=== PATIENT | male | born 1955 | race Caucasian/White ===

== ENCOUNTER 2021-09-01 11:39 | Emergency (ER) | payer OTHER, SELFPAY ==
--- NOTE | ~2021-09-01 | XR_ITS ---
XR shoulder RT min 2V DATE: 09/01/2021 12:17 INDICATION: Fall off of ladder. Limited range of motion of right shoulder TECHNIQUE: 4 views COMPARISON: None FINDINGS: Diffuse osteopenia. There is mild degenerative change at the right acromioclavicular joint. There is rotator cuff atrophy. There is mild osteoarthritis at the right glenohumeral joint. No fracture, dislocation, periosteal reaction or bone destruction. Old healed right ninth and 10th rib fractures. IMPRESSION: Degenerative change at right, clavicular joint Mild glenohumeral osteophytosis Right rotator cuff atrophy Osteopenia Old right rib fractures Reviewed, dictated and finalized at location B.
--- NOTE | 2021-09-01 11:41 | ED.UPPEXIN ---
HPI - Extremity Injury (Upper) General Chief Complaint: Extremity Injury, Upper Stated Complaint: Right shoulder pain Time Seen by Provider: 09/01/21 11:41 Source: patient and RN notes reviewed History of Present Illness HPI narrative: Patient is a 65-year-old male who presents the urgent care with complaints of right shoulder pain after falling off a ladder. Patient states that he was coming down off the ladder after cleaning his RV and was approximately 8 to 10 feet high in the air. Patient states he missed a rung and fell onto the gravel onto his right shoulder. Patient states the incident occurred on Wednesday. Denies of any confusion, nausea or vomiting since the incident. Patient states that he did not hit his head or lose consciousness. Patient has not been taking anything [id number] for his symptoms. No other complaints. No acute distress noted. Patient aware of the plan of care. Some parts of this dictation were generated by voice recognition software and may contain typographical and/or grammatical inaccuracies. Related Data Allergies Allergy/AdvReac Type Severity Reaction Status Date / Time No Known Allergies Allergy Unverified 12/24/14 14:28 Review of Systems Review of Systems: CONSTITUTIONAL: Denies fever, chills, or sweats. EYES: Denies visual changes, redness, or discharge. ENT: Denies rhinorrhea, congestion, sore throat, or otalgia. CARDIOVASCULAR: Denies chest pain, palpitations, or edema. RESPIRATORY: Denies cough or dyspnea. GASTROINTESTINAL: Denies abdominal pain, nausea, vomiting, or diarrhea. GENITOURINARY: Denies dysuria or hematuria. SKIN: Denies rash or itching. MUSCULOSKELETAL: Reports of right shoulder pain NEUROLOGIC: Denies headache, numbness, or weakness. All other systems reviewed are negative, except as documented in HPI. PMFSH Comments At the time of my signature, I reviewed and agree with the nursing past medical, surgical, social, and family history. There is no relevant family history pertinent to the patient complaint. Exam Narrative: GENERAL: This is a well-nourished, well-developed patient, in no apparent distress. HEAD: normocephalic, atraumatic. EYES: PERRL. Sclera clear/white. Vision is grossly intact. EARS: External ears normal NOSE: External nose normal with no obvious nasal discharge, nares without redness, no rhinorrhea. THROAT: Mucous membranes moist NECK: Neck supple SKIN: warm, intact with no suspicious lesions or rash, good texture and turgor. NEURO: awake, alert, and oriented to person, place and time. There were no obvious focal neurologic abnormalities. EXTREMITIES: Range of motion to right upper extremity limited due to pain. Unable to lift, without assistance, above 30 degrees. Exacerbated pain upon reach. No obvious dislocation to right upper extremity/shoulder. Positive strong right radial pulse with capillary refill less than 2 seconds. Course Course Level of Care: Express Care Visit Vital Signs Vital signs: Vital Signs Temperature 99.2 F 09/01/21 11:48 Pulse Rate 91 09/01/21 11:48 Respiratory Rate 16 09/01/21 11:48 Blood Pressure 177/105 H 09/01/21 11:48 Pulse Oximetry 99 09/01/21 11:48 Temperature 99.2 F 09/01/21 11:48 Pulse Rate 91 09/01/21 11:48 Respiratory Rate 16 09/01/21 11:48 Blood Pressure 177/105 H 09/01/21 11:48 Pulse Oximetry 99 09/01/21 11:48 Reviewed-patient is informed that they may have pre-hypertension or hypertension based on a blood pressure reading in the department. I recommend the patient call the primary care provider listed on their discharge instructions or a physician of their choice this week to arrange follow-up for further evaluation of possible pre-hypertension or hypertension. MDM - Extremity Injury (Upper) MDM Narrative Medical decision making narrative: Reviewed x-ray results with the patient. Extensively went over the impression of the x-ray. Patient is aware that the radiologist
[2021-09-01 11:48] VITALS: BP 177/105; PULSE 91; RESP 16; TEMP 37.3; O2SAT 99
== END 2021-09-01 12:49 | disposition home or self-care (01) ==
PROVIDERS: Emergency Provider Nurse Practitioner Family; PCP Family Medicine
DX: M25.511 Pain in right shoulder (principal); W11.XXXA Fall on and from ladder, initial encounter
CPT/HCPCS: 73030; 99203; G0463

== ENCOUNTER 2021-09-04 08:54 | Outpatient (CLI) | payer OTHER, SELFPAY ==
[2021-09-04 19:08] LABS: Hematocrit 48.5 % (42.0-52.0); Hemoglobin 15.5 g/dL (14.0-18.0); Mean Corpuscular Hemoglobin 30.9 pg (26-34); Mean Corpuscular Volume 96.6 fl (80-100); Mean Platelet Volume 9.6 fl (7.4-10.4); Platelet Count Result 257 k/mm3 (150-375); Red Blood Count 5.02 M/mm3 (4.6-6.20); Red Cell Distribution Width 13.2 % (11.5-14.5); White Blood Count 11.2 K/mm3 (4.5-10.0)
[2021-09-04 20:44] LABS: Alanine Aminotransferase 28 U/L (6-50); Albumin Level 5.3 g/dL (3.5-5.1); Alkaline Phosphatase 84 U/L (38-126); Anion Gap 11 mmol/L (8-16); Aspartate Amino Transferase 28 U/L (17-59); Bilirubin,Total 0.4 mg/dL (0.2-1.3); Blood Urea Nitrogen 18 mg/dL (9-20); Calcium 10.2 mg/dL (8.4-10.2); Carbon Dioxide 23 mmol/L (22-30); Chloride 104 mmol/L (98-107); Cholesterol 237 mg/dL (0-200); Estimated Glomerular Filt Rate > 60; Glucose 123 mg/dL (65-110); HDL Direct 96 mg/dL; Potassium 4.4 mmol/L (3.4-5.0); Sodium 138 mmol/L (137-145); Triglycerides 97 mg/dL (<150)
[2021-09-04 20:56] LABS: LDL Cholesterol Direct 108 mg/dL
[2021-09-04 21:17] LABS: Prostate Specific Antigen 0.9 ng/mL (< OR = 4.0)
== END 2021-09-04 08:55 | disposition home or self-care (01) ==
PROVIDERS: PCP Family Medicine; Visit Provider Family Medicine
DX: Z00.00 Encounter for general adult medical examination without abnormal findings (principal); I10 Essential (primary) hypertension; Z12.5 Encounter for screening for malignant neoplasm of prostate
CPT/HCPCS: 36415; 80053; 80061; 84153; 85027; G0103

== ENCOUNTER 2021-09-11 10:19 | Outpatient (CLI) | payer OTHER, SELFPAY ==
[2021-09-11 20:02] LABS: Hemoglobin A1C 5.1 % (<5.7)
== END 2021-09-11 10:20 | disposition home or self-care (01) ==
PROVIDERS: PCP Family Medicine; Visit Provider Family Medicine
DX: R73.09 Other abnormal glucose (principal)
CPT/HCPCS: 36415; 83036

== ENCOUNTER 2021-10-01 07:48 | Outpatient (CLI) | payer OTHER, SELFPAY ==
--- NOTE | ~2021-10-01 | US_ITS ---
EXAMINATION: US aorta DATE: 10/01/2021 11:07 CDT INDICATION: Nicotine dependence TECHNIQUE: Grayscale, color Doppler, and pulsed Doppler images of the aorta and common iliac arteries were obtained. COMPARISON: None. FINDINGS: The proximal aorta measures 2.9 cm greatest sagittal dimension. The mid aorta measures 1.7 cm greates t sagittal dimension. The distal aorta measures 3.1 cm greatest sagittal dimension. The right common internal iliac artery measures 9 mm. The left common iliac artery measures 11 mm. IMPRESSION: 1. Infrarenal abdominal aortic aneurysm measuring 3.1 cm. Reviewed, dictated and finalized at location B.
--- NOTE | ~2021-10-01 | CT_ITS ---
EXAMINATION: CT lung screening DATE: 10/01/2021 08:29 INDICATION: Currently smoking. One pack a day. Personal history of tobacco dependence. TECHNIQUE: Computed tomography (CT) of the chest was performed without intravenous contrast. The dose -length product was 95.27 mGy-cm. Automated exposure control and iterative reconstruction technique w ere employed. COMPARISON: No prior studies for comparison. FINDINGS: Heart size normal. Right paratracheal lymphadenopathy measuring 1 cm short axis. There are calcified mediastinal lymph nodes, consistent with chronic granulomatous disease. No significant pleu ral or pericardial effusion. There are cholecystectomy clips in the upper abdomen. There is atheroscl erosis of the aorta and coronary arteries. There is a subsolid groundglass nodule in the right upper lobe measuring 2.2 cm. No endobronchial lesions. There is right middle and upper lobe groundglass opa [place] with right middle lobe atelectasis/scarring. There are subtle groundglass opacities in the salazar gula as well. No pneumothorax. Mild emphysema. No acute osseous abnormality. There is a focal ostial lysis in the body of L1 posteriorly to the left which may represent regional osteopenia. No other foc al lytic lesions are seen. IMPRESSION: 1. . Lung-RADS category 2: Benign appearance or behavior. Continue annual screening with noncontrast low-dose chest CT in 12 months. Reviewed, dictated and finalized at location B. IMPRESSION: 1. . Lung-RADS category 2: Benign appearance or behavior. Continue annual scree [place] with noncontrast low-dose chest CT in 12 months.
== END 2021-10-01 07:49 | disposition home or self-care (01) ==
PROVIDERS: PCP Family Medicine; Visit Provider Family Medicine
DX: Z87.891 Personal history of nicotine dependence (principal); I71.4 Abdominal aortic aneurysm, without rupture
CPT/HCPCS: 71271; 76775

== ENCOUNTER 2022-10-30 07:08 | Outpatient (CLI) | payer OTHER, SELFPAY ==
--- NOTE | ~2022-10-30 | US_ITS ---
EXAMINATION: US aorta DATE: 10/30/2022 08:30 INDICATION: Abdominal aortic aneurysm screening with risk factors of hypertension and personal histor y of nicotine dependence TECHNIQUE: Grayscale, color Doppler, and pulsed Doppler images of the aorta and common iliac arteries were obtained. COMPARISON: 10/01/2021 FINDINGS: The proximal aorta is suboptimally visualized measuring approximately 2.4 cm. The mid aorta measures 2.1 cm. Fusiform aneurysm of the infrarenal aorta which measures up to 3.5 cm in maximal diameter. Re view of prior ultrasound images demonstrate identical corresponding measurement. The right common katelynn ac artery measures 1.4 cm. The left common iliac artery measures 1.7 cm. The visualized proximal infe rior vena cava is normal. IMPRESSION: 1. Unchanged 3.5 cm fusiform infrarenal abdominal aortic aneurysm. Reviewed, dictated and finalized at location B.
--- NOTE | ~2022-10-30 | CT_ITS ---
CT Scan of the Chest without Contrast: Clinical Indication: Lung cancer screening, personal history of nicotine dependence Technique: Contiguous sections were acquired throughout the chest without intravenous contrast. Dose reduction technique was used on this scan by utilizing automated exposure control and iterative recon struction technique. The dose-length product (DLP) was 102.42 mGy-cm. COMPARISON: 10/01/2021 Findings: There is no evidence of any significant mediastinal, hilar or axillary lymphadenopathy. Calcified sub carinal lymph node present. Atherosclerotic calcifications of the aorta and coronary arteries are pre sent. There is no evidence of pleural or pericardial effusion. Bubbly, semisolid lesion in the right upper lobe is again present, mildly increased in size, with mil d interval increase in the solid and groundglass components as compared to prior exam. Images through the upper abdomen reveal no abnormalities. Impression: Lung RADS 4A: Suspicious. Bubbly, semisolid lesion in the right upper lobe is mildly increased in siz e, mild interval increase in the solid/groundglass components. Bronchovascular cell carcinoma is a co nsideration. 3 month follow-up CT recommended. Tissue sampling should also be considered at this time given interval growth. Reviewed, dictated and finalized at location M. Impression: Lung RADS 4A: Suspicious. Bubbly, semisolid lesion in the right upper lobe is m ildly increased in size, mild interval increase in the solid/groundglass compon ents. Bronchovascular cell carcinoma is a consideration. 3 month follow-up CT r ecommended. Tissue sampling should also be considered at this time given interv al growth.
== END 2022-10-30 07:09 | disposition home or self-care (01) ==
PROVIDERS: PCP Family Medicine; Visit Provider Family Medicine
DX: Z12.2 Encounter for screening for malignant neoplasm of respiratory organs (principal); Z87.891 Personal history of nicotine dependence; I71.40 Abdominal aortic aneurysm, without rupture, unspecified
CPT/HCPCS: 71271; 76775

== ENCOUNTER 2022-12-21 08:50 | Outpatient (CLI) | payer OTHER, SELFPAY ==
--- NOTE | 2022-12-17 08:42 | PC.NURSE ---
Pre Radiology instructions Report to the outpatient shaggy marie on date __12/21/22___ at time ___0900____ for procedure Time: __1100__ YOU MAY BE MONITORED AT HOSPITAL FOR UP TO 4 HOURS AFTER YOUR PROCEDURE. A visitor will be allowed to accompany the patient into the hospital. You and your visitor will be asked to self-screen and do not enter if you have any COVID symptoms. A mask is OPTIONAL within the hospital. Patients are to have no food or drink 8 hours prior to procedure time (0300 AM) Driving will be restricted after the procedure, you must have a person to drive you home. Labs will be drawn in preop area and once reviewed, you will be taken to radiology area for procedure. When the procedure is completed, you will be taken to outpatient where you will be monitored for several hours. You may have one visitor in this area. Other than holding anti-coagulants, patient may take other medication(s) as scheduled. Prior to your appointment date patients are instructed to hold anti-coagulants after discussing with ordering provider to stop. If unable to discontinue anti-coagulants please notify radiologist. ? No aspirin or warfarin (Coumadin) for 7 days prior to the procedure. ? No clopidogrel (Plavix), ticagrelor (Brilinta), prasugrel (Effient) or dabigatran (Pradaxa) for 5 days prior to the procedure. ? No rivaroxaban (Xarelto), apixaban (Eliquis), dipyridamole (Aggrenox or Persantine) or cilostazol (Pletal) for 2 days prior to the procedure. Medications to discontinue per physician: __N/A Date to take last dose: Please leave all valuables, including medications, at home the day of procedure. The hospital will not accept responsibility for valuables. Wear comfortable, loose fitting clothing.? Follow any additional instructions given to you from ordering provider. Telephone instructions given to ____PT and asked if any additional questions and then verbalized understanding. Patient advised to call scheduling provider office or registration scheduling [phone] if any additional questions.
[2022-12-17 08:43] VITALS: BMI 23.8
[2022-12-21] VITALS (9 sets, daily range): BP systolic 102–133; BP diastolic 74–92; PULSE 60–88; RESP 18–20; TEMP 36.2; O2SAT 100
--- NOTE | ~2022-12-21 | CT_ITS ---
EXAMINATION: CT biopsy lung w/imaging DATE: 12/21/2022 11:46 INDICATION: Right upper lobe nodule TECHNIQUE: The procedure including the risks and benefits was discussed with the patient. Risks discu ssed included infection, approximately 1/20 risk of symptomatic hemorrhage beyond mild hemoptysis, ap proximately 1/3 risk of pneumothorax, and approximately 1/10 risk of pneumothorax severe enough to wa rrant chest tube placement. The patient understood the risks and agreed to proceed. The patient was p laced supine. The skin overlying the anterior mid right lung was prepped and draped in sterile fashi on. Anesthetic was administered with 1% lidocaine subcutaneously. A 19 gauge outer needle was advan claudia under CT guidance to the lesion of interest. A 20 gauge core biopsy needle was then used to obtai n 5 core biopsy specimens. The needle was removed and the entry site was cleaned and dressed. There were no immediate complications. The dose-length product was 113.40 mGy-cm. FINDINGS: CT images demonstrate the outer needle tip adjacent to a 2.7 cm subsolid right upper lobe n odule. IMPRESSION: 1. Successful CT-guided biopsy of a 2.7 cm solid right upper lobe nodule. Reviewed, dictated and finalized at location A.
--- NOTE | ~2022-12-21 | XR_ITS ---
EXAMINATION: XR chest 1V DATE: 12/21/2022 11:43 INDICATION: Status post left upper lobe percutaneous lung biopsy TECHNIQUE: frontal view of the chest was obtained. COMPARISON: Chest CT dated 10/30/2022 FINDINGS: 4 similar nodular opacity in the right midlung zone consistent with localized pulmonary hemorrhage at the site of the biopsied left upper lobe nodule. Mild linear discoid atelectasis/scarring at the rig ht lung base. No other airspace opacities, pulmonary edema, pleural effusion or pneumothorax. The car diomediastinal silhouette is normal. IMPRESSION: 1. Small region of pulmonary hemorrhage in the right midlung zone at the site of the previously biops ied right upper lobe nodule. No pneumothorax. Reviewed, dictated and finalized at location A. IMPRESSION: 1. Small region of pulmonary hemorrhage in the right midlung zone at the site o f the previously biopsied right upper lobe nodule. No pneumothorax.
--- NOTE | ~2022-12-21 | XR_ITS ---
EXAMINATION: XR chest 1V portable DATE: 12/21/2022 12:37 INDICATION: Status post percutaneous right lung biopsy TECHNIQUE: frontal view of the chest was obtained. COMPARISON: Chest radiograph dated 12/21/2022 FINDINGS: Unchanged nodular opacity in the right midlung zone corresponding to small amount of pulmonary hemorr meenakshi surrounding the biopsied right upper lobe nodule. No new airspace opacities, pulmonary edema, pl eural effusion or pneumothorax. The cardiomediastinal silhouette is normal. IMPRESSION: 1. Unchanged small region of pulmonary hemorrhage at the site of the biopsied right upper lobe nodule . No pneumothorax. Reviewed, dictated and finalized at location A. IMPRESSION: 1. Unchanged small region of pulmonary hemorrhage at the site of the biopsied r ight upper lobe nodule. No pneumothorax.
--- NOTE | ~2022-12-21 | XR_ITS ---
EXAMINATION: XR chest 1V portable DATE: 12/21/2022 14:28 INDICATION: Status post right lung biopsy TECHNIQUE: frontal view of the chest was obtained. COMPARISON: Chest radiograph dated 12/21/2022 at 12:36 PM and 11:40 AM FINDINGS: Decreasing density of the focal airspace opacity in the right midlung zone corresponding to likely de creasing post biopsy hemorrhage such with the biopsied right upper lobe nodule of concern. Mild linea r discoid atelectasis at the right lung base. No other airspace opacities, pulmonary edema, pleural e ffusion or pneumothorax. The cardiomediastinal silhouette is normal. IMPRESSION: 1. Decreasing pulmonary hemorrhage at the biopsied right upper lobe nodule which is concerning for pr imary bronchogenic carcinoma. No pneumothorax. Reviewed, dictated and finalized at location A. IMPRESSION: 1. Decreasing pulmonary hemorrhage at the biopsied right upper lobe nodule whic h is concerning for primary bronchogenic carcinoma. No pneumothorax.
[2022-12-21 09:39] LABS: Mean Platelet Volume 8.2 fl (7.4-10.4); Platelet Count Result 212 k/mm3 (150-375)
[2022-12-21 09:51] LABS: Prothrombin Time 13.9 Seconds (11.1-14.7)
== END 2022-12-21 15:23 | disposition home or self-care (01) ==
PROVIDERS: PCP Family Medicine; Visit Provider Radiology Diagnostic Radiology
PROC: BB24ZZZ Computerized Tomography (CT Scan) of Bilateral Lungs (ICD-10-PCS; CPT 32408; principal; 2022-12-21 11:00)
DX: Z01.818 Encounter for other preprocedural examination (principal)
CPT/HCPCS: 32408; 36415; 71045; 85049; 85610; 88305

== ENCOUNTER 2023-01-14 09:14 | Outpatient (CLI) | payer OTHER, SELFPAY ==
--- NOTE | ~2023-01-14 | PE_ITS ---
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 9.115 mCi of 18-fluorodeoxyglucose (18-FDG) was adminis tered i.v. Low dose computed tomography (CT) images were acquired from the base of the brain to the p roximal thighs for attenuation correction and anatomic localization. Positron emission tomography (PE T) images were acquired in the same distribution beginning 65 minutes after injection. The dose-lengt h product (DLP) was 607.51 mGy-cm. COMPARISON: 10/30/2022 FINDINGS: Head/neck: No abnormal FDG uptake is identified. FDG activity in the extraocular muscles and oral cav ity without suspicious CT correlate is likely physiologic. Chest: There is an approximately 3.3 x 2.7 cm part solid nodule of the right upper lobe which demonst rates low-level FDG uptake (SUV max 2.1), consistent with biopsy-proven adenocarcinoma in situ. No ad ditional abnormal FDG uptake is identified. There is a mildly enlarged right lower paratracheal lymph node without abnormal FDG uptake. Calcified subcarinal lymph nodes are consistent with old granuloma tous disease. There is calcified coronary artery atherosclerosis decreased FDG uptake in the interven tricular septum could reflect prior myocardial infarction. No pleural effusion or pneumothorax. There is minimal dependent atelectasis of the right lower lobe. Abdomen/pelvis/proximal thighs: Physiologic FDG activity is present in the bowel and urinary tract. N o abnormal FDG uptake is identified. Changes of cholecystectomy are noted. The liver, spleen, pancrea s, and adrenal glands are normal. There is a 1.5 cm cyst of the right kidney. The left kidney is unre markable. No pathologically enlarged abdominal or pelvic lymph nodes are identified. No free intraper itoneal gas or evidence of bowel obstruction. There is a 3.6 cm fusiform infrarenal abdominal aortic aneurysm. There is calcified atherosclerosis of the aorta and many of the other arteries. Musculoskeletal: No abnormal FDG uptake is identified. IMPRESSION: 1. 3.3 cm part solid nodule of the right upper lobe with low-level FDG uptake, consistent with biopsy -proven adenocarcinoma in situ. No evidence of metastatic disease. 2. 3.6 cm fusiform infrarenal abdominal aortic aneurysm. 3. Possible prior myocardial infarction involving the interventricular septum. Reviewed, dictated and finalized at location B. IMPRESSION: 1. 3.3 cm part solid nodule of the right upper lobe with low-level FDG uptake, consistent with biopsy-proven adenocarcinoma in situ. No evidence of metastatic disease. 2. 3.6 cm fusiform infrarenal abdominal aortic aneurysm. 3. Possible prior myocardial infarction involving the interventricular septum.
[2023-01-14 09:50] LABS: Glucose Point of Care 106 mg/dl (65-105)
== END 2023-01-14 09:15 | disposition home or self-care (01) ==
PROVIDERS: PCP Family Medicine; Visit Provider Family Medicine
DX: C34.11 Malignant neoplasm of upper lobe, right bronchus or lung (principal); R91.1 Solitary pulmonary nodule; I71.40 Abdominal aortic aneurysm, without rupture, unspecified
CPT/HCPCS: 78815; A9552

== ENCOUNTER 2023-01-20 08:36 | Outpatient (CLI) | payer OTHER, SELFPAY ==
--- NOTE | 2023-01-20 12:21 | WPDPFTINT ---
PFT Procedure Performed PFT Procedure Performed Plethysmography (Lung Vol) Diffusing Cap (DLCO) Flow Vol Loop Spirometry w/o Bronchodil PFT Interpretation This is a pulmonary function test with spirometry, plethysmography and diffusing capacity. The test was performed and results interpreted in accordance with the 2019 and 2005 ATS/ERS Task Force guidelines respectively using the Global Lung Function Initiative-2012 reference equations. Patient demonstrated good effort and cooperation. Reproducibility criteria were met. The quality of the spirometry maneuver was Grade A. Findings: Spirometry: The contour the inspiratory and expiratory flow tracing are normal. The FVC is 3.24 L, 70% predicted. The FEV1 is 2.00 L, 57% predicted. The FEV1: FVC ratio 62%. Plethysmography: The total lung capacity is 6.36 L, 86% predicted. The functional residual capacity is 3.74 L, 94% predicted. The residual volume is 3.12 L, 124% predicted. Diffusing capacity: The diffusing capacity unadjusted for hemoglobin and carboxyhemoglobin is 15.8, 58% predicted. The diffusing capacity adjusted for alveolar volume is 2.86, 74% predicted. Impression: There is a moderately severe obstructive abnormality. The lung volumes are normal. The diffusing capacity unadjusted for hemoglobin and carboxyhemoglobin is moderately decreased and normalizes when adjusted for alveolar volume. There are no prior studies for comparison
== END 2023-01-20 08:37 | disposition home or self-care (01) ==
LOC: ANHPFT 08:37
PROVIDERS: PCP Family Medicine; Visit Provider Internal Medicine Hematology & Oncology
DX: C34.91 Malignant neoplasm of unspecified part of right bronchus or lung (principal); R94.2 Abnormal results of pulmonary function studies
CPT/HCPCS: 94060; 94375; 94726; 94729

== ENCOUNTER 2023-03-08 15:39 | Outpatient (CLI) | payer OTHER, SELFPAY ==
--- NOTE | ~2023-03-08 | XR_ITS ---
EXAMINATION: XR chest 2V DATE: 03/08/2023 15:58 INDICATION: Right upper lobe mass TECHNIQUE: PA and lateral views of the chest were obtained. COMPARISON: Chest radiograph dated 12/21/2022 FINDINGS: Decrease in size of a previous a 4.8 cm, currently 2.2 cm nodular opacity at the lateral right midlun g zone corresponding to a biopsy-proven right upper lobe lung cancer. Dense opacity right lower lung zone consistent with an at least small right pleural effusion which also extends over the right apex. Streaky right basilar atelectasis. Left lung remains clear. No pulmonary edema, pneumothorax or left -sided pleural effusion. Heart size is normal. IMPRESSION: 1. Opacities in the right lower lung zone consistent with at least small right pleural effusion and a ssociated right basilar atelectasis although pneumonia not excludable. 2. Decrease in size of a nodular opacity right midlung zone corresponding to biopsy-proven right uppe r lobe lung cancer. Reviewed, dictated and finalized at location A. [employer] IMPRESSION: 1. Opacities in the right lower lung zone consistent with at least small right pleural effusion and associated right basilar atelectasis although pneumonia no t excludable. 2. Decrease in size of a nodular opacity right midlung zone corresponding to bi opsy-proven right upper lobe lung cancer.
== END 2023-03-08 15:40 | disposition home or self-care (01) ==
PROVIDERS: PCP Family Medicine
DX: R91.8 Other nonspecific abnormal finding of lung field (principal)
CPT/HCPCS: 71046

== ENCOUNTER 2024-01-19 09:30 | Outpatient (CLI) | payer OTHER, SELFPAY ==
--- NOTE | ~2024-01-19 | CT_ITS ---
Clinical Indication: Lung cancer CT Scan of the Chest with Contrast: Technique: Contiguous sections were acquired throughout the chest after intravenous administration of 75 cc of Omnipaque 350. Dose reduction technique was used on this scan by utilizing automated exposu re control and iterative reconstruction technique. The dose-length product (DLP) was 238.85 mGy-cm. COMPARISON: 10/30/2022 Findings: Mildly enlarged right paratracheal lymph nodes are present, probably mildly increased from prior exam . There is no filling defect in the pulmonary arterial tree to suggest pulmonary embolus. There is no evidence of aortic dissection or aneurysm. No pericardial effusion. Small right pleural effusion present, possibly partially loculated superiorly. No left pleural effusi on. Status post right upper lobectomy. There is associated postoperative distortion of the right lung. No suspicious pulmonary nodules are identified. Left lung clear. Images through the upper abdomen reveal no abnormalities. Impression: Status post right upper lobectomy. Small right pleural effusion, possibly partially loculated superiorly. Mildly enlarged right paratracheal lymph nodes, probably mildly increased from prior exam. There are nonspecific. Consider follow-up exam as indicated. Reviewed, dictated and finalized at [facility]. Impression: Status post right upper lobectomy. Small right pleural effusion, possibly partially loculated superiorly. Mildly enlarged right paratracheal lymph nodes, probably mildly increased from prior exam. There are nonspecific. Consider follow-up exam as indicated.
[2024-01-19 09:58] LABS: Estimated Glomerular Filt Rate > 60
== END 2024-01-19 09:31 | disposition home or self-care (01) ==
PROVIDERS: PCP Family Medicine; Visit Provider Family Medicine
DX: C34.11 Malignant neoplasm of upper lobe, right bronchus or lung (principal); Z98.890 Other specified postprocedural states; Z90.2 Acquired absence of lung [part of]; R59.0 Localized enlarged lymph nodes
CPT/HCPCS: 71260; Q9967

== ENCOUNTER 2024-02-17 10:17 | Outpatient (CLI) | payer OTHER, SELFPAY ==
[2024-02-17 18:48] LABS: Hematocrit 43.8 % (42.0-52.0); Hemoglobin 13.7 g/dL (14.0-18.0); Mean Corpuscular HGB Conc 31.3 g/dl (32-36); Mean Corpuscular Hemoglobin 29.5 pg (26-34); Mean Corpuscular Volume 94.2 fl (80-100); Mean Platelet Volume 8.6 fl (7.4-10.4); Platelet Count Result 244 k/mm3 (150-375); Red Blood Count 4.65 M/mm3 (4.6-6.20); Red Cell Distribution Width 13.9 % (11.5-14.5); White Blood Count 7.6 K/mm3 (4.5-10.0)
[2024-02-17 19:57] LABS: Alanine Aminotransferase 16 U/L (6-50); Albumin Level 4.5 g/dL (3.5-5.1); Alkaline Phosphatase 88 U/L (38-126); Anion Gap 9 mmol/L (4-12); Aspartate Amino Transferase 37 U/L (17-59); Bilirubin,Total 0.6 mg/dL (0.2-1.3); Blood Urea Nitrogen 11 mg/dL (9-20); Calcium 9.6 mg/dL (8.4-10.2); Carbon Dioxide 29 mmol/L (22-30); Chloride 103 mmol/L (98-107); Cholesterol 185 mg/dL (0-200); Estimated Glomerular Filt Rate > 60; Glucose 94 mg/dL (65-110); HDL Direct 57 mg/dL; Potassium 4.1 mmol/L (3.4-5.0); Sodium 141 mmol/L (137-145); Triglycerides 133 mg/dL (<150)
[2024-02-17 20:08] LABS: LDL Cholesterol Direct 81 mg/dL
[2024-02-17 20:27] LABS: Prostate Specific Antigen 1.8 ng/mL (< OR = 4.0)
== END 2024-02-17 10:18 | disposition home or self-care (01) ==
PROVIDERS: PCP Family Medicine; Visit Provider Family Medicine
DX: C34.91 Malignant neoplasm of unspecified part of right bronchus or lung (principal); D72.829 Elevated white blood cell count, unspecified; F17.200 Nicotine dependence, unspecified, uncomplicated; I10 Essential (primary) hypertension; R91.8 Other nonspecific abnormal finding of lung field; Z00.00 Encounter for general adult medical examination without abnormal findings; Z12.5 Encounter for screening for malignant neoplasm of prostate; E55.9 Vitamin D deficiency, unspecified
CPT/HCPCS: 36415; 80053; 80061; 82306; 84153; 85027; G0103

== ENCOUNTER 2024-07-13 13:00 | Inpatient (IN) | payer OTHER, SELFPAY ==
[2024-07-13] VITALS (31 sets, daily range): BP systolic 79–121; BP diastolic 61–96; PULSE 100–138; RESP 18–48; TEMP 36.4; O2SAT 78–100; BMI 19.8
--- NOTE | ~2024-07-13 | XR_ITS ---
EXAMINATION: XR chest 1V portable DATE: 07/17/2024 06:06 INDICATION: Pneumonia. Respiratory failure. TECHNIQUE: A single frontal view of the chest was obtained. COMPARISON: Chest single view 07/16/2024, chest CT 07/13/2024 FINDINGS: The patient is rotated to his right. There is volume loss of right hemithorax from right up per lobectomy. There are airspace opacities at right lung apex. There is a diffuse interstitial patte rn in the lungs. There are scattered small airspace opacities in the lungs. There are small pleural e ffusions, loculated on the right. No pneumothorax. The heart size is normal. The endotracheal tube ti p is 3.4 cm above the pauly. The nasogastric tube tip is in the stomach. A right internal jugular ce ntral venous catheter is seen with tip at the superior cavoatrial junction. IMPRESSION: 1. Stable diffuse lung disease, consistent with pulmonary edema versus pneumonia. 2. Stable small pleural effusions, loculated on the right. Reviewed, dictated and finalized at location A. IMPRESSION: 1. Stable diffuse lung disease, consistent with pulmonary edema versus pneumoni a. 2. Stable small pleural effusions, loculated on the right.
--- NOTE | ~2024-07-13 | XR_ITS ---
XR chest 2V Ordering provider: Hernan Campa MD History: 68 years Male with . sob . Comparison: March 08, 2023 FINDINGS: MEDIASTINUM: The cardiac silhouette is not enlarged. LUNGS: No pneumothorax. Bilateral opacifications seen in the mid and lower zone suggestive of pneumon ia. Bilateral pleural effusions also seen. Interstitial thickening is seen bilaterally. Opacification in the right apical area unchanged from previous examination most likely effusion. OTHER: No free air under the diaphragm. IMPRESSION: Bilateral pneumonia with pleural effusion. Superimposed pulmonary edema is not excluded. Reviewed, dictated and finalized at location A.
--- NOTE | ~2024-07-13 | XR_ITS ---
EXAMINATION: XR chest 1V portable DATE: 07/18/2024 05:56 INDICATION: Pneumonia. Respiratory failure. TECHNIQUE: A single frontal view of the chest was obtained. COMPARISON: Chest single view 07/17/2024 FINDINGS: There is volume loss of right hemithorax from right upper lobectomy. There are airspace and interstitial opacities throughout the lungs bilaterally with architectural distortion. There are sma ll pleural effusions, loculated on the right including an apical component. No pneumothorax. The hear t size is normal. The endotracheal tube tip is 2.2 cm above the pauly. The nasogastric tube tip is i n the stomach. A right internal jugular central venous catheter is seen with tip at the superior cavo atrial junction. IMPRESSION: 1. Stable diffuse lung disease, consistent with pulmonary edema versus pneumonia. 2. Possible small pleural effusions, loculated on the right. Reviewed, dictated and finalized at location A. IMPRESSION: 1. Stable diffuse lung disease, consistent with pulmonary edema versus pneumoni a. 2. Possible small pleural effusions, loculated on the right.
--- NOTE | ~2024-07-13 | XR_ITS ---
Portable chest x-ray Comparison: 07/13/2024 Clinical History: Shortness of breath Findings: Stable right apical consolidation which could reflect loculated effusion or other consolid ation. Small layering bilateral pleural effusions are present at the lung bases. Diffuse interstitial disease present. Cardiomediastinal silhouette is stable. Bones and soft tissues are unremarkable. Impression: No interval change. Stable diffuse interstitial disease with small layering bilateral pleural effusio ns. Additional stable loculated right apical effusion versus other stable right apical consolidation. Reviewed, dictated and finalized at location . Impression: No interval change. Stable diffuse interstitial disease with small layering virginie ateral pleural effusions. Additional stable loculated right apical effusion versus other stable right api viviane consolidation.
--- NOTE | ~2024-07-13 | CT_ITS ---
Non-contrast CT scan of the Abdomen and Pelvis Clinical indication: Weight loss Technique: 2.5 mm axial scans were obtained through the abdomen and pelvis without intravenous or or al contrast. Dose reduction technique was used on this scan by utilizing automated exposure control a nd iterative reconstruction technique. The dose-length product (DLP) was 597.57 mGy-cm. Findings: Images through the lung bases reveal moderate layering left pleural effusion. There is als o moderate right pleural effusion, likely loculated, with thickening of the pleural lining. There is extensive interstitial thickening throughout the visualized lung bases with areas of consolidation at the right middle lobe and lingula.. The liver, spleen, pancreas, kidneys, and adrenals appear normal. Cholecystectomy clips are present. There is atherosclerotic calcification of the aorta an iliac vessels, with 4.0 cm infrarenal abdomina l aortic aneurysm.. There is no evidence of bowel obstruction. Images through the pelvis were performed. There is no evidence of ascites or lymphadenopathy. No sign ificant abnormality of urinary bladder present, with Red catheter in place. No pelvic mass evident. No ascites. There is probable ill-defined ill-defined mixed lytic sclerotic lesion in the L3 vertebral body with Schmorl's node, less likely pathologic fracture. Additional sclerotic lesion present in the L4 verteb ral body with probable small lesions in the L5 vertebral body. Suspected subtle heterogeneous lesions present in the T10, T11 vertebral bodies, questionable additional smaller lesions. Sclerotic lesion present in the left sacrum (axial image 117). Impression: Moderate layering left pleural effusion. Moderate right pleural effusion with thickening of the pleur al lining and loculated appearance. Correlate for chronic effusion or empyema. Diffuse interstitial thickening at the lung bases. Findings represent diffuse interstitial edema vers us less likely possibility of lymphangitic metastasis given relatively smooth morphology. Irregular consolidation right middle lobe and lingula which could reflect atelectasis, more confluent edema, or pneumonia. Underlying neoplasm not completely excluded. Findings suspicious for metastatic bone disease, as detailed above. 4.0 cm infrarenal abdominal aortic aneurysm. Reviewed, dictated and finalized at location M. Impression: Moderate layering left pleural effusion. Moderate right pleural effusion with t hickening of the pleural lining and loculated appearance. Correlate for chronic effusion or empyema. Diffuse interstitial thickening at the lung bases. Findings represent diffuse i nterstitial edema versus less likely possibility of lymphangitic metastasis giv en relatively smooth morphology. Irregular consolidation right middle lobe and lingula which could reflect atele ctasis, more confluent edema, or pneumonia. Underlying neoplasm not completely excluded. Findings suspicious for metastatic bone disease, as detailed above. 4.0 cm infrarenal abdominal aortic aneurysm.
--- NOTE | ~2024-07-13 | XR_ITS ---
CHEST RADIOGRAPH CLINICAL HISTORY: INTUBATED, RESPIRATORY FAILURE, PNEUMONIA . . COMPARISON: 07/15/2024 TECHNIQUE: Single portable view of the chest. FINDINGS Right internal jugular central venous catheter tip projecting over the proximal right atrium Endotrac heal tube is identified with its tip projecting approximately 3 cm above the base of the pauly. Nasogastric tube identified with its tip extending below the left hemidiaphragm, presumably within th e stomach. The remainder of the cardiomediastinal silhouette is otherwise unremarkable. Blunting of the right costophrenic sulcus suggesting a small right-sided pleural effusion. Volume loss within the right hemithorax, unchanged from prior, consistent with patient's history. Redemonstration of coarse interstitial markings, consistent with patient's known interstitial lung di sease. The remainder of the lungs are clear. IMPRESSION: Small right-sided pleural effusion. Supportive lines and tubes in good radiographic position. Reviewed, dictated and finalized at location A.
--- NOTE | ~2024-07-13 | XR_ITS ---
XR chest 1V portable 07/15/2024 06:15 Indication: Pneumonia. Respiratory failure. Procedure: AP portable chest Comparison: 07/14/2024 Findings: Endotracheal tube tip 3.2 cm above the pauly. NG tube in the stomach. Right IJ central salazar e tip in the SVC. Diffuse bilateral interstitial infiltrates are compatible with edema. Small right p leural effusion. Right apical pleural capping unchanged. No pneumothorax. No acute osseous abnormalit y. Impression: 1: Stable interstitial edema with small right pleural effusion and a right apical pleural capping. Tu bes and lines not significantly changed. Reviewed, dictated and finalized at location B. Impression: 1: Stable interstitial edema with small right pleural effusion and a right apic al pleural capping. Tubes and lines not significantly changed.
--- NOTE | ~2024-07-13 | XR_ITS ---
Portable chest x-ray Comparison: 07/14/2024 at 7:22 AM Clinical History: Line placement Findings: Endotracheal tube, NG tube, and right IJ line are present, in satisfactory positions. No p neumothorax. There is more confluent focal haziness the left midlung, stable back or diffuse intersti tial disease. Stable consolidation right lung apex. Small pleural effusions. Cardiomediastinal silho uette is stable. Bones and soft tissues are unremarkable. Impression: Status post placement of support tubes, as above, in satisfactory position. No pneumothorax. Small pleural effusions and diffuse interstitial disease are unchanged. Stable consolidation right dawn ng apex, which could reflect loculated effusion. More confluent haziness left midlung, which could reflect focal pneumonia or worsening pulmonary lyric a. Reviewed, dictated and finalized at [facility]. Impression: Status post placement of support tubes, as above, in satisfactory position. No pneumothorax. Small pleural effusions and diffuse interstitial disease are unchanged. Stable consolidation right lung apex, which could reflect loculated effusion. More confluent haziness left midlung, which could reflect focal pneumonia or wo rsening pulmonary edema.
--- NOTE | ~2024-07-13 | XR_ITS ---
XR chest 1V portable Ordering provider: Jai Juan MD History: 68 years Male with . respiratory failure . Comparison: July 18, 2024 FINDINGS: MEDIASTINUM: The cardiac silhouette is not enlarged. Endotracheal tube is seen with the tip 3 cm abov e the pauly. Right central line with the tip overlying the superior vena cava. Nasogastric tube is s een extending to the fundus of the stomach. LUNGS: No pneumothorax. Opacification in both upper and lower lobes more on the right side with inter stitial thickening suggestive of pneumonia versus edema. Underlying fibrotic changes are noted. Right apical opacification is seen suggestive of pleural effusion. OTHER: No free air under the diaphragm. IMPRESSION: No significant change from previous examination. Reviewed, dictated and finalized at location A.
--- NOTE | ~2024-07-13 | XR_ITS ---
Upright portable view of the abdomen Clinical history: NG tube placement Findings: NG tube in satisfactory position. Bowel gas pattern is nonspecific. No evidence for obstruc tion or free air. No abnormal mass lesion or calcification is seen. Osseous structures are intact. Impression: NG tube in satisfactory position. Reviewed, dictated and finalized at location . Impression: NG tube in satisfactory position.
--- NOTE | ~2024-07-13 | CT_ITS ---
EXAMINATION: CTA chest PE protocol DATE: 07/13/2024 23:34 CDT INDICATION: Tachycardia and hypoxia TECHNIQUE: Computed tomographic angiography (CTA) of the chest was performed with 100 mL Omnipaque-35 0 intravenous contrast. The dose-length product was 294.89 mGy-cm. Maximum intensity projection 3D-re constructions of the aorta and other arteries were constructed by the technologist on a separate work station. COMPARISON: 01/19/2024 FINDINGS/OBSERVATIONS: PULMONARY ARTERIES: No filling defect is identified within the main or proximal pulmonary artery. The main pulmonary artery is not enlarged. THORACIC AORTA: No aneurysmal dilatation or dissection is present. The great vessels are intact LUNGS: Postoperative change within the right upper lobe and right hilum. Large bilateral pleural effusions (left greater than right) with adjacent compressive atelectasis. Th e pleural effusion within the right lung base demonstrates a thickened wall, for which an empyema is suspected. Interstitial thickening is detected bilaterally with patchy groundglass opacification, suggesting pul monary vascular congestion. MEDIASTINUM: No morphologically suspicious or pathologically enlarged lymph nodes are identified with in the mediastinum or bilateral axilla. Findings suggesting post radiation change is identified within the parenchyma adjacent to the mediast inum, increased from prior examination dated 01/19/2024.. BONES OF THE CHEST: No acute fracture. No significant degenerative disease. No lytic or blastic lesions. HEART: The heart is of normal size, without pericardial effusion. IMPRESSION: No pulmonary embolus. No thoracic aortic dissection. Postoperative change within the right upper lobe and right hilum. Large bilateral pleural effusions (left greater than right) with adjacent compressive atelectasis. Thickened wall surrounding the fluid within the right lung base suggests empyema. Additional findings suggesting pulmonary vascular congestion. Reviewed, dictated and finalized at location A. IMPRESSION: No pulmonary embolus. No thoracic aortic dissection. Postoperative change within the right upper lobe and right hilum. Large bilateral pleural effusions (left greater than right) with adjacent compr essive atelectasis. Thickened wall surrounding the fluid within the right lung base suggests empyem a. Additional findings suggesting pulmonary vascular congestion.
--- NOTE | ~2024-07-13 | XR_ITS ---
XR chest 1V portable 07/15/2024 10:38 Indication: Respiratory distress Procedure: AP view of the chest Comparison: 07/15 and 07/14/2024 Findings: Endotracheal tube tip 3.8 cm above the pauly. NG tube in the stomach. Right IJ central salazar e tip in the cavoatrial junction. Borderline heart size. Chronic right apical pleural thickening. Sma ll pleural effusions. NG tube in the stomach. Impression: 1: Stable pulmonary edema. Small pleural effusions. Reviewed, dictated and finalized at location B. Impression: 1: Stable pulmonary edema. Small pleural effusions.
--- NOTE | ~2024-07-13 | XR_ITS ---
CHEST RADIOGRAPH CLINICAL HISTORY: right pleural effusion s/p thoracentesis . COMPARISON: Previous examination performed on the same day, 8 hours earlier. TECHNIQUE: Single portable view of the chest. FINDINGS Right internal jugular central venous catheter tip projecting over the cavoatrial junction. Endotracheal tube is identified with its tip projecting approximately 2.1cm above the base of the car harjit. Nasogastric tube identified with its tip extending below the left hemidiaphragm, presumably within th e stomach. The remainder of the cardiomediastinal silhouette is otherwise unremarkable. Decreased left-sided pleural effusion when compared with previous examination. Blunting of the right costophrenic sulcus suggesting a small right-sided pleural effusion. The left hemithorax demonstrates increased interstitial markings, but is otherwise clear. IMPRESSION: No left-sided pneumothorax following left-sided thoracentesis, as detailed above. Supportive lines an d tubes in good position. Reviewed, dictated and finalized at location A. IMPRESSION: No left-sided pneumothorax following left-sided thoracentesis, as detailed abov e. Supportive lines and tubes in good position.
--- NOTE | ~2024-07-13 | XR_ITS ---
EXAMINATION: XR chest 1V portable DATE: 07/19/2024 05:46 INDICATION: Pneumonia. Respiratory failure. TECHNIQUE: A single frontal view of the chest was obtained. COMPARISON: Chest single view 07/18/2024 FINDINGS: There is volume loss of right hemithorax from right upper lobectomy. There are airspace and interstitial opacities throughout the lungs bilaterally with architectural distortion. There are sma ll pleural effusions, loculated on the right including an apical component. No pneumothorax. The hear t size is normal. The endotracheal tube tip is 2.3 cm above the pauly. The nasogastric tube tip is i n the stomach. A right internal jugular central venous catheter is seen with tip at the superior cavo atrial junction. IMPRESSION: 1. Stable diffuse lung disease, consistent with pulmonary edema versus pneumonia. 2. Stable small pleural effusions, loculated on the right. Reviewed, dictated and finalized at location A. IMPRESSION: 1. Stable diffuse lung disease, consistent with pulmonary edema versus pneumoni a. 2. Stable small pleural effusions, loculated on the right.
--- NOTE | ~2024-07-13 | US_ITS ---
EXAMINATION: US thoracentesis DATE: 07/14/2024 17:12 INDICATION: Large left pleural effusion TECHNIQUE: The procedure and its risks and benefits were discussed with the patient. Potential risks discussed included bleeding, infection, and pneumothorax. The patient understood the risks and agreed to proceed. The skin was prepped and draped in sterile fashion. 1% lidocaine was used for local anes thesia. Under ultrasound guidance, a 5 Fr catheter with trochar was advanced into the left pleural ef fusion. Fluid was aspirated. The catheter was removed, and a dressing was applied. There were no imme diate complications. FINDINGS: Ultrasound images demonstrate a small to moderate-sized left pleural effusion and the catheter within the fluid. IMPRESSION: 1. Successful ultrasound-guided thoracentesis yielding 1000 mL of vic-colored fluid. Reviewed, dictated and finalized at location A. IMPRESSION: 1. Successful ultrasound-guided thoracentesis yielding 1000 mL of vic-colore d fluid.
--- NOTE | 2024-07-13 13:12 | ECG_ITS ---
Test Date: 2024-07-13 13:17:09 Measurements Intervals [place] Rate: 118 P: 41 FL: 144 QRS: 16 QRSD: 88 T: 70 QT: 289 QTc: 405 Interpretive Statements SINUS TACHYCARDIA LEFT ATRIAL ENLARGEMENT [-0.15mV P WAVE IN V1/V2] NONSPECIFIC ST & T-WAVE ABNORMALITY No previous ECG available for comparison Electronically Signed On 07-13-2024 13:22:14 CDT by Robert Mathews M.D.
--- OUTSIDE RECORDS SUMMARY | 2024-07-13 13:25 | XMS_ITS | CCD ---
Author Name Interface, [email or web address] Address [employer] breakthroughs. [employer] victories. [address] Oncology Address [employer] [place] [address] Care Team Providers Care Direct Response Consultant Name Role Phone Hong Padilla Unavailable Unavailable Care Plan Reason for Visit Diagnostic Results Social History
--- OUTSIDE RECORDS SUMMARY | 2024-07-13 13:25 | XMS_ITS | CCD ---
Author Name Interface, [id number] Address More breakthroughs. More victories. [address] Oncology Address More breakthroughs[place] [address] Care Team Providers Care Resource Paraprofessional Name Role Phone Hong Padilla Unavailable Unavailable Care Plan Reason for Visit Diagnostic Results Social History
--- OUTSIDE RECORDS SUMMARY | 2024-07-13 13:25 | XMS_ITS | Clinical Summary ---
Author Organization [facility] Address [address] [place] [address] Phone Care Team Providers Care Range Mechanic Name Role Phone Darrell Villela MD Primary Care Provider [phone] Allergies No known active allergies Medications amLODIPine (NORVASC) 5 MG Tablet Take 5 mg by mouth daily. Active Active Problems No known active problems Family History Medical History Relation Name Comments Cancer Father lung Heart Disease Mother Relation Name Status Comments Father Mother Alive Social History Tobacco Use Types Packs/Day Years Used Date Smoking Tobacco: Every Day Cigarettes 1 40 Smokeless Tobacco: Never Alcohol Use Standard Drinks/Week Comments Yes 12 (1 standard drink = 0.6 oz pu re alcohol) Sexually Active Control Partners Comments Yes Female Sex and Gender Information Value Date Recorded Sex Assigned at Not on file Legal Sex Male 10:59 PM CDT Gender Identity Not on file Sexual Orientation Not on file Last Filed Vital Signs Vital Sign Reading Time Taken Comments Blood Pressure 139/80 11/16/2022 9:34 AM CDT Pulse 69 11/16/2022 9:34 AM CDT Temperature 35.6 C (96.1 F) 11/16/2022 9:34 AM CDT Respiratory Rate 16 11/16/2022 9:34 AM CDT Oxygen Saturation 97% 11/16/2022 9:34 AM CDT Inhaled Oxygen Concentration - - Weight 77.1 kg (170 lb) 11/11/2022 11:00 AM CDT Height 180.3 cm (5' 11 ) 11/11/2022 11:00 AM CDT Body Mass Index 23.71 11/11/2022 11:00 AM CDT Plan of Treatment Health Maintenance Due Date Last Done Comments Hepatitis C Virus (HCV) Screening 1955 TdaP Immunization 1954 Pneumococcal Immunization (5 0+ years) (1 of 2 - PCV) 1973 Colonoscopy 10/25/1999 Colorectal Cancer Screening 10/25/1999 Cologuard 2004 Immunochemical Fecal Occult Blood 2004 Lung Cancer Screening 2004 Zoster Immunization (1 of 2) 2004 PSA Discussion 2009 AAA Screening Ultrasound 10/25/2019 Influenza Immunization (#1) 2023 SARS-COV-2 Immunization ( season) 2023 11/04/2020, 10/04/2020 Respiratory Syncytial Virus (RSV) Immunization (Adult) (1 - 1-dose 75+ series) 2029 Hepatitis B Immunization Aged Out No longer eligible based on patient's age to complete this topic Meningococcal Immunization (ACWY) Aged Out No longer eligible b ased on patient's age to complete this topic Rotavirus Immunization Aged Out No lo nger eligible based on patient's age to complete this topic Medical Devices Implanted Type Area Timekeeper Supervisor Device Identifier Shelf Expiration Date Model / Serial / Lot Technis 1-Piece Iol With Simplicity Delivery System Implanted:Qty: 1 on 11/16/2022 by Fortino Mcfarlane MD at [facility] Right: Eye [employer] 06/16/2025 [id number] / [id number] / [id number] Insurance MEDICARE C ESSENCE Care Teams Range Mechanic Relationship Specialty Start Date End Date Darrell Villela MD [address] [place] [address] PCP - General Family Medicine 11/16/22
--- OUTSIDE RECORDS SUMMARY | 2024-07-13 13:25 | XMS_ITS | Clinical Summary ---
Author Organization [facility] man[facility] Menon Address [address] [place] [address] Care Team Providers Care Oncology Technician Name Role Phone Darrell Villela MD Primary Care Provider [phone] Allergies No known active allergies Medications amLODIPine (NORVASC) 5 mg tablet Take 5 mg by mouth daily. Active docusate sodium (COLACE) 100 mg capsule Take 1 Capsule (100 mg) by mouth 2 times daily. 02/14/2023 Active gabapentin (NEURONTIN) 100 mg capsule Take 1 Capsule (100 mg) by mouth 3 times daily. 90 Capsule 04/08/2023 Active Active Problems Problem Noted Date Diagnosed Date Mass of upper lobe of right lung 01/21/2023 Tobacco abuse 01/21/2023 Benign hypertension 01/21/2023 Encounters Date Type Department Care Team Description 07/05/2024 Telephone [facility] Cardiovas and Thor Surg at [facility] Heart [address] [address] Mick Esparza MD Information 07/05/2024 Telephone [facility] Oncology and Hematology - [address] [place] [address] Chun Jimenez MD Follow up Questions 05/24/2024 External Device Data STL ABSTRACTION Provider, Abstract from Last 3 Months Family History Medical History Relation Name Comments Lung Cancer Father Breast Cancer Mother Relation Name Status Comments Brother Alive Father Mother Alive Sister Alive Son Alive Social History Tobacco Use Types Packs/Day Years Used Date Smoking Tobacco: Former Cigarettes Q uit: 02/09/2023 Smokeless Tobacco: Never Tobacco Cessation:Counseling Given: Not Answered Alcohol Use Standard Drinks/Week Comments Yes 0 (1 standard drink = 0.6 oz pur e alcohol) Feeling Safe Answer Date Recorded Are you in a relationship wi th someone who hurts you emotionally and/or physically? Unable to obtain 02/11/2023 Food Insecurity Answer Date Recorded Social/Environmental Concerns No concerns Transportation Needs Answer Date Record ed Social/Environmental Concerns No concerns Housing Stability Answer Date Recorded Social/Environmental Concerns No concerns Utility Needs Answer Date Recorded Social/Environmental Concerns No concerns Sex and Gender Information Value Date Recorded Sex Assigned at Not on file Legal Sex Male 3:30 PM CDT Gender Identity Not on file Sexual Orientation Not on file Last Filed Vital Signs Vital Sign Reading Time Taken Comments Blood Pressure 137/79 03/10/2023 9:59 AM AUTOMATION TESTER Pulse 80 03/10/2023 9:59 AM AUTOMATION TESTER Temperature 36.7 C (98.1 F) 02/18/2023 3:50 PM CDT Respiratory Rate 10 02/18/2023 3:50 PM CDT Oxygen Saturation 98% 02/18/2023 3:50 PM CDT Inhaled Oxygen Concentration - - Weight 74.8 kg (165 lb) 03/10/2023 9:59 AM AUTOMATION TESTER Height 181.6 cm (5' 11.5 ) 03/10/2023 9:59 AM CS T Body Mass Index 22.69 03/10/2023 9:59 AM AUTOMATION TESTER Plan of Treatment Upcoming Encounters Date Type Department Care Team (Late st Contact Info) Description 09/06/2024 1:00 PM CDT Office Visit [facility] Oncology and Hematology - [address] [facility] [address] [place] [address] Chun Jimenez MD [address] [facility] [address] [place] [address] Health Maintenance Due Date Last Done Comments DTAP/TDAP/TD VACCINES (1 - Tdap) 1973 COLORECTAL SCREENING 10/25/1999 Colorectal Cancer Screening 10/25/1999 FIT-DNA Q 3 years 10/25/1999 FIT/FOBT Q 1 year 10/25/1999 Flex Sig/CT Colonography Q 5 years 10/25/1999 PNEUMOCOCCAL VACCINE 50+ YEARS (1 of 1 - PCV) 10/25/19 05 ZOSTER VACCINE (1 of 2) 2004 INFLUENZA VACCINE (#1) 2023 Medicare Advantage ([place]) Prev entative Visit/Annual Wellness Visit 04/26/2024 RSV VACCINE (60+ or ) (1 - 1-dose 75+ series) 2029 Medical Devices Implanted Type Area Subway Car Repairer Device Identifier Shelf Expiration Date Model / Serial / Lot Sealant Progel Pleural 4ml [id number] - [id number] Implanted:Qty: 1 on 02/11/2023 by Mick Esparza MD at [facility] Tissue Right: Lung BARD DAVOL [id number] 02/09/2024 [id number] / / [id number] Insurance Member Subscriber Plan / Payer (Ef fective 2022-Present) Name:Jacques Nieves Relation to Subscriber:Self Name:Jacques Nieves Payer ID:[id number] (NAIC) Type:HMO Address: [place] [id number] [employer] [facility] Member Subscriber Plan / Payer (Ef fective 2022-Present) Name:Jacques Nieves Relation to Subscriber:Self Name:Jacques Nieves Payer ID:[id number] (NAIC) Type:HMO Address: [place] [id number] RX MEDIMPACT Member Subscriber Plan / Payer (Ef fective for All Dates) Name:Jacques Nieves Relation to Subscriber:Self Name:Jacques Nieves Subscriber ID:Not on file Payer ID:Not on file Group ID:[id number] Type:RX Medicare Part D Address: [address] Advance Directives For more information, please contact: [phone] * Full Code (Latest Code Status on File) Date Activated Date Inactivated Comments 02/11/2023 6:23 PM 02/14/2023 2:06 PM * Full Code Date Activated Date Inactivated Comments 02/11/2023 5:49 AM 02/11/2023 6:23 PM Care Teams Oncology Technician Relationship Specialty Start Date End Date Darrell Villela MD [address] [place] [address] PCP - General Family Practice 01/13/23
[2024-07-13 13:30] LABS: Basophils Percent Auto 0.2 % (0.2-1.2); Eosinophils Absolute Auto 0.1 K/mm3 (0-0.3); Eosinophils Percent Auto 0.3 % (0-4.4); Hematocrit 38.5 % (42.0-52.0); Hemoglobin 11.7 g/dL (14.0-18.0); Immature Granulocyte Absolute 0.08 K/mm3 (0.00-0.031); Immature Granulocyte Percent A 0.4 % (0-0.5); Lymphocytes Absolute Auto 1.53 K/mm3 (0.9-3.2); Lymphocytes Percent Auto 8.6 % (18.3-44.2); Mean Corpuscular HGB Conc 30.4 g/dl (32-36); Mean Corpuscular Hemoglobin 26.8 pg (26-34); Mean Corpuscular Volume 88.1 fl (80-100); Mean Platelet Volume 7.8 fl (7.4-10.4); Monocytes Absolute Auto 1.3 K/mm3 (0.1-0.6); Monocytes Percent Auto 7.3 % (2.6-8.5); Neutrophils Absolute Auto 14.8 K/mm3 (1.3-6.7); Neutrophils Percent Auto 83.2 % (45.5-73.1); Platelet Count Result 356 k/mm3 (150-375); Red Blood Count 4.37 M/mm3 (4.6-6.20); Red Cell Distribution Width 15.7 % (11.5-14.5); White Blood Count 17.8 K/mm3 (4.5-10.0)
[2024-07-13 13:42] LABS: Alanine Aminotransferase 28 U/L (6-50); Albumin Level 3.9 g/dL (3.5-5.1); Alkaline Phosphatase 102 U/L (38-126); Anion Gap 7 mmol/L (4-12); Aspartate Amino Transferase 62 U/L (17-59); Bilirubin,Total 0.6 mg/dL (0.2-1.3); Blood Urea Nitrogen 23 mg/dL (9-20); Calcium 10.1 mg/dL (8.4-10.2); Carbon Dioxide 33 mmol/L (22-30); Chloride 98 mmol/L (98-107); Estimated CRCL calculation 66 ml/min; Estimated Glomerular Filt Rate > 60; Glucose 112 mg/dL (65-110); Potassium 4.6 mmol/L (3.4-5.0); Sodium 138 mmol/L (137-145)
[2024-07-13 13:48] LABS: Alveolar/Arterial O2 Gradient 118.4 mmHg; Base Excess ABG 1.5 mEq/l (+/-2.0); Carboxyhemoglobin 0.4 % THb (0-2.0); Device NASAL CANNULA; Fractional Inspired Oxygen 36 %; HCO3 ABG 27.1 mEq/l (22.0-26.0); Methemoglobin ABG 0.3 %THb (0-1.5); Oxyhemoglobin 95.4 % THb (90.0-100.0); PCO2 ABG 47.1 mmHg (35.0-45.0); PO2 ABG 83.6 mmHg (80.0-100.0); PO2 FiO2 Ratio Arterial Blood 2.32 %; Reduced Hemoglobin 3.9 %THb (0-5.0); Site Drawn RIGHT BRACHIAL; Total Hemoglobin 11.9 g/dL (12.0-18.0); pH ABG 7.378 (7.350-7.450)
--- NOTE | 2024-07-13 13:50 | ED_ITS ---
HPI - SOB/Dyspnea General Chief Complaint: Shortness of Breath/Dyspnea Stated Complaint: Difficulty breathing,CP Time Seen by Provider: 07/13/24 13:11 History of Present Illness HPI Narrative: Patient is a 68-year-old male who presents the ER with shortness of breath. Has history of lung cancer with a right upper lobe lobectomy several years ago. Did not require chemotherapy or radiation. Saw Dr. Jimenez with [facility]. Reports he had been doing well. In April of this year he began having increasing shortness of breath while he was in [place] where he spends the winter. He is diagnosed with allergies as well as a lung infection. He had 2 separate hospitalizations. During 1 of his hospitalizations he had 700 mL of fluid drawn off the right side of his chest. Reports that they sent the fluid to look for cancer cells and it was negative for cancer cells. He also reports he had a bronchoscopy that did not show any cancer. He does not have these records currently. He is shortness of breath has progressed to the point that he is now oxygen dependent as of month and half ago. Typically wears 2 L of O2 but has slowly had to increase his oxygen due to shortness of breath and is currently at 5 L over last couple days. Him and his significant other drove up from [place] over last 3 days so he could be back in his home area and they just arrived this afternoon and came immediately to the hospital. No acute change room attendant last couple of days. He does report 30 lb weight loss over last few months. Significant other reports that he was seen by pulmonology and that they told him that his COPD is worsening. Additionally patient reports he received a CT scan was chest at outside hospital and had no new tumors shown. Related Data Allergies Allergy/AdvReac Type Severity Reaction Status Date / Time No Known Allergies Allergy Verified 07/13/24 13:02 Review of Systems 2 Review of Systems: All systems reviewed & are unremarkable except as noted in HPI and below Constitutional: Constitutional: Reports no additional constitutional complaints Cardiovascular: Cardiovascular: Reports no additional cardiovascular complaints Respiratory: Respiratory: Denies chest congestion, Denies cough, Reports dyspnea and Denies wheezing Gastrointestinal: Gastrointestinal: Reports no additional gastrointestinal complaints Genitourinary: Genitourinary: Reports no additional male genitourinary complaints Integumentary/Breasts: Skin/Breast: Reports system reviewed and no additional complaints, except as docu PMFSH Past Medical History Medical History (Updated 07/13/24 @ 16:55 by Hernan Campa MD) Malignant neoplasm of upper lobe, right bronchus or lung AAA (abdominal aortic aneurysm) Hypertension Surgical History Surgical History (Updated 07/13/24 @ 13:53 by Hernan Campa MD) S/P partial lobectomy of lung Family History Family History Father Hypertension Cancer Heart disease Mother Hypertension Heart disease Cancer Sibling Hypertension Heart disease Social History Social History Smoking status: Current every day smoker Alcohol use details: 3 Beer Substance use: never Substance use type: does not use Lack of Transportation: No Lack of Food: Never True Current Housing: I Have Housing Concerned About Future Housing: No Difficulty Paying Gas/Electric Bills: No Difficulty Paying for Meds: No Currently Unemployed: No Education: Trade/Vocational Certificate Difficulty w/ Childcare or Family Care: No Living arrangements: with family Gender identity (if verbalized by the patient): Male Agree to blood products: Yes Exam 2 Narrative: GENERAL: Chronically ill-appearing, thin, and in no acute distress. HEAD: Normocephalic, atraumatic. ENT: Mucous membranes moist. NECK: Supple. CHEST: Diminished lung sounds bilaterally right greater than left. No respiratory distress. HEART: Tachycardic regular. Normal peripheral pulses. ABDOMEN: Soft, nontender, nondistended. EXTREMITIES: Normal range of motion. No edema. SKIN: Warm, dry, no rash. NEURO: Alert and oriented x3. PSYCH: Normal mood and affect. Course Course Emergency Course: Patient informed of lab and imaging results. Will continue to hydrate but pressure is likely the low to chronic debility/frailty. Lactic acid normal. White blood cell count elevated. Concern for pneumonia on imaging. Record request sent to outside hospitals. Will place a consultation for pulmonary given his advanced lung disease. Patient accepted by hospitalist service. Broad-spectrum antibiotics initiated. Vital Signs Vital signs: Vital Signs Temperature 97.5 F L 07/13/24 13:06 Pulse Rate 128 H 07/13/24 13:06 Respiratory Rate 22 H 07/13/24 13:06 Blood Pressure 121/96 H 07/13/24 13:06 Pulse Oximetry 93 07/13/24 13:06 Oxygen Delivery Nasal Cannula 07/13/24 13:06 Oxygen Flow Rate 5 07/13/24 13:06 Temperature 97.5 F L 07/13/24 13:06 Pulse Rate 105 H 07/13/24 16:30 Respiratory Rate 22 H 07/13/24 16:30 Blood Pressure 90/70 L 07/13/24 16:30 Pulse Oximetry 96 07/13/24 16:30 Oxygen Delivery Nasal Cannula 07/13/24 14:48 Oxygen Flow Rate 2 07/13/24 14:48 MDM - SOB/Dyspnea Lab Data 07/13/24 13:21 07/13/24 13:21 Labs: Lab Results 07/13/24 07/13/24 07/13/24 Range/Units 13:21 13:43 13:44 WBC 17.8 H (4.5-10.0) K/mm3 RBC 4.37 L (4.6-6.20) M/mm3 Hgb 11.7 L (14.0-18.0) g/dL Hct 38.5 L (42.0-52.0) % MCV 88.1 (80-100) fl MCH 26.8 (26-34) pg MCHC 30.4 L (32-36) g/dl RDW 15.7 H (11.5-14.5) % Plt Count 356 (150-375) k/mm3 MPV 7.8 (7.4-10.4) fl Immature Gran % (Auto) 0.4 (0-0.5) % Neut % (Auto) 83.2 H (45.5-73.1) % Lymph % (Auto) 8.6 L (18.3-44.2) % Kings % (Auto) 7.3 (2.6-8.5) % Eos % (Auto) 0.3 (0-4.4) % Baso % (Auto) 0.2 (0.2-1.2) % Lymph # (Auto) 1.53 (0.9-3.2) K/mm3 Kings # (Auto) 1.3 H (0.1-0.6) K/mm3 Eos # (Auto) 0.1 (0-0.3) K/mm3 Baso # (Auto) 0.0 (0.0-0.1) K/mm3 Abs Immat Gran (auto) 0.08 H (0.00-0.031) K/mm3 Absolute Neuts (auto) 14.8 H (1.3-6.7) K/mm3 Absolute Nucleated RBC 0.000 (0.0-0.012) K/mm3 Nucleated RBC % 0.0 (0.0-0.2) % PT 15.3 H (11.1-14.7) Seconds INR 1.2 APTT 29.5 (22.3-36.8) Seconds Methemoglobin 0.3 (0-1.5) %THb Sodium 138 (137-145) mmol/L Potassium 4.6 (3.4-5.0) mmol/L Chloride 98 (98-107) mmol/L Carbon Dioxide 33 H (22-30) mmol/L Anion Gap 7 (4-12) mmol/L BUN 23 H D (9-20) mg/dL Creatinine 0.85 (0.7-1.3) mg/dL Estim Creat Clear Calc 66 ml/min Estimated GFR > 60 (59 - ) Glucose 112 H (65-110) mg/dL Lactic Acid 1.2 (0.7-2.0) mmol/L Calcium 10.1 (8.4-10.2) mg/dL Total Bilirubin 0.6 (0.2-1.3) mg/dL AST 62 H (17-59) U/L ALT 28 (6-50) U/L Alkaline Phosphatase 102 (38-126) U/L NT-Pro-B Natriuret Pep 459 H (19.9-100) pg/mL Total Protein 8.0 (6.3-8.2) g/dL Albumin 3.9 (3.5-5.1) g/dL ABG Data ABG results: 07/13/24 13:43 Puncture Site Right brachial ABG pH 7.378 ABG pCO2 47.1 H ABG pO2 83.6 ABG PO2/FiO2 Ratio 2.32 ABG HCO3 27.1 H ABG O2 Saturation 96.0 ABG O2 Content 16.0 ABG Base Excess 1.5 A-a Gradient 118.4 Oxyhemoglobin 95.4 Carboxyhemoglobin 0.4 Reduced Hemoglobin 3.9 Total Hemoglobin 11.9 L O2 Delivery Device Nasal cannula O2 Liters/Min 4.0 FiO2 36 Imaging Data Radiologist's impression: ITS Impressions Chest X-Ray 07/13/24 14:10 IMPRESSION: Bilateral pneumonia with pleural effusion. Superimposed pulmonary edema is not excluded. ECG Data EKG #1: ECG completion date: 07/13/24 ECG completion time: 13:17 EKG Interpretation: tachycardia (118), sinus rhythm, non-specific ST changes, normal QRS, normal QT and other (wandering baseline) Discharge Plan Discharge Clinical Impression: Pneumonia, Pleural effusion Patient Disposition: Still a Patient Condition: Stable Patient Language: Latvian Prescriptions: No Action amlodipine 5 mg tablet 5 mg PO DAILY Qty: 90 1RF cholecalciferol (vitamin D3) 1,250 mcg (50,000 unit) tablet 1,250 mcg PO WEEKLY Qty: 14 1RF Follow-up/Referrals: Darrell Villela MD [Primary Care Provider] -
--- OUTSIDE RECORDS SUMMARY | 2024-07-13 14:02 | XMS_ITS | CCD ---
Author Name Interface, [id number] lity Address [place] breakthroughs[place] [address] [facility] Oncology Address More breakthroughs[place] [address] Care Team Providers Care Filtration Plant Operator Name Role Phone Hogn Padilla Unavailable Unavailable Care Plan Date Type Value 07/07/2024 APPOINTMENT INSTRUCTIONAL ASSISTANT LABS 07/07/2024 APPOINTMENT INSTRUCTIONAL ASSISTANT/ MALIGN NEOPL ASM OF LEFT BRONCHUS OR Reason for Visit INSTRUCTIONAL ASSISTANT/ MALIGN NEOPLASM OF LEFT BRONCHUS OR Diagnostic Results Date Type Test Units Lower Limit Upper Limit Result Flag Comments Status Ordered By Specimen Source Lab Address 06/03 CXR See attache lakhani 06/03 CT scan resul t See attache lakhani Social History Date Name Value Sex Male
--- OUTSIDE RECORDS SUMMARY | 2024-07-13 14:02 | XMS_ITS | Clinical Summary ---
Author Organization [facility] Address [address] [place] [address] Phone Care Team Providers Care Financial Services Education Consultant Name Role Phone Darrell Villela MD Primary Care Provider [phone] Allergies No known active allergies Medications amLODIPine [...] this topic Medical Devices Implanted Type Area Groundwater Monitoring Technician Device Identifier Shelf Expiration Date Model / Serial / Lot Technis 1-Piece Iol With Simplicity Delivery System Implanted:Qty: 1 on 11/16/2022 by Fortino Mcfarlane MD at [facility] Right: Eye [employer] 06/16/2025 [id number] / [id number] / [id number] Insurance MEDICARE C ESSENCE Care Teams Financial Services Education Consultant Relationship Specialty Start Date End Date Darrell Villela MD [address] [place] [address] PCP - General Family Medicine 11/16/22
--- OUTSIDE RECORDS SUMMARY | 2024-07-13 14:02 | XMS_ITS | CCD ---
Author Name Interface, [id number] Address More breakthroughs. More victories. [address] Oncology Address More breakthrough[place] [address] Care Team Providers Care Hoisting Laborer Name Role Phone Hong Padilla Unavailable Unavailable Care Plan Reason for Visit Diagnostic Results Social History
--- OUTSIDE RECORDS SUMMARY | 2024-07-13 14:02 | XMS_ITS | Clinical Summary ---
Author Organization [facility] manuel Menon Address [address] [place] [address] Care Team Providers Care Career Education Teacher Name Role Phone Darrell Villela MD Primary Care Provider [phone] Allergies No known active allergies Medications amLODIPine [...] Type Department Care Team Description 07/05/[address] [facility] Cardiovas and Thor Surg at [facility] Heart [address] [address] Mick Esparza MD Information 07/05/[address] [facility] Oncology and Hematology - [place] [address] [place] [address] Chun Jimenez MD Follow up [...] Comments Blood Pressure 137/79 03/10/2023 9:59 AM ACCOUNTING SUPPORT SPECIALIST Pulse 80 03/10/2023 9:59 AM ACCOUNTING SUPPORT SPECIALIST Temperature 36.7 C (98.1 F) 02/18/2023 3:50 PM CDT Respiratory Rate 10 02/18/2023 3:50 PM CDT Oxygen Saturation 98% 02/18/2023 3:50 PM CDT Inhaled Oxygen Concentration - - Weight 74.8 kg (165 lb) 03/10/2023 9:59 AM ACCOUNTING SUPPORT SPECIALIST Height 181.6 cm (5' 11.5 ) 03/10/2023 9:59 AM CS T Body Mass Index 22.69 03/10/2023 9:59 AM ACCOUNTING SUPPORT SPECIALIST Plan of Treatment Upcoming Encounters Date Type Department Care Team (Late st Contact Info) Description 09/06/2024 1:00 PM CDT Office Visit [facility] Oncology and Hematology - [place] [address] [facility] [address] [place] [address] Chun Jimenez MD [address] [facility] [address] [place] [address] Health Maintenance Due Date Last [...] series) 2029 Medical Devices Implanted Type Area Sports Book Board Attendant Device Identifier Shelf Expiration Date Model / Serial / Lot Sealant Progel Pleural 4ml [id number] - [id number] Implanted:Qty: 1 on 02/11/2023 by Mick Esparza MD at [facility] Tissue Right: Lung BARD DAVOL [id number] 02/09/2024 [id number] / / [id number] Insurance Member Subscriber Plan / Payer (Ef fective 2022-Present) Name:Jacques Nieves Relation to Subscriber:Self Name:Jacques Nieves Payer ID:[id number] (NAIC) Type:HMO Address: [place] [id number] [employer] [facility] Member Subscriber Plan / Payer (Ef fective 2022-Present) Name:Jacques Nieves Relation to Subscriber:Self Name:Jacques Nieves Payer ID:[id number] (NAIC) Type:HMO Address: [place] [id number] RX MED[employer] Member Subscriber Plan / Payer (Ef fective for All Dates) Name:Jacques Nieves Relation to Subscriber:Self Name:Jacques Nieves Subscriber ID:Not on file Payer ID:Not on file Group ID:[id number] Type:RX Medicare Part D Address: [place] [address] Advance Directives For more information, please contact: [phone] * Full Code (Latest Code Status on File) Date Activated Date Inactivated Comments 02/11/2023 6:23 PM 02/14/2023 2:06 PM * Full Code Date Activated Date Inactivated Comments 02/11/2023 5:49 AM 02/11/2023 6:23 PM Care Teams Career Education Teacher Relationship Specialty Start Date End Date Darrell Villela MD [address] [place] [address] PCP - General Family Practice 01/13/23
[2024-07-13 14:19] LABS: INR 1.2; Partial Thromboplastin Time 29.5 Seconds (22.3-36.8); Prothrombin Time 15.3 Seconds (11.1-14.7)
[2024-07-13 14:21] LABS: Lactic Acid Reflex 1.2 mmol/L (0.7-2.0)
[2024-07-13 14:31] LABS: NT Pro B Type Natriuretic Pept 459 pg/mL (19.9-100)
[2024-07-13] MEDS: SODIUM CHLORIDE 0.9% IV 1,000 ML 999 ML IV CONT (15:14)
[2024-07-13] MEDS: AZITHROMYCIN 500 MG/NS 250 ML 500 MG/250 ML BAG 250 MG IVPB (16:24)
[2024-07-13] MEDS: LACTATED RINGERS 1,000 ML 999 ML IV CONT (18:48)
[2024-07-13] MEDS: IPRATROPIUM 0.5 MG/ALBUTEROL SULFATE 2.5 MG AMPUL.NEB 3 ML INHALATION (19:40)
--- NOTE | 2024-07-13 19:53 | PC.NURSE ---
This patient, Jacques Nieves, was admitted to [facility] Surg Room 317-02. Patient/family oriented to hospital policies and general routines including ID bracelet, bed and alarms, visiting hours, pain management, procedures, bathroom and other care routines, personal items, smoking policy, room service/diet, and visiting hours. Information on how to activate the Rapid Response Team has been discussed. Patient/Family are encouraged to report perceived risks to care and to ask questions if they do not understand what they are told or what they should do.
--- NOTE | 2024-07-13 20:00 | PM.IMHP ---
H&P: HPI History of Present Illness Date/Time: 07/13/24 20:00 Chief Complaint: Shortness of Breath Narrative: 68 y/o M presents here with shortness of breath with PMH of lung cancer s/p lobectomy, abdominal aortic aneurysm, and hypertension. The patient presents here from his winter home for for further evaluation of shortness of breath. He reports the shortness of breath has been ongoing for some time. He initially started feeling more short of breath in April of 2024 while he was staying in [place] for the winter. While he was in [place], he had 2 separate hospitalizations for pneumonia (most recent one month ago) and he was prescribed supplemental oxygen @2L approximately a month and half ago. During 1 of these hospitalizations he had a thoracentesis on the right side. They were able to pull 700 mL off and testing was negative for cancer cells. The patient does have a history of lung cancer s/p right upper lob[facility] (no chemo or radiation[facility]. Currently the patient's shortness of breath is accompanied by intermittent fever, lower extremity swelling, weight loss (30 lbs in 3 months). He denies chest pain. The patient tried to treat his symptoms by increasing his oxygen to 5L over the last few days, baseline at 1-4 dependent on patient's symptoms and activity level. Initial VS at presentation: 97.5? F, HR 128, R 22, 121/96, and 93% on 5L. ED workup showed: WBC 17.8, hemoglobin 11.7, INR 1.2, ABG showed a CO2 of 47.1 and HC03 of 27.1, creatinine 0.85 and GFR >60, BNP 459 (normal for age). CXR showed bilateral pneumonia with pleural effusion, superimposed pulmonary edema is not excluded. EKG showed sinus tachycardia, left atrial enlargement, nonspecific ST and T-wave abnormality. Review of Systems Review of Systems: All systems reviewed & are unremarkable except as noted in HPI and below [facility] Past Medical History Medical History (Updated 07/13/24 @ 17:53 by Shelbie Best APRN) Malignant neoplasm of upper lobe, right bronchus or lung AAA (abdominal aortic aneurysm) Hypertension Surgical History Surgical History (Updated 07/13/24 @ 21:13 by Shelbie Best APRN) History of tonsillectomy and adenoidectomy History of cholecystectomy S/P partial lobectomy of lung Family History Family History Father Hypertension Cancer Heart disease Mother Hypertension Heart disease Cancer Sibling Hypertension Heart disease Social History Social History Smoking status: Current every day smoker Alcohol use details: 3 Beer Substance use: never Substance use type: does not use Do You Feel Safe in your Home?: Yes Lack of Transportation: No Lack of Food: Never True Current Housing: I Have Housing Concerned About Future Housing: No Difficulty Paying Gas/Electric Bills: No Difficulty Paying for Meds: No Currently Unemployed: No Education: Trade/Vocational Certificate Difficulty w/ Childcare or Family Care: No Living arrangements: with family Gender identity (if verbalized by the patient): Male Spiritual care concerns: No Agree to blood products: Yes Meds Home Medications and Allergies Home Medications ?Medication ?Instructions ?Recorded ?Confirmed ?Type amlodipine 5 mg tablet 5 mg PO DAILY #90 tabs 01/26/24 07/13/24 Rx cholecalciferol (vitamin D3) 1,250 1,250 mcg PO WEEKLY #14 tabs 02/20/24 07/13/24 Rx mcg (50,000 unit) tablet albuterol sulfate 90 mcg/actuation 2 inh inhalation Q4H PRN shortness 07/13/24 07/13/24 History aerosol inhaler of breath or wheezing azithromycin 250 mg tablet 250 mg PO .COMPLEX 07/13/24 07/13/24 History fluticasone 250 mcg-salmeterol 50 1 inh inhalation Q12H 07/13/24 07/13/24 History mcg/dose blistr powdr for inhalation (Wixela Inhub) prednisone 10 mg tablet 10 mg PO Q12H 07/13/24 07/13/24 History theophylline 200 mg 200 mg PO Q24H 07/13/24 07/13/24 History tablet,extended release,12 hr Allergies Allergy/AdvReac Type Severity Reaction Status Date / Time No Known Allergies Allergy Verified 07/13/24 13:02 Vital Signs Vital Signs - 24 hr 07/13/24 13:06 07/13/24 13:29 07/13/24 13:30 Temperature 97.5 F L Pulse Rate 128 H 113 H 108 H Respiratory Rate 22 H 31 H 24 H Blood Pressure 121/96 H Pulse Oximetry 93 98 98 Oxygen Delivery Nasal Cannula Oxygen Flow Rate 5 07/13/24 13:31 07/13/24 13:33 07/13/24 13:45 Temperature Pulse Rate 106 H 108 H 110 H Respiratory Rate 23 H 30 H 30 H Blood Pressure 90/64 L Pulse Oximetry 99 98 98 Oxygen Delivery Oxygen Flow Rate 07/13/24 13:46 07/13/24 14:09 07/13/24 14:10 Temperature Pulse Rate 109 H 107 H Respiratory Rate 30 H 27 H 28 H Blood Pressure 94/72 L 86/67 L Pulse Oximetry 97 93 94 Oxygen Delivery Oxygen Flow Rate 07/13/24 14:15 07/13/24 14:16 07/13/24 14:31 Temperature Pulse Rate 111 H 107 H 100 Respiratory Rate 20 23 H 19 Blood Pressure 79/61 L 88/68 L Pulse Oximetry 97 Oxygen Delivery Oxygen Flow Rate 07/13/24 14:48 07/13/24 15:15 07/13/24 16:00 Temperature Pulse Rate 107 H 107 H Respiratory Rate 24 H 31 H Blood Pressure 100/73 100/73 Pulse Oximetry 95 95 97 Oxygen Delivery Nasal Cannula Oxygen Flow Rate 2 07/13/24 16:15 07/13/24 16:30 Temperature Pulse Rate 112 H 105 H Respiratory Rate 28 H 22 H Blood Pressure 112/74 90/70 L Pulse Oximetry 92 96 Oxygen Delivery Oxygen Flow Rate Exam Narrative: exam at 20:10 Const: Other: , male, ill appearing HENMT: Face/Nose/Sinus: Normal nares present Mouth: Yes dry mucous membranes Other: BiPAP in place. tolerating poorly. Eyes: General: appearance normal, both eyes and all related structures Sclera: sclerae normal Pupils: Equal, round and reactive pupils present EOM: EOMs intact bilaterally Resp: Other: significant respiratory distress w/retractions and accessory muscle use. Poor air movement. crackles in mid and lower lung zones bilaterally. Cardio: Rate: tachycardic Rhythm: regular rhythm Other: no murmur or rub. GI: Other: Abdomen soft, nondistended, nontender. Normoactive bowel sounds in all quadrants. Skin: General skin exam: normal color and no rashes or lesions noted Wounds: no wounds Neuro: Speech: normal speech Motor exam (neuro): 5 motor strength present throughout Sensory Exam: normal sensation Other: fatigued. A/Ox4. Extrem: General: normal to inspection Psych: Mental Status: mental status grossly normal Affect: Anxious affect present Other: Good insight and judgment. H&P: Results Labs Labs: Short CBC 07/13/24 Range/Units 13:21 WBC 17.8 H (4.5-10.0) K/mm3 Hgb 11.7 L (14.0-18.0) g/dL Hct 38.5 L (42.0-52.0) % Plt Count 356 (150-375) k/mm3 BMP 07/13/24 13:21 Sodium 138 Potassium 4.6 Chloride 98 Carbon Dioxide 33 H BUN 23 H D Creatinine 0.85 Glucose 112 H Calcium 10.1 Liver Function 07/13/24 Range/Units 13:21 Total Bilirubin 0.6 (0.2-1.3) mg/dL AST 62 H (17-59) U/L ALT 28 (6-50) U/L Alkaline Phosphatase 102 (38-126) U/L Albumin 3.9 (3.5-5.1) g/dL Assessment and Plan Assessment and plan (1) Sepsis: Qualifiers: Acute respiratory failure type: with hypoxia Sepsis acute organ dysfunction status: with acute organ dysfunction Sepsis type: sepsis due to unspecified organism Severe sepsis acute organ dysfunction type: acute respiratory failure Severe sepsis shock status: without septic shock Qualified Code(s): A41.9 - Sepsis, unspecified organism; R65.20 - Severe sepsis without septic shock; J96.01 - Acute respiratory failure with hypoxia Code(s): A41.9 - Sepsis, unspecified organism Status: Acute Assessment and Plan: - meets SIRS criteria: HR 128, RR 22, WBC 17.8. BP intermittently soft. - lactic acid: 1.2 - 30 mL/kg = 1.9L, given 1L bolus. second ordered. -> 75 mL/hr x1. - suspected source: Pneumonia - started on ceftriaxone and azithromycin on 07/13. Transition to cefepime, azithromycin, and vancomycin due to clinical severity and recent ABX use in the last . - blood cultures drawn on 07/13, follow - CXR: Bilateral pneumonia with pleural effusion. Superimposed pulmonary edema is not excluded. - monitor for hemodynamic stability, telemetry monitoring (2) Pneumonia: Qualifiers: Laterality: bilateral Lung location: unspecified part of lung Pneumonia type: due to unspecified organism Qualified Code(s): J18.9 - Pneumonia, unspecified organism Code(s): J18.9 - Pneumonia, unspecified organism Status: Acute Assessment and Plan: - risk factors and complicating factors: lung cancer, partial lobectomy - started on HAP tx: Ceftriaxone and azithromycin on 07/13. transition to cefepime, azithromycin, and vancomycin given the patient was treated for pneumonia within the last 90 days and severity - check MRSA PCR, viral PCR, and sputum culture - supportive care - continue supplemental O2 to maintain O2 sat greater than 92%, wean to baseline (2L) as tolerated. (3) Hypertension: Qualifiers: Hypertension type: primary hypertension Qualified Code(s): I10 - Essential (primary) hypertension Code(s): I10 - Essential (primary) hypertension Status: Chronic Assessment and Plan: - chronic, but intermittently soft since arrival, currently 90/70 - hold home medications - monitor Plan Rapid response called at 1937 lower respiratory distress and hypoxia, the patient was 82% on 8L HFNC. Upon my arrival, the patient had been placed on a non-rebreather and a DuoNeb treatment had been initiated. The patient had supraclavicular retractions, significant tachypnea, ill-appearing, minimal air movement in all lung zhang, and significantly tachycardic in the 130s. Patient was placed on BiPAP and initially tolerated poorly. Mask was readjusted, hour long levalbuterol treatment initiated, lasix 20 mg IV given, and 2G of Mag ordered. EKG pending. Patient began to improve with BiPAP with the hour long albuterol in line. The patient was transferred to IMU. Given recent long travel from [place] via car, will add CT PE. Plan for reassessment this evening. CXR also showed initial concern for possible pulmonary edema, however BNP normal for age. Trial of Lasix 20 mg given due to the patient's earlier distress. Will review CT once completed, if pulmonary edema again redemonstrated will order echo. Monitor I&Os. Patient also retaining urine, estimated above 400. Will place Red and start Flomax. Critical Care Time: I personally spent 45 minutes of direct patient care including (but not limited to) the physical examination, decision-making, bedside evaluation, review of medical records, review of labs and imaging, discussion with nursing staff and other providers for collaborative, critical care management of this patient. Diet: Heart healthy GI Prophylaxis: Not currently indicated DVT Prophylaxis: Lovenox SQ Lines: Peripheral Code Status: Full code Quality VTE Prophylaxis VTE prophylaxis: pharmacologic ordered Hospitalist MIPS Advance Care Plan I have confirmed that the patient's Advanced Care Plan is present, code status is documented, or surrogate decision maker is listed in patient medical record.: Yes Medication Reconciliation I have utilized all available resources to obtain, update and review the patients current medications (includes all prescriptions, OTC, herbals, cannabis, and nutritional supplements).: Yes
[2024-07-13] MEDS: MAGNESIUM SULF 2 GM/WATER 50ML 2 GM/50 ML BAG IVPB (20:14)
[2024-07-13] MEDS: LEVALBUTEROL NEB 1.25 MG/3 ML INHALATION (20:20)
--- NOTE | 2024-07-13 21:04 | PC.NURSE ---
This patient, Jacques Nieves, was received from [facility] on 07/13/24 at 2042. Patient/family oriented to unit policies and routines
[2024-07-13] MEDS: FUROSEMIDE INJ 40 MG/4 ML VIAL 20 MG IV PUSH (21:08)
[2024-07-13 21:33] LABS: Glucose Point of Care 175 mg/dl (65-105)
[2024-07-13 22:18] LABS: Influenza A QL RT-PCR Negative (Negative); Influenza B QL RT-PCR Negative (Negative); SARS-CoV-2 RNA PCR Negative (Negative)
[2024-07-13] MEDS: CEFEPIME 2 GM/NS 50 ML 2 GM/50 ML BAG IVPB (22:36)
[2024-07-13] MEDS: guaiFENesin 12 HR 600 MG TABCR PO (22:39)
[2024-07-13] MEDS: predniSONE 10 MG TABLET PO (22:39)
[2024-07-13 22:53] LABS: MRSA (PCR) NOT DETECTED (NOT DETECTE)
[2024-07-13] MEDS: VANCOMYCIN 1,500 MG/NS 500 ML 1,500 MG/500 ML BAG 250 MG IVPB (23:38)
[2024-07-14] VITALS (41 sets, daily range): BP systolic 71–115; BP diastolic 59–74; PULSE 70–122; RESP 19–32; TEMP 36.9–37.1; O2SAT 96–100; BMI 19.8
[2024-07-14 00:07] LABS: Alveolar/Arterial O2 Gradient 150.3 mmHg; Base Excess ABG 5.3 mEq/l (+/-2.0); Fractional Inspired Oxygen 44 %; HCO3 ABG 33.4 mEq/l (22.0-26.0); Oxygen Content ABG 15.1 %vol (16.0-22.0); Oxygen Saturation ABG 95.1 % (95.0-100.0); Oxyhemoglobin 95.4 % THb (90.0-100.0); PO2 ABG 84.9 mmHg (80.0-100.0); PO2 FiO2 Ratio Arterial Blood 1.93 %; Total Hemoglobin 11.2 g/dL (12.0-18.0); pH ABG 7.303 (7.350-7.450)
[2024-07-14 00:09] LABS: Device HIGH FLOW NASAL CANN; Modified Allen's Test Pass; PCO2 ABG 68.9 mmHg (35.0-45.0); Site Drawn LEFT RADIAL
--- NOTE | 2024-07-14 00:14 | ECG_ITS ---
Test Date: 2024-07-14 00:14:07 Measurements Intervals [place] Rate: 113 P: 45 [place]: 155 QRS: 18 QRSD: 94 T: 68 QT: 330 QTc: 454 Interpretive Statements SINUS TACHYCARDIA WITH OCCASIONAL VENTRICULAR PREMATURE COMPLEXES Compared to ECG 07/13/2024 13:17:09 Ventricular premature complex(es) now present Electronically Signed On 07-14-2024 18:30:00 CDT by Wallace Greenwood M.D.
[2024-07-14] MEDS: LEVALBUTEROL NEB 1.25 MG/3 ML 5 MG (00:56)
[2024-07-14] MEDS: IPRATROPIUM 0.5 MG/ALBUTEROL SULFATE 2.5 MG AMPUL.NEB 3 ML INHALATION ×4 (02:40→20:31)
[2024-07-14 03:41] LABS: Alveolar/Arterial O2 Gradient 73.5 mmHg; Base Excess ABG 4.3 mEq/l (+/-2.0); Fractional Inspired Oxygen 30 %; HCO3 ABG 31.1 mEq/l (22.0-26.0); Oxygen Content ABG 14.4 %vol (16.0-22.0); Oxygen Saturation ABG 93.4 % (95.0-100.0); Oxyhemoglobin 93.8 % THb (90.0-100.0); PCO2 ABG 58.1 mmHg (35.0-45.0); PO2 ABG 72.1 mmHg (80.0-100.0); Total Hemoglobin 10.9 g/dL (12.0-18.0); pH ABG 7.347 (7.350-7.450)
[2024-07-14 03:43] LABS: Device NON-INVASIVE VENT; Modified Allen's Test Pass; Site Drawn LEFT RADIAL
[2024-07-14 03:44] LABS: Non-Invasive Expiratory Pressure 8 CMH2O; Non-Invasive Inspiratory Pressure 22 CMH2O; Non-Invasive Vent Rate 24 /MIN
[2024-07-14 04:22] LABS: pH ABG 7.299 (7.350-7.450)
[2024-07-14 04:23] LABS: HCO3 ABG 33.9 mEq/l (22.0-26.0); PCO2 ABG 70.7 mmHg (35.0-45.0); PO2 ABG 112.6 mmHg (80.0-100.0)
[2024-07-14 04:24] LABS: Alveolar/Arterial O2 Gradient 164.4 mmHg; Base Excess ABG 5.7 mEq/l (+/-2.0); Carboxyhemoglobin 0.3 % THb (0-2.0); Methemoglobin ABG 0.1 %THb (0-1.5); Oxygen Content ABG 15.5 %vol (16.0-22.0); Oxygen Saturation ABG 97.5 % (95.0-100.0); Oxyhemoglobin 97.9 % THb (90.0-100.0); Total Hemoglobin 11.1 g/dL (12.0-18.0)
[2024-07-14 04:25] LABS: Device NON-INVASIVE VENT; Fractional Inspired Oxygen 50 %; Modified Allen's Test Pass; PO2 FiO2 Ratio Arterial Blood 2.25 %; Reduced Hemoglobin 1.7 %THb (0-5.0); Site Drawn LEFT RADIAL
[2024-07-14 04:26] LABS: Non-Invasive Expiratory Pressure 8 CMH2O; Non-Invasive Inspiratory Pressure 18 CMH2O; Non-Invasive Vent Rate 8 /MIN
[2024-07-14 04:43] LABS: Basophils Percent Auto 0.1 % (0.2-1.2); Eosinophils Percent Auto 0.1 % (0-4.4); Hematocrit 33.4 % (42.0-52.0); Immature Granulocyte Absolute 0.09 K/mm3 (0.00-0.031); Immature Granulocyte Percent A 0.6 % (0-0.5); Lymphocytes Absolute Auto 0.63 K/mm3 (0.9-3.2); Lymphocytes Percent Auto 3.9 % (18.3-44.2); Mean Corpuscular HGB Conc 29.9 g/dl (32-36); Mean Corpuscular Hemoglobin 26.4 pg (26-34); Mean Corpuscular Volume 88.1 fl (80-100); Mean Platelet Volume 7.9 fl (7.4-10.4); Monocytes Absolute Auto 0.8 K/mm3 (0.1-0.6); Monocytes Percent Auto 4.8 % (2.6-8.5); Neutrophils Absolute Auto 14.6 K/mm3 (1.3-6.7); Neutrophils Percent Auto 90.5 % (45.5-73.1); Platelet Count Result 286 k/mm3 (150-375); Red Blood Count 3.79 M/mm3 (4.6-6.20); Red Cell Distribution Width 15.9 % (11.5-14.5); White Blood Count 16.1 K/mm3 (4.5-10.0)
[2024-07-14 05:02] LABS: Alanine Aminotransferase 24 U/L (6-50); Albumin Level 3.3 g/dL (3.5-5.1); Alkaline Phosphatase 93 U/L (38-126); Anion Gap 4 mmol/L (4-12); Aspartate Amino Transferase 51 U/L (17-59); Bilirubin,Total 0.4 mg/dL (0.2-1.3); Blood Urea Nitrogen 23 mg/dL (9-20); Calcium 9.1 mg/dL (8.4-10.2); Carbon Dioxide 35 mmol/L (22-30); Chloride 99 mmol/L (98-107); Estimated CRCL calculation 58 ml/min; Estimated Glomerular Filt Rate > 60; Glucose 115 mg/dL (65-110); Potassium 4.6 mmol/L (3.4-5.0); Sodium 138 mmol/L (137-145)
[2024-07-14 05:07] LABS: Anisocytosis 1+; Band Neutrophils Percent 0 % (0-6); Hypochromasia 1+; Ovalocytes 1+; Platelet Estimate Adequate (Adequate); Schistocytes None Seen
[2024-07-14] MEDS: CEFEPIME 2 GM/NS 50 ML 2 GM/50 ML BAG IVPB ×3 (05:34→20:59)
[2024-07-14] MEDS: ETOMIDATE 20 MG/10 ML AMPUL IV PUSH (07:44)
[2024-07-14] MEDS: ROCURONIUM BROMIDE 50 MG/5 ML VIAL IV PUSH (07:45)
[2024-07-14] MEDS: MIDAZOLAM HCL (*CRX) 2 MG/2 ML VIAL IV PUSH (08:06)
[2024-07-14] MEDS: FENTANYL 2,500MCG/NS250ML(*CRX 2,500 MCG/250 ML BAG IV CONT (08:11)
[2024-07-14] MEDS: MIDAZOLAM 100MG/NS 100ML(*CRX) 100 MG/100 ML BAG IV CONT (08:12)
[2024-07-14] MEDS: PROPOFOL IV EMULSION 200 MG/20 ML VIAL 20 MG IV PUSH (08:13)
[2024-07-14] MEDS: PROPOFOL IV EMULSION 200 MG/20 ML VIAL 15 MG IV PUSH (08:29)
--- NOTE | 2024-07-14 08:35 | WPDPROCEDUR ---
Procedures Intubation Intubation Date: 07/14/24 Intubation Time: 07:40 Consent: Discussed with patient regarding his respiratory status, tachypnea, impending respiratory failure. Patient consented to intubation and mechanical ventilation. A pre-procedural Time-Out was completed immediately before starting the procedure and confirmed: Patient Identification, Site, Procedure, Patient Position and the Availability of Requisite Equipment: Yes Sedative: etomidate Paralytic: rocuronium Laryngoscope: fiber optic video scope Assist device used: fiber optic device ET tube size: 8 Tube secured depth (cm): 23 Tube secured location: lips Tube placement confirmation: visualized tube passing through cords, equal breath sounds bilaterally, no breath sounds over epigastrium and confirmation by capnometry Patient tolerated procedure: well Intubation complications: none
--- NOTE | 2024-07-14 08:37 | WPDPROCEDUR ---
Procedures Central Line Placement Right IJ: Central Line Date: 07/14/24 Central Line Time: 08:14 Discussed w/ the patient/family/POA,the placement of a central venous catheter, including its clinical necessity/indication & associated potential risks, benifits and alternatives.: Yes The patient/family/POA understand(s) and acknowledge(s) the need to proceed with central venous catheter insertion as an important element of the patient's clinical management.: Yes Consent: I have discussed with the patient and/or surrogate, the non-emergent placement of a central venous catheter, including its clinical necessity/indication and associated potential risks and complications. The patient and/or surrogate understand(s) and acknowledge(s) the need to proceed with central venous catheter insertion as an important element of the patient's clinical management. Time Out Performed: Yes Patient Position: supine Patient placed on monitor/pulse ox: Yes Provider Prep: mask, sterile gown, sterile gloves, Max. sterile barrier precautions, cap and hand hygiene with conventional soap/water or alcohol based hand rub Central line prep: 2% Chlorhexidine scrub Local anesthesia used: lidocaine 1% Amount of anesthesia used (ml): 3 Sterile US Technique with sterile gel/sterile probe covers: Yes Central line lumen inserted: triple English: 7 Length (cm): 16 Depth of Insertion (cm): 16 Post Procedure: sutured in place, good blood return, all ports aspirated, flushed, capped, transparent dressing, hemostatic product, antimicrobial product, securement product and aseptic technique maintained throughout procedure Post procedure x-ray: tip of catheter in good position and no pneumothorax seen Patient tolerated procedure: well Complications: none
[2024-07-14 08:59] LABS: Alveolar/Arterial O2 Gradient 223.2 mmHg; Base Excess ABG 5.4 mEq/l (+/-2.0); Fractional Inspired Oxygen 100 %; HCO3 ABG 29.3 mEq/l (22.0-26.0); Oxygen Content ABG 17.5 %vol (16.0-22.0); Oxygen Saturation ABG 99.9 % (95.0-100.0); Oxyhemoglobin 99.5 % THb (90.0-100.0); PO2 ABG 449.8 mmHg (80.0-100.0); Total Hemoglobin 11.6 g/dL (12.0-18.0); pH ABG 7.482 (7.350-7.450)
[2024-07-14 09:00] LABS: Arterial Blood Gas PEEP 5 cmH2O; Arterial Blood Gas Vent Mode CMV; Arterial Blood Gas Ventilator rate 24 /MIN; Device VENTILATOR; Modified Allen's Test Pass; Site Drawn LEFT RADIAL
[2024-07-14 09:01] LABS: Arterial Blood Gas Tidal Volume 450 ml
[2024-07-14] MEDS: ENOXAPARIN 40 MG/0.4 ML SYRINGE SUB-Q (09:21)
[2024-07-14] MEDS: MINERAL OIL/WHITE PETROLATUM OINTMENT 1 APPLIC EACH EYE ×2 (09:22→20:57)
[2024-07-14] MEDS: LACTATED RINGERS 1,000 ML 999 ML IV CONT (09:22)
[2024-07-14] MEDS: HYDROCORTISONE SODIUM SUCCINATE 100 MG/2 ML VIAL 50 MG IV PUSH ×3 (09:22→20:57)
--- NOTE | 2024-07-14 09:44 | WPDCNINT ---
Assessment and Plan Assessment and plan (1) Acute respiratory failure: Code(s): J96.00 - Acute respiratory failure, unspecified whether with hypoxia or hypercapnia Status: Acute Assessment and Plan: 07/13: Patient admitted with worsening shortness of breath, travel from [place] on 07/13 in upon arrival to [place] which is is home came directly to the ER. Normally uses 2 L nasal cannula, it bumped up to 5 L nasal cannula. -likely etiology, large left pleural effusion, pneumonia -07/14: I was asked to see the patient in the intermediate Unit where he was tachypneic, requiring BiPAP, complained of difficulty breathing, respiratory rate was in the upper 30s and 40s. Patient was in impending respiratory failure, discussed with patient regarding intubation and mechanical ventilation to which he consented. -07/14: Intubated in the ICU along with right IJ central line placement -post intubation ABGs and chest x-ray reviewed, ventilator adjusted -currently on CMV mode of ventilation, peep of 5 and FiO2 has been dropped to 50% -continue bronchodilators, will add Pulmicort -bilateral diffuse infiltrates, patient may require a bronchoscopy. (Off note patient has been admitted to the hospital in [place] x2 for pneumonia and pleural effusion, pleural effusion was tapped on the 1st admission and they removed 700 mL of fluid which was negative for cancer cells). He also saw batchmaker who recommended the patient see a oncologist. -sedated with fentanyl and Versed infusion, maintain RASS of 0 to-2, daily SBT and SAT 07/13: Chest x-ray on admission showed: Bilateral pneumonia with pleural effusion. Superimposed pulmonary edema is not excluded. 07/13: CTA chest on admission: No PE, no thoracic aortic dissection, postoperative changes within the right upper lobe and right hilum. Large bilateral pleural effusions left greater than right with adjacent compressive atelectasis. Thickened wall surrounding the fluid within the right lung base suggest empyema. Additional finding suggesting pulmonary vascular congestion. (2) Pneumonia: Qualifiers: Laterality: bilateral Lung location: unspecified part of lung Pneumonia type: due to unspecified organism Qualified Code(s): J18.9 - Pneumonia, unspecified organism Code(s): J18.9 - Pneumonia, unspecified organism Status: Acute Assessment and Plan: Chest x-ray shows bilateral diffuse pneumonia -currently intubated on mechanical ventilator -continue azithromycin, cefepime and vancomycin, (07/13) -patient started on steroids (3) Sepsis: Qualifiers: Acute respiratory failure type: with hypoxia Sepsis acute organ dysfunction status: with acute organ dysfunction Sepsis type: sepsis due to unspecified organism Severe sepsis acute organ dysfunction type: acute respiratory failure Severe sepsis shock status: without septic shock Qualified Code(s): A41.9 - Sepsis, unspecified organism; R65.20 - Severe sepsis without septic shock; J96.01 - Acute respiratory failure with hypoxia Code(s): A41.9 - Sepsis, unspecified organism Status: Acute Assessment and Plan: Patient did fulfill criteria for sepsis -continue management as above -not requiring pressors at this time -patient does have a central line in the right IJ which was placed on 07/14 -lactic acid is within normal limits. Patient did receive IV fluid bolus in the ER -patient also received Lasix in the ER -repeat another IV fluid bolus in the ICU. (4) Malnourished: Qualifiers: Malnutrition type: protein-calorie malnutrition Protein-calorie malnutrition severity: moderate Qualified Code(s): E44.0 - Moderate protein-calorie malnutrition Code(s): E46 - Unspecified protein-calorie malnutrition Status: Acute Assessment and Plan: According the significant other patient has dropped 40-42 lb in the last 3-4 months, he has not been eating well -dietitian has been consulted -will start trickle tube feeds for now to prevent re-feeding syndrome Plan DVT prophylaxis: Enoxaparin Stress ulcer prophylaxis: Protonix Nutrition: Tube feeds Code Status: Full code Critical Care Time Spent: 79 minutes Discussed with patient's significant other and updated with patient's condition plan of care. She gave me most of the information that is in the H and P which was very helpful. She is aware that patient was having difficulty breathing and for that reason he was placed on mechanical ventilation. She is aware that we will get a policy the patient also CT scan of the abdomen and pelvis to rule out any metastatic disease since he is losing so much weight Due to a high probability of clinically significant, life threatening deterioration, the patient required my highest level of preparedness to intervene emergently and I personally spent this critical care time directly and personally managing the patient. This critical care time included obtaining a history; examining the patient; pulse oximetry; ordering and review of studies; arranging urgent treatment with development of a management plan; evaluation of patient's response to treatment; frequent reassessment; and discussions with other providers. It was exclusive of separately billable procedures and treating other patients and teaching time. Please see Assessment and Plan section and the rest of the note for further information on patient assessment and treatment This dictation may have been done utilizing a voice recognition system. Attempts have been made to correct errors. However, there may be uncorrected grammatical, spelling, and recognitions errors present. 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 Has seen Dr. Jimenez with [facility]. Presented the ED on 07/13/2024 with complains of shortness of breath which has been ongoing since April of this year. He has been in [place] where he spends his [place]. He was diagnosed with allergies as well as a lung infection at 2 separate hospitalizations in [place]. During 1 of his admissions he also had 700 mL of fluid removed from his the right side of his chest, and it was negative for cancer cells. He also had a bronchoscopy that did not show any cancer. He does not have the records currently. His shortness of breath has progressed to a point that he now is oxygen dependent since a month and half. Typically wears 2 L oxygen but has slowly increased his oxygen requirements due to shortness of breath and is currently on 5 L over the last few days prior to admission. He the patient and his significant other drove up from [place] over the last 3 days so he could be back in his home area and the just arrived on the day of admission and he was brought to the ED due to severe shortness breath. He also has had 42 lb weight loss in the last 3-4 months per significant other, he also has not be eating too well according to her. Chest x-ray on admission showed: Bilateral pneumonia with pleural effusion. Superimposed pulmonary edema is not excluded. CTA chest on admission: No PE, no thoracic aortic dissection, postoperative changes within the right upper lobe and right hilum. Large bilateral pleural effusions left greater than right with adjacent compressive atelectasis. Thickened wall surrounding the fluid within the right lung base suggest empyema. Additional finding suggesting pulmonary vascular congestion. On 07/14/2024 vegetable farmworker I was called to see the patient at the bedside as he was on BiPAP, tachypneic with respiratory rates in the 30s to 40s, difficulty breathing, shortness of breath, impending respiratory failure. Patient was brought to the ICU, after discussing with the patient, he consented to intubation and mechanical ventilation along with central line. Intubation was uneventful, placed on mechanical ventilation, right IJ central line was inserted without difficulty. Hemodynamically stable, urine output has been adequate, afebrile Review of Systems Review of Systems: ROS unobtainable: Yes unobtainable due to endotracheal tube and unobtainable due to medical condition PMFSH Past Medical History Medical History (Updated 07/14/24 @ 11:42 by Concha Bhat MD) Pneumonia due to adenovirus Malignant neoplasm of upper lobe, right bronchus or lung AAA (abdominal aortic aneurysm) Hypertension Surgical History Surgical History (Updated 07/13/24 @ 21:13 by Shelbie Best APRN) History of tonsillectomy and adenoidectomy History of cholecystectomy S/P partial lobectomy of lung Family History Family History Father Hypertension Cancer Heart disease Mother Hypertension Heart disease Cancer Sibling Hypertension Heart disease Social History Social History Smoking status: Current every day smoker Alcohol use details: 3 Beer Substance use: never Substance use type: does not use Do You Feel Safe in your Home?: Yes Lack of Transportation: No Lack of Food: Never True Current Housing: I Have Housing Concerned About Future Housing: No Difficulty Paying Gas/Electric Bills: No Difficulty Paying for Meds: No Currently Unemployed: No Education: Trade/Vocational Certificate Difficulty w/ Childcare or Family Care: No Living arrangements: with family Gender identity (if verbalized by the patient): Male Spiritual care concerns: No Agree to blood products: Yes Meds Home Medications and Allergies Home Medications ?Medication ?Instructions ?Recorded ?Confirmed ?Type amlodipine 5 mg tablet 5 mg PO DAILY #90 tabs 01/26/24 07/13/24 Rx cholecalciferol (vitamin D3) 1,250 1,250 mcg PO WEEKLY #14 tabs 02/20/24 07/13/24 Rx mcg (50,000 unit) tablet albuterol sulfate 90 mcg/actuation 2 inh inhalation Q4H PRN shortness 07/13/24 07/13/24 History aerosol inhaler of breath or wheezing azithromycin 250 mg tablet 250 mg PO .COMPLEX 07/13/24 07/13/24 History fluticasone 250 mcg-salmeterol 50 1 inh inhalation Q12H 07/13/24 07/13/24 History mcg/dose blistr powdr for inhalation (Mauro Inhub) prednisone 10 mg tablet 10 mg PO Q12H 07/13/24 07/13/24 History theophylline 200 mg 200 mg PO Q24H 07/13/24 07/13/24 History tablet,extended release,12 hr Allergies Allergy/AdvReac Type Severity Reaction Status Date / Time No Known Allergies Allergy Verified 07/13/24 13:02 Vital Signs Vital Signs - 24 hr 07/13/24 13:06 07/13/24 13:29 07/13/24 13:30 Temperature 97.5 F L Pulse Rate 128 H 113 H 108 H Respiratory Rate 22 H 31 H 24 H Blood Pressure 121/96 H Pulse Oximetry 93 98 98 Oxygen Delivery Nasal Cannula Oxygen Flow Rate 5 Fraction of Inspired Oxygen 07/13/24 13:31 07/13/24 13:33 07/13/24 13:45 Temperature Pulse Rate 106 H 108 H 110 H Respiratory Rate 23 H 30 H 30 H Blood Pressure 90/64 L Pulse Oximetry 99 98 98 Oxygen Delivery Oxygen Flow Rate Fraction of Inspired Oxygen 07/13/24 13:46 07/13/24 14:09 07/13/24 14:10 Temperature Pulse Rate 109 H 107 H Respiratory Rate 30 H 27 H 28 H Blood Pressure 94/72 L 86/67 L Pulse Oximetry 97 93 94 Oxygen Delivery Oxygen Flow Rate Fraction of Inspired Oxygen 07/13/24 14:15 07/13/24 14:16 07/13/24 14:31 Temperature Pulse Rate 111 H 107 H 100 Respiratory Rate 20 23 H 19 Blood Pressure 79/61 L 88/68 L Pulse Oximetry 97 Oxygen Delivery Oxygen Flow Rate Fraction of Inspired Oxygen 07/13/24 14:48 07/13/24 15:15 07/13/24 16:00 Temperature Pulse Rate 107 H 107 H Respiratory Rate 24 H 31 H Blood Pressure 100/73 100/73 Pulse Oximetry 95 95 97 Oxygen Delivery Nasal Cannula Oxygen Flow Rate 2 Fraction of Inspired Oxygen 07/13/24 16:15 07/13/24 16:30 07/13/24 17:08 Temperature Pulse Rate 112 H 105 H 111 H Respiratory Rate 28 H 22 H 22 H Blood Pressure 112/74 90/70 L Pulse Oximetry 92 96 96 Oxygen Delivery Oxygen Flow Rate Fraction of Inspired Oxygen 07/13/24 17:19 07/13/24 17:30 07/13/24 18:02 Temperature Pulse Rate 115 H 116 H 127 H Respiratory Rate 25 H 48 H 27 H Blood Pressure Pulse Oximetry 94 95 Oxygen Delivery Oxygen Flow Rate Fraction of Inspired Oxygen 07/13/24 18:48 07/13/24 19:37 07/13/24 19:40 Temperature Pulse Rate 125 H 133 H 130 H Respiratory Rate 22 H 20 Blood Pressure 105/78 120/81 Pulse Oximetry 95 82 L Oxygen Delivery High Flow Nasal Cannula Oxygen Flow Rate 8 Fraction of Inspired Oxygen 07/13/24 20:20 07/13/24 20:25 07/13/24 20:54 Temperature Pulse Rate 135 H 135 H 138 H Respiratory Rate 20 31 H 34 H Blood Pressure Pulse Oximetry 100 Oxygen Delivery BiPAP Oxygen Flow Rate Fraction of Inspired Oxygen 07/13/24 21:00 07/13/24 22:00 07/13/24 23:45 Temperature 97.6 F Pulse Rate 133 H 123 H 127 H Respiratory Rate 28 H 18 Blood Pressure 113/70 Pulse Oximetry 78 L 100 Oxygen Delivery BiPAP Oxygen Flow Rate Fraction of Inspired Oxygen 80 07/13/24 23:53 07/14/24 00:00 07/14/24 01:15 Temperature Pulse Rate 116 H 112 H 122 H Respiratory Rate 18 32 H Blood Pressure Pulse Oximetry 100 99 Oxygen Delivery High Flow Nasal Cannula BiPAP Oxygen Flow Rate 6 Fraction of Inspired Oxygen 07/14/24 02:00 07/14/24 02:10 07/14/24 02:40 Temperature Pulse Rate 106 H 99 112 H Respiratory Rate 25 H 25 H Blood Pressure Pulse Oximetry 98 97 Oxygen Delivery BiPAP Oxygen Flow Rate Fraction of Inspired Oxygen 07/14/24 02:40 07/14/24 03:30 07/14/24 03:50 Temperature Pulse Rate 112 H 103 H 100 Respiratory Rate 25 H 29 H 24 H Blood Pressure Pulse Oximetry 97 96 97 Oxygen Delivery BiPAP BiPAP Oxygen Flow Rate Fraction of Inspired Oxygen 30 30 07/14/24 04:00 07/14/24 04:00 07/14/24 06:00 Temperature 98.7 F Pulse Rate 104 H 86 97 Respiratory Rate 19 Blood Pressure 100/66 Pulse Oximetry 96 Oxygen Delivery Oxygen Flow Rate Fraction of Inspired Oxygen 07/14/24 07:50 07/14/24 07:55 07/14/24 08:00 Temperature 98.5 F Pulse Rate 98 114 H 98 Respiratory Rate 24 H 24 H Blood Pressure 101/74 Pulse Oximetry 100 100 Oxygen Delivery Mechanical Ventilation Oxygen Flow Rate Fraction of Inspired Oxygen 100 07/14/24 08:00 07/14/24 08:03 07/14/24 08:11 Temperature Pulse Rate 100 100 Respiratory Rate 24 H Blood Pressure Pulse Oximetry Oxygen Delivery Oxygen Flow Rate Fraction of Inspired Oxygen 100 07/14/24 08:12 07/14/24 09:00 07/14/24 09:00 Temperature Pulse Rate 100 82 82 Respiratory Rate 24 H 24 H 24 H Blood Pressure Pulse Oximetry Oxygen Delivery Oxygen Flow Rate Fraction of Inspired Oxygen 07/14/24 09:05 07/14/24 09:34 Temperature Pulse Rate 82 81 Respiratory Rate 24 H Blood Pressure Pulse Oximetry 100 100 Oxygen Delivery Mechanical Ventilation Mechanical Ventilation Oxygen Flow Rate Fraction of Inspired Oxygen 55 55 Exam Narrative: General: Sedated, intubated, in no acute distress HEENT:? Pupils equal and reactive, sclera is clear, ETT in place Neck:? Supple Respiratory:? Coarse breath sounds bilaterally, decreased at bases L > R, no wheezing, adequate air entry Cardiac:? S1-S2 normal, regular rate and rhythm Abdomen:? Soft, nontender, nondistended, normoactive bowel sounds Extremities:? Cachectic, palpable pedal pulses, no edema Neuro:? Patient is intubated and sedated, does not open his eyes or follow simple commands at this time. Prior to intubation patient was talking and answering questions and moving all extremities appropriately Skin:? No skin lesions no Psych:? Unable to assess at this time Results Labs 07/14/24 04:16 07/14/24 04:16 Labs: Short CBC 07/13/24 07/14/24 Range/Units 13:21 04:16 WBC 17.8 H 16.1 H (4.5-10.0) K/mm3 Hgb 11.7 L 10.0 L (14.0-18.0) g/dL Hct 38.5 L 33.4 L (42.0-52.0) % Plt Count 356 286 (150-375) k/mm3 BMP 07/13/24 07/14/24 13:21 04:16 Sodium 138 138 Potassium 4.6 4.6 Chloride 98 99 Carbon Dioxide 33 H 35 H BUN 23 H D 23 H Creatinine 0.85 0.97 Glucose 112 H 115 H Calcium 10.1 9.1 Liver Function 07/13/24 07/14/24 Range/Units 13:21 04:16 Total Bilirubin 0.6 0.4 (0.2-1.3) mg/dL AST 62 H 51 (17-59) U/L ALT 28 24 (6-50) U/L Alkaline Phosphatase 102 93 (38-126) U/L Albumin 3.9 3.3 L (3.5-5.1) g/dL Quality VTE Prophylaxis VTE prophylaxis: pharmacologic ordered Hospitalist MIPS Advance Care Plan I have confirmed that the patient's Advanced Care Plan is present, code status is documented, or surrogate decision maker is listed in patient medical record.: Yes Medication Reconciliation I have utilized all available resources to obtain, update and review the patients current medications (includes all prescriptions, OTC, herbals, cannabis, and nutritional supplements).: Yes
[2024-07-14] MEDS: BUDESONIDE RESPULE NEB 0.5 MG/2 ML AMP INHALATION ×2 (10:57→20:31)
--- NOTE | 2024-07-14 11:35 | PM.CNPUL ---
Assessment and Plan Assessment and plan (1) Lung cancer: Code(s): C34.90 - Malignant neoplasm of unspecified part of unspecified bronchus or lung Status: Acute (2) Adenocarcinoma of right lung: Code(s): C34.91 - Malignant neoplasm of unspecified part of right bronchus or lung Status: Acute (3) Acute respiratory failure: Code(s): J96.00 - Acute respiratory failure, unspecified whether with hypoxia or hypercapnia Status: Acute Assessment and Plan: This 68-year-old man, with a history of adenocarcinoma and status post right upper lobectomy with a chronic right pleural effusion following lung resection surgery, presented with a subacute onset of progressively worsening shortness of breath. He was found to have a new left pleural effusion, a likely increase in the size of the chronic right pleural effusion, and, most importantly, evidence of interlobular septal thickening, which could be attributed to either congestive heart failure or lymphangitic spread of his lung cancer. He is currently receiving three antibiotics for a possible lower respiratory tract infection and is also on IV steroids, presumably for sepsis. Plan: I agree with the current antibiotic regimen, as healthcare-associated pneumonia is a possibility given his recent hospitalization in [place]. If the patient's hemodynamic status permits, I would consider gentle diuresis to address potential chest congestion related to congestive heart failure. Following liberation from mechanical ventilation and extubation, a left thoracentesis will be necessary to exclude malignant pleural effusion. I will continue to follow the patient along with you. (4) Adenocarcinoma: Code(s): C80.1 - Malignant (primary) neoplasm, unspecified Status: Acute (5) Sepsis: Qualifiers: Sepsis type: sepsis due to unspecified organism Sepsis acute organ dysfunction status: with acute organ dysfunction Severe sepsis acute organ dysfunction type: acute respiratory failure Acute respiratory failure type: with hypoxia Severe sepsis shock status: without septic shock Qualified Code(s): A41.9 - Sepsis, unspecified organism; R65.20 - Severe sepsis without septic shock; J96.01 - Acute respiratory failure with hypoxia Code(s): A41.9 - Sepsis, unspecified organism Status: Acute History of Present Illness History of Present Illness Consult date: 07/14/24 Chief complaint: pneumonia Narrative: This 68-year-old man presented with progressively worsening shortness of breath. This report is compiled from the patient's chart, as he is currently in the intensive care unit, intubated, and on mechanical ventilation. The patient has a known history of lung cancer, diagnosed as T1c N0 M0, characterized by an approximately 3 cm nodule in the right upper lobe with a negative PET scan for metastatic disease in the fall of 2022. Subsequently, the patient underwent a right upper lobectomy with mediastinal lymph node dissection. Post-surgery, the margins were reportedly tumor-free, and the patient did not receive any chemotherapy or radiation. Postoperative chest imaging showed changes consistent with surgery and likely a loculated right pleural effusion. The patient spent the winter in [place], where he was reportedly hospitalized and treated on two separate occasions for pneumonia. He underwent a right thoracentesis, which was reported as non-malignant. Since his last hospitalization, he has been on supplemental oxygen at 2 liters per minute. Over the past few weeks, the patient has experienced increasing shortness of breath, lower extremity edema, and weight loss, without chest pain or hemoptysis. A CT pulmonary angiogram revealed bilateral pleural effusions with associated atelectasis and thickened interlobular septa, more pronounced in the left lung. The patient is currently receiving treatment with three antibiotics for a lower respiratory tract infection, as well as IV hydrocortisone and short-acting bronchodilators. His MRSA screening was negative, but he showed leukocytosis and elevated BNP levels. PCR screening for common viruses was negative. Initial blood gases indicated well-compensated mild hypercapnic respiratory acidosis, with a pCO2 of around 47 mmHg and normal pH. Initially, the patient was placed on BiPAP support, but due to worsening respiratory acidosis and increasing shortness of breath, he was transferred to the Intensive Care Unit, where he is currently intubated and mechanically ventilated. Review of Systems Review of Systems: ROS unobtainable: Yes unobtainable due to endotracheal tube PMFSH Past Medical History Medical History (Updated 07/14/24 @ 11:42 by Concha Bhat MD) Pneumonia due to adenovirus Malignant neoplasm of upper lobe, right bronchus or lung AAA (abdominal aortic aneurysm) Hypertension Surgical History Surgical History (Updated 07/13/24 @ 21:13 by Shelbie Best APRN) History of tonsillectomy and adenoidectomy History of cholecystectomy S/P partial lobectomy of lung Family History Family History Father Hypertension Cancer Heart disease Mother Hypertension Heart disease Cancer Sibling Hypertension Heart disease Social History Social History Smoking status: Current every day smoker Alcohol use details: 3 Beer Substance use: never Substance use type: does not use Do You Feel Safe in your Home?: Yes Lack of Transportation: No Lack of Food: Never True Current Housing: I Have Housing Concerned About Future Housing: No Difficulty Paying Gas/Electric Bills: No Difficulty Paying for Meds: No Currently Unemployed: No Education: Trade/Vocational Certificate Difficulty w/ Childcare or Family Care: No Living arrangements: with family Gender identity (if verbalized by the patient): Male Spiritual care concerns: No Agree to blood products: Yes Meds Home Medications and Allergies Home Medications ?Medication ?Instructions ?Recorded ?Confirmed ?Type amlodipine 5 mg tablet 5 mg PO DAILY #90 tabs 01/26/24 07/13/24 Rx cholecalciferol (vitamin D3) 1,250 1,250 mcg PO WEEKLY #14 tabs 02/20/24 07/13/24 Rx mcg (50,000 unit) tablet albuterol sulfate 90 mcg/actuation 2 inh inhalation Q4H PRN shortness 07/13/24 07/13/24 History aerosol inhaler of breath or wheezing azithromycin 250 mg tablet 250 mg PO .COMPLEX 07/13/24 07/13/24 History fluticasone 250 mcg-salmeterol 50 1 inh inhalation Q12H 07/13/24 07/13/24 History mcg/dose blistr powdr for inhalation (Wix[facility] Inhub) prednisone 10 mg tablet 10 mg PO Q12H 07/13/24 07/13/24 History theophylline 200 mg 200 mg PO Q24H 07/13/24 07/13/24 History tablet,extended release,12 hr Allergies Allergy/AdvReac Type Severity Reaction Status Date / Time No Known Allergies Allergy Verified 07/13/24 13:02 Vital Signs Vital Signs - 24 hr 07/13/24 13:06 07/13/24 13:29 07/13/24 13:30 Temperature 36.4 C L Pulse Rate 128 H 113 H 108 H Respiratory Rate 22 H 31 H 24 H Blood Pressure 121/96 H Pulse Oximetry 93 98 98 Oxygen Delivery Nasal Cannula Oxygen Flow Rate 5 Fraction of Inspired Oxygen 07/13/24 13:31 07/13/24 13:33 07/13/24 13:45 Temperature Pulse Rate 106 H 108 H 110 H Respiratory Rate 23 H 30 H 30 H Blood Pressure 90/64 L Pulse Oximetry 99 98 98 Oxygen Delivery Oxygen Flow Rate Fraction of Inspired Oxygen 07/13/24 13:46 07/13/24 14:09 07/13/24 14:10 Temperature Pulse Rate 109 H 107 H Respiratory Rate 30 H 27 H 28 H Blood Pressure 94/72 L 86/67 L Pulse Oximetry 97 93 94 Oxygen Delivery Oxygen Flow Rate Fraction of Inspired Oxygen 07/13/24 14:15 07/13/24 14:16 07/13/24 14:31 Temperature Pulse Rate 111 H 107 H 100 Respiratory Rate 20 23 H 19 Blood Pressure 79/61 L 88/68 L Pulse Oximetry 97 Oxygen Delivery Oxygen Flow Rate Fraction of Inspired Oxygen 07/13/24 14:48 07/13/24 15:15 07/13/24 16:00 Temperature Pulse Rate 107 H 107 H Respiratory Rate 24 H 31 H Blood Pressure 100/73 100/73 Pulse Oximetry 95 95 97 Oxygen Delivery Nasal Cannula Oxygen Flow Rate 2 Fraction of Inspired Oxygen 07/13/24 16:15 07/13/24 16:30 07/13/24 17:08 Temperature Pulse Rate 112 H 105 H 111 H Respiratory Rate 28 H 22 H 22 H Blood Pressure 112/74 90/70 L Pulse Oximetry 92 96 96 Oxygen Delivery Oxygen Flow Rate Fraction of Inspired Oxygen 07/13/24 17:19 07/13/24 17:30 07/13/24 18:02 Temperature Pulse Rate 115 H 116 H 127 H Respiratory Rate 25 H 48 H 27 H Blood Pressure Pulse Oximetry 94 95 Oxygen Delivery Oxygen Flow Rate Fraction of Inspired Oxygen 07/13/24 18:48 07/13/24 19:37 07/13/24 19:40 Temperature Pulse Rate 125 H 133 H 130 H Respiratory Rate 22 H 20 Blood Pressure 105/78 120/81 Pulse Oximetry 95 82 L Oxygen Delivery High Flow Nasal Cannula Oxygen Flow Rate 8 Fraction of Inspired Oxygen 07/13/24 20:20 07/13/24 20:25 07/13/24 20:54 Temperature Pulse Rate 135 H 135 H 138 H Respiratory Rate 20 31 H 34 H Blood Pressure Pulse Oximetry 100 Oxygen Delivery BiPAP Oxygen Flow Rate Fraction of Inspired Oxygen 07/13/24 21:00 07/13/24 22:00 07/13/24 23:45 Temperature 36.4 C Pulse Rate 133 H 123 H 127 H Respiratory Rate 28 H 18 Blood Pressure 113/70 Pulse Oximetry 78 L 100 Oxygen Delivery BiPAP Oxygen Flow Rate Fraction of Inspired Oxygen 80 07/13/24 23:53 07/14/24 00:00 07/14/24 01:15 Temperature Pulse Rate 116 H 112 H 122 H Respiratory Rate 18 32 H Blood Pressure Pulse Oximetry 100 99 Oxygen Delivery High Flow Nasal Cannula BiPAP Oxygen Flow Rate 6 Fraction of Inspired Oxygen 07/14/24 02:00 07/14/24 02:10 07/14/24 02:40 Temperature Pulse Rate 106 H 99 112 H Respiratory Rate 25 H 25 H Blood Pressure Pulse Oximetry 98 97 Oxygen Delivery BiPAP Oxygen Flow Rate Fraction of Inspired Oxygen 07/14/24 02:40 07/14/24 03:30 07/14/24 03:50 Temperature Pulse Rate 112 H 103 H 100 Respiratory Rate 25 H 29 H 24 H Blood Pressure Pulse Oximetry 97 96 97 Oxygen Delivery BiPAP BiPAP Oxygen Flow Rate Fraction of Inspired Oxygen 30 30 07/14/24 04:00 07/14/24 04:00 07/14/24 06:00 Temperature 37.1 C Pulse Rate 104 H 86 97 Respiratory Rate 19 Blood Pressure 100/66 Pulse Oximetry 96 Oxygen Delivery Oxygen Flow Rate Fraction of Inspired Oxygen 07/14/24 07:50 07/14/24 07:55 07/14/24 08:00 Temperature 36.9 C Pulse Rate 98 114 H 98 Respiratory Rate 24 H 24 H Blood Pressure 101/74 Pulse Oximetry 100 100 Oxygen Delivery Mechanical Ventilation Oxygen Flow Rate Fraction of Inspired Oxygen 100 07/14/24 08:00 07/14/24 08:03 07/14/24 08:11 Temperature Pulse Rate 100 100 Respiratory Rate 24 H Blood Pressure Pulse Oximetry Oxygen Delivery Oxygen Flow Rate Fraction of Inspired Oxygen 100 07/14/24 08:12 07/14/24 09:00 07/14/24 09:00 Temperature Pulse Rate 100 82 82 Respiratory Rate 24 H 24 H 24 H Blood Pressure Pulse Oximetry Oxygen Delivery Oxygen Flow Rate Fraction of Inspired Oxygen 07/14/24 09:05 07/14/24 09:34 07/14/24 10:00 Temperature Pulse Rate 82 81 80 Respiratory Rate 24 H 22 H Blood Pressure Pulse Oximetry 100 100 Oxygen Delivery Mechanical Ventilation Mechanical Ventilation Oxygen Flow Rate Fraction of Inspired Oxygen 55 55 07/14/24 10:00 07/14/24 10:00 07/14/24 10:00 Temperature 37.0 C Pulse Rate 74 78 78 Respiratory Rate 22 H 22 H Blood Pressure 89/64 L Pulse Oximetry 100 Oxygen Delivery Oxygen Flow Rate Fraction of Inspired Oxygen 07/14/24 10:58 Temperature Pulse Rate 77 Respiratory Rate 24 H Blood Pressure Pulse Oximetry Oxygen Delivery Oxygen Flow Rate Fraction of Inspired Oxygen Exam Narrative: GENERAL APPEARANCE: Well developed, well nourished, opening eyes to verbal commands while off intubated on mechanical ventilation SKIN: Inspection of the skin reveals no rashes, ulcerations or petechiae. HEENT: Sclerae anicteric and conjunctivae pink and moist. Extraocular movements were intact and pupils were equal, round NECK: Supple. There was no thyroid enlargement, and no tenderness, or masses were felt. LUNGS: Clear breath lungs anteriorly decrease breath sounds left lateral chest no wheezing CARDIAC: Tachycardia, regular rate and rhythm without any murmurs, gallops, rubs. ABDOMEN: Soft and nontender with normal bowel sounds. There was no organomegaly. LYMPH NODES: No lymphadenopathy was appreciated in the neck. EXTREMITIES: No cyanosis, clubbing or edema. NEUROLOGIC: Opening eyes, moving all extremities Results Laboratory Findings 07/14/24 04:16 07/14/24 04:16 ABG, PT/INR, D-dimer: ABG ABG pH 7.482 (7.350-7.450) H 07/14/24 08:54 ABG pCO2 40.0 mmHg (35.0-45.0) 07/14/24 08:54 ABG pO2 449.8 mmHg (80.0-100.0) H 07/14/24 08:54 ABG O2 Saturation 99.9 % (95.0-100.0) 07/14/24 08:54 PT/INR, D-dimer PT 15.3 Seconds (11.1-14.7) H 07/13/24 13:44 INR 1.2 07/13/24 13:44 Abnormal lab findings: Abnormal Labs 07/13/24 07/13/24 07/13/24 13:21 13:43 13:44 WBC 17.8 H RBC 4.37 L Hgb 11.7 L Hct 38.5 L MCHC 30.4 L RDW 15.7 H Immature Gran % (Auto) Neut % (Auto) 83.2 H Lymph % (Auto) 8.6 L Baso % (Auto) Lymph # (Auto) [place] # (Auto) 1.3 H Abs Immat Gran (auto) 0.08 H Absolute Neuts (auto) 14.8 H PT 15.3 H ABG pH ABG pCO2 47.1 H ABG pO2 ABG HCO3 27.1 H ABG O2 Saturation ABG O2 Content Total Hemoglobin 11.9 L Carbon Dioxide 33 H BUN 23 H D Glucose 112 H POC Capillary Glucose AST 62 H NT-Pro-B Natriuret Pep 459 H Total Protein Albumin 07/13/24 07/13/24 07/14/24 19:39 23:37 02:10 WBC RBC Hgb Hct MCHC RDW Immature Gran % (Auto) Neut % (Auto) Lymph % (Auto) Baso % (Auto) Lymph # (Auto) [place] # (Auto) Abs Immat Gran (auto) Absolute Neuts (auto) PT ABG pH 7.303 L 7.299 L ABG pCO2 68.9 H* 70.7 H* ABG pO2 112.6 H ABG HCO3 33.4 H 33.9 H ABG O2 Saturation ABG O2 Content 15.1 L 15.5 L Total Hemoglobin 11.2 L 11.1 L Carbon Dioxide BUN Glucose POC Capillary Glucose 175 H AST NT-Pro-B Natriuret Pep Total Protein Albumin 07/14/24 07/14/24 07/14/24 03:27 04:16 08:54 WBC 16.1 H RBC 3.79 L Hgb 10.0 L Hct 33.4 L MCHC 29.9 L RDW 15.9 H Immature Gran % (Auto) 0.6 H Neut % (Auto) 90.5 H Lymph % (Auto) 3.9 L Baso % (Auto) 0.1 L Lymph # (Auto) 0.63 L [place] # (Auto) 0.8 H Abs Immat Gran (auto) 0.09 H Absolute Neuts (auto) 14.6 H PT ABG pH 7.347 L 7.482 H ABG pCO2 58.1 H ABG pO2 72.1 L 449.8 H ABG HCO3 31.1 H 29.3 H ABG O2 Saturation 93.4 L ABG O2 Content 14.4 L Total Hemoglobin 10.9 L 11.6 L Carbon Dioxide 35 H BUN 23 H Glucose 115 H POC Capillary Glucose AST NT-Pro-B Natriuret Pep Total Protein 6.0 L Albumin 3.3 L
[2024-07-14] MEDS: NOREPINEPHRINE 8 MG/D5W 250 ML 8 MG/250 ML BAG 9.38 MG IV CONT (12:25)
[2024-07-14] MEDS: PANTOPRAZOLE SODIUM IV 40 MG VIAL IV PUSH (12:26)
[2024-07-14] MEDS: CENTRAL LINE FLUSH 10 ML IV PUSH ×2 (13:06→20:59)
--- NOTE | 2024-07-14 13:14 | PM.IMPN ---
Progress Note: A&P Assessment and Plan (1) Acute respiratory failure: Code(s): J96.00 - Acute respiratory failure, unspecified whether with hypoxia or hypercapnia Status: Acute Assessment and Plan: From Pulm edema and Pneumonia CTA chest showed bilateral pleural effusion with thickened wall surrounding the fluid within the right lung base suggest empyema Continue Cefepime, Azithromycin and Vanc Monitor cultures Continue sedation per youth agent Monitor in ICU (2) Pneumonia: Qualifiers: Laterality: bilateral Lung location: unspecified part of lung Pneumonia type: due to unspecified organism Qualified Code(s): J18.9 - Pneumonia, unspecified organism Code(s): J18.9 - Pneumonia, unspecified organism Status: Acute Assessment and Plan: Chest x-ray shows bilateral diffuse pneumonia -currently intubated on mechanical ventilator -continue azithromycin, cefepime and vancomycin, (07/13) continue above care (3) Sepsis: Qualifiers: Sepsis type: sepsis due to unspecified organism Sepsis acute organ dysfunction status: with acute organ dysfunction Severe sepsis acute organ dysfunction type: acute respiratory failure Acute respiratory failure type: with hypoxia Severe sepsis shock status: without septic shock Qualified Code(s): A41.9 - Sepsis, unspecified organism; R65.20 - Severe sepsis without septic shock; J96.01 - Acute respiratory failure with hypoxia Code(s): A41.9 - Sepsis, unspecified organism Status: Acute Assessment and Plan: From pneumonia -continue management as above -not requiring pressors at this time -patient does have a central line in the right IJ which was placed on 07/14 -lactic acid is within normal limits. Patient did receive IV fluid bolus in the ER -patient also received Lasix in the ER -repeat another IV fluid bolus in the ICU. (4) Malnourished: Qualifiers: Malnutrition type: protein-calorie malnutrition Protein-calorie malnutrition severity: moderate Qualified Code(s): E44.0 - Moderate protein-calorie malnutrition Code(s): E46 - Unspecified protein-calorie malnutrition Status: Acute Assessment and Plan: According the significant other patient has dropped 40-42 lb in the last 3-4 months, he has not been eating well -dietitian has been consulted -will start trickle tube feeds for now to prevent re-feeding syndrome Plan DVT prophylaxis: Enoxaparin Stress ulcer prophylaxis: Protonix Nutrition: Tube feeds Code Status: Full code Subjective Date/time seen: 07/14/24 13:14 Interval history: Now intubated and sedated Patient was transferred to ICU this morning Review of Systems Review of Systems: All systems reviewed & are unremarkable except as noted in HPI and below ROS unobtainable: Yes unobtainable due to endotracheal tube and unobtainable due to medical condition Exam Narrative: General: intubated and sedated HEENT:? Pupils equal and reactive, sclera is clear, ETT in place Neck:? Supple Respiratory:? Coarse breath sounds bilaterally, decreased at bases L > R, no wheezing, adequate air entry Cardiac:? S1-S2 normal, regular rate and rhythm Abdomen:? Soft, nontender, nondistended, normoactive bowel sounds Extremities:? Cachectic, palpable pedal pulses, no edema Neuro:? Patient is intubated and sedated, does not open his eyes or follow simple commands at this time. Prior to intubation patient was talking and answering questions and moving all extremities appropriately Skin:? No skin lesions no Const: Other: , male, ill appearing HENMT: Face/Nose/Sinus: Normal nares present Mouth: Yes dry mucous membranes Other: BiPAP in place. tolerating poorly. Eyes: General: appearance normal, both eyes and all related structures Sclera: sclerae normal Pupils: Equal, round and reactive pupils present EOM: EOMs intact bilaterally Resp: Other: significant respiratory distress w/retractions and accessory muscle use. Poor air movement. crackles in mid and lower lung zones bilaterally. Cardio: Rate: tachycardic Rhythm: regular rhythm Other: no murmur or rub. GI: Other: Abdomen soft, nondistended, nontender. Normoactive bowel sounds in all quadrants. Skin: General skin exam: normal color and no rashes or lesions noted Wounds: no wounds Neuro: Cranial nerves: Yes Equal, round and reactive pupils present Speech: normal speech Motor exam (neuro): 5/5 motor strength present throughout Sensory Exam: normal sensation Other: fatigued. A/Ox4. Extrem: General: normal to inspection Psych: Mental Status: mental status grossly normal Affect: Anxious affect present Other: Good insight and judgment. Objective Data Vital Signs Vital Signs: Vital Signs - 24 hr 07/13/24 13:29 07/13/24 13:30 07/13/24 13:31 Temperature Pulse Rate 113 H 108 H 106 H Respiratory Rate 31 H 24 H 23 H Blood Pressure Pulse Oximetry 98 98 99 Oxygen Delivery Oxygen Flow Rate Fraction of Inspired Oxygen 07/13/24 13:33 07/13/24 13:45 07/13/24 13:46 Temperature Pulse Rate 108 H 110 H 109 H Respiratory Rate 30 H 30 H 30 H Blood Pressure 90/64 L 94/72 L Pulse Oximetry 98 98 97 Oxygen Delivery Oxygen Flow Rate Fraction of Inspired Oxygen 07/13/24 14:09 07/13/24 14:10 07/13/24 14:15 Temperature Pulse Rate 107 H 111 H Respiratory Rate 27 H 28 H 20 Blood Pressure 86/67 L Pulse Oximetry 93 94 Oxygen Delivery Oxygen Flow Rate Fraction of Inspired Oxygen 07/13/24 14:16 07/13/24 14:31 07/13/24 14:48 Temperature Pulse Rate 107 H 100 Respiratory Rate 23 H 19 Blood Pressure 79/61 L 88/68 L Pulse Oximetry 97 95 Oxygen Delivery Nasal Cannula Oxygen Flow Rate 2 Fraction of Inspired Oxygen 07/13/24 15:15 07/13/24 16:00 07/13/24 16:15 Temperature Pulse Rate 107 H 107 H 112 H Respiratory Rate 24 H 31 H 28 H Blood Pressure 100/73 100/73 112/74 Pulse Oximetry 95 97 92 Oxygen Delivery Oxygen Flow Rate Fraction of Inspired Oxygen 07/13/24 16:30 07/13/24 17:08 07/13/24 17:19 Temperature Pulse Rate 105 H 111 H 115 H Respiratory Rate 22 H 22 H 25 H Blood Pressure 90/70 L Pulse Oximetry 96 96 94 Oxygen Delivery Oxygen Flow Rate Fraction of Inspired Oxygen 07/13/24 17:30 07/13/24 18:02 07/13/24 18:48 Temperature Pulse Rate 116 H 127 H 125 H Respiratory Rate 48 H 27 H 22 H Blood Pressure 105/78 Pulse Oximetry 95 95 Oxygen Delivery Oxygen Flow Rate Fraction of Inspired Oxygen 07/13/24 19:37 07/13/24 19:40 07/13/24 20:20 Temperature Pulse Rate 133 H 130 H 135 H Respiratory Rate 20 20 Blood Pressure 120/81 Pulse Oximetry 82 L Oxygen Delivery High Flow Nasal Cannula Oxygen Flow Rate 8 Fraction of Inspired Oxygen 07/13/24 20:25 07/13/24 20:54 07/13/24 21:00 Temperature Pulse Rate 135 H 138 H 133 H Respiratory Rate 31 H 34 H 28 H Blood Pressure Pulse Oximetry 100 78 L Oxygen Delivery BiPAP BiPAP Oxygen Flow Rate Fraction of Inspired Oxygen 80 07/13/24 22:00 07/13/24 23:45 07/13/24 23:53 Temperature 97.6 F Pulse Rate 123 H 127 H 116 H Respiratory Rate 18 18 Blood Pressure 113/70 Pulse Oximetry 100 100 Oxygen Delivery High Flow Nasal Cannula Oxygen Flow Rate 6 Fraction of Inspired Oxygen 07/14/24 00:00 07/14/24 01:15 07/14/24 02:00 Temperature Pulse Rate 112 H 122 H 106 H Respiratory Rate 32 H Blood Pressure Pulse Oximetry 99 Oxygen Delivery BiPAP Oxygen Flow Rate Fraction of Inspired Oxygen 07/14/24 02:10 07/14/24 02:40 07/14/24 02:40 Temperature Pulse Rate 99 112 H 112 H Respiratory Rate 25 H 25 H 25 H Blood Pressure Pulse Oximetry 98 97 97 Oxygen Delivery BiPAP BiPAP Oxygen Flow Rate Fraction of Inspired Oxygen 30 07/14/24 03:30 07/14/24 03:50 07/14/24 04:00 Temperature Pulse Rate 103 H 100 104 H Respiratory Rate 29 H 24 H Blood Pressure Pulse Oximetry 96 97 Oxygen Delivery BiPAP Oxygen Flow Rate Fraction of Inspired Oxygen 30 07/14/24 04:00 07/14/24 06:00 07/14/24 07:50 Temperature 98.7 F Pulse Rate 86 97 98 Respiratory Rate 19 Blood Pressure 100/66 Pulse Oximetry 96 100 Oxygen Delivery Mechanical Ventilation Oxygen Flow Rate Fraction of Inspired Oxygen 100 07/14/24 07:55 07/14/24 08:00 07/14/24 08:00 Temperature 98.5 F Pulse Rate 114 H 98 100 Respiratory Rate 24 H 24 H Blood Pressure 101/74 Pulse Oximetry 100 Oxygen Delivery Oxygen Flow Rate Fraction of Inspired Oxygen 07/14/24 08:03 07/14/24 08:11 07/14/24 08:12 Temperature Pulse Rate 100 100 Respiratory Rate 24 H 24 H Blood Pressure Pulse Oximetry Oxygen Delivery Oxygen Flow Rate Fraction of Inspired Oxygen 100 07/14/24 09:00 07/14/24 09:00 07/14/24 09:05 Temperature Pulse Rate 82 82 82 Respiratory Rate 24 H 24 H Blood Pressure Pulse Oximetry 100 Oxygen Delivery Mechanical Ventilation Oxygen Flow Rate Fraction of Inspired Oxygen 55 07/14/24 09:34 07/14/24 10:00 07/14/24 10:00 Temperature Pulse Rate 81 80 74 Respiratory Rate 24 H 22 H 22 H Blood Pressure Pulse Oximetry 100 Oxygen Delivery Mechanical Ventilation Oxygen Flow Rate Fraction of Inspired Oxygen 55 07/14/24 10:00 07/14/24 10:00 07/14/24 10:58 Temperature 98.6 F Pulse Rate 78 78 77 Respiratory Rate 22 H 24 H Blood Pressure 89/64 L Pulse Oximetry 100 Oxygen Delivery Oxygen Flow Rate Fraction of Inspired Oxygen 07/14/24 11:00 07/14/24 11:32 07/14/24 11:46 Temperature Pulse Rate 84 86 84 Respiratory Rate 22 H 22 H Blood Pressure Pulse Oximetry 100 100 Oxygen Delivery Mechanical Ventilation Mechanical Ventilation Oxygen Flow Rate Fraction of Inspired Oxygen 55 55 07/14/24 11:48 07/14/24 12:00 07/14/24 12:00 Temperature Pulse Rate 83 81 Respiratory Rate 22 H 22 H Blood Pressure Pulse Oximetry Oxygen Delivery Oxygen Flow Rate Fraction of Inspired Oxygen 55 07/14/24 12:00 07/14/24 12:05 07/14/24 12:25 Temperature 98.7 F Pulse Rate 82 82 82 Respiratory Rate 22 H Blood Pressure 76/59 L 71/60 L Pulse Oximetry 100 Oxygen Delivery Oxygen Flow Rate Fraction of Inspired Oxygen 07/14/24 12:45 07/14/24 13:00 Temperature Pulse Rate 75 79 Respiratory Rate Blood Pressure 115/72 99/70 L Pulse Oximetry Oxygen Delivery Oxygen Flow Rate Fraction of Inspired Oxygen Intake/Output Intake/Output: Intake & Output 07/11/24 07/12/24 07/13/24 07/14/24 23:59 23:59 23:59 23:59 Intake Total 1400 1098.2 Output Total 200 1300 Balance 1200 -201.8 Meds/Results Medications: Active Medications Generic Name Dose Route Start Last Admin Trade Name Freq PRN Reason Stop Dose Admin Acetaminophen 650 mg 07/13/24 15:40 Acetaminophen 325 Mg Tablet PO Q4H PRN Mild Pain (1-3) or Fever Albuterol/Ipratropium 3 ml 07/13/24 20:00 07/14/24 07:55 Ipratropium 0.5 Mg/Albuterol Sulfate 2.5 Mg Ampul.Neb 3 Ml INHALATION 3 ml Q6HRT ALCON Administration Benzonatate 100 mg 07/13/24 17:47 Benzonatate 100 Mg Capsule PO TID PRN Cough Budesonide 0.5 mg 07/14/24 08:45 07/14/24 10:57 Budesonide Respule Neb 0.5 Mg/2 Ml Amp INHALATION 0.5 mg Q12HRT ALCON Administration Enoxaparin Sodium 40 mg 07/14/24 09:00 07/14/24 09:21 Enoxaparin 40 Mg/0.4 Ml Syringe SUB-Q 40 mg DAILY ALCON Administration Hydrocortisone Sodium Succinate 50 mg 07/14/24 09:00 07/14/24 09:22 Hydrocortisone Sodium Succinate 100 Mg/2 Ml Vial IV PUSH 50 mg Q6H ALCON Administration Azithromycin 500 mg in 250 mls @ 250 mls/hr 07/14/24 15:00 Zithromax IVPB Q24H ALCON Cefepime HCl 2 gm in 50 mls @ 100 mls/hr 07/13/24 20:35 07/14/24 13:06 Maxipime 2 Gm/Ns 50 Ml IVPB 100 mls/hr Q8HR ALCON Administration Vancomycin HCl 1,250 mg in 250 mls @ 166.667 mls/hr 07/14/24 17:00 Vancomycin 1,250 Mg/Ns 250 Ml IVPB Q18H ALCON Fentanyl Citrate 2,500 mcg in 250 mls @ 7.5 mls/hr 07/14/24 07:50 07/14/24 12:00 Fentanyl 2,500 Mcg/Ns 250 Ml IV CONT 75 mcg/hr .[id number] ALCON 7.5 mls/hr Titration Protocol 75 MCG/HR Midazolam HCl 100 mg in 100 mls @ 3 mls/hr 07/14/24 07:50 07/14/24 12:00 Versed 100 Mg/Ns 100 Ml IV CONT 3 mg/hr .[id number] ALCON 3 mls/hr Titration Protocol 3 MG/HR Norepinephrine Bitartrate 8 mg in 250 mls @ 5.625 mls/hr 07/14/24 12:20 07/14/24 13:00 Levophed 8 Mg/D5w 250 Ml IV CONT 3 mcg/min .Q24H ALCON 5.63 mls/hr Titration Protocol 3 MCG/MIN Multi-Ingred Cream/Lotion/Oil/Oint 1 applic 07/14/24 09:00 07/14/24 09:22 Mineral Oil/White Petrolatum Ointment EACH EYE 1 applic Q12HR [facility] Administration Ondansetron HCl 4 mg 07/13/24 15:40 Ondansetron Inj 4 Mg/2 Ml Vial IV PUSH Q4H PRN Nausea Pantoprazole Sodium 40 mg 07/15/24 09:00 Pantoprazole Sodium Iv 40 Mg Vial IV PUSH QAM ALCON Sodium Chloride 10 ml 07/14/24 14:00 07/14/24 13:06 Central Line Flush IV PUSH 10 ml Q8HR ALCON Administration Sodium Chloride 20 ml 07/14/24 08:28 Central Line Flush IV PUSH PRN PRN after blood draws Sodium Chloride 6 ml 07/15/24 05:00 Sodium Chlor 3% 15 Ml Neb (Respiratory Therapy) INHALATION 07/17/24 05:01 DAILY@0500 [facility] Radiology Results: ITS Impressions Chest CTA 07/13/24 23:34 IMPRESSION: No pulmonary embolus. No thoracic aortic dissection. Postoperative change within the right upper lobe and right hilum. Large bilateral pleural effusions (left greater than right) with adjacent compressive atelectasis. Thickened wall surrounding the fluid within the right lung base suggests empyema. Additional findings suggesting pulmonary vascular congestion. Chest X-Ray 07/14/24 08:40 Impression: Status post placement of support tubes, as above, in satisfactory position. No pneumothorax. Small pleural effusions and diffuse interstitial disease are unchanged. Stable consolidation right lung apex, which could reflect loculated effusion. More confluent haziness left midlung, which could reflect focal pneumonia or worsening pulmonary edema. Abdomen X-Ray 07/14/24 08:42 Impression: NG tube in satisfactory position. Abdomen/Pelvis CT 07/14/24 11:31 Impression: Moderate layering left pleural effusion. Moderate right pleural effusion with thickening of the pleural lining and loculated appearance. Correlate for chronic effusion or empyema. Diffuse interstitial thickening at the lung bases. Findings represent diffuse interstitial edema versus less likely possibility of lymphangitic metastasis given relatively smooth morphology. Irregular consolidation right middle lobe and lingula which could reflect atelectasis, more confluent edema, or pneumonia. Underlying neoplasm not completely excluded. Findings suspicious for metastatic bone disease, as detailed above. 4.0 cm infrarenal abdominal aortic aneurysm. Labs Labs: Laboratory Results - last 24 hr 07/13/24 07/13/24 07/13/24 13:21 13:43 13:44 WBC 17.8 H RBC 4.37 L Hgb 11.7 L Hct 38.5 L MCV 88.1 MCH 26.8 MCHC 30.4 L RDW 15.7 H Plt Count 356 MPV 7.8 Immature Gran % (Auto) 0.4 Neut % (Auto) 83.2 H Lymph % (Auto) 8.6 L [place] % (Auto) 7.3 Eos % (Auto) 0.3 Baso % (Auto) 0.2 Lymph # (Auto) 1.53 [place] # (Auto) 1.3 H Eos # (Auto) 0.1 Baso # (Auto) 0.0 Abs Immat Gran (auto) 0.08 H Absolute Neuts (auto) 14.8 H Absolute Nucleated RBC 0.000 Band Neutrophils % Nucleated RBC % 0.0 Platelet Estimate Hypochromasia Anisocytosis Ovalocytes Schistocytes PT 15.3 H INR 1.2 APTT 29.5 Puncture Site Right brachial ABG pH 7.378 ABG pCO2 47.1 H ABG pO2 83.6 ABG PO2/FiO2 Ratio 2.32 ABG HCO3 27.1 H ABG O2 Saturation 96.0 ABG O2 Content 16.0 ABG Base Excess 1.5 A-a Gradient 118.4 Oxyhemoglobin 95.4 Carboxyhemoglobin 0.4 Methemoglobin 0.3 Reduced Hemoglobin 3.9 Total Hemoglobin 11.9 L O2 Delivery Device Nasal cannula O2 Liters/Min 4.0 Minute Volume Vent Rate Vent Mode FiO2 36 Expiratory Pressure Tidal Volume PEEP Inspiratory Pressure Peak Inspir Pressure Pressure Support Sodium 138 Potassium 4.6 Chloride 98 Carbon Dioxide 33 H Anion Gap 7 BUN 23 H D Creatinine 0.85 Estim Creat Clear Calc 66 Estimated GFR > 60 Glucose 112 H POC Capillary Glucose Lactic Acid 1.2 Calcium 10.1 Total Bilirubin 0.6 AST 62 H ALT 28 Alkaline Phosphatase 102 NT-Pro-B Natriuret Pep 459 H Total Protein 8.0 Albumin 3.9 Nasal MRSA (PCR) Influenza A (RT-PCR) Influenza B (RT-PCR) SARS-CoV-2 RNA (RT-PCR) 07/13/24 07/13/24 07/13/24 19:39 21:28 23:37 WBC RBC Hgb Hct MCV MCH MCHC RDW Plt Count MPV Immature Gran % (Auto) Neut % (Auto) Lymph % (Auto) [place] % (Auto) Eos % (Auto) Baso % (Auto) Lymph # (Auto) [place] # (Auto) Eos # (Auto) Baso # (Auto) Abs Immat Gran (auto) Absolute Neuts (auto) Absolute Nucleated RBC Band Neutrophils % Nucleated RBC % Platelet Estimate Hypochromasia Anisocytosis Ovalocytes Schistocytes PT INR APTT Puncture Site Left radial ABG pH 7.303 L ABG pCO2 68.9 H* ABG pO2 84.9 ABG PO2/FiO2 Ratio 1.93 ABG HCO3 33.4 H ABG O2 Saturation 95.1 ABG O2 Content 15.1 L ABG Base Excess 5.3 A-a Gradient 150.3 Oxyhemoglobin 95.4 Carboxyhemoglobin Methemoglobin Reduced Hemoglobin Total Hemoglobin 11.2 L O2 Delivery Device High flow nasal luis O2 Liters/Min 6.0 Minute Volume Vent Rate Vent Mode FiO2 44 Expiratory Pressure Tidal Volume PEEP Inspiratory Pressure Peak Inspir Pressure Pressure Support Sodium Potassium Chloride Carbon Dioxide Anion Gap BUN Creatinine Estim Creat Clear Calc Estimated GFR Glucose POC Capillary Glucose 175 H Lactic Acid Calcium Total Bilirubin AST ALT Alkaline Phosphatase NT-Pro-B Natriuret Pep Total Protein Albumin Nasal MRSA (PCR) Not detected Influenza A (RT-PCR) Negative Influenza B (RT-PCR) Negative SARS-CoV-2 RNA (RT-PCR) Negative 07/14/24 07/14/24 07/14/24 02:10 03:27 04:16 WBC 16.1 H RBC 3.79 L Hgb 10.0 L Hct 33.4 L MCV 88.1 MCH 26.4 MCHC 29.9 L RDW 15.9 H Plt Count 286 MPV 7.9 Immature Gran % (Auto) 0.6 H Neut % (Auto) 90.5 H Lymph % (Auto) 3.9 L [place] % (Auto) 4.8 Eos % (Auto) 0.1 Baso % (Auto) 0.1 L Lymph # (Auto) 0.63 L [place] # (Auto) 0.8 H Eos # (Auto) 0.0 Baso # (Auto) 0.0 Abs Immat Gran (auto) 0.09 H Absolute Neuts (auto) 14.6 H Absolute Nucleated RBC 0.000 Band Neutrophils % 0 Nucleated RBC % 0.0 Platelet Estimate Adequate Hypochromasia 1+ Anisocytosis 1+ Ovalocytes 1+ Schistocytes None seen PT INR APTT Puncture Site Left radial Left radial ABG pH 7.299 L 7.347 L ABG pCO2 70.7 H* 58.1 H ABG pO2 112.6 H 72.1 L ABG PO2/FiO2 Ratio 2.25 2.40 ABG HCO3 33.9 H 31.1 H ABG O2 Saturation 97.5 93.4 L ABG O2 Content 15.5 L 14.4 L ABG Base Excess 5.7 4.3 A-a Gradient 164.4 73.5 Oxyhemoglobin 97.9 93.8 Carboxyhemoglobin 0.3 Methemoglobin 0.1 Reduced Hemoglobin 1.7 Total Hemoglobin 11.1 L 10.9 L O2 Delivery Device Non-invasive vent Non-invasive vent O2 Liters/Min Not Reportable Not Reportable Minute Volume Vent Rate 8 24 Vent Mode FiO2 50 30 Expiratory Pressure 8 8 Tidal Volume PEEP Inspiratory Pressure 18 22 Peak Inspir Pressure Pressure Support Sodium 138 Potassium 4.6 Chloride 99 Carbon Dioxide 35 H Anion Gap 4 BUN 23 H Creatinine 0.97 Estim Creat Clear Calc 58 Estimated GFR > 60 Glucose 115 H POC Capillary Glucose Lactic Acid Calcium 9.1 Total Bilirubin 0.4 AST 51 ALT 24 Alkaline Phosphatase 93 NT-Pro-B Natriuret Pep Total Protein 6.0 L Albumin 3.3 L Nasal MRSA (PCR) Influenza A (RT-PCR) Influenza B (RT-PCR) SARS-CoV-2 RNA (RT-PCR) 07/14/24 08:54 WBC RBC Hgb Hct MCV MCH MCHC RDW Plt Count MPV Immature Gran % (Auto) Neut % (Auto) Lymph % (Auto) [place] % (Auto) Eos % (Auto) Baso % (Auto) Lymph # (Auto) [place] # (Auto) Eos # (Auto) Baso # (Auto) Abs Immat Gran (auto) Absolute Neuts (auto) Absolute Nucleated RBC Band Neutrophils % Nucleated RBC % Platelet Estimate Hypochromasia Anisocytosis Ovalocytes Schistocytes PT INR APTT Puncture Site Left radial ABG pH 7.482 H ABG pCO2 40.0 ABG pO2 449.8 H ABG PO2/FiO2 Ratio 4.50 ABG HCO3 29.3 H ABG O2 Saturation 99.9 ABG O2 Content 17.5 ABG Base Excess 5.4 A-a Gradient 223.2 Oxyhemoglobin 99.5 Carboxyhemoglobin Methemoglobin Reduced Hemoglobin Total Hemoglobin 11.6 L O2 Delivery Device Ventilator O2 Liters/Min Not Reportable Minute Volume Not Reportable Vent Rate 24 Vent Mode Cmv FiO2 100 Expiratory Pressure Tidal Volume 450 PEEP 5 Inspiratory Pressure Peak Inspir Pressure Not Reportable Pressure Support Not Reportable Sodium Potassium Chloride Carbon Dioxide Anion Gap BUN Creatinine Estim Creat Clear Calc Estimated GFR Glucose POC Capillary Glucose Lactic Acid Calcium Total Bilirubin AST ALT Alkaline Phosphatase NT-Pro-B Natriuret Pep Total Protein Albumin Nasal MRSA (PCR) Influenza A (RT-PCR) Influenza B (RT-PCR) SARS-CoV-2 RNA (RT-PCR) Quality VTE Prophylaxis VTE prophylaxis: pharmacologic ordered
[2024-07-14] MEDS: AZITHROMYCIN 500 MG/NS 250 ML 500 MG/250 ML BAG 250 MG IVPB (14:27)
[2024-07-14] MEDS: VANCOMYCIN 1,250 MG/NS 250 ML 1,250 MG/250 ML BAG 166.67 MG IVPB (16:21)
[2024-07-14 17:16] LABS: pH Pleural Fluid > 7.500 (7.210-7.500)
[2024-07-14 17:49] LABS: Pleural fluid source Pleural fluid
[2024-07-14 17:50] LABS: Appearance Pleural Fluid Hazy (Clear); Color Pleural Fluid Yellow (Colorless); Nucleated Cell Pleural Fluid 573 /uL (0-1000); RBC Pleural Fluid 5000 /uL (0-10000)
[2024-07-14 17:54] LABS: Lymphocytes Pleural Fluid 69 %; Macrophages Pleural Fluid 1 %; Monocytes Pleural Fluid 28 %; Neutrophils Pleural Fluid 2 % (0-25)
[2024-07-15] VITALS (49 sets, daily range): BP systolic 85–139; BP diastolic 61–82; PULSE 22–91; RESP 20–84; TEMP 36.6–36.9; O2SAT 65–99
[2024-07-15] MEDS: IPRATROPIUM 0.5 MG/ALBUTEROL SULFATE 2.5 MG AMPUL.NEB 3 ML INHALATION ×4 (02:28→20:26)
[2024-07-15 05:28] LABS: Alveolar/Arterial O2 Gradient 108.1 mmHg; Base Excess ABG 3.8 mEq/l (+/-2.0); Carboxyhemoglobin 0.6 % THb (0-2.0); Device VENTILATOR; Fractional Inspired Oxygen 30 %; HCO3 ABG 26.1 mEq/l (22.0-26.0); Modified Allen's Test Pass; Oxygen Saturation ABG 95.5 % (95.0-100.0); Oxyhemoglobin 94.2 % THb (90.0-100.0); PCO2 ABG 32.1 mmHg (35.0-45.0); PO2 ABG 68.1 mmHg (80.0-100.0); PO2 FiO2 Ratio Arterial Blood 2.27 %; Reduced Hemoglobin 5.2 %THb (0-5.0); Site Drawn RIGHT RADIAL; Total Hemoglobin 12.8 g/dL (12.0-18.0); pH ABG 7.528 (7.350-7.450)
[2024-07-15 05:29] LABS: Arterial Blood Gas PEEP 5 cmH2O; Arterial Blood Gas Tidal Volume 450 ml; Arterial Blood Gas Vent Mode CMV; Arterial Blood Gas Ventilator rate 22 /MIN
[2024-07-15] MEDS: CENTRAL LINE FLUSH 10 ML IV PUSH ×3 (05:59→21:08)
[2024-07-15] MEDS: HYDROCORTISONE SODIUM SUCCINATE 100 MG/2 ML VIAL 50 MG IV PUSH ×4 (05:59→23:05)
[2024-07-15] MEDS: CEFEPIME 2 GM/NS 50 ML 2 GM/50 ML BAG IVPB ×3 (06:00→21:05)
[2024-07-15 06:23] LABS: Basophils Percent Auto 0.1 % (0.2-1.2); Eosinophils Percent Auto 0.3 % (0-4.4); Hematocrit 29.5 % (42.0-52.0); Hemoglobin 9.3 g/dL (14.0-18.0); Immature Granulocyte Absolute 0.05 K/mm3 (0.00-0.031); Immature Granulocyte Percent A 0.4 % (0-0.5); Lymphocytes Absolute Auto 1.52 K/mm3 (0.9-3.2); Lymphocytes Percent Auto 12.8 % (18.3-44.2); Mean Corpuscular HGB Conc 31.5 g/dl (32-36); Mean Corpuscular Volume 85.8 fl (80-100); Mean Platelet Volume 7.9 fl (7.4-10.4); Monocytes Absolute Auto 0.8 K/mm3 (0.1-0.6); Monocytes Percent Auto 6.5 % (2.6-8.5); Neutrophils Absolute Auto 9.5 K/mm3 (1.3-6.7); Neutrophils Percent Auto 79.9 % (45.5-73.1); Platelet Count Result 256 k/mm3 (150-375); Red Blood Count 3.44 M/mm3 (4.6-6.20); Red Cell Distribution Width 16.5 % (11.5-14.5); White Blood Count 11.9 K/mm3 (4.5-10.0)
[2024-07-15 06:34] LABS: Alanine Aminotransferase 22 U/L (6-50); Albumin Level 2.9 g/dL (3.5-5.1); Alkaline Phosphatase 97 U/L (38-126); Anion Gap 6 mmol/L (4-12); Aspartate Amino Transferase 42 U/L (17-59); Bilirubin,Total 0.5 mg/dL (0.2-1.3); Blood Urea Nitrogen 30 mg/dL (9-20); Carbon Dioxide 28 mmol/L (22-30); Chloride 104 mmol/L (98-107); Estimated CRCL calculation 61 ml/min; Estimated Glomerular Filt Rate > 60; Glucose 114 mg/dL (65-110); Lactic Acid Reflex 0.8 mmol/L (0.7-2.0); Magnesium 2.3 mg/dL (1.6-2.3); Phosphorus 3.7 mg/dL (2.5-4.5); Potassium 3.5 mmol/L (3.4-5.0); Sodium 138 mmol/L (137-145)
[2024-07-15] MEDS: PANTOPRAZOLE SODIUM IV 40 MG VIAL IV PUSH (08:23)
[2024-07-15] MEDS: POTASSIUM CHLORIDE 20 MEQ PACKET (FOR LIQUID) 40 MEQ FEED TUBE (08:23)
[2024-07-15] MEDS: ENOXAPARIN 40 MG/0.4 ML SYRINGE SUB-Q (08:23)
[2024-07-15] MEDS: MINERAL OIL/WHITE PETROLATUM OINTMENT 1 APPLIC EACH EYE ×2 (08:23→20:42)
[2024-07-15] MEDS: BUDESONIDE RESPULE NEB 0.5 MG/2 ML AMP INHALATION ×2 (08:47→20:26)
[2024-07-15 10:25] LABS: Vancomycin Trough 12.5 ug/mL (10.0-20.0)
[2024-07-15] MEDS: VANCOMYCIN 1,250 MG/NS 250 ML 1,250 MG/250 ML BAG 166.67 MG IVPB (11:15)
--- NOTE | 2024-07-15 14:01 | WPDINTPN ---
Progress Note: A&P Assessment and Plan (1) Acute respiratory failure: Code(s): J96.00 - Acute respiratory failure, unspecified whether with hypoxia or hypercapnia Status: Acute Assessment and Plan: 07/13: Patient admitted with worsening shortness of breath, travel from [place] on 07/13 in upon arrival to [place] which is is home came directly to the ER. Normally uses 2 L nasal cannula, it bumped up to 5 L nasal cannula. -likely etiology, large left pleural effusion, pneumonia -07/14: I was asked to see the patient in the intermediate Unit where he was tachypneic, requiring BiPAP, complained of difficulty breathing, respiratory rate was in the upper 30s and 40s. Patient was in impending respiratory failure, discussed with patient regarding intubation and mechanical ventilation to which he consented. -07/14: Intubated in the ICU along with right IJ central line placement -post intubation ABGs and chest x-ray reviewed, ventilator adjusted -currently on CMV mode of ventilation, peep of 5 and FiO2 30% -continue bronchodilators, will add Pulmicort -bilateral diffuse infiltrates, patient may require a bronchoscopy. (Off note patient has been admitted to the hospital in [place] x2 for pneumonia and pleural effusion, pleural effusion was tapped on the 1st admission and they removed 700 mL of fluid which was negative for cancer cells). He also saw medical care administrator who recommended the patient see a oncologist. -sedated with fentanyl and Versed infusion, maintain RASS of 0 to-2, daily SBT and SAT 07/13: Chest x-ray on admission showed: Bilateral pneumonia with pleural effusion. Superimposed pulmonary edema is not excluded. 07/13: CTA chest on admission: No PE, no thoracic aortic dissection, postoperative changes within the right upper lobe and right hilum. Large bilateral pleural effusions left greater than right with adjacent compressive atelectasis. Thickened wall surrounding the fluid within the right lung base suggest empyema. Additional finding suggesting pulmonary vascular congestion. (2) Pneumonia: Qualifiers: Laterality: bilateral Lung location: unspecified part of lung Pneumonia type: due to unspecified organism Qualified Code(s): J18.9 - Pneumonia, unspecified organism Code(s): J18.9 - Pneumonia, unspecified organism Status: Acute Assessment and Plan: Chest x-ray shows bilateral diffuse pneumonia -currently intubated on mechanical ventilator -continue azithromycin, cefepime and vancomycin, (07/13) -patient started on steroids (3) Sepsis: Qualifiers: Acute respiratory failure type: with hypoxia Sepsis acute organ dysfunction status: with acute organ dysfunction Sepsis type: sepsis due to unspecified organism Severe sepsis acute organ dysfunction type: acute respiratory failure Severe sepsis shock status: without septic shock Qualified Code(s): A41.9 - Sepsis, unspecified organism; R65.20 - Severe sepsis without septic shock; J96.01 - Acute respiratory failure with hypoxia Code(s): A41.9 - Sepsis, unspecified organism Status: Acute Assessment and Plan: Patient did fulfill criteria for sepsis -continue management as above -not requiring pressors at this time -patient does have a central line in the right IJ which was placed on 07/14 -lactic acid is within normal limits. Patient did receive IV fluid bolus in the ER -patient also received Lasix in the ER -repeat another IV fluid bolus in the ICU. -patient was started on Levophed, will maintain MAP > 65 mmHg Or SBP> 100 mmHg. (4) Malnourished: Qualifiers: Malnutrition type: protein-calorie malnutrition Protein-calorie malnutrition severity: moderate Qualified Code(s): E44.0 - Moderate protein-calorie malnutrition Code(s): E46 - Unspecified protein-calorie malnutrition Status: Acute Assessment and Plan: According the significant other patient has dropped 40-42 lb in the last 3-4 months, he has not been eating well -dietitian has been consulted -will start trickle tube feeds for now to prevent re-feeding syndrome Plan DVT prophylaxis: Enoxaparin Stress ulcer prophylaxis: Protonix Nutrition: Tube feeds Code Status: Full code Critical Care Time Spent: 34 minutes Discussed with patient's significant other/spouse and updated with patient's condition and plan of care. I answered all the questions Due to a high probability of clinically significant, life threatening deterioration, the patient required my highest level of preparedness to intervene emergently and I personally spent this critical care time directly and personally managing the patient. This critical care time included obtaining a history; examining the patient; pulse oximetry; ordering and review of studies; arranging urgent treatment with development of a management plan; evaluation of patient's response to treatment; frequent reassessment; and discussions with other providers. It was exclusive of separately billable procedures and treating other patients and teaching time. Please see Assessment and Plan section and the rest of the note for further information on patient assessment and treatment This dictation may have been done utilizing a voice recognition system. Attempts have been made to correct errors. However, there may be uncorrected grammatical, spelling, and recognitions errors present. Subjective Date/time seen: 07/15/24 14:01 Interval history: Reason for consult: Acute respiratory failure, pneumonia 07/14: Thoracentesis: removal of 1000 mL vic colored fluid 07/15/2024: Patient seen and examined the ICU, remains intubated on CMV mode of ventilation, peep of 5, 30% FiO2. Patient is sedated with fentanyl and Versed infusion, does not open his eyes or follow simple commands. Urine output has been adequate, afebrile. Remains on Levophed at 5 mcg/min. Thoracentesis was done yesterday with removal of 1000 mL vic colored fluid Review of Systems Review of Systems: ROS unobtainable: Yes unobtainable due to endotracheal tube and unobtainable due to medical condition Exam Narrative: General: Sedated, intubated, in no acute distress HEENT:? Pupils equal and reactive, sclera is clear, ETT in place Neck:? Supple Respiratory:? Coarse breath sounds bilaterally, decreased at bases L > R, no wheezing, adequate air entry Cardiac:? S1-S2 normal, regular rate and rhythm Abdomen:? Soft, nontender, nondistended, normoactive bowel sounds Extremities:? Cachectic, palpable pedal pulses, no edema Neuro:? Patient is intubated and sedated, does not open his eyes or follow simple commands at this time. Prior to intubation patient was talking and answering questions and moving all extremities appropriately Skin:? No skin lesions no Psych:? Unable to assess at this time Objective Data Vital Signs Vital Signs: Vital Signs - 24 hr 07/14/24 14:30 07/14/24 14:30 07/14/24 14:45 Temperature Pulse Rate 87 88 89 Respiratory Rate 22 H 22 H Blood Pressure Pulse Oximetry 100 Oxygen Delivery Mechanical Ventilation Fraction of Inspired Oxygen 40 07/14/24 15:23 07/14/24 15:38 07/14/24 16:00 Temperature 98.6 F Pulse Rate 87 81 Respiratory Rate 22 H 22 H Blood Pressure 99/65 L Pulse Oximetry 100 100 Oxygen Delivery Mechanical Ventilation Fraction of Inspired Oxygen 55 55 07/14/24 16:00 07/14/24 16:00 07/14/24 16:00 Temperature Pulse Rate 82 86 84 Respiratory Rate 22 H 22 H Blood Pressure 99/65 L Pulse Oximetry Oxygen Delivery Fraction of Inspired Oxygen 07/14/24 16:00 07/14/24 17:04 07/14/24 18:00 Temperature Pulse Rate 84 81 81 Respiratory Rate Blood Pressure 97/70 L Pulse Oximetry 100 Oxygen Delivery Mechanical Ventilation Fraction of Inspired Oxygen 40 07/14/24 18:00 07/14/24 18:00 07/14/24 18:00 Temperature 98.6 F Pulse Rate 81 81 81 Respiratory Rate 22 H 22 H 22 H Blood Pressure 97/70 L Pulse Oximetry 100 Oxygen Delivery Fraction of Inspired Oxygen 07/14/24 18:00 07/14/24 20:00 07/14/24 20:00 Temperature 98.6 F Pulse Rate 81 79 78 Respiratory Rate 22 H Blood Pressure 101/68 101/68 Pulse Oximetry 100 Oxygen Delivery Fraction of Inspired Oxygen 07/14/24 20:00 07/14/24 20:00 07/14/24 20:00 Temperature Pulse Rate 78 78 Respiratory Rate 22 H 22 H Blood Pressure Pulse Oximetry Oxygen Delivery Fraction of Inspired Oxygen 40 07/14/24 20:00 07/14/24 20:00 07/14/24 20:32 Temperature Pulse Rate 79 78 Respiratory Rate 22 H Blood Pressure Pulse Oximetry Oxygen Delivery Mechanical Ventilation Fraction of Inspired Oxygen 55 07/14/24 20:33 07/14/24 20:41 07/14/24 22:00 Temperature Pulse Rate 84 84 79 Respiratory Rate 22 H 22 H Blood Pressure 101/68 Pulse Oximetry 100 100 Oxygen Delivery Mechanical Ventilation Fraction of Inspired Oxygen 40 07/14/24 22:00 07/14/24 22:00 07/14/24 22:00 Temperature Pulse Rate 70 79 79 Respiratory Rate 22 H Blood Pressure 109/67 Pulse Oximetry Oxygen Delivery Fraction of Inspired Oxygen 07/14/24 22:00 07/14/24 23:50 07/15/24 00:00 Temperature Pulse Rate 79 71 Respiratory Rate 22 H 22 H Blood Pressure Pulse Oximetry 98 Oxygen Delivery Mechanical Ventilation Fraction of Inspired Oxygen 40 40 07/15/24 00:00 07/15/24 00:00 07/15/24 00:00 Temperature 98.3 F Pulse Rate 75 68 73 Respiratory Rate 22 H Blood Pressure 115/75 115/75 Pulse Oximetry 97 Oxygen Delivery Fraction of Inspired Oxygen 07/15/24 00:00 07/15/24 00:00 07/15/24 00:15 Temperature Pulse Rate 78 72 72 Respiratory Rate 22 H 22 H 22 H Blood Pressure 107/77 Pulse Oximetry 97 Oxygen Delivery Fraction of Inspired Oxygen 07/15/24 02:00 07/15/24 02:00 07/15/24 02:00 Temperature Pulse Rate 78 78 22 L Respiratory Rate 78 H Blood Pressure 117/67 Pulse Oximetry Oxygen Delivery Fraction of Inspired Oxygen 07/15/24 02:00 07/15/24 02:00 07/15/24 02:15 Temperature Pulse Rate 78 69 79 Respiratory Rate 22 H 22 H 22 H Blood Pressure 117/67 114/73 Pulse Oximetry 98 97 Oxygen Delivery Fraction of Inspired Oxygen 07/15/24 02:29 07/15/24 02:29 07/15/24 02:36 Temperature Pulse Rate 80 85 85 Respiratory Rate 22 H 22 H Blood Pressure Pulse Oximetry 99 Oxygen Delivery Mechanical Ventilation Fraction of Inspired Oxygen 30 07/15/24 03:58 07/15/24 03:58 07/15/24 04:00 Temperature Pulse Rate 84 84 Respiratory Rate 22 H 22 H Blood Pressure Pulse Oximetry 98 Oxygen Delivery Mechanical Ventilation Fraction of Inspired Oxygen 30 30 07/15/24 04:00 07/15/24 04:00 07/15/24 04:00 Temperature 98 F Pulse Rate 22 L 81 83 Respiratory Rate 83 H 22 H Blood Pressure 90/66 L Pulse Oximetry 98 Oxygen Delivery Fraction of Inspired Oxygen 07/15/24 04:00 07/15/24 05:05 07/15/24 05:50 Temperature Pulse Rate 82 81 87 Respiratory Rate Blood Pressure 90/66 L 129/80 Pulse Oximetry 98 Oxygen Delivery Mechanical Ventilation Fraction of Inspired Oxygen 30 07/15/24 06:00 07/15/24 06:00 07/15/24 06:00 Temperature 98.1 F Pulse Rate 22 L 84 84 Respiratory Rate 84 H 22 H 22 H Blood Pressure 94/65 L Pulse Oximetry 98 Oxygen Delivery Fraction of Inspired Oxygen 07/15/24 06:00 07/15/24 08:00 07/15/24 08:00 Temperature Pulse Rate 84 77 77 Respiratory Rate 22 H Blood Pressure 121/65 Pulse Oximetry Oxygen Delivery Fraction of Inspired Oxygen 07/15/24 08:00 07/15/24 08:00 07/15/24 08:00 Temperature Pulse Rate 77 78 Respiratory Rate 22 H 22 H Blood Pressure Pulse Oximetry 99 Oxygen Delivery Mechanical Ventilation Fraction of Inspired Oxygen 30 30 07/15/24 08:00 07/15/24 08:00 07/15/24 08:47 Temperature 98.3 F Pulse Rate 75 77 80 Respiratory Rate 22 H Blood Pressure 121/65 Pulse Oximetry 99 98 Oxygen Delivery Mechanical Ventilation Fraction of Inspired Oxygen 30 07/15/24 08:47 07/15/24 09:02 07/15/24 09:54 Temperature Pulse Rate 80 88 89 Respiratory Rate 22 H 22 H Blood Pressure Pulse Oximetry Oxygen Delivery Fraction of Inspired Oxygen 07/15/24 10:00 07/15/24 10:00 07/15/24 10:00 Temperature Pulse Rate 86 86 86 Respiratory Rate 20 20 Blood Pressure 87/62 L Pulse Oximetry Oxygen Delivery Fraction of Inspired Oxygen 07/15/24 10:00 07/15/24 10:08 07/15/24 11:04 Temperature 98.5 F Pulse Rate 86 82 Respiratory Rate 20 Blood Pressure 87/62 L 88/67 L Pulse Oximetry 98 Oxygen Delivery Fraction of Inspired Oxygen 30 07/15/24 11:17 07/15/24 11:30 07/15/24 11:45 Temperature Pulse Rate 66 70 66 Respiratory Rate Blood Pressure 130/82 111/74 Pulse Oximetry 98 Oxygen Delivery Mechanical Ventilation Fraction of Inspired Oxygen 30 07/15/24 12:00 07/15/24 12:00 07/15/24 12:00 Temperature 98.3 F Pulse Rate 70 71 Respiratory Rate 20 20 Blood Pressure 113/74 Pulse Oximetry 98 98 Oxygen Delivery Mechanical Ventilation Fraction of Inspired Oxygen 30 30 07/15/24 12:00 07/15/24 12:00 07/15/24 12:00 Temperature Pulse Rate 70 68 67 Respiratory Rate 20 20 Blood Pressure 113/74 Pulse Oximetry Oxygen Delivery Fraction of Inspired Oxygen 07/15/24 12:00 07/15/24 12:39 07/15/24 13:00 Temperature Pulse Rate 69 76 72 Respiratory Rate Blood Pressure 97/63 L 102/68 Pulse Oximetry Oxygen Delivery Fraction of Inspired Oxygen Intake/Output Intake/Output: Intake & Output 07/12/24 07/13/24 07/14/24 07/15/24 23:59 23:59 23:59 23:59 Intake Total 1400 1604.0 473.8 Output Total 200 2700 275 Balance 1200 -1096.0 198.8 Meds/Results Medications: Active Medications Generic Name Dose Route Start Last Admin Trade Name Freq PRN Reason Stop Dose Admin Acetaminophen 650 mg 07/13/24 15:40 Acetaminophen 325 Mg Tablet PO Q4H PRN Mild Pain (1-3) or Fever Albuterol/Ipratropium 3 ml 07/13/24 20:00 07/15/24 08:47 Ipratropium 0.5 Mg/Albuterol Sulfate 2.5 Mg Ampul.Neb 3 Ml INHALATION 3 ml Q6HRT ALCON Administration Benzonatate 100 mg 07/13/24 17:47 Benzonatate 100 Mg Capsule PO TID PRN Cough Budesonide 0.5 mg 07/14/24 08:45 07/15/24 08:47 Budesonide Respule Neb 0.5 Mg/2 Ml Amp INHALATION 0.5 mg Q12HRT ALCON Administration Enoxaparin Sodium 40 mg 07/14/24 09:00 07/15/24 08:23 Enoxaparin 40 Mg/0.4 Ml Syringe SUB-Q 40 mg DAILY ALCON Administration Hydrocortisone Sodium Succinate 50 mg 07/15/24 06:00 07/15/24 12:22 Hydrocortisone Sodium Succinate 100 Mg/2 Ml Vial IV PUSH 50 mg Q6H ALCON Administration Azithromycin 500 mg in 250 mls @ 250 mls/hr 07/14/24 15:00 07/14/24 15:33 Zithromax IVPB Infused Q24H ALCON Infusion Cefepime HCl 2 gm in 50 mls @ 100 mls/hr 07/13/24 20:35 07/15/24 13:03 Maxipime 2 Gm/Ns 50 Ml IVPB 100 mls/hr Q8HR ALCON Administration Fentanyl Citrate 2,500 mcg in 250 mls @ 7.5 mls/hr 07/14/24 07:50 07/15/24 12:00 Fentanyl 2,500 Mcg/Ns 250 Ml IV CONT 75 mcg/hr .[id number] ALCON 7.5 mls/hr Titration Protocol 75 MCG/HR Midazolam HCl 100 mg in 100 mls @ 2 mls/hr 07/14/24 07:50 07/15/24 12:00 Versed 100 Mg/Ns 100 Ml IV CONT 2 mg/hr .Q50H ALCON 2 mls/hr Titration Protocol 2 MG/HR Norepinephrine Bitartrate 8 mg in 250 mls @ 5.625 mls/hr 07/14/24 12:20 07/15/24 13:00 Levophed 8 Mg/D5w 250 Ml IV CONT 3 mcg/min .Q24H ALCON 5.63 mls/hr Titration Protocol 3 MCG/MIN Vancomycin HCl 1,250 mg in 250 mls @ 166.667 mls/hr 07/15/24 11:00 07/15/24 12:45 Vancomycin 1,250 Mg/Ns 250 Ml IVPB Infused Q12H ALCON Infusion Multi-Ingred Cream/Lotion/Oil/Oint 1 applic 07/14/24 09:00 07/15/24 08:23 Mineral Oil/White Petrolatum Ointment EACH EYE 1 applic Q12HR ALCON Administration Ondansetron HCl 4 mg 07/13/24 15:40 Ondansetron Inj 4 Mg/2 Ml Vial IV PUSH Q4H PRN Nausea Pantoprazole Sodium 40 mg 07/15/24 09:00 07/15/24 08:23 Pantoprazole Sodium Iv 40 Mg Vial IV PUSH 40 mg QAM ALCON Administration Perflutren Lipid Microsphere 0 ml 07/15/24 08:18 Perflutren Lipid Microspheres 1.5 Ml Vial Diluted To 10 Ml Total Volume IV PUSH 07/18/24 08:18 ONCE PRN adequate visualization Protocol Sodium Chloride 10 ml 07/14/24 14:00 07/15/24 13:04 Central Line Flush IV PUSH 10 ml Q8HR ALCNO Administration Sodium Chloride 20 ml 07/14/24 08:28 Central Line Flush IV PUSH PRN PRN after blood draws Sodium Chloride 6 ml 07/15/24 05:00 Sodium Chlor 3% 15 Ml Neb (Respiratory Therapy) INHALATION 07/17/24 05:01 DAILY@0500 [facility] Radiology Results: ITS Impressions Chest CTA 07/13/24 23:34 IMPRESSION: No pulmonary embolus. No thoracic aortic dissection. Postoperative change within the right upper lobe and right hilum. Large bilateral pleural effusions (left greater than right) with adjacent compressive atelectasis. Thickened wall surrounding the fluid within the right lung base suggests empyema. Additional findings suggesting pulmonary vascular congestion. Abdomen X-Ray 07/14/24 08:42 Impression: NG tube in satisfactory position. Abdomen/Pelvis CT 07/14/24 11:31 Impression: Moderate layering left pleural effusion. Moderate right pleural effusion with thickening of the pleural lining and loculated appearance. Correlate for chronic effusion or empyema. Diffuse interstitial thickening at the lung bases. Findings represent diffuse interstitial edema versus less likely possibility of lymphangitic metastasis given relatively smooth morphology. Irregular consolidation right middle lobe and lingula which could reflect atelectasis, more confluent edema, or pneumonia. Underlying neoplasm not completely excluded. Findings suspicious for metastatic bone disease, as detailed above. 4.0 cm infrarenal abdominal aortic aneurysm. Thoracentesis Ultrasound 07/14/24 17:27 IMPRESSION: 1. Successful ultrasound-guided thoracentesis yielding 1000 mL of vic-colored fluid. Chest X-Ray 07/15/24 10:45 Impression: 1: Stable pulmonary edema. Small pleural effusions. Labs Labs: Laboratory Results - last 24 hr 07/14/24 07/15/24 07/15/24 16:57 05:08 06:09 WBC 11.9 H RBC 3.44 L Hgb 9.3 L Hct 29.5 L MCV 85.8 MCH 27.0 MCHC 31.5 L RDW 16.5 H Plt Count 256 MPV 7.9 Immature Gran % (Auto) 0.4 Neut % (Auto) 79.9 H Lymph % (Auto) 12.8 L [place] % (Auto) 6.5 Eos % (Auto) 0.3 Baso % (Auto) 0.1 L Lymph # (Auto) 1.52 [place] # (Auto) 0.8 H Eos # (Auto) 0.0 Baso # (Auto) 0.0 Abs Immat Gran (auto) 0.05 H Absolute Neuts (auto) 9.5 H Absolute Nucleated RBC 0.000 Nucleated RBC % 0.0 Puncture Site Right radial ABG pH 7.528 H* ABG pCO2 32.1 L ABG pO2 68.1 L ABG PO2/FiO2 Ratio 2.27 ABG HCO3 26.1 H ABG O2 Saturation 95.5 ABG O2 Content 17.0 ABG Base Excess 3.8 A-a Gradient 108.1 Oxyhemoglobin 94.2 Carboxyhemoglobin 0.6 Methemoglobin 0.0 Reduced Hemoglobin 5.2 H Total Hemoglobin 12.8 O2 Delivery Device Ventilator O2 Liters/Min Not Reportable Minute Volume Not Reportable Vent Rate 22 Vent Mode Cmv FiO2 30 Tidal Volume 450 PEEP 5 Peak Inspir Pressure Not Reportable Pressure Support Not Reportable Sodium 138 Potassium 3.5 Chloride 104 Carbon Dioxide 28 Anion Gap 6 BUN 30 H Creatinine 0.94 Estim Creat Clear Calc 61 Estimated GFR > 60 Glucose 114 H Lactic Acid 0.8 Calcium 9.0 Phosphorus 3.7 Magnesium 2.3 Total Bilirubin 0.5 AST 42 ALT 22 Alkaline Phosphatase 97 Total Protein 6.0 L Albumin 2.9 L Pleural Fluid Source Pleural fluid Pleural Color Yellow Pleural Appearance Hazy Pleural pH > 7.500 H Pleural RBC 5000 Pleural Nuc Cells 573 Pleural Neutrophils 2 Pleural Lymphocytes 69 Pleural Monocytes 28 Pleural Macrophages 1 Vancomycin Trough 07/15/24 09:41 WBC RBC Hgb Hct MCV MCH MCHC RDW Plt Count MPV Immature Gran % (Auto) Neut % (Auto) Lymph % (Auto) [place] % (Auto) Eos % (Auto) Baso % (Auto) Lymph # (Auto) [place] # (Auto) Eos # (Auto) Baso # (Auto) Abs Immat Gran (auto) Absolute Neuts (auto) Absolute Nucleated RBC Nucleated RBC % Puncture Site ABG pH ABG pCO2 ABG pO2 ABG PO2/FiO2 Ratio ABG HCO3 ABG O2 Saturation ABG O2 Content ABG Base Excess A-a Gradient Oxyhemoglobin Carboxyhemoglobin Methemoglobin Reduced Hemoglobin Total Hemoglobin O2 Delivery Device O2 Liters/Min Minute Volume Vent Rate Vent Mode FiO2 Tidal Volume PEEP Peak Inspir Pressure Pressure Support Sodium Potassium Chloride Carbon Dioxide Anion Gap BUN Creatinine Estim Creat Clear Calc Estimated GFR Glucose Lactic Acid Calcium Phosphorus Magnesium Total Bilirubin AST ALT Alkaline Phosphatase Total Protein Albumin Pleural Fluid Source Pleural Color Pleural Appearance Pleural pH Pleural RBC Pleural Nuc Cells Pleural Neutrophils Pleural Lymphocytes Pleural Monocytes Pleural Macrophages Vancomycin Trough 12.5 Quality VTE Prophylaxis VTE prophylaxis: pharmacologic ordered
[2024-07-15] MEDS: FENTANYL 2,500MCG/NS250ML(*CRX 2,500 MCG/250 ML BAG 7.5 MCG IV CONT (14:10)
[2024-07-15] MEDS: AZITHROMYCIN 500 MG/NS 250 ML 500 MG/250 ML BAG 250 MG IVPB (15:01)
[2024-07-15] MEDS: MIDAZOLAM 100MG/NS 100ML(*CRX) 100 MG/100 ML BAG IV CONT (21:06)
[2024-07-15] MEDS: VANCOMYCIN 1,250 MG/NS 250 ML 1,250 MG/250 ML BAG 167 MG IVPB (22:57)
[2024-07-16] VITALS (44 sets, daily range): BP systolic 80–135; BP diastolic 56–98; PULSE 57–114; RESP 16–24; TEMP 36.5–36.8; O2SAT 94–99
[2024-07-16] MEDS: IPRATROPIUM 0.5 MG/ALBUTEROL SULFATE 2.5 MG AMPUL.NEB 3 ML INHALATION ×4 (03:01→19:56)
[2024-07-16 04:53] LABS: Alveolar/Arterial O2 Gradient 101.1 mmHg; Base Excess ABG 2.9 mEq/l (+/-2.0); Fractional Inspired Oxygen 30 %; HCO3 ABG 24.8 mEq/l (22.0-26.0); Methemoglobin ABG 0.3 %THb (0-1.5); Oxygen Content ABG 13.8 %vol (16.0-22.0); Oxygen Saturation ABG 97.1 % (95.0-100.0); Oxyhemoglobin 95.9 % THb (90.0-100.0); PCO2 ABG 28.9 mmHg (35.0-45.0); PO2 ABG 78.8 mmHg (80.0-100.0); PO2 FiO2 Ratio Arterial Blood 2.63 %; Reduced Hemoglobin 3.8 %THb (0-5.0); Total Hemoglobin 10.2 g/dL (12.0-18.0)
[2024-07-16 04:57] LABS: Device VENTILATOR; Modified Allen's Test Pass; Site Drawn LEFT RADIAL; pH ABG 7.551 (7.350-7.450)
[2024-07-16 05:00] LABS: Arterial Blood Gas PEEP 5 cmH2O; Arterial Blood Gas Vent Mode CMV; Arterial Blood Gas Ventilator rate 20 /MIN
[2024-07-16 05:01] LABS: Arterial Blood Gas Tidal Volume 450 ml
[2024-07-16] MEDS: HYDROCORTISONE SODIUM SUCCINATE 100 MG/2 ML VIAL 50 MG IV PUSH ×4 (05:34→23:00)
[2024-07-16] MEDS: CEFEPIME 2 GM/NS 50 ML 2 GM/50 ML BAG IVPB ×3 (05:35→21:29)
[2024-07-16] MEDS: CENTRAL LINE FLUSH 10 ML IV PUSH ×3 (05:36→23:00)
[2024-07-16 06:22] LABS: Basophils Percent Auto 0.1 % (0.2-1.2); Eosinophils Percent Auto 0.1 % (0-4.4); Hematocrit 30.2 % (42.0-52.0); Hemoglobin 9.4 g/dL (14.0-18.0); Immature Granulocyte Absolute 0.11 K/mm3 (0.00-0.031); Immature Granulocyte Percent A 0.7 % (0-0.5); Lymphocytes Absolute Auto 1.09 K/mm3 (0.9-3.2); Lymphocytes Percent Auto 7.4 % (18.3-44.2); Mean Corpuscular HGB Conc 31.1 g/dl (32-36); Mean Corpuscular Hemoglobin 26.7 pg (26-34); Mean Corpuscular Volume 85.8 fl (80-100); Mean Platelet Volume 8.5 fl (7.4-10.4); Monocytes Absolute Auto 0.9 K/mm3 (0.1-0.6); Monocytes Percent Auto 6.3 % (2.6-8.5); Neutrophils Absolute Auto 12.5 K/mm3 (1.3-6.7); Neutrophils Percent Auto 85.4 % (45.5-73.1); Platelet Count Result 292 k/mm3 (150-375); Red Blood Count 3.52 M/mm3 (4.6-6.20); Red Cell Distribution Width 17.2 % (11.5-14.5); White Blood Count 14.7 K/mm3 (4.5-10.0)
[2024-07-16 06:32] LABS: Alanine Aminotransferase 21 U/L (6-50); Albumin Level 2.9 g/dL (3.5-5.1); Alkaline Phosphatase 108 U/L (38-126); Anion Gap 4 mmol/L (4-12); Aspartate Amino Transferase 31 U/L (17-59); Bilirubin,Total 0.3 mg/dL (0.2-1.3); Blood Urea Nitrogen 33 mg/dL (9-20); Calcium 9.1 mg/dL (8.4-10.2); Carbon Dioxide 28 mmol/L (22-30); Chloride 108 mmol/L (98-107); Estimated CRCL calculation 64 ml/min; Estimated Glomerular Filt Rate > 60; Glucose 152 mg/dL (65-110); Magnesium 2.4 mg/dL (1.6-2.3); Phosphorus 2.8 mg/dL (2.5-4.5); Potassium 4.3 mmol/L (3.4-5.0); Sodium 140 mmol/L (137-145)
[2024-07-16] MEDS: BUDESONIDE RESPULE NEB 0.5 MG/2 ML AMP INHALATION ×2 (08:46→19:56)
--- NOTE | 2024-07-16 08:51 | P.PNINT_ITS ---
Progress Note: A&P Assessment and Plan (1) Acute respiratory failure: Code(s): J96.00 - Acute respiratory failure, unspecified whether with hypoxia or hypercapnia Status: Acute Assessment and Plan: 07/13: Patient admitted with worsening shortness of breath, travel from [place] on 07/13 in upon arrival to [place] which is is home came directly to the ER. Normally uses 2 L nasal cannula, it bumped up to 5 L nasal cannula. -likely etiology, large left pleural effusion, pneumonia -07/14: I was asked to see the patient in the intermediate Unit where he was tachypneic, requiring BiPAP, complained of difficulty breathing, respiratory rate was in the upper 30s and 40s. Patient was in impending respiratory failure, discussed with patient regarding intubation and mechanical ventilation to which he consented. -07/14: Intubated in the ICU along with right IJ central line placement -post intubation ABGs and chest x-ray reviewed, ventilator adjusted -currently on CMV mode of ventilation, peep of 5 and FiO2 30% -continue bronchodilators, will add Pulmicort -bilateral diffuse infiltrates, patient may require a bronchoscopy. (Off note patient has been admitted to the hospital in [place] x2 for pneumonia and pleural effusion, pleural effusion was tapped on the 1st admission and they removed 700 mL of fluid which was negative for cancer cells). He also saw reference data expert who recommended the patient see a oncologist. -sedated with fentanyl and Versed infusion, maintain RASS of 0 to-2, daily SBT and SAT -chest x-ray and ABGs reviewed this morning, ventilator adjusted 07/13: Chest x-ray on admission showed: Bilateral pneumonia with pleural effusion. Superimposed pulmonary edema is not excluded. 07/13: CTA chest on admission: No PE, no thoracic aortic dissection, postopera tive changes within the right upper lobe and right hilum. Large bilateral pleural effusions left greater than right with adjacent compressive atelectasis. Thickened wall surrounding the fluid within the right lung base suggest empyema. Additional finding suggesting pulmonary vascular congestion. (2) Pneumonia: Qualifiers: Laterality: bilateral Lung location: unspecified part of lung Pneumonia type: due to unspecified organism Qualified Code(s): J18.9 - Pneumonia, unspecified organism Code(s): J18.9 - Pneumonia, unspecified organism Status: Acute Assessment and Plan: Chest x-ray shows bilateral diffuse pneumonia -currently intubated on mechanical ventilator -continue azithromycin, cefepime and vancomycin, (07/13) -patient started on steroids (3) Sepsis: Qualifiers: Sepsis type: sepsis due to unspecified organism Sepsis acute organ dysfunction status: with acute organ dysfunction Severe sepsis acute organ dysfunction type: acute respiratory failure Acute respiratory failure type: with hypoxia Severe sepsis shock status: without septic shock Qualified Code(s): A41.9 - Sepsis, unspecified organism; R65.20 - Severe sepsis without septic shock; J96.01 - Acute respiratory failure with hypoxia Code(s): A41.9 - Sepsis, unspecified organism Status: Acute Assessment and Plan: Patient did fulfill criteria for sepsis -continue management as above -not requiring pressors at this time -patient does have a central line in the right IJ which was placed on 07/14 -lactic acid is within normal limits. Patient did receive IV fluid bolus in the ER -patient also received Lasix in the ER -repeat another IV fluid bolus in the ICU. -patient was started on Levophed, will maintain MAP > 65 mmHg Or SBP> 100 mmHg. -07/13: blood cultures negative x2 -07/14: Pleural fluid cultures are negative so far (4) Malnourished: Qualifiers: Malnutrition type: protein-calorie malnutrition Protein-calorie malnutrition severity: moderate Qualified Code(s): E44.0 - Moderate protein- calorie malnutrition Code(s): E46 - Unspecified protein-calorie malnutrition Status: Acute Assessment and Plan: According the significant other patient has dropped 40-42 lb in the last 3-4 months, he has not been eating well -dietitian has been consulted -started on trickle feeds, will gradually advance to goal (5) Pleural effusion: Code(s): J90 - Pleural effusion, not elsewhere classified Status: Acute Assessment and Plan: Patient had a large left pleural effusion on admission -07/14: status post left thoracentesis with removal of 1000 mL of vic colored fluid -Gram stain and cultures are negative so far (6) Adenocarcinoma of right lung: Code(s): C34.91 - Malignant neoplasm of unspecified part of right bronchus or lung Status: Acute Assessment and Plan: Stage I adenocarcinoma status post right upper lobectomy and mediastinal lymph node dissection done in January 2023. -pathology showed non small cell lung cancer with and a carcinoma histology, moderate clean bleed differentiated, negative margins and or lymph node negative for malignancy -patient has seen Dr. Jimenez -oncologist in the past -CT scan of the abdomen and pelvis showed diffuse interstitial thickening at the lung bases 6 which could be interstitial edema versus less likely possibility of lymphangitic metastasis. There is ill-defined sclerotic lesions in L3 L4 L5. Subtle heterogeneous lesions present in T10, T11 vertebral bodies. Six sclerotic lesions present in the left sacrum these findings are suspicious for metastatic bone disease -oncologist has been consulted Plan DVT prophylaxis: Enoxaparin Stress ulcer prophylaxis: Protonix Nutrition: Tube feeds Code Status: Full code Critical Care Time Spent: 33 minutes Discussed with patient's significant other/spouse and updated with patient's condition and plan of care. I answered all the questions Due to a high probability of clinically significant, life threatening deterioration, the patient required my highest level of preparedness to intervene emergently and I personally spent this critical care time directly and personally managing the patient. This critical care time included obtaining a history; examining the patient; pulse oximetry; ordering and review of studies; arranging urgent treatment with development of a management plan; evaluation of patient's response to treatment; frequent reassessment; and discussions with other providers. It was exclusive of separately billable procedures and treating other patients and teaching time. Please see Assessment and Plan section and the rest of the note for further information on patient assessment and treatment This dictation may have been done utilizing a voice recognition system. Attempts have been made to correct errors. However, there may be uncorrected grammatical, spelling, and recognitions errors present. Subjective Date/time seen: 07/16/24 08:51 Interval history: Reason for consult: Acute respiratory failure, pneumonia 07/14: Thoracentesis: removal of 1000 mL vic colored fluid 07/16/2024: Patient seen and examined the ICU, remains intubated on CMV mode of ventilation, peep of 5, 30% FiO2. Patient is sedated with fentanyl and Versed infusion, does not open his eyes or follow simple commands. Urine output has been adequate, afebrile. Remains on Levophed at 3 mcg/min. Tolerating tube feeds Review of Systems Review of Systems: ROS unobtainable: Yes unobtainable due to endotracheal tube and unobtainable due to medical condition Exam Narrative: General: Sedated, intubated, in no acute distress HEENT:? Pupils equal and reactive, sclera is clear, ETT in place Neck:? Supple Respiratory:? Coarse breath sounds bilaterally, decreased at bases L > R, no wheezing, adequate air entry Cardiac:? S1-S2 normal, regular rate and rhythm Abdomen:? Soft, nontender, nondistended, normoactive bowel sounds Extremities:? Cachectic, palpable pedal pulses, no edema Neuro:? Patient is intubated and sedated, patient did open his eyes, does not follow simple commands. Prior to intubation patient was talking and answering questions and moving all extremities appropriately Skin:? No skin lesions no Psych:? Unable to assess at this time Objective Data Vital Signs Vital Signs: Vital Signs - 24 hr 07/15/24 09:02 07/15/24 09:54 07/15/24 10:00 Temperature Pulse Rate 88 89 86 Respiratory Rate 22 H 20 Blood Pressure Pulse Oximetry Oxygen Delivery Fraction of Inspired Oxygen 07/15/24 10:00 07/15/24 10:00 07/15/24 10:00 Temperature 98.5 F Pulse Rate 86 86 86 Respiratory Rate 20 20 Blood Pressure 87/62 L 87/62 L Pulse Oximetry 98 Oxygen Delivery Fraction of Inspired Oxygen 07/15/24 10:08 07/15/24 11:04 07/15/24 11:17 Temperature Pulse Rate 82 66 Respiratory Rate Blood Pressure 88/67 L 130/82 Pulse Oximetry Oxygen Delivery Fraction of Inspired Oxygen 30 07/15/24 11:30 07/15/24 11:45 07/15/24 12:00 Temperature Pulse Rate 70 66 70 Respiratory Rate 20 Blood Pressure 111/74 Pulse Oximetry 98 98 Oxygen Delivery Mechanical Ventilation Mechanical Ventilation Fraction of Inspired Oxygen 30 30 07/15/24 12:00 07/15/24 12:00 07/15/24 12:00 Temperature 98.3 F Pulse Rate 71 70 Respiratory Rate 20 Blood Pressure 113/74 113/74 Pulse Oximetry 98 Oxygen Delivery Fraction of Inspired Oxygen 30 07/15/24 12:00 07/15/24 12:00 07/15/24 12:00 Temperature Pulse Rate 68 67 69 Respiratory Rate 20 20 Blood Pressure Pulse Oximetry Oxygen Delivery Fraction of Inspired Oxygen 07/15/24 12:39 07/15/24 13:00 07/15/24 14:00 Temperature Pulse Rate 76 72 65 Respiratory Rate 20 Blood Pressure 97/63 L 102/68 Pulse Oximetry Oxygen Delivery Fraction of Inspired Oxygen 07/15/24 14:00 07/15/24 14:00 07/15/24 14:04 Temperature 98.2 F Pulse Rate 73 66 71 Respiratory Rate 20 Blood Pressure 89/66 L 89/66 L Pulse Oximetry 95 Oxygen Delivery Fraction of Inspired Oxygen 07/15/24 14:10 07/15/24 14:10 07/15/24 14:56 Temperature Pulse Rate 65 65 64 Respiratory Rate 20 20 Blood Pressure Pulse Oximetry 97 Oxygen Delivery Mechanical Ventilation Fraction of Inspired Oxygen 30 07/15/24 14:56 07/15/24 15:06 07/15/24 15:21 Temperature Pulse Rate 64 67 77 Respiratory Rate 20 20 Blood Pressure 111/79 Pulse Oximetry Oxygen Delivery Fraction of Inspired Oxygen 07/15/24 16:00 07/15/24 16:00 07/15/24 16:00 Temperature Pulse Rate 75 73 Respiratory Rate 20 20 Blood Pressure Pulse Oximetry 98 Oxygen Delivery Mechanical Ventilation Fraction of Inspired Oxygen 30 30 07/15/24 16:00 07/15/24 16:00 07/15/24 16:00 Temperature 98.2 F Pulse Rate 75 70 70 Respiratory Rate 20 20 Blood Pressure 103/66 130/66 Pulse Oximetry 98 Oxygen Delivery Fraction of Inspired Oxygen 07/15/24 16:00 07/15/24 16:05 07/15/24 16:41 Temperature Pulse Rate 76 77 72 Respiratory Rate Blood Pressure 125/69 Pulse Oximetry 98 Oxygen Delivery Mechanical Ventilation Fraction of Inspired Oxygen 30 07/15/24 18:00 07/15/24 18:00 07/15/24 18:00 Temperature Pulse Rate 65 63 65 Respiratory Rate 20 20 Blood Pressure 127/74 Pulse Oximetry Oxygen Delivery Fraction of Inspired Oxygen 07/15/24 18:00 07/15/24 18:00 07/15/24 19:00 Temperature 98.1 F Pulse Rate 63 63 68 Respiratory Rate 20 Blood Pressure 127/74 139/74 Pulse Oximetry 65 L Oxygen Delivery Fraction of Inspired Oxygen 07/15/24 20:00 07/15/24 20:00 07/15/24 20:00 Temperature 97.9 F Pulse Rate 61 61 Respiratory Rate 20 20 Blood Pressure 128/74 Pulse Oximetry 98 Oxygen Delivery Fraction of Inspired Oxygen 30 07/15/24 20:00 07/15/24 20:00 07/15/24 20:00 Temperature Pulse Rate 61 61 61 Respiratory Rate 20 20 Blood Pressure 128/74 Pulse Oximetry 98 Oxygen Delivery Mechanical Ventilation Fraction of Inspired Oxygen 30 07/15/24 20:00 07/15/24 20:15 07/15/24 20:27 Temperature Pulse Rate 61 62 61 Respiratory Rate 22 H Blood Pressure 128/74 Pulse Oximetry Oxygen Delivery Fraction of Inspired Oxygen 07/15/24 20:30 07/15/24 20:48 07/15/24 21:00 Temperature Pulse Rate 63 61 78 Respiratory Rate Blood Pressure 128/74 100/67 Pulse Oximetry 98 Oxygen Delivery Mechanical Ventilation Fraction of Inspired Oxygen 30 07/15/24 21:06 07/15/24 21:06 07/15/24 21:45 Temperature Pulse Rate 79 79 75 Respiratory Rate 20 20 Blood Pressure 85/61 L Pulse Oximetry Oxygen Delivery Fraction of Inspired Oxygen 07/15/24 22:00 07/15/24 22:00 07/15/24 22:00 Temperature 97.9 F Pulse Rate 59 L 89 59 L Respiratory Rate 20 Blood Pressure 129/78 129/78 Pulse Oximetry 99 Oxygen Delivery Fraction of Inspired Oxygen 07/15/24 22:00 07/15/24 22:00 07/15/24 22:15 Temperature Pulse Rate 59 L 59 L 70 Respiratory Rate 20 20 Blood Pressure 110/70 Pulse Oximetry Oxygen Delivery Fraction of Inspired Oxygen 07/15/24 22:30 07/15/24 22:45 07/15/24 23:00 Temperature Pulse Rate 64 65 66 Respiratory Rate Blood Pressure 109/72 103/67 118/75 Pulse Oximetry Oxygen Delivery Fraction of Inspired Oxygen 07/15/24 23:00 07/15/24 23:00 07/15/24 23:10 Temperature Pulse Rate 70 70 91 Respiratory Rate 20 20 Blood Pressure Pulse Oximetry 99 Oxygen Delivery Mechanical Ventilation Fraction of Inspired Oxygen 30 07/15/24 23:15 07/16/24 00:00 07/16/24 00:00 Temperature 97.9 F Pulse Rate 74 73 Respiratory Rate 20 Blood Pressure 117/74 100/65 Pulse Oximetry 96 Oxygen Delivery Fraction of Inspired Oxygen 30 07/16/24 00:00 07/16/24 00:00 07/16/24 00:00 Temperature Pulse Rate 73 73 Respiratory Rate Blood Pressure 100/65 Pulse Oximetry Oxygen Delivery Mechanical Ventilation Fraction of Inspired Oxygen 30 07/16/24 01:00 07/16/24 01:00 07/16/24 01:00 Temperature Pulse Rate 64 65 65 Respiratory Rate 20 20 Blood Pressure 119/72 Pulse Oximetry Oxygen Delivery Fraction of Inspired Oxygen 07/16/24 02:00 07/16/24 02:00 07/16/24 02:00 Temperature 98.0 F Pulse Rate 66 66 66 Respiratory Rate 20 Blood Pressure 119/74 119/74 Pulse Oximetry 97 Oxygen Delivery Fraction of Inspired Oxygen 07/16/24 02:30 07/16/24 03:00 07/16/24 03:00 Temperature Pulse Rate 74 75 75 Respiratory Rate 20 Blood Pressure 104/70 96/66 L Pulse Oximetry Oxygen Delivery Fraction of Inspired Oxygen 07/16/24 03:00 07/16/24 03:02 07/16/24 03:14 Temperature Pulse Rate 75 73 72 Respiratory Rate 20 18 Blood Pressure Pulse Oximetry 97 Oxygen Delivery Mechanical Ventilation Fraction of Inspired Oxygen 30 07/16/24 03:15 07/16/24 03:28 07/16/24 03:30 Temperature Pulse Rate 73 90 57 L Respiratory Rate 24 H Blood Pressure 89/60 L 117/74 Pulse Oximetry Oxygen Delivery Fraction of Inspired Oxygen 07/16/24 04:00 07/16/24 04:00 07/16/24 04:00 Temperature Pulse Rate 64 Respiratory Rate Blood Pressure 122/67 Pulse Oximetry Oxygen Delivery Mechanical Ventilation Fraction of Inspired Oxygen 30 30 07/16/24 04:00 07/16/24 04:00 07/16/24 04:15 Temperature 97.7 F Pulse Rate 64 63 59 L Respiratory Rate 20 Blood Pressure 122/67 119/68 Pulse Oximetry 98 Oxygen Delivery Fraction of Inspired Oxygen 07/16/24 04:30 07/16/24 05:00 07/16/24 05:00 Temperature Pulse Rate 59 L 60 60 Respiratory Rate 20 Blood Pressure 119/72 129/74 Pulse Oximetry Oxygen Delivery Fraction of Inspired Oxygen 07/16/24 05:00 07/16/24 05:02 07/16/24 06:00 Temperature Pulse Rate 60 92 74 Respiratory Rate 20 Blood Pressure 80/56 L Pulse Oximetry 97 Oxygen Delivery Mechanical Ventilation Fraction of Inspired Oxygen 30 07/16/24 06:00 07/16/24 06:00 07/16/24 06:00 Temperature 97.8 F Pulse Rate 74 74 74 Respiratory Rate 20 20 20 Blood Pressure 80/56 L Pulse Oximetry 96 Oxygen Delivery Fraction of Inspired Oxygen 07/16/24 06:00 07/16/24 06:30 07/16/24 06:35 Temperature Pulse Rate 74 64 64 Respiratory Rate Blood Pressure 121/68 119/69 Pulse Oximetry Oxygen Delivery Fraction of Inspired Oxygen Intake/Output Intake/Output: Intake & Output 07/13/24 07/14/24 07/15/24 07/16/24 23:59 23:59 23:59 23:59 Intake Total 1400 1604.0 1285.6 701.6 Output Total 200 2700 500 350 Balance 1200 -1096.0 785.6 351.6 Meds/Results Medications: Active Medications Generic Name Dose Route Start Last Admin Trade Name Freq PRN Reason Stop Dose Admin Acetaminophen 650 mg 07/13/24 15:40 Acetaminophen 325 Mg Tablet PO Q4H PRN Mild Pain (1-3) or Fever Albuterol/Ipratropium 3 ml 07/13/24 20:00 07/16/24 08:47 Ipratropium 0.5 Mg/Albuterol Sulfate 2.5 Mg Ampul.Neb 3 Ml INHALATION 3 ml Q6HRT ALCON Administration Benzonatate 100 mg 07/13/24 17:47 Benzonatate 100 Mg Capsule PO TID PRN Cough Budesonide 0.5 mg 07/14/24 08:45 07/16/24 08:46 Budesonide Respule Neb 0.5 Mg/2 Ml Amp INHALATION 0.5 mg Q12HRT ALCON Administration Enoxaparin Sodium 40 mg 07/14/24 09:00 07/15/24 08:23 Enoxaparin 40 Mg/0.4 Ml Syringe SUB-Q 40 mg DAILY ALCON Administration Hydrocortisone Sodium Succinate 50 mg 07/15/24 06:00 07/16/24 05:34 Hydrocortisone Sodium Succinate 100 Mg/2 Ml Vial IV PUSH 50 mg Q6H ALCON Administration Azithromycin 500 mg in 250 mls @ 250 mls/hr 07/14/24 15:00 07/15/24 16:08 Zithromax IVPB Infused Q24H ALCON Infusion Cefepime HCl 2 gm in 50 mls @ 100 mls/hr 07/13/24 20:35 07/16/24 06:06 Maxipime 2 Gm/Ns 50 Ml IVPB Infused Q8HR ALCON Infusion Fentanyl Citrate 2,500 mcg in 250 mls @ 7.5 mls/hr 07/14/24 07:50 07/16/24 06:00 Fentanyl 2,500 Mcg/Ns 250 Ml IV CONT 75 mcg/hr .[id number] ALCON 7.5 mls/hr Titration Protocol 75 MCG/HR Midazolam HCl 100 mg in 100 mls @ 2 mls/hr 07/14/24 07:50 07/16/24 06:00 Versed 100 Mg/Ns 100 Ml IV CONT 2 mg/hr .Q50H ALCON 2 mls/hr Titration Protocol 2 MG/HR Norepinephrine Bitartrate 8 mg in 250 mls @ 5.625 mls/hr 07/14/24 12:20 07/16/24 06:35 Levophed 8 Mg/D5w 250 Ml IV CONT 3 mcg/min .Q24H ALCON 5.63 mls/hr Titration Protocol 3 MCG/MIN Vancomycin HCl 1,250 mg in 250 mls @ 166.667 mls/hr 07/15/24 11:00 07/16/24 00:27 Vancomycin 1,250 Mg/Ns 250 Ml IVPB Infused Q12H ALCON Infusion Multi-Ingred Cream/Lotion/Oil/Oint 1 applic 07/14/24 09:00 07/15/24 20:42 Mineral Oil/White Petrolatum Ointment EACH EYE 1 applic Q12HR ALCON Administration Ondansetron HCl 4 mg 07/13/24 15:40 Ondansetron Inj 4 Mg/2 Ml Vial IV PUSH Q4H PRN Nausea Pantoprazole Sodium 40 mg 07/15/24 09:00 07/15/24 08:23 Pantoprazole Sodium Iv 40 Mg Vial IV PUSH 40 mg QAM ALCON Administration Perflutren Lipid Microsphere 0 ml 07/15/24 08:18 Perflutren Lipid Microspheres 1.5 Ml Vial Diluted To 10 Ml Total Volume IV PUSH 07/18/24 08:18 ONCE PRN adequate visualization Protocol Sodium Chloride 10 ml 07/14/24 14:00 07/16/24 05:36 Central Line Flush IV PUSH 10 ml Q8HR ALCON Administration Sodium Chloride 20 ml 07/14/24 08:28 Central Line Flush IV PUSH PRN PRN after blood draws Sodium Chloride 6 ml 07/15/24 05:00 07/15/24 19:00 Sodium Chlor 3% 15 Ml Neb (Respiratory Therapy) INHALATION 07/17/24 05:01 Not Given DAILY@0500 [facility] Radiology Results: ITS Impressions Chest CTA 07/13/24 23:34 IMPRESSION: No pulmonary embolus. No thoracic aortic dissection. Postoperative change within the right upper lobe and right hilum. Large bilateral pleural effusions (left greater than right) with adjacent compressive atelectasis. Thickened wall surrounding the fluid within the right lung base suggests empyema. Additional findings suggesting pulmonary vascular congestion. Abdomen X-Ray 07/14/24 08:42 Impression: NG tube in satisfactory position. Abdomen/Pelvis CT 07/14/24 11:31 Impression: Moderate layering left pleural effusion. Moderate right pleural effusion with thickening of the pleural lining and loculated appearance. Correlate for chronic effusion or empyema. Diffuse interstitial thickening at the lung bases. Findings represent diffuse interstitial edema versus less likely possibility of lymphangitic metastasis given relatively smooth morphology. Irregular consolidation right middle lobe and lingula which could reflect atelectasis, more confluent edema, or pneumonia. Underlying neoplasm not completely excluded. Findings suspicious for metastatic bone disease, as detailed above. 4.0 cm infrarenal abdominal aortic aneurysm. Thoracentesis Ultrasound 07/14/24 17:27 IMPRESSION: 1. Successful ultrasound-guided thoracentesis yielding 1000 mL of vic-colored fluid. Chest X-Ray 07/16/24 06:44 IMPRESSION: Small right-sided pleural effusion. Supportive lines and tubes in good radiographic position. Labs Labs: Laboratory Results - last 24 hr 07/15/24 07/16/24 07/16/24 09:41 04:35 05:41 WBC 14.7 H RBC 3.52 L Hgb 9.4 L Hct 30.2 L MCV 85.8 MCH 26.7 MCHC 31.1 L RDW 17.2 H Plt Count 292 MPV 8.5 Immature Gran % (Auto) 0.7 H Neut % (Auto) 85.4 H Lymph % (Auto) 7.4 L [place] % (Auto) 6.3 Eos % (Auto) 0.1 Baso % (Auto) 0.1 L Lymph # (Auto) 1.09 [place] # (Auto) 0.9 H Eos # (Auto) 0.0 Baso # (Auto) 0.0 Abs Immat Gran (auto) 0.11 H Absolute Neuts (auto) 12.5 H Absolute Nucleated RBC 0.000 Nucleated RBC % 0.0 Puncture Site Left radial ABG pH 7.551 H* ABG pCO2 28.9 L ABG pO2 78.8 L ABG PO2/FiO2 Ratio 2.63 ABG HCO3 24.8 ABG O2 Saturation 97.1 ABG O2 Content 13.8 L ABG Base Excess 2.9 A-a Gradient 101.1 Oxyhemoglobin 95.9 Carboxyhemoglobin 0.0 Methemoglobin 0.3 Reduced Hemoglobin 3.8 Total Hemoglobin 10.2 L O2 Delivery Device Ventilator O2 Liters/Min Not Reportable Minute Volume Not Reportable Vent Rate 20 Vent Mode Cmv FiO2 30 Tidal Volume 450 PEEP 5 Peak Inspir Pressure Not Reportable Pressure Support Not Reportable Sodium 140 Potassium 4.3 Chloride 108 H Carbon Dioxide 28 Anion Gap 4 BUN 33 H Creatinine 0.89 Estim Creat Clear Calc 64 Estimated GFR > 60 Glucose 152 H Calcium 9.1 Phosphorus 2.8 Magnesium 2.4 H Total Bilirubin 0.3 AST 31 ALT 21 Alkaline Phosphatase 108 Total Protein 6.0 L Albumin 2.9 L Vancomycin Trough 12.5 Quality VTE Prophylaxis VTE prophylaxis: pharmacologic ordered
[2024-07-16] MEDS: ENOXAPARIN 40 MG/0.4 ML SYRINGE SUB-Q (09:01)
[2024-07-16] MEDS: MINERAL OIL/WHITE PETROLATUM OINTMENT 1 APPLIC EACH EYE ×2 (09:01→20:13)
[2024-07-16] MEDS: PANTOPRAZOLE SODIUM IV 40 MG VIAL IV PUSH (09:01)
--- NOTE | 2024-07-16 09:42 | PM.IMPN ---
Progress Note: A&P Assessment and Plan (1) Acute respiratory failure: Code(s): J96.00 - Acute respiratory failure, unspecified whether with hypoxia or hypercapnia Status: Acute Assessment and Plan: 07/13: Patient admitted with worsening shortness of breath, travel from [place] on 07/13 in upon arrival to [place] which is is home came directly to the ER. Normally uses 2 L nasal cannula, it bumped up to 5 L nasal cannula. -likely etiology, large left pleural effusion, pneumonia -07/14: I was asked to see the patient in the intermediate Unit where he was tachypneic, requiring BiPAP, complained of difficulty breathing, respiratory rate was in the upper 30s and 40s. Patient was in impending respiratory failure, discussed with patient regarding intubation and mechanical ventilation to which he consented. -07/14: Intubated in the ICU along with right IJ central line placement -post intubation ABGs and chest x-ray reviewed, ventilator adjusted -currently on CMV mode of ventilation, peep of 5 and FiO2 30% -continue bronchodilators, will add Pulmicort -bilateral diffuse infiltrates, patient may require a bronchoscopy. (Off note patient has been admitted to the hospital in [place] x2 for pneumonia and pleural effusion, pleural effusion was tapped on the 1st admission and they removed 700 mL of fluid which was negative for cancer cells). 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 -sedated with fentanyl and Versed infusion, maintain RASS of 0 to-2, daily SBT and SAT -chest x-ray and ABGs reviewed this morning, ventilator adjusted 07/13: Chest x-ray on admission showed: Bilateral pneumonia with pleural effusion. Superimposed pulmonary edema is not excluded. 07/13: CTA chest on admission: No PE, no thoracic aortic dissection, postoperative changes within the right upper lobe and right hilum. Large bilateral pleural effusions left greater than right with adjacent compressive atelectasis. Thickened wall surrounding the fluid within the right lung base suggest empyema. Additional finding suggesting pulmonary vascular congestion. 07/16/2024 Will continue current treatment and wean off vents once stable (2) Pneumonia: Qualifiers: Laterality: bilateral Lung location: unspecified part of lung Pneumonia type: due to unspecified organism Qualified Code(s): J18.9 - Pneumonia, unspecified organism Code(s): J18.9 - Pneumonia, unspecified organism Status: Acute Assessment and Plan: Chest x-ray shows bilateral diffuse pneumonia -currently intubated on mechanical ventilator -continue azithromycin, cefepime and vancomycin, (07/13) -patient started on steroids (3) Sepsis: Qualifiers: Sepsis type: sepsis due to unspecified organism Sepsis acute organ dysfunction status: with acute organ dysfunction Severe sepsis acute organ dysfunction type: acute respiratory failure Acute respiratory failure type: with hypoxia Severe sepsis shock status: without septic shock Qualified Code(s): A41.9 - Sepsis, unspecified organism; R65.20 - Severe sepsis without septic shock; J96.01 - Acute respiratory failure with hypoxia Code(s): A41.9 - Sepsis, unspecified organism Status: Acute Assessment and Plan: Patient did fulfill criteria for sepsis -continue management as above -not requiring pressors at this time -patient does have a central line in the right IJ which was placed on 07/14 -lactic acid is within normal limits. Patient did receive IV fluid bolus in the ER -patient also received Lasix in the ER -repeat another IV fluid bolus in the ICU. -patient was started on Levophed, will maintain MAP > 65 mmHg Or SBP> 100 mmHg. -07/13: blood cultures negative x2 -07/14: Pleural fluid cultures are negative so far 07/16 getting better, will continue with antibiotics (4) Malnourished: Qualifiers: Malnutrition type: protein-calorie malnutrition Protein-calorie malnutrition severity: moderate Qualified Code(s): E44.0 - Moderate protein-calorie malnutrition Code(s): E46 - Unspecified protein-calorie malnutrition Status: Acute Assessment and Plan: According the significant other patient has dropped 40-42 lb in the last 3-4 months, he has not been eating well -dietitian has been consulted -started on trickle feeds, will gradually advance to goal (5) Pleural effusion: Code(s): J90 - Pleural effusion, not elsewhere classified Status: Acute Assessment and Plan: Patient had a large left pleural effusion on admission -07/16:Status post thoracentesis with removal of 1000 mL of vic colored fluid -Gram stain and cultures are negative so far (6) Adenocarcinoma of right lung: Code(s): C34.91 - Malignant neoplasm of unspecified part of right bronchus or lung Status: Acute Assessment and Plan: Stage I adenocarcinoma status post right upper lobectomy and mediastinal lymph node dissection done in January 2023. -pathology showed non small cell lung cancer with and a carcinoma histology, moderate clean bleed differentiated, negative margins and or lymph node negative for malignancy -patient has seen Dr. Jimenez -oncologist in the past -CT scan of the abdomen and pelvis showed diffuse interstitial thickening at the lung bases 6 which could be interstitial edema versus less likely possibility of lymphangitic metastasis. There is ill-defined sclerotic lesions in L3 L4 L5. Subtle heterogeneous lesions present in T10, T11 vertebral bodies. Six sclerotic lesions present in the left sacrum these findings are suspicious for metastatic bone disease -oncologist has been consulted Plan DVT prophylaxis: Enoxaparin Stress ulcer prophylaxis: Protonix Nutrition: Tube feeds Code Status: Full code Subjective Date/time seen: 07/16/24 09:42 Interval history: Patient was seen during the morning rounds today. Intubated and sedated. No new over night complaints. Review of Systems Review of Systems: All systems reviewed & are unremarkable except as noted in HPI and below ROS unobtainable: Yes unobtainable due to endotracheal tube and unobtainable due to medical condition Exam Narrative: General: Sedated, intubated, in no acute distress HEENT:? Pupils equal and reactive, sclera is clear, ETT in place Neck:? Supple Respiratory:? Coarse breath sounds bilaterally, decreased at bases L > R, no wheezing, adequate air entry Cardiac:? S1-S2 normal, regular rate and rhythm Abdomen:? Soft, nontender, nondistended, normoactive bowel sounds Extremities:? Cachectic, palpable pedal pulses, no edema Neuro:? Patient is intubated and sedated, patient did open his eyes, does not follow simple commands. Prior to intubation patient was talking and answering questions and moving all extremities appropriately Skin:? No skin lesions no Psych:? Unable to assess at this time Const: Other: , male, ill appearing HENMT: Face/Nose/Sinus: Normal nares present Mouth: Yes dry mucous membranes Other: BiPAP in place. tolerating poorly. Eyes: General: appearance normal, both eyes and all related structures Sclera: sclerae normal Pupils: Equal, round and reactive pupils present EOM: EOMs intact bilaterally Resp: Other: significant respiratory distress w/retractions and accessory muscle use. Poor air movement. crackles in mid and lower lung zones bilaterally. Cardio: Rate: tachycardic Rhythm: regular rhythm Other: no murmur or rub. GI: Other: Abdomen soft, nondistended, nontender. Normoactive bowel sounds in all quadrants. Skin: General skin exam: normal color and no rashes or lesions noted Wounds: no wounds Neuro: Cranial nerves: Yes Equal, round and reactive pupils present Speech: normal speech Motor exam (neuro): 5/5 motor strength present throughout Sensory Exam: normal sensation Other: fatigued. A/Ox4. Extrem: General: normal to inspection Psych: Mental Status: mental status grossly normal Affect: Anxious affect present Other: Good insight and judgment. Objective Data Vital Signs Vital Signs: Vital Signs - 24 hr 07/15/24 09:54 07/15/24 10:00 07/15/24 10:00 Temperature Pulse Rate 89 86 86 Respiratory Rate 20 20 Blood Pressure Pulse Oximetry Oxygen Delivery Fraction of Inspired Oxygen 07/15/24 10:00 07/15/24 10:00 07/15/24 10:08 Temperature 36.9 C Pulse Rate 86 86 Respiratory Rate 20 Blood Pressure 87/62 L 87/62 L Pulse Oximetry 98 Oxygen Delivery Fraction of Inspired Oxygen 30 07/15/24 11:04 07/15/24 11:17 07/15/24 11:30 Temperature Pulse Rate 82 66 70 Respiratory Rate Blood Pressure 88/67 L 130/82 111/74 Pulse Oximetry Oxygen Delivery Fraction of Inspired Oxygen 07/15/24 11:45 07/15/24 12:00 07/15/24 12:00 Temperature Pulse Rate 66 70 Respiratory Rate 20 Blood Pressure Pulse Oximetry 98 98 Oxygen Delivery Mechanical Ventilation Mechanical Ventilation Fraction of Inspired Oxygen 30 30 30 07/15/24 12:00 07/15/24 12:00 07/15/24 12:00 Temperature 36.8 C Pulse Rate 71 70 68 Respiratory Rate 20 20 Blood Pressure 113/74 113/74 Pulse Oximetry 98 Oxygen Delivery Fraction of Inspired Oxygen 07/15/24 12:00 07/15/24 12:00 07/15/24 12:39 Temperature Pulse Rate 67 69 76 Respiratory Rate 20 Blood Pressure 97/63 L Pulse Oximetry Oxygen Delivery Fraction of Inspired Oxygen 07/15/24 13:00 07/15/24 14:00 07/15/24 14:00 Temperature 36.8 C Pulse Rate 72 65 73 Respiratory Rate 20 20 Blood Pressure 102/68 89/66 L Pulse Oximetry 95 Oxygen Delivery Fraction of Inspired Oxygen 07/15/24 14:00 07/15/24 14:04 07/15/24 14:10 Temperature Pulse Rate 66 71 65 Respiratory Rate 20 Blood Pressure 89/66 L Pulse Oximetry Oxygen Delivery Fraction of Inspired Oxygen 07/15/24 14:10 07/15/24 14:56 07/15/24 14:56 Temperature Pulse Rate 65 64 64 Respiratory Rate 20 20 Blood Pressure Pulse Oximetry 97 Oxygen Delivery Mechanical Ventilation Fraction of Inspired Oxygen 30 07/15/24 15:06 07/15/24 15:21 07/15/24 16:00 Temperature Pulse Rate 67 77 75 Respiratory Rate 20 20 Blood Pressure 111/79 Pulse Oximetry 98 Oxygen Delivery Mechanical Ventilation Fraction of Inspired Oxygen 30 07/15/24 16:00 07/15/24 16:00 07/15/24 16:00 Temperature Pulse Rate 73 75 Respiratory Rate 20 Blood Pressure 103/66 Pulse Oximetry Oxygen Delivery Fraction of Inspired Oxygen 30 07/15/24 16:00 07/15/24 16:00 07/15/24 16:00 Temperature 36.8 C Pulse Rate 70 70 76 Respiratory Rate 20 20 Blood Pressure 130/66 Pulse Oximetry 98 Oxygen Delivery Fraction of Inspired Oxygen 07/15/24 16:05 07/15/24 16:41 07/15/24 18:00 Temperature Pulse Rate 77 72 65 Respiratory Rate Blood Pressure 125/69 127/74 Pulse Oximetry 98 Oxygen Delivery Mechanical Ventilation Fraction of Inspired Oxygen 30 07/15/24 18:00 07/15/24 18:00 07/15/24 18:00 Temperature Pulse Rate 63 65 63 Respiratory Rate 20 20 Blood Pressure Pulse Oximetry Oxygen Delivery Fraction of Inspired Oxygen 07/15/24 18:00 07/15/24 19:00 07/15/24 20:00 Temperature 36.7 C Pulse Rate 63 68 Respiratory Rate 20 Blood Pressure 127/74 139/74 Pulse Oximetry 65 L Oxygen Delivery Fraction of Inspired Oxygen 30 07/15/24 20:00 07/15/24 20:00 07/15/24 20:00 Temperature 36.6 C Pulse Rate 61 61 61 Respiratory Rate 20 20 Blood Pressure 128/74 128/74 Pulse Oximetry 98 Oxygen Delivery Fraction of Inspired Oxygen 07/15/24 20:00 07/15/24 20:00 07/15/24 20:00 Temperature Pulse Rate 61 61 61 Respiratory Rate 20 20 Blood Pressure Pulse Oximetry 98 Oxygen Delivery Mechanical Ventilation Fraction of Inspired Oxygen 30 07/15/24 20:15 07/15/24 20:27 07/15/24 20:30 Temperature Pulse Rate 62 61 63 Respiratory Rate 22 H Blood Pressure 128/74 128/74 Pulse Oximetry Oxygen Delivery Fraction of Inspired Oxygen 07/15/24 20:48 07/15/24 21:00 07/15/24 21:06 Temperature Pulse Rate 61 78 79 Respiratory Rate 20 Blood Pressure 100/67 Pulse Oximetry 98 Oxygen Delivery Mechanical Ventilation Fraction of Inspired Oxygen 30 07/15/24 21:06 07/15/24 21:45 07/15/24 22:00 Temperature Pulse Rate 79 75 59 L Respiratory Rate 20 Blood Pressure 85/61 L Pulse Oximetry Oxygen Delivery Fraction of Inspired Oxygen 07/15/24 22:00 07/15/24 22:00 07/15/24 22:00 Temperature 36.6 C Pulse Rate 89 59 L 59 L Respiratory Rate 20 20 Blood Pressure 129/78 129/78 Pulse Oximetry 99 Oxygen Delivery Fraction of Inspired Oxygen 07/15/24 22:00 07/15/24 22:15 07/15/24 22:30 Temperature Pulse Rate 59 L 70 64 Respiratory Rate 20 Blood Pressure 110/70 109/72 Pulse Oximetry Oxygen Delivery Fraction of Inspired Oxygen 07/15/24 22:45 07/15/24 23:00 07/15/24 23:00 Temperature Pulse Rate 65 66 70 Respiratory Rate 20 Blood Pressure 103/67 118/75 Pulse Oximetry Oxygen Delivery Fraction of Inspired Oxygen 07/15/24 23:00 07/15/24 23:10 07/15/24 23:15 Temperature Pulse Rate 70 91 74 Respiratory Rate 20 Blood Pressure 117/74 Pulse Oximetry 99 Oxygen Delivery Mechanical Ventilation Fraction of Inspired Oxygen 30 07/16/24 00:00 07/16/24 00:00 07/16/24 00:00 Temperature 36.6 C Pulse Rate 73 Respiratory Rate 20 Blood Pressure 100/65 Pulse Oximetry 96 Oxygen Delivery Mechanical Ventilation Fraction of Inspired Oxygen 30 30 07/16/24 00:00 07/16/24 00:00 07/16/24 01:00 Temperature Pulse Rate 73 73 64 Respiratory Rate Blood Pressure 100/65 119/72 Pulse Oximetry Oxygen Delivery Fraction of Inspired Oxygen 07/16/24 01:00 07/16/24 01:00 07/16/24 02:00 Temperature Pulse Rate 65 65 66 Respiratory Rate 20 20 Blood Pressure Pulse Oximetry Oxygen Delivery Fraction of Inspired Oxygen 07/16/24 02:00 07/16/24 02:00 07/16/24 02:30 Temperature 36.7 C Pulse Rate 66 66 74 Respiratory Rate 20 Blood Pressure 119/74 119/74 104/70 Pulse Oximetry 97 Oxygen Delivery Fraction of Inspired Oxygen 07/16/24 03:00 07/16/24 03:00 07/16/24 03:00 Temperature Pulse Rate 75 75 75 Respiratory Rate 20 20 Blood Pressure 96/66 L Pulse Oximetry Oxygen Delivery Fraction of Inspired Oxygen 07/16/24 03:02 07/16/24 03:14 07/16/24 03:15 Temperature Pulse Rate 73 72 73 Respiratory Rate 18 Blood Pressure 89/60 L Pulse Oximetry 97 Oxygen Delivery Mechanical Ventilation Fraction of Inspired Oxygen 30 07/16/24 03:28 07/16/24 03:30 07/16/24 04:00 Temperature Pulse Rate 90 57 L Respiratory Rate 24 H Blood Pressure 117/74 Pulse Oximetry Oxygen Delivery Mechanical Ventilation Fraction of Inspired Oxygen 30 07/16/24 04:00 07/16/24 04:00 07/16/24 04:00 Temperature 36.5 C Pulse Rate 64 64 Respiratory Rate 20 Blood Pressure 122/67 122/67 Pulse Oximetry 98 Oxygen Delivery Fraction of Inspired Oxygen 30 07/16/24 04:00 07/16/24 04:15 07/16/24 04:30 Temperature Pulse Rate 63 59 L 59 L Respiratory Rate Blood Pressure 119/68 119/72 Pulse Oximetry Oxygen Delivery Fraction of Inspired Oxygen 07/16/24 05:00 07/16/24 05:00 07/16/24 05:00 Temperature Pulse Rate 60 60 60 Respiratory Rate 20 20 Blood Pressure 129/74 Pulse Oximetry Oxygen Delivery Fraction of Inspired Oxygen 07/16/24 05:02 07/16/24 06:00 07/16/24 06:00 Temperature 36.6 C Pulse Rate 92 74 74 Respiratory Rate 20 Blood Pressure 80/56 L 80/56 L Pulse Oximetry 97 96 Oxygen Delivery Mechanical Ventilation Fraction of Inspired Oxygen 30 07/16/24 06:00 07/16/24 06:00 07/16/24 06:00 Temperature Pulse Rate 74 74 74 Respiratory Rate 20 20 Blood Pressure Pulse Oximetry Oxygen Delivery Fraction of Inspired Oxygen 07/16/24 06:30 07/16/24 06:35 07/16/24 08:00 Temperature Pulse Rate 64 64 60 Respiratory Rate Blood Pressure 121/68 119/69 135/98 H Pulse Oximetry Oxygen Delivery Fraction of Inspired Oxygen 07/16/24 08:00 07/16/24 08:00 07/16/24 08:30 Temperature Pulse Rate 60 60 74 Respiratory Rate 20 20 Blood Pressure 126/77 Pulse Oximetry Oxygen Delivery Fraction of Inspired Oxygen 07/16/24 08:47 07/16/24 08:47 07/16/24 09:15 Temperature Pulse Rate 69 69 82 Respiratory Rate 16 16 Blood Pressure Pulse Oximetry 97 Oxygen Delivery Mechanical Ventilation Fraction of Inspired Oxygen 30 Intake/Output Intake/Output: Intake & Output 07/13/24 07/14/24 07/15/24 07/16/24 23:59 23:59 23:59 23:59 Intake Total 1400 1604.0 1285.6 731.4 Output Total 200 2700 500 350 Balance 1200 -1096.0 785.6 381.4 Meds/Results Medications: Active Medications Generic Name Dose Route Start Last Admin Trade Name Freq PRN Reason Stop Dose Admin Acetaminophen 650 mg 07/13/24 15:40 Acetaminophen 325 Mg Tablet PO Q4H PRN Mild Pain (1-3) or Fever Albuterol/Ipratropium 3 ml 07/13/24 20:00 07/16/24 08:47 Ipratropium 0.5 Mg/Albuterol Sulfate 2.5 Mg Ampul.Neb 3 Ml INHALATION 3 ml Q6HRT ALCON Administration Benzonatate 100 mg 07/13/24 17:47 Benzonatate 100 Mg Capsule PO TID PRN Cough Budesonide 0.5 mg 07/14/24 08:45 07/16/24 08:46 Budesonide Respule Neb 0.5 Mg/2 Ml Amp INHALATION 0.5 mg Q12HRT ALCON Administration Enoxaparin Sodium 40 mg 07/14/24 09:00 07/16/24 09:01 Enoxaparin 40 Mg/0.4 Ml Syringe SUB-Q 40 mg DAILY ALCON Administration Hydrocortisone Sodium Succinate 50 mg 07/15/24 06:00 07/16/24 05:34 Hydrocortisone Sodium Succinate 100 Mg/2 Ml Vial IV PUSH 50 mg Q6H ALCON Administration Azithromycin 500 mg in 250 mls @ 250 mls/hr 07/14/24 15:00 07/15/24 16:08 Zithromax IVPB Infused Q24H ALCON Infusion Cefepime HCl 2 gm in 50 mls @ 100 mls/hr 07/13/24 20:35 07/16/24 06:06 Maxipime 2 Gm/Ns 50 Ml IVPB Infused Q8HR ALCON Infusion Fentanyl Citrate 2,500 mcg in 250 mls @ 7.5 mls/hr 07/14/24 07:50 07/16/24 08:00 Fentanyl 2,500 Mcg/Ns 250 Ml IV CONT 75 mcg/hr .[id number] ALCON 7.5 mls/hr Titration Protocol 75 MCG/HR Midazolam HCl 100 mg in 100 mls @ 2 mls/hr 07/14/24 07:50 07/16/24 08:00 Versed 100 Mg/Ns 100 Ml IV CONT 2 mg/hr .Q50H ALCON 2 mls/hr Titration Protocol 2 MG/HR Norepinephrine Bitartrate 8 mg in 250 mls @ 3.75 mls/hr 07/14/24 12:20 07/16/24 08:30 Levophed 8 Mg/D5w 250 Ml IV CONT 2 mcg/min .Q24H ALCON 3.75 mls/hr Titration Protocol 2 MCG/MIN Vancomycin HCl 1,250 mg in 250 mls @ 166.667 mls/hr 07/15/24 11:00 07/16/24 00:27 Vancomycin 1,250 Mg/Ns 250 Ml IVPB Infused Q12H ALCON Infusion Multi-Ingred Cream/Lotion/Oil/Oint 1 applic 07/14/24 09:00 07/16/24 09:01 Mineral Oil/White Petrolatum Ointment EACH EYE 1 applic Q12HR ALCON Administration Ondansetron HCl 4 mg 07/13/24 15:40 Ondansetron Inj 4 Mg/2 Ml Vial IV PUSH Q4H PRN Nausea Pantoprazole Sodium 40 mg 07/15/24 09:00 07/16/24 09:01 Pantoprazole Sodium Iv 40 Mg Vial IV PUSH 40 mg QAM ALCON Administration Perflutren Lipid Microsphere 0 ml 07/15/24 08:18 Perflutren Lipid Microspheres 1.5 Ml Vial Diluted To 10 Ml Total Volume IV PUSH 07/18/24 08:18 ONCE PRN adequate visualization Protocol Sodium Chloride 10 ml 07/14/24 14:00 07/16/24 05:36 Central Line Flush IV PUSH 10 ml Q8HR ALCON Administration Sodium Chloride 20 ml 07/14/24 08:28 Central Line Flush IV PUSH PRN PRN after blood draws Sodium Chloride 6 ml 07/15/24 05:00 07/15/24 19:00 Sodium Chlor 3% 15 Ml Neb (Respiratory Therapy) INHALATION 07/17/24 05:01 Not Given DAILY@0500 [facility] Radiology Results: ITS Impressions Chest CTA 07/13/24 23:34 IMPRESSION: No pulmonary embolus. No thoracic aortic dissection. Postoperative change within the right upper lobe and right hilum. Large bilateral pleural effusions (left greater than right) with adjacent compressive atelectasis. Thickened wall surrounding the fluid within the right lung base suggests empyema. Additional findings suggesting pulmonary vascular congestion. Abdomen X-Ray 07/14/24 08:42 Impression: NG tube in satisfactory position. Abdomen/Pelvis CT 07/14/24 11:31 Impression: Moderate layering left pleural effusion. Moderate right pleural effusion with thickening of the pleural lining and loculated appearance. Correlate for chronic effusion or empyema. Diffuse interstitial thickening at the lung bases. Findings represent diffuse interstitial edema versus less likely possibility of lymphangitic metastasis given relatively smooth morphology. Irregular consolidation right middle lobe and lingula which could reflect atelectasis, more confluent edema, or pneumonia. Underlying neoplasm not completely excluded. Findings suspicious for metastatic bone disease, as detailed above. 4.0 cm infrarenal abdominal aortic aneurysm. Thoracentesis Ultrasound 07/14/24 17:27 IMPRESSION: 1. Successful ultrasound-guided thoracentesis yielding 1000 mL of vic-colored fluid. Chest X-Ray 07/16/24 06:44 IMPRESSION: Small right-sided pleural effusion. Supportive lines and tubes in good radiographic position. Labs Labs: Laboratory Results - last 24 hr 07/15/24 07/16/24 07/16/24 09:41 04:35 05:41 WBC 14.7 H RBC 3.52 L Hgb 9.4 L Hct 30.2 L MCV 85.8 MCH 26.7 MCHC 31.1 L RDW 17.2 H Plt Count 292 MPV 8.5 Immature Gran % (Auto) 0.7 H Neut % (Auto) 85.4 H Lymph % (Auto) 7.4 L [place] % (Auto) 6.3 Eos % (Auto) 0.1 Baso % (Auto) 0.1 L Lymph # (Auto) 1.09 [place] # (Auto) 0.9 H Eos # (Auto) 0.0 Baso # (Auto) 0.0 Abs Immat Gran (auto) 0.11 H Absolute Neuts (auto) 12.5 H Absolute Nucleated RBC 0.000 Nucleated RBC % 0.0 Puncture Site Left radial ABG pH 7.551 H* ABG pCO2 28.9 L ABG pO2 78.8 L ABG PO2/FiO2 Ratio 2.63 ABG HCO3 24.8 ABG O2 Saturation 97.1 ABG O2 Content 13.8 L ABG Base Excess 2.9 A-a Gradient 101.1 Oxyhemoglobin 95.9 Carboxyhemoglobin 0.0 Methemoglobin 0.3 Reduced Hemoglobin 3.8 Total Hemoglobin 10.2 L O2 Delivery Device Ventilator O2 Liters/Min Not Reportable Minute Volume Not Reportable Vent Rate 20 Vent Mode Cmv FiO2 30 Tidal Volume 450 PEEP 5 Peak Inspir Pressure Not Reportable Pressure Support Not Reportable Sodium 140 Potassium 4.3 Chloride 108 H Carbon Dioxide 28 Anion Gap 4 BUN 33 H Creatinine 0.89 Estim Creat Clear Calc 64 Estimated GFR > 60 Glucose 152 H Calcium 9.1 Phosphorus 2.8 Magnesium 2.4 H Total Bilirubin 0.3 AST 31 ALT 21 Alkaline Phosphatase 108 Total Protein 6.0 L Albumin 2.9 L Vancomycin Trough 12.5 Quality VTE Prophylaxis VTE prophylaxis: pharmacologic ordered
[2024-07-16 10:14] LABS: Vancomycin Trough 21.1 ug/mL (10.0-20.0)
--- NOTE | 2024-07-16 13:48 | PC.NURSE ---
Wedding ring getting tight on finger. Trace amount of swelling to hands. Ring removed and Madeleine has ring.
[2024-07-16] MEDS: NOREPINEPHRINE 8 MG/D5W 250 ML 8 MG/250 ML BAG 7.5 MG IV CONT (14:06)
[2024-07-16] MEDS: AZITHROMYCIN 500 MG/NS 250 ML 500 MG/250 ML BAG 250 MG IVPB (14:07)
[2024-07-16] MEDS: VANCOMYCIN 1,500 MG/NS 500 ML 1,500 MG/500 ML BAG 250 MG IVPB (17:01)
[2024-07-16 23:08] LABS: Glucose Point of Care 143 mg/dl (65-105)
[2024-07-16] MEDS: FENTANYL 2,500MCG/NS250ML(*CRX 2,500 MCG/250 ML BAG 7.5 MCG IV CONT (23:13)
[2024-07-17] VITALS (38 sets, daily range): BP systolic 96–174; BP diastolic 64–104; PULSE 59–128; RESP 14–26; TEMP 36.6–37.1; O2SAT 93–100
--- NOTE | 2024-07-17 | ECHO_ITS ---
Patient Info Name: Jacques Nieves Age: 68 years : 1955 Gender: Male Ht: 71 in Wt: 145 lbs BSA: 1.81 m2 HR: 90 bpm BP: 109 / 74 mmHg Technical Quality: Fair Exam Date: 07/17/2024 9:58 AM Exam Location: Echo Lab Patient Status: Inpatient Admit Date: 07/14/2024 Staff Ordering Physician: Concha Bhat MD Pecan Grower: Valentine Abbott RDCS Attending Provider: Minor Patel MD Referring Physician: Home JUNIOR; Exam Type: CA echo dop color flow w con Study Info Indications - Septic shock Complete two-dimensional, color flow and Doppler transthoracic echocardiogram is performed with contrast to opacify the left ventricle and to improve the 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 Contrast/Agitated Saline Contrast/Ag. Saline: Definity Amount: 2.00 ml Existing IV Access: Yes IV Access Condition: patent with no signs of infiltration Summary 1. Definity contrast administered improved wall motion interpretation. 2. Left ventricular chamber dimension is normal. 3. Left ventricular systolic function is normal, estimated at 65-70%. 4. The left ventricular diastolic function is grade I diastolic dysfunction. 5. E/e' 8 is minimally elevated. 6. There is mild aortic valve sclerosis. 7. The mitral valve has mildly calcified annulus. 8. There is mild tricuspid valve regurgitation. 9. No pulmonary hypertension, estimated pulmonary arterial systolic pressure is 19 mmHg. Left Ventricle E/e' 8 is minimally elevated. Definity contrast administered improved wall motion interpretation. Left ventricular chamber dimension is normal. Left ventricular systolic function is normal, estimated at 65-70%. The left ventricular diastolic function is grade I diastolic dysfunction. Right Ventricle Right ventricular chamber dimension is normal. Right ventricular systolic function is normal. Left Atria Left atrial chamber dimension is normal. Right Atria Right atrial chamber dimension is normal. Aortic Valve The aortic valve is trileaflet. There is mild aortic valve sclerosis. There is no aortic valve stenosis. There is no aortic valve regurgitation. No aortic valve vegetation visualized. Pulmonic Valve The pulmonic valve is not well visualized. There is no pulmonic regurgitation. Cannot rule out pulmonic valve vegetation visualized. Mitral Valve The mitral valve has mildly calcified annulus. There is no mitral valve stenosis. There is no mitral valve regurgitation. No mitral valve vegetation visualized. Tricuspid Valve There is mild tricuspid valve regurgitation. No pulmonary hypertension, estimated pulmonary arterial systolic pressure is 19 mmHg. No tricuspid valve vegetation visualized. Pericardium/Pleural There is no pericardial effusion. Inferior Vena Cava Normal inferior vena cava with >50% collapse upon inspiration consistent with normal right atrial pressure, 5 mmHg. Aorta The aortic root size at the sinus of Valsalva is normal. Left Ventricular Outflow Tract Name Value Normal LVOT 2D LVOT Diameter 1.98 cm LVOT Doppler LVOT Peak Gradient 4 mmHg LVOT Mean Gradient 2 mmHg LVOT VTI 20.95 cm LVOT VTI/AV VTI Ratio 0.83 LVOT Stroke Volume 64.18 ml LVOT CO 11.83 l/min LVOT CI 6.55 L/min/m2 Pulmonic Valve Name Value Normal PV Doppler PV Peak Gradient 3 mmHg Mitral Valve Name Value Normal MV Doppler MV Decel [place] 463.42 cm/s2 MV PHT 0 s MV Area (PHT) 4.68 cm2 4.00-5.00 MV Diastolic Function MV E Peak Velocity 75.10 cm/s MV A Peak Velocity 90.73 cm/s MV E/A 0.83 MV Decel Time 0 s MV Annular TDI MV E/e' (Septal) 8.55 <=8.00 MV E/e' (Lateral) 7.62 <=8.00 MV E/e' (Average) 8.09 Tricuspid Valve Name Value Normal TV Regurgitation Doppler TR Peak Velocity 185.93 cm/s TR Peak Gradient 14 mmHg Estimated PAP/RSVP RA Pressure 5 mmHg <=5 PA Systolic Pressure 19 mmHg <36 RV Systolic Pressure 19 mmHg <36 Aorta Name Value Normal Ascending Aorta Ao Root Diameter (MM) 2.88 cm Ao Root Diam Index (MM) 1.59 cm/m2 Aortic Valve Name Value Normal AV Doppler AV Peak Velocity 134.36 cm/s AV Peak Gradient 7 mmHg AV Mean Gradient 4 mmHg AV VTI 25.39 cm AV Area (Cont Eq VTI) 2.53 cm2 >=3.00 AV Area (Cont Eq Sergey) 2.41 cm2 AV Regurgitation 2D LVOT Area 3.06 cm2 Ventricles Name Value Normal LV Dimensions 2D/MM IVS Diastolic Thickness (2D) 1.14 cm 0.60-1.00 LVID Diastole (2D) 4.20 cm 4.20-5.80 LVIW Diastolic Thickness (2D) 1.06 cm 0.60-1.00 LVID Systole (2D) 2.84 cm 2.50-4.00 LVOT Diameter 1.98 cm LV Mass (2D Cubed) 156.94 g 88.00-224.00 LV Mass Index (2D Cubed) 0.01 g/cm2 0.00-0.01 Relative Wall Thickness (2D) 0.50 LV Fractional Shortening/Ejection Fraction 2D/MM LV Fractional Shortening (2D) 32 % 25-43 LV EF (2D Teicholz) 61 % 52-72 LV Diastolic Volume (4C MOD) 59.12 ml LV EF (4C MOD) 67 % LV Diastolic Volume (2C MOD) 54.78 ml LV EF (2C MOD) 73 % LV Diastolic Volume (BP MOD) 57.13 ml 62.00-150.00 LV Diastolic Volume Index (BP MOD) 0.03 l/m2 0.03-0.07 LV Systolic Volume (BP MOD) 16.47 ml 21.00-61.00 LV Systolic Volume Index (BP MOD) 0.01 l/m2 0.01-0.03 LV EF (BP MOD) 71 % 52-72 LV Diastolic Length (4C) 6.63 cm LV Systolic Length (4C) 5.99 cm LV Stroke Volume (4C MOD) 39.51 ml Atria Name Value Normal LA Dimensions LA Dimension (MM) 3.00 cm 3.00-4.10 LA Volume (4C A-L) 19.35 ml LA Volume (BP A-L) 24.64 ml RA Dimensions RA Area (4C) 9.08 cm2 <=18.00 Report Signatures
[2024-07-17] MEDS: IPRATROPIUM 0.5 MG/ALBUTEROL SULFATE 2.5 MG AMPUL.NEB 3 ML INHALATION ×2 (02:04→08:13)
[2024-07-17 04:53] LABS: Basophils Percent Auto 0.1 % (0.2-1.2); Eosinophils Percent Auto 0.1 % (0-4.4); Hematocrit 28.5 % (42.0-52.0); Hemoglobin 8.7 g/dL (14.0-18.0); Immature Granulocyte Absolute 0.08 K/mm3 (0.00-0.031); Immature Granulocyte Percent A 0.6 % (0-0.5); Lymphocytes Absolute Auto 1.15 K/mm3 (0.9-3.2); Lymphocytes Percent Auto 8.6 % (18.3-44.2); Mean Corpuscular HGB Conc 30.5 g/dl (32-36); Mean Corpuscular Hemoglobin 26.8 pg (26-34); Mean Corpuscular Volume 87.7 fl (80-100); Mean Platelet Volume 8.3 fl (7.4-10.4); Monocytes Absolute Auto 0.9 K/mm3 (0.1-0.6); Monocytes Percent Auto 6.5 % (2.6-8.5); Neutrophils Absolute Auto 11.3 K/mm3 (1.3-6.7); Neutrophils Percent Auto 84.1 % (45.5-73.1); Platelet Count Result 260 k/mm3 (150-375); Red Blood Count 3.25 M/mm3 (4.6-6.20); Red Cell Distribution Width 17.6 % (11.5-14.5); White Blood Count 13.4 K/mm3 (4.5-10.0)
[2024-07-17 04:54] LABS: Alveolar/Arterial O2 Gradient 83.5 mmHg; Base Excess ABG -0.3 mEq/l (+/-2.0); Carboxyhemoglobin 0.2 % THb (0-2.0); Fractional Inspired Oxygen 30 %; Oxygen Content ABG 13.5 %vol (16.0-22.0); Oxygen Saturation ABG 97.5 % (95.0-100.0); Oxyhemoglobin 97.2 % THb (90.0-100.0); PCO2 ABG 32.6 mmHg (35.0-45.0); PO2 ABG 92.1 mmHg (80.0-100.0); PO2 FiO2 Ratio Arterial Blood 3.07 %; Reduced Hemoglobin 2.6 %THb (0-5.0); Total Hemoglobin 9.8 g/dL (12.0-18.0); pH ABG 7.467 (7.350-7.450)
[2024-07-17 04:55] LABS: Arterial Blood Gas PEEP 5 cmH2O; Arterial Blood Gas Tidal Volume 450 ml; Arterial Blood Gas Vent Mode CMV; Arterial Blood Gas Ventilator rate 16 /MIN; Device VENTILATOR; Modified Allen's Test Pass; Site Drawn RIGHT RADIAL
[2024-07-17] MEDS: HYDROCORTISONE SODIUM SUCCINATE 100 MG/2 ML VIAL 50 MG IV PUSH ×3 (05:14→18:35)
[2024-07-17] MEDS: CENTRAL LINE FLUSH 10 ML IV PUSH ×3 (05:14→22:00)
[2024-07-17] MEDS: CEFEPIME 2 GM/NS 50 ML 2 GM/50 ML BAG IVPB ×3 (05:14→22:00)
[2024-07-17 05:17] LABS: Alanine Aminotransferase 21 U/L (6-50); Albumin Level 2.8 g/dL (3.5-5.1); Alkaline Phosphatase 95 U/L (38-126); Anion Gap 6 mmol/L (4-12); Aspartate Amino Transferase 30 U/L (17-59); Bilirubin,Total 0.3 mg/dL (0.2-1.3); Blood Urea Nitrogen 30 mg/dL (9-20); Calcium 8.9 mg/dL (8.4-10.2); Carbon Dioxide 26 mmol/L (22-30); Chloride 110 mmol/L (98-107); Estimated CRCL calculation 73 ml/min; Estimated Glomerular Filt Rate > 60; Glucose 148 mg/dL (65-110); Magnesium 2.5 mg/dL (1.6-2.3); Phosphorus 3.9 mg/dL (2.5-4.5); Potassium 4.2 mmol/L (3.4-5.0); Sodium 142 mmol/L (137-145)
[2024-07-17] MEDS: ALBUMIN HUMAN 25% 25 GM/100 ML 100 ML IVPB (07:57)
[2024-07-17] MEDS: ENOXAPARIN 40 MG/0.4 ML SYRINGE SUB-Q (08:00)
[2024-07-17] MEDS: FUROSEMIDE INJ 40 MG/4 ML VIAL IV PUSH (08:00)
[2024-07-17] MEDS: MINERAL OIL/WHITE PETROLATUM OINTMENT 1 APPLIC EACH EYE ×2 (08:00→22:00)
[2024-07-17] MEDS: PANTOPRAZOLE SODIUM IV 40 MG VIAL IV PUSH (08:00)
[2024-07-17] MEDS: BUDESONIDE RESPULE NEB 0.5 MG/2 ML AMP INHALATION ×2 (08:13→20:21)
--- NOTE | 2024-07-17 08:50 | P.PNINT_ITS ---
Progress Note: A&P Assessment and Plan (1) Acute respiratory failure: Code(s): J96.00 - Acute respiratory failure, unspecified whether with hypoxia or hypercapnia Status: Acute Assessment and Plan: 07/13: Patient admitted with worsening shortness of breath, travel from [place] on 07/13 in upon arrival to [place] which is is home came directly to the ER. Normally uses 2 L nasal cannula, it bumped up to 5 L nasal cannula. -likely etiology, large left pleural effusion, pneumonia, recurrence of lung cancer with possible spread, rule out congestive heart failure -07/14: Patient was initially on BiPAP but failed. Intubated in the ICU along with right IJ central line placement -currently on CMV mode of ventilation, peep of 5 and FiO2 30% -bilateral diffuse infiltrates (Off note patient has been admitted to the hospital in [place] x2 for pneumonia and pleural effusion, pleural effusion was tapped on the 1st admission and they removed 700 mL of fluid which was negative for cancer cells). He also saw blood donor recruiter who recommended the patient see a oncologist. -echo pending -currently on broad-spectrum antibiotics to cover healthcare rest of pneumonia -status post thoracentesis on 07/14 with 1 L fluid removed -patient seen by Pulmonary and Oncology consult pending -will give Lasix IV -sedation holiday and evaluate for weaning trial -continue bronchodilators -chest x-ray and ABGs reviewed this morning, ventilator adjusted 07/13: Chest x-ray on admission showed: Bilateral pneumonia with pleural effusion. Superimposed pulmonary edema is not excluded. 07/13: CTA chest on admission: No PE, no thoracic aortic dissection, postoperative changes within the right upper lobe and right hilum. Large bilateral pleural effusions left greater than right with adjacent compressive atelectasis. Thickened wall surrounding the fluid within the right lung base suggest empyema. Additional finding suggesting pulmonary vascular congestion. (2) Pneumonia: Qualifiers: Laterality: bilateral Lung location: unspecified part of lung Pneumonia type: due to unspecified organism Qualified Code(s): J18.9 - Pneumonia, unspecified organism Code(s): J18.9 - Pneumonia, unspecified organism Status: Acute Assessment and Plan: Chest x-ray shows bilateral diffuse pneumonia -currently intubated on mechanical ventilator -continue azithromycin, cefepime and vancomycin, (07/13) -patient also on hydrocortisone (3) Sepsis: Qualifiers: Sepsis type: sepsis due to unspecified organism Sepsis acute organ dysfunction status: with acute organ dysfunction Severe sepsis acute organ dysfunction type: acute respiratory failure Acute respiratory failure type: with hypoxia Severe sepsis shock status: without septic shock Qualified Code(s): A41.9 - Sepsis, unspecified organism; R65.20 - Severe sepsis without septic shock; J96.01 - Acute respiratory failure with hypoxia Code(s): A41.9 - Sepsis, unspecified organism Status: Acute Assessment and Plan: Patient did fulfill criteria for sepsis -continue low-dose Levophed -patient does have a central line in the right IJ which was placed on 07/14 -Lasix for volume overload -patient was started on Levophed, will maintain MAP > 65 mmHg Or SBP> 100 mmHg. -07/13: blood cultures negative x2 -07/14: Pleural fluid cultures are negative so far (4) Malnourished: Qualifiers: Malnutrition type: protein-calorie malnutrition Protein-calorie malnutrition severity: moderate Qualified Code(s): E44.0 - Moderate protein- calorie malnutrition Code(s): E46 - Unspecified protein-calorie malnutrition Status: Acute Assessment and Plan: According the significant other patient has dropped 40-42 lb in the last 3-4 months, he has not been eating well -dietitian has been consulted -started on trickle feeds, will gradually advance to goal (5) Pleural effusion: Code(s): J90 - Pleural effusion, not elsewhere classified Status: Acute Assessment and Plan: Patient had a large left pleural effusion on admission -07/14: status post left thoracentesis with removal of 1000 mL of vic colored fluid -Gram stain and cultures are negative so far -pathology pending (6) Adenocarcinoma of right lung: Code(s): C34.91 - Malignant neoplasm of unspecified part of right bronchus or lung Status: Acute Assessment and Plan: Stage I adenocarcinoma status post right upper lobectomy and mediastinal lymph node dissection done in January 2023. -pathology showed non small cell lung cancer with and a carcinoma histology, moderate clean bleed differentiated, negative margins and or lymph node negative for malignancy -patient has seen Dr. Jimenez -oncologist in the past -CT scan of the abdomen and pelvis showed diffuse interstitial thickening at the lung bases 6 which could be interstitial edema versus less likely possibility of lymphangitic metastasis. There is ill-defined sclerotic lesions in L3 L4 L5. Subtle heterogeneous lesions present in T10, T11 vertebral bodies. Six sclerotic lesions present in the left sacrum these findings are suspicious for metastatic bone disease -oncologist has been consulted Plan DVT prophylaxis: Enoxaparin Stress ulcer prophylaxis: Protonix Nutrition: Tube feeds Code Status: Full code Critical Care Time Spent: 33 minutes Due to a high probability of clinically significant, life threatening deterioration, the patient required my highest level of preparedness to intervene emergently and I personally spent this critical care time directly and personally managing the patient. This critical care time included obtaining a history; examining the patient; pulse oximetry; ordering and review of studies; arranging urgent treatment with development of a management plan; evaluation of patient's response to treatment; frequent reassessment; and discussions with other providers. It was exclusive of separately billable procedures and treating other patients and teaching time. Please see Assessment and Plan section and the rest of the note for further information on patient assessment and treatment This dictation may have been done utilizing a voice recognition system. Attempts have been made to correct errors. However, there may be uncorrected grammatical, spelling, and recognitions errors present. Subjective Date/time seen: 07/17/24 Overnight events reviewed. Afebrile Continues to be on mechanical ventilation 30% FiO2 Continues to be on low-dose of Levophed Continues to be sedated with Versed and found Tolerating tube feeds. Other Vitals acceptable Interval history: Reason for consult: Acute respiratory failure, pneumonia 07/14: Thoracentesis: removal of 1000 mL vic colored fluid Review of Systems Review of Systems: ROS unobtainable: Yes unobtainable due to endotracheal tube and unobtainable due to medical condition Exam Narrative: General: Sedated, intubated, in no acute distress HEENT:? Pupils equal and reactive, sclera is clear, ETT in place Neck:? Supple Respiratory:? Coarse breath sounds bilaterally, decreased at bases L > R, no wheezing, adequate air entry Cardiac:? S1-S2 normal, regular rate and rhythm Abdomen:? Soft, nontender, nondistended, normoactive bowel sounds Extremities:? Cachectic, palpable pedal pulses, no edema Neuro:? Patient is intubated and sedated, patient did open his eyes, does not follow simple commands. Prior to intubation patient was talking and answering questions and moving all extremities appropriately Skin:? No skin lesions no Psych:? Unable to assess at this time Objective Data Vital Signs Vital Signs: Vital Signs - 24 hr 07/16/24 09:15 07/16/24 10:00 07/16/24 10:00 Temperature 36.7 C Pulse Rate 82 82 82 Respiratory Rate 16 16 Blood Pressure 94/62 L Pulse Oximetry 96 Oxygen Delivery Fraction of Inspired Oxygen 07/16/24 10:00 07/16/24 10:00 07/16/24 10:00 Temperature Pulse Rate 82 82 82 Respiratory Rate 16 16 Blood Pressure 94/62 L Pulse Oximetry Oxygen Delivery Fraction of Inspired Oxygen 07/16/24 10:28 07/16/24 12:00 07/16/24 12:00 Temperature Pulse Rate 88 105 H 105 H Respiratory Rate 16 Blood Pressure 80/62 L Pulse Oximetry 99 Oxygen Delivery Mechanical Ventilation Fraction of Inspired Oxygen 30 07/16/24 12:00 07/16/24 12:00 07/16/24 12:00 Temperature Pulse Rate 105 H Respiratory Rate 16 Blood Pressure Pulse Oximetry Oxygen Delivery Mechanical Ventilation Fraction of Inspired Oxygen 30 30 07/16/24 12:00 07/16/24 12:00 07/16/24 13:36 Temperature 36.6 C Pulse Rate 105 H 101 H 95 Respiratory Rate 16 Blood Pressure 80/62 L Pulse Oximetry 94 97 Oxygen Delivery Mechanical Ventilation Fraction of Inspired Oxygen 30 07/16/24 13:36 07/16/24 13:39 07/16/24 13:44 Temperature Pulse Rate 95 96 Respiratory Rate 16 16 Blood Pressure 98/64 L Pulse Oximetry Oxygen Delivery Fraction of Inspired Oxygen 07/16/24 14:00 07/16/24 14:00 07/16/24 14:00 Temperature 36.7 C Pulse Rate 90 90 90 Respiratory Rate 16 16 Blood Pressure 100/70 Pulse Oximetry 95 Oxygen Delivery Fraction of Inspired Oxygen 07/16/24 14:00 07/16/24 14:00 07/16/24 14:06 Temperature Pulse Rate 90 90 88 Respiratory Rate 16 Blood Pressure 100/70 100/70 Pulse Oximetry Oxygen Delivery Fraction of Inspired Oxygen 07/16/24 14:06 07/16/24 16:00 07/16/24 16:00 Temperature Pulse Rate 88 Respiratory Rate Blood Pressure 100/70 Pulse Oximetry Oxygen Delivery Mechanical Ventilation Fraction of Inspired Oxygen 30 30 07/16/24 16:00 07/16/24 16:00 07/16/24 16:00 Temperature 36.8 C Pulse Rate 76 78 78 Respiratory Rate 16 16 Blood Pressure 112/71 Pulse Oximetry 97 Oxygen Delivery Fraction of Inspired Oxygen 07/16/24 16:00 07/16/24 16:00 07/16/24 16:51 Temperature Pulse Rate 78 78 74 Respiratory Rate 16 Blood Pressure 112/71 Pulse Oximetry 97 Oxygen Delivery Mechanical Ventilation Fraction of Inspired Oxygen 30 07/16/24 17:01 07/16/24 18:00 07/16/24 18:00 Temperature Pulse Rate 75 78 78 Respiratory Rate 16 16 Blood Pressure 123/76 Pulse Oximetry Oxygen Delivery Fraction of Inspired Oxygen 07/16/24 18:00 07/16/24 18:00 07/16/24 18:00 Temperature 36.7 C Pulse Rate 78 78 78 Respiratory Rate 16 Blood Pressure 133/87 133/87 Pulse Oximetry 98 Oxygen Delivery Fraction of Inspired Oxygen 07/16/24 19:40 07/16/24 19:49 07/16/24 19:55 Temperature Pulse Rate 85 78 72 Respiratory Rate 18 16 Blood Pressure Pulse Oximetry 98 97 Oxygen Delivery Mechanical Ventilation Mechanical Ventilation Fraction of Inspired Oxygen 30 30 07/16/24 19:55 07/16/24 19:58 07/16/24 20:00 Temperature Pulse Rate 72 72 Respiratory Rate 16 16 Blood Pressure Pulse Oximetry Oxygen Delivery Fraction of Inspired Oxygen 30 07/16/24 20:00 07/16/24 20:00 07/16/24 20:00 Temperature Pulse Rate 72 73 73 Respiratory Rate 16 Blood Pressure 107/67 Pulse Oximetry Oxygen Delivery Fraction of Inspired Oxygen 07/16/24 20:00 07/16/24 20:05 07/16/24 21:00 Temperature 36.5 C Pulse Rate 73 72 69 Respiratory Rate 16 16 Blood Pressure 107/67 91/63 L Pulse Oximetry 98 Oxygen Delivery Fraction of Inspired Oxygen 07/16/24 22:00 07/16/24 22:00 07/16/24 22:00 Temperature Pulse Rate 70 70 70 Respiratory Rate 16 16 Blood Pressure 109/67 Pulse Oximetry Oxygen Delivery Fraction of Inspired Oxygen 07/16/24 22:00 07/16/24 22:00 07/16/24 23:00 Temperature 36.6 C Pulse Rate 70 70 71 Respiratory Rate 16 Blood Pressure 109/67 94/61 L Pulse Oximetry 96 Oxygen Delivery Fraction of Inspired Oxygen 07/16/24 23:13 07/16/24 23:13 07/16/24 23:21 Temperature Pulse Rate 76 76 114 H Respiratory Rate 16 16 Blood Pressure Pulse Oximetry 97 Oxygen Delivery Mechanical Ventilation Fraction of Inspired Oxygen 30 07/17/24 00:00 07/17/24 00:00 07/17/24 00:00 Temperature Pulse Rate 76 76 Respiratory Rate 16 Blood Pressure Pulse Oximetry 97 Oxygen Delivery Mechanical Ventilation Fraction of Inspired Oxygen 30 30 07/17/24 00:00 07/17/24 00:01 07/17/24 00:01 Temperature 36.7 C Pulse Rate 76 76 76 Respiratory Rate 17 16 Blood Pressure 110/73 110/73 Pulse Oximetry 97 Oxygen Delivery Fraction of Inspired Oxygen 07/17/24 00:01 07/17/24 02:00 07/17/24 02:00 Temperature Pulse Rate 76 70 70 Respiratory Rate 17 16 Blood Pressure 119/73 Pulse Oximetry Oxygen Delivery Fraction of Inspired Oxygen 07/17/24 02:00 07/17/24 02:00 07/17/24 02:00 Temperature 36.7 C Pulse Rate 70 68 70 Respiratory Rate 16 16 Blood Pressure 119/73 Pulse Oximetry 98 Oxygen Delivery Fraction of Inspired Oxygen 07/17/24 02:04 07/17/24 02:04 07/17/24 02:14 Temperature Pulse Rate 70 72 72 Respiratory Rate 16 16 Blood Pressure Pulse Oximetry 98 Oxygen Delivery Mechanical Ventilation Fraction of Inspired Oxygen 30 07/17/24 03:32 07/17/24 03:32 07/17/24 04:00 Temperature 36.9 C Pulse Rate 72 70 Respiratory Rate 16 17 Blood Pressure 98/64 L Pulse Oximetry 98 97 Oxygen Delivery Mechanical Ventilation Fraction of Inspired Oxygen 30 30 07/17/24 04:00 07/17/24 04:00 07/17/24 04:00 Temperature Pulse Rate 70 70 70 Respiratory Rate 17 16 Blood Pressure 98/64 L Pulse Oximetry Oxygen Delivery Fraction of Inspired Oxygen 07/17/24 04:00 07/17/24 04:16 07/17/24 04:50 Temperature Pulse Rate 68 71 72 Respiratory Rate Blood Pressure 111/70 Pulse Oximetry 98 Oxygen Delivery Mechanical Ventilation Fraction of Inspired Oxygen 30 07/17/24 06:00 07/17/24 06:00 07/17/24 06:00 Temperature 36.8 C Pulse Rate 71 70 70 Respiratory Rate 16 16 Blood Pressure 96/65 L Pulse Oximetry 97 Oxygen Delivery Fraction of Inspired Oxygen 07/17/24 06:00 07/17/24 06:00 07/17/24 06:15 Temperature Pulse Rate 73 73 67 Respiratory Rate 16 Blood Pressure 96/65 L 109/74 Pulse Oximetry Oxygen Delivery Fraction of Inspired Oxygen 07/17/24 08:00 07/17/24 08:00 07/17/24 08:00 Temperature 36.9 C Pulse Rate 82 82 80 Respiratory Rate 16 16 14 Blood Pressure 131/75 Pulse Oximetry 95 Oxygen Delivery Fraction of Inspired Oxygen 07/17/24 08:13 07/17/24 08:13 07/17/24 08:38 Temperature Pulse Rate 79 79 82 Respiratory Rate 16 16 Blood Pressure Pulse Oximetry 97 Oxygen Delivery Mechanical Ventilation Fraction of Inspired Oxygen 30 Intake/Output Intake/Output: Intake & Output 07/14/24 07/15/24 07/16/24 07/17/24 23:59 23:59 23:59 23:59 Intake Total 1604.0 1285.6 2257.1 600.8 Output Total 2700 500 625 350 Balance -1096.0 785.6 1632.1 250.8 Meds/Results Medications: Active Medications Generic Name Dose Route Start Last Admin Trade Name Freq PRN Reason Stop Dose Admin Acetaminophen 650 mg 07/13/24 15:40 Acetaminophen 325 Mg Tablet PO Q4H PRN Mild Pain (1-3) or Fever Albuterol/Ipratropium 3 ml 07/17/24 07:50 07/17/24 08:13 Ipratropium 0.5 Mg/Albuterol Sulfate 2.5 Mg Ampul.Neb 3 Ml INHALATION 3 ml Q6HRT PRN Administration Wheezing Benzonatate 100 mg 07/13/24 17:47 Benzonatate 100 Mg Capsule PO TID PRN Cough Budesonide 0.5 mg 07/14/24 08:45 07/17/24 08:13 Budesonide Respule Neb 0.5 Mg/2 Ml Amp INHALATION 0.5 mg Q12HRT ALCON Administration Enoxaparin Sodium 40 mg 07/14/24 09:00 07/17/24 08:00 Enoxaparin 40 Mg/0.4 Ml Syringe SUB-Q 40 mg DAILY ALCON Administration Hydrocortisone Sodium Succinate 50 mg 07/15/24 06:00 07/17/24 05:14 Hydrocortisone Sodium Succinate 100 Mg/2 Ml Vial IV PUSH 50 mg Q6H ALCON Administration Azithromycin 500 mg in 250 mls @ 250 mls/hr 07/14/24 15:00 07/16/24 16:22 Zithromax IVPB 07/19/24 14:59 Infused Q24H ALCON Infusion Cefepime HCl 2 gm in 50 mls @ 100 mls/hr 07/13/24 20:35 07/17/24 05:44 Maxipime 2 Gm/Ns 50 Ml IVPB Infused Q8HR ALCON Infusion Fentanyl Citrate 2,500 mcg in 250 mls @ 5 mls/hr 07/14/24 07:50 07/17/24 08:00 Fentanyl 2,500 Mcg/Ns 250 Ml IV CONT 50 mcg/hr .Q50H ALCON 5 mls/hr Titration Protocol 50 MCG/HR Midazolam HCl 100 mg in 100 mls @ 2 mls/hr 07/14/24 07:50 07/17/24 08:00 Versed 100 Mg/Ns 100 Ml IV CONT 2 mg/hr .Q50H ALCON 2 mls/hr Titration Protocol 2 MG/HR Norepinephrine Bitartrate 8 mg in 250 mls @ 3.75 mls/hr 07/14/24 12:20 07/17/24 06:00 Levophed 8 Mg/D5w 250 Ml IV CONT 2 mcg/min .Q24H ALCON 3.75 mls/hr Titration Protocol 2 MCG/MIN Vancomycin HCl 1,500 mg in 500 mls @ 250 mls/hr 07/16/24 18:00 07/16/24 19:01 Vancomycin 1,500 Mg/Ns 500 Ml IVPB Infused Q18H ALCON Infusion Albumin Human 100 mls @ 60 mls/hr 07/17/24 08:00 07/17/24 07:57 Albutein IVPB 07/17/24 09:39 60 mls/hr ONCE ONE Administration Multi-Ingred Cream/Lotion/Oil/Oint 1 applic 07/14/24 09:00 07/17/24 08:00 Mineral Oil/White Petrolatum Ointment EACH EYE 1 applic Q12HR ALCON Administration Ondansetron HCl 4 mg 07/13/24 15:40 Ondansetron Inj 4 Mg/2 Ml Vial IV PUSH Q4H PRN Nausea Pantoprazole Sodium 40 mg 07/15/24 09:00 07/17/24 08:00 Pantoprazole Sodium Iv 40 Mg Vial IV PUSH 40 mg QAM ALCON Administration Perflutren Lipid Microsphere 0 ml 07/15/24 08:18 Perflutren Lipid Microspheres 1.5 Ml Vial Diluted To 10 Ml Total Volume IV PUSH 07/18/24 08:18 ONCE PRN adequate visualization Protocol Sodium Chloride 10 ml 07/14/24 14:00 07/17/24 05:14 Central Line Flush IV PUSH 10 ml Q8HR ALCON Administration Sodium Chloride 20 ml 07/14/24 08:28 Central Line Flush IV PUSH PRN PRN after blood draws Radiology Results: ITS Impressions Chest CTA 07/13/24 23:34 IMPRESSION: No pulmonary embolus. No thoracic aortic dissection. Postoperative change within the right upper lobe and right hilum. Large bilateral pleural effusions (left greater than right) with adjacent compressive atelectasis. Thickened wall surrounding the fluid within the right lung base suggests empyema. Additional findings suggesting pulmonary vascular congestion. Abdomen X-Ray 07/14/24 08:42 Impression: NG tube in satisfactory position. Abdomen/Pelvis CT 07/14/24 11:31 Impression: Moderate layering left pleural effusion. Moderate right pleural effusion with thickening of the pleural lining and loculated appearance. Correlate for chronic effusion or empyema. Diffuse interstitial thickening at the lung bases. Findings represent diffuse interstitial edema versus less likely possibility of lymphangitic metastasis given relatively smooth morphology. Irregular consolidation right middle lobe and lingula which could reflect atelectasis, more confluent edema, or pneumonia. Underlying neoplasm not completely excluded. Findings suspicious for metastatic bone disease, as detailed above. 4.0 cm infrarenal abdominal aortic aneurysm. Thoracentesis Ultrasound 07/14/24 17:27 IMPRESSION: 1. Successful ultrasound-guided thoracentesis yielding 1000 mL of vic-colored fluid. Chest X-Ray 07/17/24 06:09 IMPRESSION: 1. Stable diffuse lung disease, consistent with pulmonary edema versus pneumonia. 2. Stable small pleural effusions, loculated on the right. Labs Labs: Laboratory Results - last 24 hr 07/16/24 07/16/24 07/17/24 09:51 23:05 04:30 WBC 13.4 H RBC 3.25 L Hgb 8.7 L Hct 28.5 L MCV 87.7 MCH 26.8 MCHC 30.5 L RDW 17.6 H Plt Count 260 MPV 8.3 Immature Gran % (Auto) 0.6 H Neut % (Auto) 84.1 H Lymph % (Auto) 8.6 L [place] % (Auto) 6.5 Eos % (Auto) 0.1 Baso % (Auto) 0.1 L Lymph # (Auto) 1.15 [place] # (Auto) 0.9 H Eos # (Auto) 0.0 Baso # (Auto) 0.0 Abs Immat Gran (auto) 0.08 H Absolute Neuts (auto) 11.3 H Absolute Nucleated RBC 0.000 Nucleated RBC % 0.0 Puncture Site ABG pH ABG pCO2 ABG pO2 ABG PO2/FiO2 Ratio ABG HCO3 ABG O2 Saturation ABG O2 Content ABG Base Excess A-a Gradient Oxyhemoglobin Carboxyhemoglobin Methemoglobin Reduced Hemoglobin Total Hemoglobin O2 Delivery Device O2 Liters/Min Minute Volume Vent Rate Vent Mode FiO2 Tidal Volume PEEP Peak Inspir Pressure Pressure Support Sodium 142 Potassium 4.2 Chloride 110 H Carbon Dioxide 26 Anion Gap 6 BUN 30 H Creatinine 0.77 Estim Creat Clear Calc 73 Estimated GFR > 60 Glucose 148 H POC Capillary Glucose 143 H Calcium 8.9 Phosphorus 3.9 Magnesium 2.5 H Total Bilirubin 0.3 AST 30 ALT 21 Alkaline Phosphatase 95 Total Protein 6.0 L Albumin 2.8 L Vancomycin Trough 21.1 H 07/17/24 04:42 WBC RBC Hgb Hct MCV MCH MCHC RDW Plt Count MPV Immature Gran % (Auto) Neut % (Auto) Lymph % (Auto) [place] % (Auto) Eos % (Auto) Baso % (Auto) Lymph # (Auto) [place] # (Auto) Eos # (Auto) Baso # (Auto) Abs Immat Gran (auto) Absolute Neuts (auto) Absolute Nucleated RBC Nucleated RBC % Puncture Site Right radial ABG pH 7.467 H ABG pCO2 32.6 L ABG pO2 92.1 ABG PO2/FiO2 Ratio 3.07 ABG HCO3 23.0 ABG O2 Saturation 97.5 ABG O2 Content 13.5 L ABG Base Excess -0.3 A-a Gradient 83.5 Oxyhemoglobin 97.2 Carboxyhemoglobin 0.2 Methemoglobin 0.0 Reduced Hemoglobin 2.6 Total Hemoglobin 9.8 L O2 Delivery Device Ventilator O2 Liters/Min Not Reportable Minute Volume Not Reportable Vent Rate 16 Vent Mode Cmv FiO2 30 Tidal Volume 450 PEEP 5 Peak Inspir Pressure Not Reportable Pressure Support Not Reportable Sodium Potassium Chloride Carbon Dioxide Anion Gap BUN Creatinine Estim Creat Clear Calc Estimated GFR Glucose POC Capillary Glucose Calcium Phosphorus Magnesium Total Bilirubin AST ALT Alkaline Phosphatase Total Protein Albumin Vancomycin Trough Quality VTE Prophylaxis VTE prophylaxis: pharmacologic ordered
[2024-07-17] MEDS: dexmedeTOMIDine 400 MCG/100 ML 400 MCG/100 ML BAG IV CONT (09:26)
--- NOTE | 2024-07-17 09:41 | PCRCNOTE ---
Patient tachycardic and tachypneic during SBT. Dr. Juan changed settings twice and wants to keep patient on 20/5 for an hour and then place patient back in full support on CMV.
--- NOTE | 2024-07-17 10:28 | PCFNICU ---
ICU Rounding Note: Pt current nutrition is Vital AF 1.2. Nutrition recommendation: Goal rate at 65 ml/hr. Last recorded weight is 65.9 kg, up from 64.7 kg on admit. Bowel Motility: +BM reported 07/09 Labs Reviewed: BUN 30, Alb 2.8, Hct 28.5, Hgb 8.7 Meds Noted: Precedex,Protonix, NovoLog Skin: WNL Additional Notes:Patient had thoracentesis 07/14, remains on mechanical vent. Breathing trial today-failed. Tube feedings restarting of Vital AF 1.2 at 30 ml/hr advancing to goal rate of 65 ml/hr. Flush 30 ml q 4 hours. Following daily in ICU rounds. Will monitor weight, labs, skin, diet orders, meds every Wednesday and Wednesday.
[2024-07-17] MEDS: PERFLUTREN LIPID MICROSPHERES 1.5 ML VIAL DILUTED TO 10 ML TOTAL VOLUME IV PUSH (10:30)
--- NOTE | 2024-07-17 11:15 | IVDEFINITY ---
Prior to administration of IV Definity the patient was educated on the risks and benefits of the imaging enhancing agent including potential adverse side effects. The patient verbalized understanding. Allergies were verified. No exclusion criteria were identified and at least one of the following inclusion criteria were met: 1) physician request, 2) patient technically difficult to image (per the [place] [employer] guidelines of two or more segments not discernable within the apical view), or 3) questionable left ventricular function. ?
[2024-07-17] MEDS: PROPOFOL IV EMULSION 100 ML 1.98 MG IV CONT (11:57)
[2024-07-17 12:48] LABS: Triglycerides 96 mg/dL (<150)
[2024-07-17] MEDS: AZITHROMYCIN 500 MG/NS 250 ML 500 MG/250 ML BAG 250 MG IVPB (14:08)
--- NOTE | 2024-07-17 17:15 | WPDONCCN ---
Assessment and Plan Assessment and plan (1) Adenocarcinoma of right lung: Code(s): C34.91 - Malignant neoplasm of unspecified part of right bronchus or lung Status: Acute Assessment and Plan: This is the 68-year-old male with diagnosis of T1 N0 M0 stage I A non-small cell lung cancer with adenocarcinoma histology status post right upper lobe lobectomy and mediastinal lymph node biopsy done on February 11, 2023. He was last seen in the office in January of 2023. Patient had couple of episodes of pneumonia while he was in [place] and now admitted to the hospital here with shortness of breath. CT scan showed no evidence of PE but there was bilateral pleural effusion. He had left-sided thoracentesis done and cytology is pending. CT abdomen and pelvis also showed suspicious finding for bone metastasis along with irregular consolidation of the right middle lobe and lingula could be pneumonia, edema or atelectasis versus neoplasm. These findings are worrisome for underlying malignancy as well. Cytology is pending from the pleural fluid. Once patient improved from the infection/pneumonia we will order PET scan as an outpatient and follow-up as an outpatient. His cytology comes back positive for malignancy then he will be candidate for palliative chemotherapy as an outpatient. HPI Data of Consult Date/Time: 07/17/24 17:15 Requesting Physician: Minor Patel MD Primary Care Provider: Darrell Villela MD Consult Narrative Narrative: Jacques Nieves is a 68 year old male with stage I A non-small cell lung cancer status post right upper lobe lobectomy and mediastinal lymph node dissection done on February 11, 2023 along with history of abdominal aortic aneurysm and hypertension got admitted to the hospital with shortness of breath. According to patient has been feeling short of breath since April of 2024 while he was in [place] for the winter. Patient had 2 episodes of pneumonia at that time. Chest CTA done on July 13 showed no evidence of PE there was large bilateral pleural effusion. Patient had thoracentesis done with removal of 1 L of fluid from the left pleural effusion. CT abdomen and pelvis was also done on July 17 that showed finding suspicious for metastatic bone disease along with irregular consolidation of the right middle lobe and lingula could be atelectasis, edema, pneumonia or underlying neoplasm. Patient is currently intubated and sedated. Review of Systems Review of Systems: Patient is currently intubated and sedated [facility] Past Medical History Medical History (Updated 07/14/24 @ 11:42 by Concha Bhat MD) Pneumonia due to adenovirus Malignant neoplasm of upper lobe, right bronchus or lung AAA (abdominal aortic aneurysm) Hypertension Surgical History Surgical History (Updated 07/13/24 @ 21:13 by Shelbie Best APRN) History of tonsillectomy and adenoidectomy History of cholecystectomy S/P partial lobectomy of lung Family History Family History Father Hypertension Cancer Heart disease Mother Hypertension Heart disease Cancer Sibling Hypertension Heart disease Social History Social History Smoking status: Current every day smoker Alcohol use details: 3 Beer Substance use: never Substance use type: does not use Do You Feel Safe in your Home?: Yes Lack of Transportation: No Lack of Food: Never True Current Housing: I Have Housing Concerned About Future Housing: No Difficulty Paying Gas/Electric Bills: No Difficulty Paying for Meds: No Currently Unemployed: No Education: Trade/Vocational Certificate Difficulty w/ Childcare or Family Care: No Living arrangements: with family Gender identity (if verbalized by the patient): Male Spiritual care concerns: No Agree to blood products: Yes Meds Home Medications and Allergies Home Medications ?Medication ?Instructions ?Recorded ?Confirmed ?Type amlodipine 5 mg tablet 5 mg PO DAILY #90 tabs 01/26/24 07/13/24 Rx cholecalciferol (vitamin D3) 1,250 1,250 mcg PO WEEKLY #14 tabs 02/20/24 07/13/24 Rx mcg (50,000 unit) tablet albuterol sulfate 90 mcg/actuation 2 inh inhalation Q4H PRN shortness 07/13/24 07/13/24 History aerosol inhaler of breath or wheezing azithromycin 250 mg tablet 250 mg PO .COMPLEX 07/13/24 07/13/24 History fluticasone 250 mcg-salmeterol 50 1 inh inhalation Q12H 07/13/24 07/13/24 History mcg/dose blistr powdr for inhalation (Wixela Inhub) prednisone 10 mg tablet 10 mg PO Q12H 07/13/24 07/13/24 History theophylline 200 mg 200 mg PO Q24H 07/13/24 07/13/24 History tablet,extended release,12 hr Allergies Allergy/AdvReac Type Severity Reaction Status Date / Time No Known Allergies Allergy Verified 07/13/24 13:02 Vital Signs Vital Signs - 24 hr 07/16/24 18:00 07/16/24 18:00 07/16/24 18:00 Temperature Pulse Rate 78 78 78 Respiratory Rate 16 16 Blood Pressure 133/87 Pulse Oximetry Oxygen Delivery Fraction of Inspired Oxygen 07/16/24 18:00 07/16/24 18:00 07/16/24 19:40 Temperature 36.7 C Pulse Rate 78 78 85 Respiratory Rate 16 18 Blood Pressure 133/87 Pulse Oximetry 98 Oxygen Delivery Fraction of Inspired Oxygen 07/16/24 19:49 07/16/24 19:55 07/16/24 19:55 Temperature Pulse Rate 78 72 72 Respiratory Rate 16 16 Blood Pressure Pulse Oximetry 98 97 Oxygen Delivery Mechanical Ventilation Mechanical Ventilation Fraction of Inspired Oxygen 30 30 07/16/24 19:58 07/16/24 20:00 07/16/24 20:00 Temperature Pulse Rate 72 72 Respiratory Rate 16 16 Blood Pressure Pulse Oximetry Oxygen Delivery Fraction of Inspired Oxygen 30 07/16/24 20:00 07/16/24 20:00 07/16/24 20:00 Temperature 36.5 C Pulse Rate 73 73 73 Respiratory Rate 16 Blood Pressure 107/67 107/67 Pulse Oximetry 98 Oxygen Delivery Fraction of Inspired Oxygen 07/16/24 20:05 07/16/24 21:00 07/16/24 22:00 Temperature Pulse Rate 72 69 70 Respiratory Rate 16 16 Blood Pressure 91/63 L Pulse Oximetry Oxygen Delivery Fraction of Inspired Oxygen 07/16/24 22:00 07/16/24 22:00 07/16/24 22:00 Temperature Pulse Rate 70 70 70 Respiratory Rate 16 Blood Pressure 109/67 Pulse Oximetry Oxygen Delivery Fraction of Inspired Oxygen 07/16/24 22:00 07/16/24 23:00 07/16/24 23:13 Temperature 36.6 C Pulse Rate 70 71 76 Respiratory Rate 16 16 Blood Pressure 109/67 94/61 L Pulse Oximetry 96 Oxygen Delivery Fraction of Inspired Oxygen 07/16/24 23:13 07/16/24 23:21 07/17/24 00:00 Temperature Pulse Rate 76 114 H Respiratory Rate 16 Blood Pressure Pulse Oximetry 97 Oxygen Delivery Mechanical Ventilation Fraction of Inspired Oxygen 30 30 07/17/24 00:00 07/17/24 00:00 07/17/24 00:00 Temperature 36.7 C Pulse Rate 76 76 76 Respiratory Rate 16 17 Blood Pressure 110/73 Pulse Oximetry 97 97 Oxygen Delivery Mechanical Ventilation Fraction of Inspired Oxygen 30 07/17/24 00:01 07/17/24 00:01 07/17/24 00:01 Temperature Pulse Rate 76 76 76 Respiratory Rate 16 17 Blood Pressure 110/73 Pulse Oximetry Oxygen Delivery Fraction of Inspired Oxygen 07/17/24 02:00 07/17/24 02:00 07/17/24 02:00 Temperature Pulse Rate 70 70 70 Respiratory Rate 16 16 Blood Pressure 119/73 Pulse Oximetry Oxygen Delivery Fraction of Inspired Oxygen 07/17/24 02:00 07/17/24 02:00 07/17/24 02:04 Temperature 36.7 C Pulse Rate 68 70 70 Respiratory Rate 16 Blood Pressure 119/73 Pulse Oximetry 98 98 Oxygen Delivery Mechanical Ventilation Fraction of Inspired Oxygen 30 07/17/24 02:04 07/17/24 02:14 07/17/24 03:32 Temperature Pulse Rate 72 72 Respiratory Rate 16 16 Blood Pressure Pulse Oximetry Oxygen Delivery Fraction of Inspired Oxygen 30 07/17/24 03:32 07/17/24 04:00 07/17/24 04:00 Temperature 36.9 C Pulse Rate 72 70 70 Respiratory Rate 16 17 17 Blood Pressure 98/64 L Pulse Oximetry 98 97 Oxygen Delivery Mechanical Ventilation Fraction of Inspired Oxygen 30 07/17/24 04:00 07/17/24 04:00 07/17/24 04:00 Temperature Pulse Rate 70 70 68 Respiratory Rate 16 Blood Pressure 98/64 L Pulse Oximetry Oxygen Delivery Fraction of Inspired Oxygen 07/17/24 04:16 07/17/24 04:50 07/17/24 06:00 Temperature Pulse Rate 71 72 71 Respiratory Rate Blood Pressure 111/70 Pulse Oximetry 98 Oxygen Delivery Mechanical Ventilation Fraction of Inspired Oxygen 30 07/17/24 06:00 07/17/24 06:00 07/17/24 06:00 Temperature 36.8 C Pulse Rate 70 70 73 Respiratory Rate 16 16 Blood Pressure 96/65 L 96/65 L Pulse Oximetry 97 Oxygen Delivery Fraction of Inspired Oxygen 07/17/24 06:00 07/17/24 06:15 07/17/24 08:00 Temperature Pulse Rate 73 67 82 Respiratory Rate 16 16 Blood Pressure 109/74 Pulse Oximetry Oxygen Delivery Fraction of Inspired Oxygen 07/17/24 08:00 07/17/24 08:00 07/17/24 08:00 Temperature 36.9 C Pulse Rate 82 80 81 Respiratory Rate 16 14 Blood Pressure 131/75 131/75 Pulse Oximetry 95 Oxygen Delivery Fraction of Inspired Oxygen 07/17/24 08:00 07/17/24 08:00 07/17/24 08:00 Temperature Pulse Rate 81 Respiratory Rate Blood Pressure Pulse Oximetry Oxygen Delivery Mechanical Ventilation Fraction of Inspired Oxygen 30 30 07/17/24 08:13 07/17/24 08:13 07/17/24 08:38 Temperature Pulse Rate 79 79 82 Respiratory Rate 16 16 Blood Pressure Pulse Oximetry 97 Oxygen Delivery Mechanical Ventilation Fraction of Inspired Oxygen 30 07/17/24 08:50 07/17/24 08:50 07/17/24 08:50 Temperature Pulse Rate 99 99 100 Respiratory Rate 16 16 Blood Pressure 134/79 Pulse Oximetry Oxygen Delivery Fraction of Inspired Oxygen 07/17/24 08:53 07/17/24 09:15 07/17/24 09:15 Temperature Pulse Rate 99 123 H 122 H Respiratory Rate Blood Pressure 164/99 H Pulse Oximetry 93 94 Oxygen Delivery Mechanical Ventilation Mechanical Ventilation Fraction of Inspired Oxygen 30 30 07/17/24 09:16 07/17/24 09:26 07/17/24 10:00 Temperature 36.7 C Pulse Rate 120 H 102 H 91 Respiratory Rate 19 23 H Blood Pressure 116/73 Pulse Oximetry 94 97 Oxygen Delivery Mechanical Ventilation Fraction of Inspired Oxygen 30 07/17/24 10:00 07/17/24 10:00 07/17/24 10:00 Temperature Pulse Rate 91 91 91 Respiratory Rate 23 H Blood Pressure 116/73 Pulse Oximetry Oxygen Delivery Fraction of Inspired Oxygen 07/17/24 10:30 07/17/24 10:55 07/17/24 11:15 Temperature Pulse Rate 109 H 107 H 121 H Respiratory Rate 25 H 26 H Blood Pressure Pulse Oximetry 94 Oxygen Delivery Mechanical Ventilation Fraction of Inspired Oxygen 30 07/17/24 11:45 07/17/24 11:57 07/17/24 12:00 Temperature Pulse Rate 128 H 109 H 90 Respiratory Rate 25 H 24 H Blood Pressure Pulse Oximetry Oxygen Delivery Fraction of Inspired Oxygen 07/17/24 12:00 07/17/24 12:00 07/17/24 12:00 Temperature 36.8 C Pulse Rate 109 H 109 H Respiratory Rate 26 H 24 H Blood Pressure 174/104 H Pulse Oximetry 97 Oxygen Delivery Fraction of Inspired Oxygen 35 07/17/24 12:00 07/17/24 14:00 07/17/24 14:00 Temperature 36.8 C Pulse Rate 92 75 77 Respiratory Rate 16 Blood Pressure 103/67 Pulse Oximetry 97 99 Oxygen Delivery Mechanical Ventilation Fraction of Inspired Oxygen 35 07/17/24 14:00 07/17/24 14:00 07/17/24 14:00 Temperature 36.9 C Pulse Rate 77 77 77 Respiratory Rate 17 17 17 Blood Pressure 126/72 Pulse Oximetry 98 Oxygen Delivery Fraction of Inspired Oxygen 07/17/24 14:45 07/17/24 15:19 07/17/24 16:00 Temperature 37.1 C Pulse Rate 85 98 74 Respiratory Rate 20 25 H 21 H Blood Pressure 115/67 Pulse Oximetry 99 Oxygen Delivery Fraction of Inspired Oxygen 07/17/24 16:00 07/17/24 16:00 07/17/24 16:00 Temperature Pulse Rate 73 77 Respiratory Rate 17 Blood Pressure Pulse Oximetry Oxygen Delivery Fraction of Inspired Oxygen 35 07/17/24 16:00 07/17/24 17:09 Temperature Pulse Rate 77 74 Respiratory Rate 17 Blood Pressure Pulse Oximetry 98 Oxygen Delivery Mechanical Ventilation Fraction of Inspired Oxygen 35 Exam Narrative: Lungs are clear to auscultation bilaterally Cardiovascular regular rate rhythm no murmurs Abdomen soft nontender nondistended Extremities no edema Results Labs 07/17/24 04:30 07/17/24 04:30 Labs: Short CBC 07/17/24 Range/Units 04:30 WBC 13.4 H (4.5-10.0) K/mm3 Hgb 8.7 L (14.0-18.0) g/dL Hct 28.5 L (42.0-52.0) % Plt Count 260 (150-375) k/mm3 BMP 07/17/24 04:30 Sodium 142 Potassium 4.2 Chloride 110 H Carbon Dioxide 26 BUN 30 H Creatinine 0.77 Glucose 148 H Calcium 8.9 Liver Function 07/17/24 Range/Units 04:30 Total Bilirubin 0.3 (0.2-1.3) mg/dL AST 30 (17-59) U/L ALT 21 (6-50) U/L Alkaline Phosphatase 95 (38-126) U/L Albumin 2.8 L (3.5-5.1) g/dL
--- NOTE | 2024-07-17 17:37 | PM.IMPN ---
Progress Note: A&P Assessment and Plan (1) Acute respiratory failure: Code(s): J96.00 - Acute respiratory failure, unspecified whether with hypoxia or hypercapnia Status: Acute Assessment and Plan: 07/13: Patient admitted with worsening shortness of breath, travel from [place] on 07/13 in upon arrival to [place] which is is home came directly to the ER. Normally uses 2 L nasal cannula, it bumped up to 5 L nasal cannula. -likely etiology, large left pleural effusion, pneumonia, recurrence of lung cancer with possible spread, rule out congestive heart failure -07/14: Patient was initially on BiPAP but failed. Intubated in the ICU along with right IJ central line placement -currently on CMV mode of ventilation, peep of 5 and FiO2 30% -bilateral diffuse infiltrates (Off note patient has been admitted to the hospital in [place] x2 for pneumonia and pleural effusion, pleural effusion was tapped on the 1st admission and they removed 700 mL of fluid which was negative for cancer cells). 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 -echo pending -currently on broad-spectrum antibiotics to cover healthcare rest of pneumonia -status post thoracentesis on 07/14 with 1 L fluid removed -patient seen by Pulmonary and Oncology consult pending -will give Lasix IV -sedation holiday and evaluate for weaning trial -continue bronchodilators -chest x-ray and ABGs reviewed this morning, ventilator adjusted 07/13: Chest x-ray on admission showed: Bilateral pneumonia with pleural effusion. Superimposed pulmonary edema is not excluded. 07/13: CTA chest on admission: No PE, no thoracic aortic dissection, postoperative changes within the right upper lobe and right hilum. Large bilateral pleural effusions left greater than right with adjacent compressive atelectasis. Thickened wall surrounding the fluid within the right lung base suggest empyema. Additional finding suggesting pulmonary vascular congestion. (2) Pneumonia: Qualifiers: Laterality: bilateral Lung location: unspecified part of lung Pneumonia type: due to unspecified organism Qualified Code(s): J18.9 - Pneumonia, unspecified organism Code(s): J18.9 - Pneumonia, unspecified organism Status: Acute Assessment and Plan: Chest x-ray shows bilateral diffuse pneumonia -currently intubated on mechanical ventilator -continue azithromycin, cefepime and vancomycin, (07/13) -patient also on hydrocortisone (3) Sepsis: Qualifiers: Sepsis type: sepsis due to unspecified organism Sepsis acute organ dysfunction status: with acute organ dysfunction Severe sepsis acute organ dysfunction type: acute respiratory failure Acute respiratory failure type: with hypoxia Severe sepsis shock status: without septic shock Qualified Code(s): A41.9 - Sepsis, unspecified organism; R65.20 - Severe sepsis without septic shock; J96.01 - Acute respiratory failure with hypoxia Code(s): A41.9 - Sepsis, unspecified organism Status: Acute Assessment and Plan: Patient did fulfill criteria for sepsis -continue low-dose Levophed -patient does have a central line in the right IJ which was placed on 07/14 -Lasix for volume overload -patient was started on Levophed, will maintain MAP > 65 mmHg Or SBP> 100 mmHg. -07/13: blood cultures negative x2 -07/14: Pleural fluid cultures are negative so far (4) Malnourished: Qualifiers: Malnutrition type: protein-calorie malnutrition Protein-calorie malnutrition severity: moderate Qualified Code(s): E44.0 - Moderate protein-calorie malnutrition Code(s): E46 - Unspecified protein-calorie malnutrition Status: Acute Assessment and Plan: According the significant other patient has dropped 40-42 lb in the last 3-4 months, he has not been eating well -dietitian has been consulted -started on trickle feeds, will gradually advance to goal (5) Pleural effusion: Code(s): J90 - Pleural effusion, not elsewhere classified Status: Acute Assessment and Plan: Patient had a large left pleural effusion on admission -07/14: status post left thoracentesis with removal of 1000 mL of vic colored fluid -Gram stain and cultures are negative so far -pathology pending (6) Adenocarcinoma of right lung: Code(s): C34.91 - Malignant neoplasm of unspecified part of right bronchus or lung Status: Acute Assessment and Plan: Stage I adenocarcinoma status post right upper lobectomy and mediastinal lymph node dissection done in January 2023. -pathology showed non small cell lung cancer with and a carcinoma histology, moderate clean bleed differentiated, negative margins and or lymph node negative for malignancy -patient has seen Dr. Jimenez -oncologist in the past -CT scan of the abdomen and pelvis showed diffuse interstitial thickening at the lung bases 6 which could be interstitial edema versus less likely possibility of lymphangitic metastasis. There is ill-defined sclerotic lesions in L3 L4 L5. Subtle heterogeneous lesions present in T10, T11 vertebral bodies. Six sclerotic lesions present in the left sacrum these findings are suspicious for metastatic bone disease -oncologist has been consulted Subjective Date/time seen: 07/17/24 17:37 Interval history: As per his Patient recently moved from [place]. Patient is a chronic smoker until March 2024. Lately patient had multiple hospitalization in the [place]. Patient is currently intubated and management as per ICU Review of Systems Review of Systems: All systems reviewed & are unremarkable except as noted in HPI and below ROS unobtainable: Yes unobtainable due to endotracheal tube and unobtainable due to medical condition Exam Narrative: General: Sedated, intubated, in no acute distress HEENT:? Pupils equal and reactive, sclera is clear, ETT in place Neck:? Supple Respiratory:? Coarse breath sounds bilaterally, decreased at bases L > R, no wheezing, adequate air entry Cardiac:? S1-S2 normal, regular rate and rhythm Abdomen:? Soft, nontender, nondistended, normoactive bowel sounds Extremities:? Cachectic, palpable pedal pulses, no edema Neuro:? Patient is intubated and sedated, patient did open his eyes, does not follow simple commands. Prior to intubation patient was talking and answering questions and moving all extremities appropriately Skin:? No skin lesions no Psych:? Unable to assess at this time Const: Other: , male, ill appearing HENMT: Face/Nose/Sinus: Normal nares present Mouth: Yes dry mucous membranes Other: BiPAP in place. tolerating poorly. Eyes: General: appearance normal, both eyes and all related structures Sclera: sclerae normal Pupils: Equal, round and reactive pupils present EOM: EOMs intact bilaterally Resp: Other: significant respiratory distress w/retractions and accessory muscle use. Poor air movement. crackles in mid and lower lung zones bilaterally. Cardio: Rate: tachycardic Rhythm: regular rhythm Other: no murmur or rub. GI: Other: Abdomen soft, nondistended, nontender. Normoactive bowel sounds in all quadrants. Skin: General skin exam: normal color and no rashes or lesions noted Wounds: no wounds Neuro: Cranial nerves: Yes Equal, round and reactive pupils present Speech: normal speech Motor exam (neuro): 5/5 motor strength present throughout Sensory Exam: normal sensation Other: fatigued. A/Ox4. Extrem: General: normal to inspection Psych: Mental Status: mental status grossly normal Affect: Anxious affect present Other: Good insight and judgment. Objective Data Vital Signs Vital Signs: Vital Signs - 24 hr 07/16/24 18:00 07/16/24 18:00 07/16/24 18:00 Temperature Pulse Rate 78 78 78 Respiratory Rate 16 16 Blood Pressure 133/87 Pulse Oximetry Oxygen Delivery Fraction of Inspired Oxygen 07/16/24 18:00 07/16/24 18:00 07/16/24 19:40 Temperature 98.1 F Pulse Rate 78 78 85 Respiratory Rate 16 18 Blood Pressure 133/87 Pulse Oximetry 98 Oxygen Delivery Fraction of Inspired Oxygen 07/16/24 19:49 07/16/24 19:55 07/16/24 19:55 Temperature Pulse Rate 78 72 72 Respiratory Rate 16 16 Blood Pressure Pulse Oximetry 98 97 Oxygen Delivery Mechanical Ventilation Mechanical Ventilation Fraction of Inspired Oxygen 30 30 07/16/24 19:58 07/16/24 20:00 07/16/24 20:00 Temperature Pulse Rate 72 72 Respiratory Rate 16 16 Blood Pressure Pulse Oximetry Oxygen Delivery Fraction of Inspired Oxygen 30 07/16/24 20:00 07/16/24 20:00 07/16/24 20:00 Temperature 97.7 F Pulse Rate 73 73 73 Respiratory Rate 16 Blood Pressure 107/67 107/67 Pulse Oximetry 98 Oxygen Delivery Fraction of Inspired Oxygen 07/16/24 20:05 07/16/24 21:00 07/16/24 22:00 Temperature Pulse Rate 72 69 70 Respiratory Rate 16 16 Blood Pressure 91/63 L Pulse Oximetry Oxygen Delivery Fraction of Inspired Oxygen 07/16/24 22:00 07/16/24 22:00 07/16/24 22:00 Temperature Pulse Rate 70 70 70 Respiratory Rate 16 Blood Pressure 109/67 Pulse Oximetry Oxygen Delivery Fraction of Inspired Oxygen 07/16/24 22:00 07/16/24 23:00 07/16/24 23:13 Temperature 97.9 F Pulse Rate 70 71 76 Respiratory Rate 16 16 Blood Pressure 109/67 94/61 L Pulse Oximetry 96 Oxygen Delivery Fraction of Inspired Oxygen 07/16/24 23:13 07/16/24 23:21 07/17/24 00:00 Temperature Pulse Rate 76 114 H Respiratory Rate 16 Blood Pressure Pulse Oximetry 97 Oxygen Delivery Mechanical Ventilation Fraction of Inspired Oxygen 30 30 07/17/24 00:00 07/17/24 00:00 07/17/24 00:00 Temperature 98.1 F Pulse Rate 76 76 76 Respiratory Rate 16 17 Blood Pressure 110/73 Pulse Oximetry 97 97 Oxygen Delivery Mechanical Ventilation Fraction of Inspired Oxygen 30 07/17/24 00:01 07/17/24 00:01 07/17/24 00:01 Temperature Pulse Rate 76 76 76 Respiratory Rate 16 17 Blood Pressure 110/73 Pulse Oximetry Oxygen Delivery Fraction of Inspired Oxygen 07/17/24 02:00 07/17/24 02:00 07/17/24 02:00 Temperature Pulse Rate 70 70 70 Respiratory Rate 16 16 Blood Pressure 119/73 Pulse Oximetry Oxygen Delivery Fraction of Inspired Oxygen 07/17/24 02:00 07/17/24 02:00 07/17/24 02:04 Temperature 98.1 F Pulse Rate 68 70 70 Respiratory Rate 16 Blood Pressure 119/73 Pulse Oximetry 98 98 Oxygen Delivery Mechanical Ventilation Fraction of Inspired Oxygen 30 07/17/24 02:04 07/17/24 02:14 07/17/24 03:32 Temperature Pulse Rate 72 72 Respiratory Rate 16 16 Blood Pressure Pulse Oximetry Oxygen Delivery Fraction of Inspired Oxygen 30 07/17/24 03:32 07/17/24 04:00 07/17/24 04:00 Temperature 98.4 F Pulse Rate 72 70 70 Respiratory Rate 16 17 17 Blood Pressure 98/64 L Pulse Oximetry 98 97 Oxygen Delivery Mechanical Ventilation Fraction of Inspired Oxygen 30 07/17/24 04:00 07/17/24 04:00 07/17/24 04:00 Temperature Pulse Rate 70 70 68 Respiratory Rate 16 Blood Pressure 98/64 L Pulse Oximetry Oxygen Delivery Fraction of Inspired Oxygen 07/17/24 04:16 07/17/24 04:50 07/17/24 06:00 Temperature Pulse Rate 71 72 71 Respiratory Rate Blood Pressure 111/70 Pulse Oximetry 98 Oxygen Delivery Mechanical Ventilation Fraction of Inspired Oxygen 30 07/17/24 06:00 07/17/24 06:00 07/17/24 06:00 Temperature 98.3 F Pulse Rate 70 70 73 Respiratory Rate 16 16 Blood Pressure 96/65 L 96/65 L Pulse Oximetry 97 Oxygen Delivery Fraction of Inspired Oxygen 07/17/24 06:00 07/17/24 06:15 07/17/24 08:00 Temperature Pulse Rate 73 67 82 Respiratory Rate 16 16 Blood Pressure 109/74 Pulse Oximetry Oxygen Delivery Fraction of Inspired Oxygen 07/17/24 08:00 07/17/24 08:00 07/17/24 08:00 Temperature 98.5 F Pulse Rate 82 80 81 Respiratory Rate 16 14 Blood Pressure 131/75 131/75 Pulse Oximetry 95 Oxygen Delivery Fraction of Inspired Oxygen 07/17/24 08:00 07/17/24 08:00 07/17/24 08:00 Temperature Pulse Rate 81 Respiratory Rate Blood Pressure Pulse Oximetry Oxygen Delivery Mechanical Ventilation Fraction of Inspired Oxygen 30 30 07/17/24 08:13 07/17/24 08:13 07/17/24 08:38 Temperature Pulse Rate 79 79 82 Respiratory Rate 16 16 Blood Pressure Pulse Oximetry 97 Oxygen Delivery Mechanical Ventilation Fraction of Inspired Oxygen 30 07/17/24 08:50 07/17/24 08:50 07/17/24 08:50 Temperature Pulse Rate 99 99 100 Respiratory Rate 16 16 Blood Pressure 134/79 Pulse Oximetry Oxygen Delivery Fraction of Inspired Oxygen 07/17/24 08:53 07/17/24 09:15 07/17/24 09:15 Temperature Pulse Rate 99 123 H 122 H Respiratory Rate Blood Pressure 164/99 H Pulse Oximetry 93 94 Oxygen Delivery Mechanical Ventilation Mechanical Ventilation Fraction of Inspired Oxygen 30 30 07/17/24 09:16 07/17/24 09:26 07/17/24 10:00 Temperature 98.1 F Pulse Rate 120 H 102 H 91 Respiratory Rate 19 23 H Blood Pressure 116/73 Pulse Oximetry 94 97 Oxygen Delivery Mechanical Ventilation Fraction of Inspired Oxygen 30 07/17/24 10:00 07/17/24 10:00 07/17/24 10:00 Temperature Pulse Rate 91 91 91 Respiratory Rate 23 H Blood Pressure 116/73 Pulse Oximetry Oxygen Delivery Fraction of Inspired Oxygen 07/17/24 10:30 07/17/24 10:55 07/17/24 11:15 Temperature Pulse Rate 109 H 107 H 121 H Respiratory Rate 25 H 26 H Blood Pressure Pulse Oximetry 94 Oxygen Delivery Mechanical Ventilation Fraction of Inspired Oxygen 30 07/17/24 11:45 07/17/24 11:57 07/17/24 12:00 Temperature Pulse Rate 128 H 109 H 90 Respiratory Rate 25 H 24 H Blood Pressure Pulse Oximetry Oxygen Delivery Fraction of Inspired Oxygen 07/17/24 12:00 07/17/24 12:00 07/17/24 12:00 Temperature 98.3 F Pulse Rate 109 H 109 H Respiratory Rate 26 H 24 H Blood Pressure 174/104 H Pulse Oximetry 97 Oxygen Delivery Fraction of Inspired Oxygen 35 07/17/24 12:00 07/17/24 14:00 07/17/24 14:00 Temperature 98.2 F Pulse Rate 92 75 77 Respiratory Rate 16 Blood Pressure 103/67 Pulse Oximetry 97 99 Oxygen Delivery Mechanical Ventilation Fraction of Inspired Oxygen 35 07/17/24 14:00 07/17/24 14:00 07/17/24 14:00 Temperature 98.4 F Pulse Rate 77 77 77 Respiratory Rate 17 17 17 Blood Pressure 126/72 Pulse Oximetry 98 Oxygen Delivery Fraction of Inspired Oxygen 07/17/24 14:45 07/17/24 15:19 07/17/24 16:00 Temperature 98.7 F Pulse Rate 85 98 74 Respiratory Rate 20 25 H 21 H Blood Pressure 115/67 Pulse Oximetry 99 Oxygen Delivery Fraction of Inspired Oxygen 07/17/24 16:00 07/17/24 16:00 07/17/24 16:00 Temperature Pulse Rate 73 77 Respiratory Rate 17 Blood Pressure Pulse Oximetry Oxygen Delivery Fraction of Inspired Oxygen 35 07/17/24 16:00 07/17/24 17:09 Temperature Pulse Rate 77 74 Respiratory Rate 17 Blood Pressure Pulse Oximetry 98 Oxygen Delivery Mechanical Ventilation Fraction of Inspired Oxygen 35 Intake/Output Intake/Output: Intake & Output 07/14/24 07/15/24 07/16/24 07/17/24 23:59 23:59 23:59 23:59 Intake Total 1604.0 1285.6 2257.1 1075.3 Output Total 2700 099 902 4450 Balance -1096.0 785.6 1632.1 -1124.7 Meds/Results Medications: Active Medications Generic Name Dose Route Start Last Admin Trade Name Freq PRN Reason Stop Dose Admin Acetaminophen 650 mg 07/13/24 15:40 Acetaminophen 325 Mg Tablet PO Q4H PRN Mild Pain (1-3) or Fever Albuterol/Ipratropium 3 ml 07/17/24 07:50 07/17/24 08:13 Ipratropium 0.5 Mg/Albuterol Sulfate 2.5 Mg Ampul.Neb 3 Ml INHALATION 3 ml Q6HRT PRN Administration Wheezing Benzonatate 100 mg 07/13/24 17:47 Benzonatate 100 Mg Capsule PO TID PRN Cough Budesonide 0.5 mg 07/14/24 08:45 07/17/24 08:13 Budesonide Respule Neb 0.5 Mg/2 Ml Amp INHALATION 0.5 mg Q12HRT ALCON Administration Enoxaparin Sodium 40 mg 07/14/24 09:00 07/17/24 08:00 Enoxaparin 40 Mg/0.4 Ml Syringe SUB-Q 40 mg DAILY ALCON Administration Hydrocortisone Sodium Succinate 50 mg 07/15/24 06:00 07/17/24 11:31 Hydrocortisone Sodium Succinate 100 Mg/2 Ml Vial IV PUSH 50 mg Q6H ALCON Administration Azithromycin 500 mg in 250 mls @ 250 mls/hr 07/14/24 15:00 07/17/24 15:19 Zithromax IVPB 07/19/24 14:59 Infused Q24H ALCON Infusion Cefepime HCl 2 gm in 50 mls @ 100 mls/hr 07/13/24 20:35 07/17/24 14:42 Maxipime 2 Gm/Ns 50 Ml IVPB Infused Q8HR ALCON Infusion Norepinephrine Bitartrate 8 mg in 250 mls @ 0 mls/hr 07/14/24 12:20 07/17/24 10:00 Levophed 8 Mg/D5w 250 Ml IV CONT 0 mcg/min .Q0M ALCON 0 mls/hr Titration Protocol Dexmedetomidine HCl 400 mcg in 100 mls @ 9.885 mls/hr 07/17/24 09:20 07/17/24 16:00 Precedex 400 Mcg/100 Ml IV CONT 0.6 mcg/kg/hr .Q10H7M ALCON 9.89 mls/hr Titration Protocol 0.6 MCG/KG/HR Propofol 100 mls @ 3.954 mls/hr 07/17/24 11:50 07/17/24 16:00 Diprivan IV CONT 10 mcg/kg/min .[id number] ALCON 3.95 mls/hr Titration Protocol 10 MCG/KG/MIN Multi-Ingred Cream/Lotion/Oil/Oint 1 applic 07/14/24 09:00 07/17/24 08:00 Mineral Oil/White Petrolatum Ointment EACH EYE 1 applic Q12HR ALCON Administration Ondansetron HCl 4 mg 07/13/24 15:40 Ondansetron Inj 4 Mg/2 Ml Vial IV PUSH Q4H PRN Nausea Pantoprazole Sodium 40 mg 07/15/24 09:00 07/17/24 08:00 Pantoprazole Sodium Iv 40 Mg Vial IV PUSH 40 mg QAM ALCON Administration Sodium Chloride 10 ml 07/14/24 14:00 07/17/24 14:07 Central Line Flush IV PUSH 10 ml Q8HR ALCON Administration Sodium Chloride 20 ml 07/14/24 08:28 Central Line Flush IV PUSH PRN PRN after blood draws Radiology Results: ITS Impressions Chest CTA 07/13/24 23:34 IMPRESSION: No pulmonary embolus. No thoracic aortic dissection. Postoperative change within the right upper lobe and right hilum. Large bilateral pleural effusions (left greater than right) with adjacent compressive atelectasis. Thickened wall surrounding the fluid within the right lung base suggests empyema. Additional findings suggesting pulmonary vascular congestion. Abdomen X-Ray 07/14/24 08:42 Impression: NG tube in satisfactory position. Abdomen/Pelvis CT 07/14/24 11:31 Impression: Moderate layering left pleural effusion. Moderate right pleural effusion with thickening of the pleural lining and loculated appearance. Correlate for chronic effusion or empyema. Diffuse interstitial thickening at the lung bases. Findings represent diffuse interstitial edema versus less likely possibility of lymphangitic metastasis given relatively smooth morphology. Irregular consolidation right middle lobe and lingula which could reflect atelectasis, more confluent edema, or pneumonia. Underlying neoplasm not completely excluded. Findings suspicious for metastatic bone disease, as detailed above. 4.0 cm infrarenal abdominal aortic aneurysm. Thoracentesis Ultrasound 07/14/24 17:27 IMPRESSION: 1. Successful ultrasound-guided thoracentesis yielding 1000 mL of vic-colored fluid. Chest X-Ray 07/17/24 06:09 IMPRESSION: 1. Stable diffuse lung disease, consistent with pulmonary edema versus pneumonia. 2. Stable small pleural effusions, loculated on the right. Labs Labs: Laboratory Results - last 24 hr 07/16/24 07/17/24 07/17/24 23:05 04:30 04:42 WBC 13.4 H RBC 3.25 L Hgb 8.7 L Hct 28.5 L MCV 87.7 MCH 26.8 MCHC 30.5 L RDW 17.6 H Plt Count 260 MPV 8.3 Immature Gran % (Auto) 0.6 H Neut % (Auto) 84.1 H Lymph % (Auto) 8.6 L [place] % (Auto) 6.5 Eos % (Auto) 0.1 Baso % (Auto) 0.1 L Lymph # (Auto) 1.15 [place] # (Auto) 0.9 H Eos # (Auto) 0.0 Baso # (Auto) 0.0 Abs Immat Gran (auto) 0.08 H Absolute Neuts (auto) 11.3 H Absolute Nucleated RBC 0.000 Nucleated RBC % 0.0 Puncture Site Right radial ABG pH 7.467 H ABG pCO2 32.6 L ABG pO2 92.1 ABG PO2/FiO2 Ratio 3.07 ABG HCO3 23.0 ABG O2 Saturation 97.5 ABG O2 Content 13.5 L ABG Base Excess -0.3 A-a Gradient 83.5 Oxyhemoglobin 97.2 Carboxyhemoglobin 0.2 Methemoglobin 0.0 Reduced Hemoglobin 2.6 Total Hemoglobin 9.8 L O2 Delivery Device Ventilator O2 Liters/Min Not Reportable Minute Volume Not Reportable Vent Rate 16 Vent Mode Cmv FiO2 30 Tidal Volume 450 PEEP 5 Peak Inspir Pressure Not Reportable Pressure Support Not Reportable Sodium 142 Potassium 4.2 Chloride 110 H Carbon Dioxide 26 Anion Gap 6 BUN 30 H Creatinine 0.77 Estim Creat Clear Calc 73 Estimated GFR > 60 Glucose 148 H POC Capillary Glucose 143 H Calcium 8.9 Phosphorus 3.9 Magnesium 2.5 H Total Bilirubin 0.3 AST 30 ALT 21 Alkaline Phosphatase 95 Total Protein 6.0 L Albumin 2.8 L Triglycerides 07/17/24 12:18 WBC RBC Hgb Hct MCV MCH MCHC RDW Plt Count MPV Immature Gran % (Auto) Neut % (Auto) Lymph % (Auto) [place] % (Auto) Eos % (Auto) Baso % (Auto) Lymph # (Auto) [place] # (Auto) Eos # (Auto) Baso # (Auto) Abs Immat Gran (auto) Absolute Neuts (auto) Absolute Nucleated RBC Nucleated RBC % Puncture Site ABG pH ABG pCO2 ABG pO2 ABG PO2/FiO2 Ratio ABG HCO3 ABG O2 Saturation ABG O2 Content ABG Base Excess A-a Gradient Oxyhemoglobin Carboxyhemoglobin Methemoglobin Reduced Hemoglobin Total Hemoglobin O2 Delivery Device O2 Liters/Min Minute Volume Vent Rate Vent Mode FiO2 Tidal Volume PEEP Peak Inspir Pressure Pressure Support Sodium Potassium Chloride Carbon Dioxide Anion Gap BUN Creatinine Estim Creat Clear Calc Estimated GFR Glucose POC Capillary Glucose Calcium Phosphorus Magnesium Total Bilirubin AST ALT Alkaline Phosphatase Total Protein Albumin Triglycerides 96 Quality VTE Prophylaxis VTE prophylaxis: pharmacologic ordered Hospitalist MIPS Advance Care Plan I have confirmed that the patient's Advanced Care Plan is present, code status is documented, or surrogate decision maker is listed in patient medical record.: Yes Medication Reconciliation I have utilized all available resources to obtain, update and review the patients current medications (includes all prescriptions, OTC, herbals, cannabis, and nutritional supplements).: Yes
[2024-07-17] MEDS: dexmedeTOMIDine 400 MCG/100 ML 400 MCG/100 ML BAG 9.89 MCG IV CONT (19:16)
[2024-07-17 20:11] LABS: Folic Acid 8.7 ng/mL (2.76->20)
[2024-07-17 20:51] LABS: Iron 37 ug/dL (49-181); Percent Iron Saturation 21 % (20-50)
[2024-07-18] VITALS (34 sets, daily range): BP systolic 92–157; BP diastolic 29–80; PULSE 58–108; RESP 16–36; TEMP 35.9–36.5; O2SAT 96–100
[2024-07-18] MEDS: HYDROCORTISONE SODIUM SUCCINATE 100 MG/2 ML VIAL 50 MG IV PUSH ×4 (00:27→17:24)
[2024-07-18 01:18] LABS: Glucose Point of Care 163 mg/dl (65-105)
[2024-07-18] MEDS: PROPOFOL IV EMULSION 100 ML 3.95 MG IV CONT (04:56)
[2024-07-18] MEDS: dexmedeTOMIDine 400 MCG/100 ML 400 MCG/100 ML BAG 9.89 MCG IV CONT (04:56)
[2024-07-18 05:36] LABS: Alveolar/Arterial O2 Gradient 118.1 mmHg; Base Excess ABG 2.4 mEq/l (+/-2.0); Carboxyhemoglobin 0.2 % THb (0-2.0); Fractional Inspired Oxygen 35 %; HCO3 ABG 26.5 mEq/l (22.0-26.0); Methemoglobin ABG 0.3 %THb (0-1.5); Oxygen Content ABG 15.5 %vol (16.0-22.0); Oxygen Saturation ABG 96.9 % (95.0-100.0); Oxyhemoglobin 96.1 % THb (90.0-100.0); PO2 ABG 86.1 mmHg (80.0-100.0); PO2 FiO2 Ratio Arterial Blood 2.46 %; Reduced Hemoglobin 3.4 %THb (0-5.0); Total Hemoglobin 11.4 g/dL (12.0-18.0)
[2024-07-18 05:58] LABS: Arterial Blood Gas Ventilator rate 16 /MIN; Device VENTILATOR; Modified Allen's Test Pass; Site Drawn RIGHT RADIAL
[2024-07-18 05:59] LABS: Arterial Blood Gas PEEP 5 cmH2O; Arterial Blood Gas Tidal Volume 400 ml; Arterial Blood Gas Vent Mode CMV
[2024-07-18] MEDS: CEFEPIME 2 GM/NS 50 ML 2 GM/50 ML BAG IVPB ×3 (06:49→22:03)
[2024-07-18] MEDS: CENTRAL LINE FLUSH 10 ML IV PUSH ×3 (06:50→22:04)
[2024-07-18 06:59] LABS: Basophils Percent Auto 0.1 % (0.2-1.2); Eosinophils Absolute Auto 0.1 K/mm3 (0-0.3); Eosinophils Percent Auto 0.4 % (0-4.4); Hematocrit 30.7 % (42.0-52.0); Hemoglobin 9.4 g/dL (14.0-18.0); Immature Granulocyte Absolute 0.09 K/mm3 (0.00-0.031); Immature Granulocyte Percent A 0.8 % (0-0.5); Lymphocytes Percent Auto 10.4 % (18.3-44.2); Mean Corpuscular HGB Conc 30.6 g/dl (32-36); Mean Corpuscular Hemoglobin 26.8 pg (26-34); Mean Corpuscular Volume 87.5 fl (80-100); Mean Platelet Volume 8.4 fl (7.4-10.4); Monocytes Absolute Auto 0.7 K/mm3 (0.1-0.6); Monocytes Percent Auto 5.6 % (2.6-8.5); Neutrophils Absolute Auto 9.5 K/mm3 (1.3-6.7); Neutrophils Percent Auto 82.7 % (45.5-73.1); Platelet Count Result 260 k/mm3 (150-375); Red Blood Count 3.51 M/mm3 (4.6-6.20); Red Cell Distribution Width 17.1 % (11.5-14.5); White Blood Count 11.5 K/mm3 (4.5-10.0)
[2024-07-18 07:09] LABS: Alanine Aminotransferase 39 U/L (6-50); Albumin Level 3.3 g/dL (3.5-5.1); Alkaline Phosphatase 95 U/L (38-126); Anion Gap 8 mmol/L (4-12); Aspartate Amino Transferase 49 U/L (17-59); Bilirubin,Total 0.4 mg/dL (0.2-1.3); Blood Urea Nitrogen 34 mg/dL (9-20); Calcium 9.1 mg/dL (8.4-10.2); Carbon Dioxide 27 mmol/L (22-30); Chloride 107 mmol/L (98-107); Estimated CRCL calculation 81 ml/min; Estimated Glomerular Filt Rate > 60; Glucose 166 mg/dL (65-110); Magnesium 2.4 mg/dL (1.6-2.3); Phosphorus 3.9 mg/dL (2.5-4.5); Potassium 3.5 mmol/L (3.4-5.0); Sodium 142 mmol/L (137-145)
[2024-07-18] MEDS: BUDESONIDE RESPULE NEB 0.5 MG/2 ML AMP INHALATION ×2 (08:11→20:20)
[2024-07-18] MEDS: ALBUMIN HUMAN 25% 25 GM/100 ML 100 ML IVPB (09:09)
[2024-07-18] MEDS: POTASSIUM CHLORIDE 20 MEQ PACKET (FOR LIQUID) 40 MEQ FEED TUBE (09:10)
[2024-07-18] MEDS: ENOXAPARIN 40 MG/0.4 ML SYRINGE SUB-Q (09:10)
[2024-07-18] MEDS: PANTOPRAZOLE SODIUM IV 40 MG VIAL IV PUSH (09:10)
[2024-07-18] MEDS: MINERAL OIL/WHITE PETROLATUM OINTMENT 1 APPLIC EACH EYE ×2 (09:10→22:03)
[2024-07-18] MEDS: FUROSEMIDE INJ 40 MG/4 ML VIAL IV PUSH (09:10)
--- NOTE | 2024-07-18 09:40 | WPDINTPN ---
Progress Note: A&P Assessment and Plan (1) Acute respiratory failure: Code(s): J96.00 - Acute respiratory failure, unspecified whether with hypoxia or hypercapnia Status: Acute Assessment and Plan: 07/13: Patient admitted with worsening shortness of breath, travel from [place] on 07/13 in upon arrival to [place] which is is home came directly to the ER. Normally uses 2 L nasal cannula, it bumped up to 5 L nasal cannula. -likely etiology, large left pleural effusion, pneumonia, recurrence of lung cancer with possible spread, rule out congestive heart failure -07/14: Patient was initially on BiPAP but failed. Intubated in the ICU along with right IJ central line placement -currently on CMV mode of ventilation, peep of 5 and FiO2 35 % -bilateral diffuse infiltrates (Off note patient has been admitted to the hospital in [place] x2 for pneumonia and pleural effusion, pleural effusion was tapped on the 1st admission and they removed 700 mL of fluid which was negative for cancer cells). He also saw motorcycle delivery driver who recommended the patient see a oncologist. -echo reviewed and shows EF of 65-70% but grade 1 diastolic dysfunction -currently on broad-spectrum antibiotics to cover healthcare rest of pneumonia. Continue cefepime and azithromycin. Vancomycin was discontinued as MRSA screen was negative and cultures remain negative -status post thoracentesis on 07/14 with 1 L fluid removed -patient seen by Pulmonary and farm service consultant 07/17 failed weaning trial due to high RSBI and respiratory distress 07/18 patient was again trialed this morning but immediately failed due to high respiratory rate and respiratory distress with increased work of breathing -daily sedation holiday and evaluate for weaning trial -continue bronchodilators -chest x-ray and ABGs reviewed this morning -will give additional dose of Lasix today 07/13: Chest x-ray on admission showed: Bilateral pneumonia with pleural effusion. Superimposed pulmonary edema is not excluded. 07/13: CTA chest on admission: No PE, no thoracic aortic dissection, postoperative changes within the right upper lobe and right hilum. Large bilateral pleural effusions left greater than right with adjacent compressive atelectasis. Thickened wall surrounding the fluid within the right lung base suggest empyema. Additional finding suggesting pulmonary vascular congestion. (2) Pneumonia: Qualifiers: Laterality: bilateral Lung location: unspecified part of lung Pneumonia type: due to unspecified organism Qualified Code(s): J18.9 - Pneumonia, unspecified organism Code(s): J18.9 - Pneumonia, unspecified organism Status: Acute Assessment and Plan: Chest x-ray shows bilateral diffuse pneumonia -currently intubated on mechanical ventilator -continue azithromycin, cefepime and vancomycin, (07/13) -patient also on hydrocortisone (3) Sepsis: Qualifiers: Sepsis type: sepsis due to unspecified organism Sepsis acute organ dysfunction status: with acute organ dysfunction Severe sepsis acute organ dysfunction type: acute respiratory failure Acute respiratory failure type: with hypoxia Severe sepsis shock status: without septic shock Qualified Code(s): A41.9 - Sepsis, unspecified organism; R65.20 - Severe sepsis without septic shock; J96.01 - Acute respiratory failure with hypoxia Code(s): A41.9 - Sepsis, unspecified organism Status: Acute Assessment and Plan: Patient did fulfill criteria for sepsis -continue low-dose Levophed -patient does have a central line in the right IJ which was placed on 07/14 -Lasix for volume overload -patient was started on Levophed, will maintain MAP > 65 mmHg Or SBP> 100 mmHg. -07/13: blood cultures negative x2 -07/14: Pleural fluid cultures are negative so far (4) Malnourished: Qualifiers: Malnutrition type: protein-calorie malnutrition Protein-calorie malnutrition severity: moderate Qualified Code(s): E44.0 - Moderate protein-calorie malnutrition Code(s): E46 - Unspecified protein-calorie malnutrition Status: Acute Assessment and Plan: According the significant other patient has dropped 40-42 lb in the last 3-4 months, he has not been eating well -dietitian has been consulted -patient was started with trickle feeds and now tube feeds are being advanced to go (5) Pleural effusion: Code(s): J90 - Pleural effusion, not elsewhere classified Status: Acute Assessment and Plan: Patient had a large left pleural effusion on admission -07/14: status post left thoracentesis with removal of 1000 mL of vic colored fluid -Gram stain and cultures are negative so far -pathology pending (6) Adenocarcinoma of right lung: Code(s): C34.91 - Malignant neoplasm of unspecified part of right bronchus or lung Status: Acute Assessment and Plan: Stage I adenocarcinoma status post right upper lobectomy and mediastinal lymph node dissection done in January 2023. -pathology showed non small cell lung cancer with and a carcinoma histology, moderate clean bleed differentiated, negative margins and or lymph node negative for malignancy -patient has seen Dr. Jimenez -oncologist in the past -CT scan of the abdomen and pelvis showed diffuse interstitial thickening at the lung bases 6 which could be interstitial edema versus less likely possibility of lymphangitic metastasis. There is ill-defined sclerotic lesions in L3 L4 L5. Subtle heterogeneous lesions present in T10, T11 vertebral bodies. Six sclerotic lesions present in the left sacrum these findings are suspicious for metastatic bone disease -oncology consulted Plan DVT prophylaxis: Enoxaparin Stress ulcer prophylaxis: Protonix Nutrition: Tube feeds Code Status: Full code Critical Care Time Spent: 32 minutes Due to a high probability of clinically significant, life threatening deterioration, the patient required my highest level of preparedness to intervene emergently and I personally spent this critical care time directly and personally managing the patient. This critical care time included obtaining a history; examining the patient; pulse oximetry; ordering and review of studies; arranging urgent treatment with development of a management plan; evaluation of patient's response to treatment; frequent reassessment; and discussions with other providers. It was exclusive of separately billable procedures and treating other patients and teaching time. Please see Assessment and Plan section and the rest of the note for further information on patient assessment and treatment This dictation may have been done utilizing a voice recognition system. Attempts have been made to correct errors. However, there may be uncorrected grammatical, spelling, and recognitions errors present. Subjective Date/time seen: 07/18/24 Overnight events reviewed. Afebrile Continues to be on mechanical ventilation 35% FiO2. He failed his weaning trial yesterday Tolerating tube feed Continues to be sedated with propofol on pressors Other Vitals acceptable Interval history: Reason for consult: Acute respiratory failure, pneumonia 07/14: Thoracentesis: removal of 1000 mL vic colored fluid Review of Systems Review of Systems: ROS unobtainable: Yes unobtainable due to endotracheal tube and unobtainable due to medical condition Exam Narrative: General: Sedated, intubated, in no acute distress HEENT:? Pupils equal and reactive, sclera is clear, ETT in place Neck:? Supple Respiratory:? Coarse breath sounds bilaterally, decreased at bases L > R, no wheezing, adequate air entry Cardiac:? S1-S2 normal, regular rate and rhythm Abdomen:? Soft, nontender, nondistended, normoactive bowel sounds Extremities:? Cachectic, palpable pedal pulses, no edema Neuro:? Patient is intubated and sedated, patient did open his eyes, he follows simple commands with all 4 extreme Skin:? No skin lesions no Psych:? Unable to assess at this time Objective Data Vital Signs Vital Signs: Vital Signs - 24 hr 07/17/24 10:00 07/17/24 10:00 07/17/24 10:00 Temperature 36.7 C Pulse Rate 91 91 91 Respiratory Rate 23 H 23 H Blood Pressure 116/73 Pulse Oximetry 97 Oxygen Delivery Fraction of Inspired Oxygen 07/17/24 10:00 07/17/24 10:30 07/17/24 10:55 Temperature Pulse Rate 91 109 H 107 H Respiratory Rate 25 H Blood Pressure 116/73 Pulse Oximetry 94 Oxygen Delivery Mechanical Ventilation Fraction of Inspired Oxygen 30 07/17/24 11:15 07/17/24 11:45 07/17/24 11:57 Temperature Pulse Rate 121 H 128 H 109 H Respiratory Rate 26 H 25 H 24 H Blood Pressure Pulse Oximetry Oxygen Delivery Fraction of Inspired Oxygen 07/17/24 12:00 07/17/24 12:00 07/17/24 12:00 Temperature 36.8 C Pulse Rate 90 109 H Respiratory Rate 26 H Blood Pressure 174/104 H Pulse Oximetry 97 Oxygen Delivery Fraction of Inspired Oxygen 35 07/17/24 12:00 07/17/24 12:00 07/17/24 14:00 Temperature 36.8 C Pulse Rate 109 H 92 75 Respiratory Rate 24 H 16 Blood Pressure 103/67 Pulse Oximetry 97 99 Oxygen Delivery Mechanical Ventilation Fraction of Inspired Oxygen 35 07/17/24 14:00 07/17/24 14:00 07/17/24 14:00 Temperature 36.9 C Pulse Rate 77 77 77 Respiratory Rate 17 17 Blood Pressure 126/72 Pulse Oximetry 98 Oxygen Delivery Fraction of Inspired Oxygen 07/17/24 14:00 07/17/24 14:45 07/17/24 15:19 Temperature Pulse Rate 77 85 98 Respiratory Rate 17 20 25 H Blood Pressure Pulse Oximetry Oxygen Delivery Fraction of Inspired Oxygen 07/17/24 16:00 07/17/24 16:00 07/17/24 16:00 Temperature 37.1 C Pulse Rate 74 73 Respiratory Rate 21 H Blood Pressure 115/67 Pulse Oximetry 99 Oxygen Delivery Fraction of Inspired Oxygen 35 07/17/24 16:00 07/17/24 16:00 07/17/24 17:09 Temperature Pulse Rate 77 77 74 Respiratory Rate 17 17 Blood Pressure Pulse Oximetry 98 Oxygen Delivery Mechanical Ventilation Fraction of Inspired Oxygen 35 07/17/24 18:00 07/17/24 18:00 07/17/24 18:00 Temperature Pulse Rate 71 71 71 Respiratory Rate 21 H 17 Blood Pressure Pulse Oximetry Oxygen Delivery Fraction of Inspired Oxygen 07/17/24 18:00 07/17/24 19:16 07/17/24 19:16 Temperature 37.1 C Pulse Rate 74 68 68 Respiratory Rate 16 18 18 Blood Pressure 141/78 H Pulse Oximetry 99 Oxygen Delivery Fraction of Inspired Oxygen 07/17/24 20:00 07/17/24 20:00 07/17/24 20:00 Temperature 36.9 C Pulse Rate 69 69 Respiratory Rate 16 19 Blood Pressure 137/84 Pulse Oximetry 100 100 Oxygen Delivery Mechanical Ventilation Fraction of Inspired Oxygen 35 35 07/17/24 20:00 07/17/24 20:00 07/17/24 20:00 Temperature Pulse Rate 69 64 69 Respiratory Rate 18 18 Blood Pressure Pulse Oximetry Oxygen Delivery Fraction of Inspired Oxygen 07/17/24 20:22 07/17/24 20:22 07/17/24 20:28 Temperature Pulse Rate 68 68 69 Respiratory Rate 16 16 Blood Pressure Pulse Oximetry 100 Oxygen Delivery Mechanical Ventilation Fraction of Inspired Oxygen 35 07/17/24 22:00 07/17/24 22:00 07/17/24 22:00 Temperature 36.6 C Pulse Rate 65 65 69 Respiratory Rate 16 18 18 Blood Pressure 145/74 H Pulse Oximetry 98 Oxygen Delivery Fraction of Inspired Oxygen 07/17/24 22:00 07/17/24 23:05 07/18/24 00:00 Temperature Pulse Rate 68 59 L Respiratory Rate Blood Pressure Pulse Oximetry 100 Oxygen Delivery Mechanical Ventilation Fraction of Inspired Oxygen 35 35 07/18/24 00:00 07/18/24 00:00 07/18/24 00:00 Temperature 36.3 C L Pulse Rate 69 62 62 Respiratory Rate 16 16 18 Blood Pressure 137/73 Pulse Oximetry 100 99 Oxygen Delivery Mechanical Ventilation Fraction of Inspired Oxygen 35 07/18/24 00:00 07/18/24 00:00 07/18/24 02:00 Temperature 36.0 C L Pulse Rate 62 59 L 62 Respiratory Rate 16 16 Blood Pressure 157/80 H Pulse Oximetry 99 Oxygen Delivery Fraction of Inspired Oxygen 07/18/24 02:00 07/18/24 02:00 07/18/24 02:00 Temperature Pulse Rate 68 68 62 Respiratory Rate 18 16 Blood Pressure Pulse Oximetry Oxygen Delivery Fraction of Inspired Oxygen 07/18/24 02:15 07/18/24 04:00 07/18/24 04:00 Temperature Pulse Rate 60 60 Respiratory Rate 16 Blood Pressure Pulse Oximetry 99 99 Oxygen Delivery Mechanical Ventilation Mechanical Ventilation Fraction of Inspired Oxygen 35 35 35 07/18/24 04:00 07/18/24 04:00 07/18/24 04:00 Temperature 35.9 C L Pulse Rate 63 61 61 Respiratory Rate 16 16 17 Blood Pressure 128/64 Pulse Oximetry 100 Oxygen Delivery Fraction of Inspired Oxygen 07/18/24 04:00 07/18/24 04:56 07/18/24 04:56 Temperature Pulse Rate 61 61 61 Respiratory Rate 17 18 Blood Pressure Pulse Oximetry Oxygen Delivery Fraction of Inspired Oxygen 07/18/24 04:56 07/18/24 04:56 07/18/24 05:12 Temperature Pulse Rate 61 61 63 Respiratory Rate 17 16 Blood Pressure Pulse Oximetry 99 Oxygen Delivery Mechanical Ventilation Fraction of Inspired Oxygen 35 07/18/24 06:00 07/18/24 06:00 07/18/24 07:00 Temperature 36.1 C L Pulse Rate 60 60 61 Respiratory Rate 17 17 Blood Pressure 96/60 L Pulse Oximetry 98 Oxygen Delivery Fraction of Inspired Oxygen 07/18/24 07:00 07/18/24 08:11 07/18/24 08:15 Temperature Pulse Rate 61 73 108 H Respiratory Rate 17 21 H 34 H Blood Pressure Pulse Oximetry Oxygen Delivery Fraction of Inspired Oxygen 07/18/24 08:15 07/18/24 08:36 07/18/24 08:48 Temperature Pulse Rate 108 H 100 70 Respiratory Rate 36 H 34 H Blood Pressure Pulse Oximetry 96 Oxygen Delivery Mechanical Ventilation Fraction of Inspired Oxygen 35 07/18/24 08:50 Temperature Pulse Rate 76 Respiratory Rate 20 Blood Pressure Pulse Oximetry Oxygen Delivery Fraction of Inspired Oxygen Intake/Output Intake/Output: Intake & Output 07/15/24 07/16/24 07/17/24 07/18/24 23:59 23:59 23:59 23:59 Intake Total 1285.6 2257.1 1519.4 858.8 Output Total 118 970 3568 425 Balance 785.6 1632.1 -1080.6 433.8 Meds/Results Medications: Active Medications Generic Name Dose Route Start Last Admin Trade Name Freq PRN Reason Stop Dose Admin Acetaminophen 650 mg 07/13/24 15:40 Acetaminophen 325 Mg Tablet PO Q4H PRN Mild Pain (1-3) or Fever Albuterol/Ipratropium 3 ml 07/17/24 07:50 07/17/24 08:13 Ipratropium 0.5 Mg/Albuterol Sulfate 2.5 Mg Ampul.Neb 3 Ml INHALATION 3 ml Q6HRT PRN Administration Wheezing Benzonatate 100 mg 07/13/24 17:47 Benzonatate 100 Mg Capsule PO TID PRN Cough Budesonide 0.5 mg 07/14/24 08:45 07/18/24 08:11 Budesonide Respule Neb 0.5 Mg/2 Ml Amp INHALATION 0.5 mg Q12HRT ALCON Administration Enoxaparin Sodium 40 mg 07/14/24 09:00 07/18/24 09:10 Enoxaparin 40 Mg/0.4 Ml Syringe SUB-Q 40 mg DAILY ALCON Administration Hydrocortisone Sodium Succinate 50 mg 07/15/24 06:00 07/18/24 06:49 Hydrocortisone Sodium Succinate 100 Mg/2 Ml Vial IV PUSH 50 mg Q6H ALCON Administration Azithromycin 500 mg in 250 mls @ 250 mls/hr 07/14/24 15:00 07/17/24 15:19 Zithromax IVPB 07/19/24 14:59 Infused Q24H ALCON Infusion Cefepime HCl 2 gm in 50 mls @ 100 mls/hr 07/13/24 20:35 07/18/24 06:49 Maxipime 2 Gm/Ns 50 Ml IVPB 100 mls/hr Q8HR ALCON Administration Norepinephrine Bitartrate 8 mg in 250 mls @ 0 mls/hr 07/14/24 12:20 07/17/24 10:00 Levophed 8 Mg/D5w 250 Ml IV CONT 0 mcg/min .Q0M ALCON 0 mls/hr Titration Protocol Dexmedetomidine HCl 400 mcg in 100 mls @ 11.533 mls/hr 07/17/24 09:20 07/18/24 08:15 Precedex 400 Mcg/100 Ml IV CONT 0.7 mcg/kg/hr .Q8H41M ALCON 11.53 mls/hr Titration Protocol 0.7 MCG/KG/HR Propofol 100 mls @ 7.908 mls/hr 07/17/24 11:50 07/18/24 08:36 Diprivan IV CONT 20 mcg/kg/min .[id number] ALCON 7.91 mls/hr Titration Protocol 20 MCG/KG/MIN Multi-Ingred Cream/Lotion/Oil/Oint 1 applic 07/14/24 09:00 07/18/24 09:10 Mineral Oil/White Petrolatum Ointment EACH EYE 1 applic Q12HR ALCON Administration Ondansetron HCl 4 mg 07/13/24 15:40 Ondansetron Inj 4 Mg/2 Ml Vial IV PUSH Q4H PRN Nausea Pantoprazole Sodium 40 mg 07/15/24 09:00 07/18/24 09:10 Pantoprazole Sodium Iv 40 Mg Vial IV PUSH 40 mg QAM ALCON Administration Sodium Chloride 10 ml 07/14/24 14:00 07/18/24 06:50 Central Line Flush IV PUSH 10 ml Q8HR ALCON Administration Sodium Chloride 20 ml 07/14/24 08:28 Central Line Flush IV PUSH PRN PRN after blood draws Radiology Results: ITS Impressions Chest CTA 07/13/24 23:34 IMPRESSION: No pulmonary embolus. No thoracic aortic dissection. Postoperative change within the right upper lobe and right hilum. Large bilateral pleural effusions (left greater than right) with adjacent compressive atelectasis. Thickened wall surrounding the fluid within the right lung base suggests empyema. Additional findings suggesting pulmonary vascular congestion. Abdomen X-Ray 07/14/24 08:42 Impression: NG tube in satisfactory position. Abdomen/Pelvis CT 07/14/24 11:31 Impression: Moderate layering left pleural effusion. Moderate right pleural effusion with thickening of the pleural lining and loculated appearance. Correlate for chronic effusion or empyema. Diffuse interstitial thickening at the lung bases. Findings represent diffuse interstitial edema versus less likely possibility of lymphangitic metastasis given relatively smooth morphology. Irregular consolidation right middle lobe and lingula which could reflect atelectasis, more confluent edema, or pneumonia. Underlying neoplasm not completely excluded. Findings suspicious for metastatic bone disease, as detailed above. 4.0 cm infrarenal abdominal aortic aneurysm. Thoracentesis Ultrasound 07/14/24 17:27 IMPRESSION: 1. Successful ultrasound-guided thoracentesis yielding 1000 mL of vic-colored fluid. Chest X-Ray 07/18/24 08:51 IMPRESSION: No significant change from previous examination. Labs Labs: Laboratory Results - last 24 hr 07/17/24 07/17/24 07/18/24 12:18 18:38 00:23 WBC RBC Hgb Hct MCV MCH MCHC RDW Plt Count MPV Immature Gran % (Auto) Neut % (Auto) Lymph % (Auto) [place] % (Auto) Eos % (Auto) Baso % (Auto) Lymph # (Auto) [place] # (Auto) Eos # (Auto) Baso # (Auto) Abs Immat Gran (auto) Absolute Neuts (auto) Absolute Nucleated RBC Nucleated RBC % Puncture Site ABG pH ABG pCO2 ABG pO2 ABG PO2/FiO2 Ratio ABG HCO3 ABG O2 Saturation ABG O2 Content ABG Base Excess A-a Gradient Oxyhemoglobin Carboxyhemoglobin Methemoglobin Reduced Hemoglobin Total Hemoglobin O2 Delivery Device O2 Liters/Min Minute Volume Vent Rate Vent Mode FiO2 Tidal Volume PEEP Peak Inspir Pressure Pressure Support Sodium Potassium Chloride Carbon Dioxide Anion Gap BUN Creatinine Estim Creat Clear Calc Estimated GFR Glucose POC Capillary Glucose 163 H Calcium Phosphorus Magnesium Iron 37 L TIBC 174 L % Saturation 21 Ferritin 1240.00 H Total Bilirubin AST ALT Alkaline Phosphatase Total Protein Albumin Triglycerides 96 Vitamin B12 897.0 Folate 8.7 07/18/24 07/18/24 05:14 06:53 WBC 11.5 H RBC 3.51 L Hgb 9.4 L Hct 30.7 L MCV 87.5 MCH 26.8 MCHC 30.6 L RDW 17.1 H Plt Count 260 MPV 8.4 Immature Gran % (Auto) 0.8 H Neut % (Auto) 82.7 H Lymph % (Auto) 10.4 L [place] % (Auto) 5.6 Eos % (Auto) 0.4 Baso % (Auto) 0.1 L Lymph # (Auto) 1.20 [place] # (Auto) 0.7 H Eos # (Auto) 0.1 Baso # (Auto) 0.0 Abs Immat Gran (auto) 0.09 H Absolute Neuts (auto) 9.5 H Absolute Nucleated RBC 0.000 Nucleated RBC % 0.0 Puncture Site Right radial ABG pH 7.450 ABG pCO2 39.0 ABG pO2 86.1 ABG PO2/FiO2 Ratio 2.46 ABG HCO3 26.5 H ABG O2 Saturation 96.9 ABG O2 Content 15.5 L ABG Base Excess 2.4 A-a Gradient 118.1 Oxyhemoglobin 96.1 Carboxyhemoglobin 0.2 Methemoglobin 0.3 Reduced Hemoglobin 3.4 Total Hemoglobin 11.4 L O2 Delivery Device Ventilator O2 Liters/Min Not Reportable Minute Volume Not Reportable Vent Rate 16 Vent Mode Cmv FiO2 35 Tidal Volume 400 PEEP 5 Peak Inspir Pressure Not Reportable Pressure Support Not Reportable Sodium 142 Potassium 3.5 Chloride 107 Carbon Dioxide 27 Anion Gap 8 BUN 34 H Creatinine 0.66 L Estim Creat Clear Calc 81 Estimated GFR > 60 Glucose 166 H POC Capillary Glucose Calcium 9.1 Phosphorus 3.9 Magnesium 2.4 H Iron TIBC % Saturation Ferritin Total Bilirubin 0.4 AST 49 ALT 39 Alkaline Phosphatase 95 Total Protein 6.0 L Albumin 3.3 L Triglycerides Vitamin B12 Folate Quality VTE Prophylaxis VTE prophylaxis: pharmacologic ordered
--- NOTE | 2024-07-18 11:23 | PCNFU ---
Nutrition Follow-Up Complete: Severe Protein Calorie Malnutrition as related to inadequate protein-energy intake with increased protein-energy needs in setting of chronic disease as evidenced by minimal oral intake for > 1-2 months and significant weight loss of 18% (32 ibs) in 5 months. Goal: Meet estimated nutritional needs. Patient is progressing towards goal. We will continue current goal. Pt current nutrition is Vital AF 1.2 at 65 ml/hr. Last recorded weight is 63 kg, down from 64.7 kg on admit. Bowel Motility: Last reported BM 07/09 prior to admit. Labs Reviewed: Glu 166, BUN 34, Cr 0.66, Mg 2.4, Alb 3.3 Meds Noted:Propofol 35 ukjq=820 kcal, Precedex, Lovenox. Skin: WNL Additional Notes: Patient remains on mechanical vent. Tube feedings are being tolerated of Vital AF 1.2 at 65 ml/hr. Total Nutrition including propofol infusion-2081 kcal/107 gm protein/1160 ml water. Recommend continuing tube feeding rate at this time, will monitor Propofol infusion for any rate changes. Will monitor weight, labs, skin, diet orders, meds every Wednesday and Wednesday.
[2024-07-18] MEDS: dexmedeTOMIDine 400 MCG/100 ML 400 MCG/100 ML BAG 14.83 MCG IV CONT ×2 (12:47→19:20)
[2024-07-18] MEDS: PROPOFOL IV EMULSION 100 ML 13.84 MG IV CONT ×2 (12:47→19:19)
[2024-07-18] MEDS: AZITHROMYCIN 500 MG/NS 250 ML 500 MG/250 ML BAG 250 MG IVPB (15:43)
[2024-07-18] MEDS: IPRATROPIUM 0.5 MG/ALBUTEROL SULFATE 2.5 MG AMPUL.NEB 3 ML INHALATION (20:20)
[2024-07-19] VITALS (49 sets, daily range): BP systolic 67–161; BP diastolic 46–82; PULSE 64–110; RESP 16–35; TEMP 36.7–37.9; O2SAT 91–98
[2024-07-19] MEDS: HYDROCORTISONE SODIUM SUCCINATE 100 MG/2 ML VIAL 50 MG IV PUSH ×5 (00:10→23:09)
[2024-07-19] MEDS: PROPOFOL IV EMULSION 100 ML 13.84 MG IV CONT ×2 (02:33→08:58)
[2024-07-19 05:36] LABS: Alveolar/Arterial O2 Gradient 109.8 mmHg; Arterial Blood Gas PEEP 5 cmH2O; Arterial Blood Gas Tidal Volume 400 ml; Arterial Blood Gas Vent Mode CMV; Arterial Blood Gas Ventilator rate 16 /MIN; Base Excess ABG -0.4 mEq/l (+/-2.0); Carboxyhemoglobin 0.3 % THb (0-2.0); Device VENTILATOR; Fractional Inspired Oxygen 30 %; HCO3 ABG 23.5 mEq/l (22.0-26.0); Methemoglobin ABG 0.1 %THb (0-1.5); Modified Allen's Test Pass; Oxygen Content ABG 13.9 %vol (16.0-22.0); Oxygen Saturation ABG 92.5 % (95.0-100.0); Oxyhemoglobin 91.1 % THb (90.0-100.0); PCO2 ABG 36.1 mmHg (35.0-45.0); PO2 ABG 61.7 mmHg (80.0-100.0); PO2 FiO2 Ratio Arterial Blood 2.06 %; Reduced Hemoglobin 8.5 %THb (0-5.0); Site Drawn RIGHT RADIAL; Total Hemoglobin 10.8 g/dL (12.0-18.0); pH ABG 7.432 (7.350-7.450)
[2024-07-19] MEDS: CEFEPIME 2 GM/NS 50 ML 2 GM/50 ML BAG IVPB ×3 (06:17→21:55)
[2024-07-19] MEDS: CENTRAL LINE FLUSH 10 ML IV PUSH ×3 (06:17→22:06)
[2024-07-19 06:26] LABS: Basophils Percent Auto 0.2 % (0.2-1.2); Eosinophils Absolute Auto 0.2 K/mm3 (0-0.3); Eosinophils Percent Auto 1.4 % (0-4.4); Hematocrit 30.1 % (42.0-52.0); Hemoglobin 9.3 g/dL (14.0-18.0); Immature Granulocyte Absolute 0.07 K/mm3 (0.00-0.031); Immature Granulocyte Percent A 0.6 % (0-0.5); Lymphocytes Percent Auto 14.5 % (18.3-44.2); Mean Corpuscular HGB Conc 30.9 g/dl (32-36); Mean Corpuscular Hemoglobin 26.8 pg (26-34); Mean Corpuscular Volume 86.7 fl (80-100); Mean Platelet Volume 8.6 fl (7.4-10.4); Monocytes Absolute Auto 0.9 K/mm3 (0.1-0.6); Monocytes Percent Auto 7.4 % (2.6-8.5); Neutrophils Absolute Auto 8.9 K/mm3 (1.3-6.7); Neutrophils Percent Auto 75.9 % (45.5-73.1); Platelet Count Result 249 k/mm3 (150-375); Red Blood Count 3.47 M/mm3 (4.6-6.20); White Blood Count 11.7 K/mm3 (4.5-10.0)
[2024-07-19 06:40] LABS: Alanine Aminotransferase 44 U/L (6-50); Albumin Level 3.2 g/dL (3.5-5.1); Alkaline Phosphatase 88 U/L (38-126); Anion Gap 6 mmol/L (4-12); Aspartate Amino Transferase 44 U/L (17-59); Bilirubin,Total 0.3 mg/dL (0.2-1.3); Blood Urea Nitrogen 41 mg/dL (9-20); Carbon Dioxide 30 mmol/L (22-30); Chloride 105 mmol/L (98-107); Estimated CRCL calculation 73 ml/min; Estimated Glomerular Filt Rate > 60; Glucose 133 mg/dL (65-110); Magnesium 2.2 mg/dL (1.6-2.3); Phosphorus 3.1 mg/dL (2.5-4.5); Potassium 3.3 mmol/L (3.4-5.0); Sodium 141 mmol/L (137-145)
[2024-07-19] MEDS: BUDESONIDE RESPULE NEB 0.5 MG/2 ML AMP INHALATION ×2 (08:03→20:03)
[2024-07-19] MEDS: dexmedeTOMIDine 400 MCG/100 ML 400 MCG/100 ML BAG 14.83 MCG IV CONT ×2 (08:05→15:10)
[2024-07-19] MEDS: MINERAL OIL/WHITE PETROLATUM OINTMENT 1 APPLIC EACH EYE ×2 (08:18→21:55)
[2024-07-19] MEDS: ENOXAPARIN 40 MG/0.4 ML SYRINGE SUB-Q (08:18)
[2024-07-19] MEDS: PANTOPRAZOLE SODIUM IV 40 MG VIAL IV PUSH (08:18)
[2024-07-19] MEDS: POTASSIUM CHLORIDE 20 MEQ PACKET (FOR LIQUID) 40 MEQ FEED TUBE (08:18)
[2024-07-19] MEDS: FUROSEMIDE INJ 40 MG/4 ML VIAL IV PUSH (08:18)
--- NOTE | 2024-07-19 09:12 | P.PNINT_ITS ---
Progress Note: A&P Assessment and Plan (1) Acute respiratory failure: Code(s): J96.00 - Acute respiratory failure, unspecified whether with hypoxia or hypercapnia Status: Acute Assessment and Plan: 07/13: Patient admitted with worsening shortness of breath, travel from [place] on 07/13 in upon arrival to [place] which is is home came directly to the ER. Normally uses 2 L nasal cannula, it bumped up to 5 L nasal cannula. -likely etiology, large left pleural effusion, pneumonia, recurrence of lung cancer with possible lymphangitic spread, ?congestive heart failure -07/14: Patient was initially on BiPAP but failed. Intubated in the ICU along with right IJ central line placement -currently on CMV mode of ventilation, peep of 5 and FiO2 30 % -bilateral diffuse infiltrates (Off note patient has been admitted to the hospital in [place] x2 for pneumonia and pleural effusion, pleural effusion was tapped on the 1st admission and they removed 700 mL of fluid which was negative for cancer cells). He also saw licensed occupational therapy assistant who recommended the patient see a oncologist. -echo reviewed and shows EF of 65-70% but grade 1 diastolic dysfunction -currently on broad-spectrum antibiotics to cover healthcare rest of pneumonia. Continue cefepime and azithromycin. Vancomycin was discontinued as MRSA screen was negative and cultures remain negative -status post thoracentesis on 07/14 with 1 L fluid removed. Fluid cytology is positive for malignant cells -patient seen by Pulmonary and licensed tax consultant 07/17 failed weaning trial due to high RSBI and respiratory distress 07/18 patient was again trialed this morning but immediately failed due to high respiratory rate and respiratory distress with increased work of breathing 07/19 feeds weaning trial due to high RSBI immediately upon placing on PSV. Jaime velasco's needed pressure support of 20 for adequate RSBI. Patient obviously in respiratory distress with abdominal breathing -continue daily sedation holiday and evaluate for weaning trial -continue bronchodilators -chest x-ray and ABGs reviewed this morning -will give additional dose of Lasix today 07/13: Chest x-ray on admission showed: Bilateral pneumonia with pleural effusion. Superimposed pulmonary edema is not excluded. 07/13: CTA chest on admission: No PE, no thoracic aortic dissection, postoperative changes within the right upper lobe and right hilum. Large virginie ateral pleural effusions left greater than right with adjacent compressive atelectasis. Thickened wall surrounding the fluid within the right lung base suggest empyema. Additional finding suggesting pulmonary vascular congestion. (2) Pneumonia: Qualifiers: Laterality: bilateral Lung location: unspecified part of lung Pneumonia type: due to unspecified organism Qualified Code(s): J18.9 - Pneumonia, unspecified organism Code(s): J18.9 - Pneumonia, unspecified organism Status: Acute Assessment and Plan: Chest x-ray shows bilateral diffuse pneumonia -currently intubated on mechanical ventilator -continue azithromycin, cefepime and vancomycin, (07/13) -patient also on hydrocortisone (3) Sepsis: Qualifiers: Sepsis type: sepsis due to unspecified organism Sepsis acute organ dysfunction status: with acute organ dysfunction Severe sepsis acute organ dysfunction type: acute respiratory failure Acute respiratory failure type: with hypoxia Severe sepsis shock status: without septic shock Qualified Code(s): A41.9 - Sepsis, unspecified organism; R65.20 - Severe sepsis without septic shock; J96.01 - Acute respiratory failure with hypoxia Code(s): A41.9 - Sepsis, unspecified organism Status: Acute Assessment and Plan: Patient did fulfill criteria for sepsis -continue low-dose Levophed -patient does have a central line in the right IJ which was placed on 07/14 -Lasix for volume overload -patient was started on Levophed, will maintain MAP > 65 mmHg Or SBP> 100 mmHg. -07/13: blood cultures negative x2 -07/14: Pleural fluid cultures are negative so far (4) Malnourished: Qualifiers: Malnutrition type: protein-calorie malnutrition Protein-calorie malnutrition severity: moderate Qualified Code(s): E44.0 - Moderate protein-viviane orie malnutrition Code(s): E46 - Unspecified protein-calorie malnutrition Status: Acute Assessment and Plan: According the significant other patient has dropped 40-42 lb in the last 3-4 months, he has not been eating well -dietitian has been consulted -patient was started with trickle feeds and now tube feeds are being advanced to go (5) Pleural effusion: Code(s): J90 - Pleural effusion, not elsewhere classified Status: Acute Assessment and Plan: Patient had a large left pleural effusion on admission -07/14: status post left thoracentesis with removal of 1000 mL of vic colored fluid -Gram stain and cultures are negative so far -pathology positive for malignant cells (6) Adenocarcinoma of right lung: Code(s): C34.91 - Malignant neoplasm of unspecified part of right bronchus or lung Status: Acute Assessment and Plan: Stage I adenocarcinoma status post right upper lobectomy and mediastinal lymph node dissection done in January 2023. -pathology showed non small cell lung cancer with and a carcinoma histology, moderate clean bleed differentiated, negative margins and or lymph node negative for malignancy -patient has seen Dr. Jimenez -oncologist in the past -CT scan of the abdomen and pelvis showed diffuse interstitial thickening at the lung bases 6 which could be interstitial edema versus less likely possibilit y of lymphangitic metastasis. There is ill-defined sclerotic lesions in L3 L4 L5. Subtle heterogeneous lesions present in T10, T11 vertebral bodies. Six sclerotic lesions present in the left sacrum these findings are suspicious for metastatic bone disease -improved fluid cytology shows malignant cells. Patient was evaluated by Oncology and recommendation was that patient can be evaluated for palliative chemotherapy in case if patient gets better and is able to be discharged Plan DVT prophylaxis: Enoxaparin Stress ulcer prophylaxis: Protonix Nutrition: Tube feeds Code Status: Full code Will. Overall prognosis poor Critical Care Time Spent: 32 minutes Due to a high probability of clinically significant, life threatening deterioration, the patient required my highest level of preparedness to intervene emergently and I personally spent this critical care time directly and personally managing the patient. This critical care time included obtaining a history; examining the patient; pulse oximetry; ordering and review of studies; arranging urgent treatment with development of a management plan; evaluation of patient's response to treatment; frequent reassessment; and discussions with other providers. It was exclusive of separately billable procedures and treating other patients and teaching time. Please see Assessment and Plan section and the rest of the note for further information on patient assessment and treatment This dictation may have been done utilizing a voice recognition system. Attempts have been made to correct errors. However, there may be uncorrected grammatical, spelling, and recognitions errors present. Subjective Date/time seen: 07/19/24 Overnight events reviewed. Afebrile Continues to be on mechanical ventilation 30% FiO2 Good urine output in response to Lasix Continues to be sedated with propofol Tolerating tube feed. Other Vitals acceptable Interval history: Reason for consult: Acute respiratory failure, pneumonia 07/14: Thoracentesis: removal of 1000 mL vic colored fluid Review of Systems Review of Systems: ROS unobtainable: Yes unobtainable due to endotracheal tube and unobtainable due to medical condition Exam Narrative: General: Sedated, intubated, in no acute distress HEENT:? Pupils equal and reactive, sclera is clear, ETT in place Neck:? Supple Respiratory:? Coarse breath sounds bilaterally, decreased at bases L > R, no wheezing, adequate air entry Cardiac:? S1-S2 normal, regular rate and rhythm Abdomen:? Soft, nontender, nondistended, normoactive bowel sounds Extremities:? Cachectic, palpable pedal pulses, no edema Neuro:? Patient is intubated and sedated, on holding sedation he follows simple commands with all 4 extreme Skin:? No skin lesions no Psych:? Unable to assess at this time Objective Data Vital Signs Vital Signs: Vital Signs - 24 hr 07/18/24 10:00 07/18/24 10:00 07/18/24 10:00 Temperature 36.1 C L Pulse Rate 94 94 94 Respiratory Rate 28 H 28 H 28 H Blood Pressure 107/65 Pulse Oximetry 98 Oxygen Delivery Fraction of Inspired Oxygen 07/18/24 10:00 07/18/24 10:15 07/18/24 10:27 Temperature Pulse Rate 94 74 83 Respiratory Rate 28 H Blood Pressure Pulse Oximetry 100 Oxygen Delivery Mechanical Ventilation Fraction of Inspired Oxygen 35 07/18/24 11:00 07/18/24 11:02 07/18/24 12:00 Temperature Pulse Rate 75 75 64 Respiratory Rate 24 H 24 H 16 Blood Pressure Pulse Oximetry Oxygen Delivery Fraction of Inspired Oxygen 07/18/24 12:00 07/18/24 12:00 07/18/24 12:00 Temperature Pulse Rate 64 65 Respiratory Rate 16 Blood Pressure Pulse Oximetry 98 Oxygen Delivery Mechanical Ventilation Fraction of Inspired Oxygen 35 07/18/24 12:00 07/18/24 12:00 07/18/24 12:47 Temperature 36.4 C L Pulse Rate 65 65 Respiratory Rate 18 16 Blood Pressure 134/76 Pulse Oximetry 100 Oxygen Delivery Fraction of Inspired Oxygen 35 07/18/24 12:47 07/18/24 13:56 07/18/24 14:00 Temperature Pulse Rate 65 61 63 Respiratory Rate 16 Blood Pressure Pulse Oximetry 99 Oxygen Delivery Mechanical Ventilation Fraction of Inspired Oxygen 35 07/18/24 14:00 07/18/24 14:00 07/18/24 14:00 Temperature 36.1 C L Pulse Rate 63 63 63 Respiratory Rate 16 16 16 Blood Pressure 151/78 H Pulse Oximetry 99 Oxygen Delivery Fraction of Inspired Oxygen 07/18/24 16:00 07/18/24 16:00 07/18/24 16:00 Temperature Pulse Rate 60 Respiratory Rate Blood Pressure Pulse Oximetry 98 Oxygen Delivery Mechanical Ventilation Fraction of Inspired Oxygen 35 35 07/18/24 16:00 07/18/24 16:00 07/18/24 16:00 Temperature 36.1 C L Pulse Rate 58 L 58 L 58 L Respiratory Rate 16 16 16 Blood Pressure 133/78 Pulse Oximetry 100 Oxygen Delivery Fraction of Inspired Oxygen 07/18/24 16:59 07/18/24 18:00 07/18/24 18:00 Temperature 36.3 C L Pulse Rate 68 68 68 Respiratory Rate 16 Blood Pressure 130/75 Pulse Oximetry 98 100 Oxygen Delivery Mechanical Ventilation Fraction of Inspired Oxygen 35 07/18/24 18:00 07/18/24 18:00 07/18/24 19:19 Temperature Pulse Rate 68 68 65 Respiratory Rate 16 16 18 Blood Pressure Pulse Oximetry Oxygen Delivery Fraction of Inspired Oxygen 07/18/24 19:19 07/18/24 19:20 07/18/24 19:20 Temperature Pulse Rate 65 65 65 Respiratory Rate 18 18 18 Blood Pressure Pulse Oximetry Oxygen Delivery Fraction of Inspired Oxygen 07/18/24 20:00 07/18/24 20:00 07/18/24 20:00 Temperature Pulse Rate 61 61 Respiratory Rate 18 Blood Pressure Pulse Oximetry 98 Oxygen Delivery Mechanical Ventilation Fraction of Inspired Oxygen 35 35 07/18/24 20:00 07/18/24 20:00 07/18/24 20:00 Temperature 36.5 C Pulse Rate 61 61 61 Respiratory Rate 18 18 18 Blood Pressure 134/73 Pulse Oximetry 98 Oxygen Delivery Fraction of Inspired Oxygen 07/18/24 20:08 07/18/24 20:20 07/18/24 20:31 Temperature Pulse Rate 67 63 64 Respiratory Rate 18 18 Blood Pressure Pulse Oximetry 99 Oxygen Delivery Mechanical Ventilation Fraction of Inspired Oxygen 35 07/18/24 22:00 07/18/24 22:00 07/18/24 22:00 Temperature Pulse Rate 66 66 66 Respiratory Rate 18 18 Blood Pressure 92/29 L Pulse Oximetry 100 Oxygen Delivery Fraction of Inspired Oxygen 07/18/24 22:00 07/18/24 23:03 07/19/24 00:00 Temperature Pulse Rate 66 65 Respiratory Rate 18 Blood Pressure Pulse Oximetry 98 Oxygen Delivery Mechanical Ventilation Fraction of Inspired Oxygen 30 30 07/19/24 00:00 07/19/24 00:00 07/19/24 00:00 Temperature 36.7 C Pulse Rate 66 67 67 Respiratory Rate 17 18 Blood Pressure 111/64 Pulse Oximetry 95 98 Oxygen Delivery Mechanical Ventilation Fraction of Inspired Oxygen 30 07/19/24 02:00 07/19/24 02:00 07/19/24 02:05 Temperature 36.8 C Pulse Rate 65 64 66 Respiratory Rate 17 17 Blood Pressure 97/62 L Pulse Oximetry 98 Oxygen Delivery Fraction of Inspired Oxygen 07/19/24 02:15 07/19/24 02:33 07/19/24 02:33 Temperature Pulse Rate 64 66 66 Respiratory Rate 18 18 Blood Pressure Pulse Oximetry 97 Oxygen Delivery Mechanical Ventilation Fraction of Inspired Oxygen 30 07/19/24 04:00 07/19/24 04:00 07/19/24 04:00 Temperature 36.8 C Pulse Rate 66 64 Respiratory Rate 17 16 Blood Pressure 89/57 L Pulse Oximetry 95 96 Oxygen Delivery Mechanical Ventilation Fraction of Inspired Oxygen 30 30 07/19/24 04:00 07/19/24 04:00 07/19/24 05:10 Temperature Pulse Rate 64 64 66 Respiratory Rate 18 Blood Pressure Pulse Oximetry 95 Oxygen Delivery Mechanical Ventilation Fraction of Inspired Oxygen 30 07/19/24 06:00 07/19/24 06:00 07/19/24 06:00 Temperature 37.1 C Pulse Rate 64 67 67 Respiratory Rate 18 18 Blood Pressure 86/54 L Pulse Oximetry 98 Oxygen Delivery Fraction of Inspired Oxygen 07/19/24 08:00 07/19/24 08:05 07/19/24 08:58 Temperature Pulse Rate 65 66 93 Respiratory Rate 17 17 18 Blood Pressure Pulse Oximetry Oxygen Delivery Fraction of Inspired Oxygen 07/19/24 08:58 Temperature Pulse Rate 93 Respiratory Rate 18 Blood Pressure Pulse Oximetry Oxygen Delivery Fraction of Inspired Oxygen Intake/Output Intake/Output: Intake & Output 07/16/24 07/17/24 07/18/24 07/19/24 23:59 23:59 23:59 23:59 Intake Total 2257.1 1519.4 2243.7 1201.7 Output Total 625 2600 2475 500 Balance 1632.1 -1080.6 -231.3 701.7 Meds/Results Medications: Active Medications Generic Name Dose Route Start Last Admin Trade Name Freq PRN Reason Stop Dose Admin Acetaminophen 650 mg 07/13/24 15:40 Acetaminophen 325 Mg Tablet PO Q4H PRN Mild Pain (1-3) or Fever Albuterol/Ipratropium 3 ml 07/17/24 07:50 07/18/24 20:20 Ipratropium 0.5 Mg/Albuterol Sulfate 2.5 Mg Ampul.Neb 3 Ml INHALATION 3 ml Q6HRT PRN Administration Wheezing Benzonatate 100 mg 07/13/24 17:47 Benzonatate 100 Mg Capsule PO TID PRN Cough Budesonide 0.5 mg 07/14/24 08:45 07/19/24 08:03 Budesonide Respule Neb 0.5 Mg/2 Ml Amp INHALATION 0.5 mg Q12HRT ALCON Administration Enoxaparin Sodium 40 mg 07/14/24 09:00 07/19/24 08:18 Enoxaparin 40 Mg/0.4 Ml Syringe SUB-Q 40 mg DAILY ALCON Administration Hydrocortisone Sodium Succinate 50 mg 07/15/24 06:00 07/19/24 06:16 Hydrocortisone Sodium Succinate 100 Mg/2 Ml Vial IV PUSH 50 mg Q6H ALCON Administration Azithromycin 500 mg in 250 mls @ 250 mls/hr 07/14/24 15:00 07/18/24 16:45 Zithromax IVPB 07/19/24 14:59 Infused Q24H ALCON Infusion Cefepime HCl 2 gm in 50 mls @ 100 mls/hr 07/13/24 20:35 07/19/24 06:17 Maxipime 2 Gm/Ns 50 Ml IVPB 100 mls/hr Q8HR ALCON Administration Norepinephrine Bitartrate 8 mg in 250 mls @ 0 mls/hr 07/18/24 12:40 Levophed 8 Mg/D5w 250 Ml IV CONT .Q0M ALCON Protocol 0 MCG/MIN Propofol 100 mls @ 13.839 mls/hr 07/18/24 12:40 07/19/24 08:58 Diprivan IV CONT 35 mcg/kg/min .Q7H14M ALCON 13.84 mls/hr Administration Protocol 35 MCG/KG/MIN Dexmedetomidine HCl 400 mcg in 100 mls @ 14.828 mls/hr 07/18/24 12:40 5 08:05 Precedex 400 Mcg/100 Ml IV CONT 0.9 mcg/kg/hr .Q6H45M ALCON 14.83 mls/hr Administration Protocol 0.9 MCG/KG/HR Multi-Ingred Cream/Lotion/Oil/Oint 1 applic 07/14/24 09:00 07/19/24 08:18 Mineral Oil/White Petrolatum Ointment EACH EYE 1 applic Q12HR ALCON Administration Ondansetron HCl 4 mg 07/13/24 15:40 Ondansetron Inj 4 Mg/2 Ml Vial IV PUSH Q4H PRN Nausea Pantoprazole Sodium 40 mg 07/15/24 09:00 07/19/24 08:18 Pantoprazole Sodium Iv 40 Mg Vial IV PUSH 40 mg QAM ALCON Administration Potassium Chloride 40 meq 07/19/24 14:00 Potassium Chloride 20 Meq Packet (For Liquid) PO 07/19/24 14:01 ONCE ONE Sodium Chloride 10 ml 07/14/24 14:00 07/19/24 06:17 Central Line Flush IV PUSH 10 ml Q8HR ALCON Administration Sodium Chloride 20 ml 07/14/24 08:28 Central Line Flush IV PUSH PRN PRN after blood draws Radiology Results: ITS Impressions Chest CTA 07/13/24 23:34 IMPRESSION: No pulmonary embolus. No thoracic aortic dissection. Postoperative change within the right upper lobe and right hilum. Large bilateral pleural effusions (left greater than right) with adjacent compressive atelectasis. Thickened wall surrounding the fluid within the right lung base suggests empyema. Additional findings suggesting pulmonary vascular congestion. Abdomen X-Ray 07/14/24 08:42 Impression: NG tube in satisfactory position. Abdomen/Pelvis CT 07/14/24 11:31 Impression: Moderate layering left pleural effusion. Moderate right pleural effusion with thickening of the pleural lining and loculated appearance. Correlate for chronic effusion or empyema. Diffuse interstitial thickening at the lung bases. Findings represent diffuse interstitial edema versus less likely possibility of lymphangitic metastasis given relatively smooth morphology. Irregular consolidation right middle lobe and lingula which could reflect atelectasis, more confluent edema, or pneumonia. Underlying neoplasm not completely excluded. Findings suspicious for metastatic bone disease, as detailed above. 4.0 cm infrarenal abdominal aortic aneurysm. Thoracentesis Ultrasound 07/14/24 17:27 IMPRESSION: 1. Successful ultrasound-guided thoracentesis yielding 1000 mL of vic-colored fluid. Chest X-Ray 07/19/24 05:53 IMPRESSION: 1. Stable diffuse lung disease, consistent with pulmonary edema versus pneumonia. 2. Stable small pleural effusions, loculated on the right. Labs Labs: Laboratory Results - last 24 hr 07/19/24 07/19/24 05:22 06:13 WBC 11.7 H RBC 3.47 L Hgb 9.3 L Hct 30.1 L MCV 86.7 MCH 26.8 MCHC 30.9 L RDW 17.0 H Plt Count 249 MPV 8.6 Immature Gran % (Auto) 0.6 H Neut % (Auto) 75.9 H Lymph % (Auto) 14.5 L Hale % (Auto) 7.4 Eos % (Auto) 1.4 Baso % (Auto) 0.2 Lymph # (Auto) 1.70 Hale # (Auto) 0.9 H Eos # (Auto) 0.2 Baso # (Auto) 0.0 Abs Immat Gran (auto) 0.07 H Absolute Neuts (auto) 8.9 H Absolute Nucleated RBC 0.000 Nucleated RBC % 0.0 Puncture Site Right radial ABG pH 7.432 ABG pCO2 36.1 ABG pO2 61.7 L ABG PO2/FiO2 Ratio 2.06 ABG HCO3 23.5 ABG O2 Saturation 92.5 L ABG O2 Content 13.9 L ABG Base Excess -0.4 A-a Gradient 109.8 Oxyhemoglobin 91.1 Carboxyhemoglobin 0.3 Methemoglobin 0.1 Reduced Hemoglobin 8.5 H Total Hemoglobin 10.8 L O2 Delivery Device Ventilator O2 Liters/Min Not Reportable Minute Volume Not Reportable Vent Rate 16 Vent Mode Cmv FiO2 30 Tidal Volume 400 PEEP 5 Peak Inspir Pressure Not Reportable Pressure Support Not Reportable Sodium 141 Potassium 3.3 L Chloride 105 Carbon Dioxide 30 Anion Gap 6 BUN 41 H Creatinine 0.74 Estim Creat Clear Calc 73 Estimated GFR > 60 Glucose 133 H Calcium 9.0 Phosphorus 3.1 Magnesium 2.2 Total Bilirubin 0.3 AST 44 ALT 44 Alkaline Phosphatase 88 Total Protein 6.0 L Albumin 3.2 L Quality VTE Prophylaxis VTE prophylaxis: pharmacologic ordered
[2024-07-19 10:40] LABS: Triglycerides 97 mg/dL (<150)
--- NOTE | 2024-07-19 10:46 | PCFNICU ---
ICU Rounding Note: Pt current nutrition is Vital AF 1.2 at 65 ml/hr. Last recorded weight is 63 kg, stable Bowel Motility: No BM this admit, discussed with nursing today. Labs Reviewed: Glu 133, BUN 41, K 3.3, Alb 3.2 Meds Noted:Propofol 35 niua=658 kcal, Precedex, Lovenox,Cefepime, Protonix. Skin: WNL Additional Notes: Patient remains on mechanical vent. Failed breathing trial again today. Tube feedings are being tolerated of Vital AF 1.2 at 65 ml/hr. Flush 30 ml q 4 hours. Total Nutrition including propofol infusion:2081 kcal/107 gm protein/1160 ml water. Agree with diet orders at this time. Following daily in ICU rounds. Will monitor weight, labs, skin, diet orders, meds every Wednesday and Wednesday. .
--- NOTE | 2024-07-19 10:47 | PM.PNPUL ---
Progress Note: A&P Assessment and Plan (1) Lung cancer: Code(s): C34.90 - Malignant neoplasm of unspecified part of unspecified bronchus or lung Status: Acute (2) Adenocarcinoma of right lung: Code(s): C34.91 - Malignant neoplasm of unspecified part of right bronchus or lung Status: Acute (3) Pleural effusion: Code(s): J90 - Pleural effusion, not elsewhere classified Status: Acute (4) Acute respiratory failure: Code(s): J96.00 - Acute respiratory failure, unspecified whether with hypoxia or hypercapnia Status: Acute Assessment and Plan: This 68-year-old male patient, with a history of adenocarcinoma and a past right upper lobectomy, presents with a chronic right pleural effusion following lung resection surgery. He has experienced a subacute onset of progressively worsening shortness of breath. Recent evaluations revealed a new left pleural effusion, a probable increase in the size of the chronic right pleural effusion, and, critically, interlobular septal thickening. This thickening could be attributed to congestive heart failure or lymphangitic spread of his lung cancer. He is currently being treated with antibiotics for a potential lower respiratory tract infection and is also receiving IV steroids. The patient underwent a left thoracentesis, which revealed a lymphocytic pleural effusion. Cytological analysis of the pleural fluid confirmed the presence of metastatic lung cancer. Chest X-rays continue to show interstitial lung abnormalities bilaterally, predominantly in the left lung. As noted in the chest CT, there is thickening of the interlobular septa, with differential diagnoses including congestive heart failure or lymphangitic spread of lung cancer. The persistence of these infiltrates over the past several days suggests lymphangitic spread rather than pulmonary edema. I discussed these findings with the patient's family earlier today. I informed the patient's that the pleural fluid contained cancer cells, and there is a possibility that the lung interstitial abnormalities observed on chest imaging could be also related to the spread of lung cancer. These findings, combined with the patient's inability to wean from the ventilator, indicate a poor prognosis, which was communicated to the patient's . (5) Sepsis: Qualifiers: Sepsis type: sepsis due to unspecified organism Sepsis acute organ dysfunction status: with acute organ dysfunction Severe sepsis acute organ dysfunction type: acute respiratory failure Acute respiratory failure type: with hypoxia Severe sepsis shock status: without septic shock Qualified Code(s): A41.9 - Sepsis, unspecified organism; R65.20 - Severe sepsis without septic shock; J96.01 - Acute respiratory failure with hypoxia Code(s): A41.9 - Sepsis, unspecified organism Status: Acute Subjective Date/time seen: 07/19/24 10:47 Interval history: There has been no significant change in patient's respiratory status. Remains intubated sedated on mechanical ventilation. He is also on vasopressor support. Underwent thoracentesis and results of cytology are out. Review of Systems Review of Systems: All systems reviewed & are unremarkable except as noted in HPI and below (HPI and below) Exam Narrative: GENERAL APPEARANCE: Well developed, well nourished, opening eyes to verbal commands while off intubated on mechanical ventilation SKIN: Inspection of the skin reveals no rashes, ulcerations or petechiae. HEENT: Sclerae anicteric and conjunctivae pink and moist. Extraocular movements were intact and pupils were equal, round NECK: Supple. There was no thyroid enlargement, and no tenderness, or masses were felt. LUNGS: Clear breath lungs anteriorly decrease breath sounds right lateral chest no wheezing CARDIAC: Tachycardia, regular rate and rhythm without any murmurs, gallops, rubs. ABDOMEN: Soft and nontender with normal bowel sounds. There was no organomegaly. LYMPH NODES: No lymphadenopathy was appreciated in the neck. EXTREMITIES: No cyanosis, clubbing or edema. NEUROLOGIC: Opening eyes, moving all extremities Objective Data Vital Signs Vital Signs: Vital Signs - 24 hr 07/18/24 11:00 07/18/24 11:02 07/18/24 12:00 Temperature Pulse Rate 75 75 64 Respiratory Rate 24 H 24 H 16 Blood Pressure Pulse Oximetry Oxygen Delivery Fraction of Inspired Oxygen 07/18/24 12:00 07/18/24 12:00 07/18/24 12:00 Temperature Pulse Rate 64 65 Respiratory Rate 16 Blood Pressure Pulse Oximetry 98 Oxygen Delivery Mechanical Ventilation Fraction of Inspired Oxygen 35 07/18/24 12:00 07/18/24 12:00 07/18/24 12:47 Temperature 36.4 C L Pulse Rate 65 65 Respiratory Rate 18 16 Blood Pressure 134/76 Pulse Oximetry 100 Oxygen Delivery Fraction of Inspired Oxygen 35 07/18/24 12:47 07/18/24 13:56 07/18/24 14:00 Temperature Pulse Rate 65 61 63 Respiratory Rate 16 Blood Pressure Pulse Oximetry 99 Oxygen Delivery Mechanical Ventilation Fraction of Inspired Oxygen 35 07/18/24 14:00 07/18/24 14:00 07/18/24 14:00 Temperature 36.1 C L Pulse Rate 63 63 63 Respiratory Rate 16 16 16 Blood Pressure 151/78 H Pulse Oximetry 99 Oxygen Delivery Fraction of Inspired Oxygen 07/18/24 16:00 07/18/24 16:00 07/18/24 16:00 Temperature Pulse Rate 60 Respiratory Rate Blood Pressure Pulse Oximetry 98 Oxygen Delivery Mechanical Ventilation Fraction of Inspired Oxygen 35 35 07/18/24 16:00 07/18/24 16:00 07/18/24 16:00 Temperature 36.1 C L Pulse Rate 58 L 58 L 58 L Respiratory Rate 16 16 16 Blood Pressure 133/78 Pulse Oximetry 100 Oxygen Delivery Fraction of Inspired Oxygen 07/18/24 16:59 07/18/24 18:00 07/18/24 18:00 Temperature 36.3 C L Pulse Rate 68 68 68 Respiratory Rate 16 Blood Pressure 130/75 Pulse Oximetry 98 100 Oxygen Delivery Mechanical Ventilation Fraction of Inspired Oxygen 35 07/18/24 18:00 07/18/24 18:00 07/18/24 19:19 Temperature Pulse Rate 68 68 65 Respiratory Rate 16 16 18 Blood Pressure Pulse Oximetry Oxygen Delivery Fraction of Inspired Oxygen 07/18/24 19:19 07/18/24 19:20 07/18/24 19:20 Temperature Pulse Rate 65 65 65 Respiratory Rate 18 18 18 Blood Pressure Pulse Oximetry Oxygen Delivery Fraction of Inspired Oxygen 07/18/24 20:00 07/18/24 20:00 07/18/24 20:00 Temperature Pulse Rate 61 61 Respiratory Rate 18 Blood Pressure Pulse Oximetry 98 Oxygen Delivery Mechanical Ventilation Fraction of Inspired Oxygen 35 35 07/18/24 20:00 07/18/24 20:00 07/18/24 20:00 Temperature 36.5 C Pulse Rate 61 61 61 Respiratory Rate 18 18 18 Blood Pressure 134/73 Pulse Oximetry 98 Oxygen Delivery Fraction of Inspired Oxygen 07/18/24 20:08 07/18/24 20:20 07/18/24 20:31 Temperature Pulse Rate 67 63 64 Respiratory Rate 18 18 Blood Pressure Pulse Oximetry 99 Oxygen Delivery Mechanical Ventilation Fraction of Inspired Oxygen 35 07/18/24 22:00 07/18/24 22:00 07/18/24 22:00 Temperature Pulse Rate 66 66 66 Respiratory Rate 18 18 Blood Pressure 92/29 L Pulse Oximetry 100 Oxygen Delivery Fraction of Inspired Oxygen 07/18/24 22:00 07/18/24 23:03 07/19/24 00:00 Temperature Pulse Rate 66 65 Respiratory Rate 18 Blood Pressure Pulse Oximetry 98 Oxygen Delivery Mechanical Ventilation Fraction of Inspired Oxygen 30 30 07/19/24 00:00 07/19/24 00:00 07/19/24 00:00 Temperature 36.7 C Pulse Rate 66 67 67 Respiratory Rate 17 18 Blood Pressure 111/64 Pulse Oximetry 95 98 Oxygen Delivery Mechanical Ventilation Fraction of Inspired Oxygen 30 07/19/24 02:00 07/19/24 02:00 07/19/24 02:05 Temperature 36.8 C Pulse Rate 65 64 66 Respiratory Rate 17 17 Blood Pressure 97/62 L Pulse Oximetry 98 Oxygen Delivery Fraction of Inspired Oxygen 07/19/24 02:15 07/19/24 02:33 07/19/24 02:33 Temperature Pulse Rate 64 66 66 Respiratory Rate 18 18 Blood Pressure Pulse Oximetry 97 Oxygen Delivery Mechanical Ventilation Fraction of Inspired Oxygen 30 07/19/24 04:00 07/19/24 04:00 07/19/24 04:00 Temperature 36.8 C Pulse Rate 66 64 Respiratory Rate 17 16 Blood Pressure 89/57 L Pulse Oximetry 95 96 Oxygen Delivery Mechanical Ventilation Fraction of Inspired Oxygen 30 30 07/19/24 04:00 07/19/24 04:00 07/19/24 05:10 Temperature Pulse Rate 64 64 66 Respiratory Rate 18 Blood Pressure Pulse Oximetry 95 Oxygen Delivery Mechanical Ventilation Fraction of Inspired Oxygen 30 07/19/24 06:00 07/19/24 06:00 07/19/24 06:00 Temperature 37.1 C Pulse Rate 64 67 67 Respiratory Rate 18 18 Blood Pressure 86/54 L Pulse Oximetry 98 Oxygen Delivery Fraction of Inspired Oxygen 07/19/24 08:00 07/19/24 08:05 07/19/24 08:15 Temperature Pulse Rate 65 66 66 Respiratory Rate 17 17 18 Blood Pressure Pulse Oximetry Oxygen Delivery Fraction of Inspired Oxygen 07/19/24 08:25 07/19/24 08:35 07/19/24 08:50 Temperature Pulse Rate 67 85 66 Respiratory Rate 20 Blood Pressure Pulse Oximetry 91 93 Oxygen Delivery Mechanical Ventilation Mechanical Ventilation Fraction of Inspired Oxygen 30 30 07/19/24 08:58 07/19/24 08:58 Temperature Pulse Rate 93 93 Respiratory Rate 18 18 Blood Pressure Pulse Oximetry Oxygen Delivery Fraction of Inspired Oxygen Intake/Output Intake/Output: Intake & Output 07/16/24 07/17/24 07/18/24 07/19/24 23:59 23:59 23:59 23:59 Intake Total 2257.1 1519.4 2243.7 1201.7 Output Total 625 2600 2475 500 Balance 1632.1 -1080.6 -231.3 701.7 Meds/Results Medications: Active Medications Generic Name Dose Route Start Last Admin Trade Name Freq PRN Reason Stop Dose Admin Acetaminophen 650 mg 07/13/24 15:40 Acetaminophen 325 Mg Tablet PO Q4H PRN Mild Pain (1-3) or Fever Albuterol/Ipratropium 3 ml 07/17/24 07:50 07/18/24 20:20 Ipratropium 0.5 Mg/Albuterol Sulfate 2.5 Mg Ampul.Neb 3 Ml INHALATION 3 ml Q6HRT PRN Administration Wheezing Benzonatate 100 mg 07/13/24 17:47 Benzonatate 100 Mg Capsule PO TID PRN Cough Budesonide 0.5 mg 07/14/24 08:45 07/19/24 08:03 Budesonide Respule Neb 0.5 Mg/2 Ml Amp INHALATION 0.5 mg Q12HRT ALCON Administration Enoxaparin Sodium 40 mg 07/14/24 09:00 07/19/24 08:18 Enoxaparin 40 Mg/0.4 Ml Syringe SUB-Q 40 mg DAILY ALCON Administration Hydrocortisone Sodium Succinate 50 mg 07/15/24 06:00 07/19/24 06:16 Hydrocortisone Sodium Succinate 100 Mg/2 Ml Vial IV PUSH 50 mg Q6H ALCON Administration Azithromycin 500 mg in 250 mls @ 250 mls/hr 07/14/24 15:00 07/18/24 16:45 Zithromax IVPB 07/19/24 14:59 Infused Q24H ALOCN Infusion Cefepime HCl 2 gm in 50 mls @ 100 mls/hr 07/13/24 20:35 07/19/24 06:17 Maxipime 2 Gm/Ns 50 Ml IVPB 100 mls/hr Q8HR ALCON Administration Norepinephrine Bitartrate 8 mg in 250 mls @ 0 mls/hr 07/18/24 12:40 Levophed 8 Mg/D5w 250 Ml IV CONT .Q0M ALCON Protocol 0 MCG/MIN Propofol 100 mls @ 13.839 mls/hr 07/18/24 12:40 07/19/24 08:58 Diprivan IV CONT 35 mcg/kg/min .Q7H14M ALCON 13.84 mls/hr Administration Protocol 35 MCG/KG/MIN Dexmedetomidine HCl 400 mcg in 100 mls @ 14.828 mls/hr 07/18/24 12:40 07/19/24 08:05 Precedex 400 Mcg/100 Ml IV CONT 0.9 mcg/kg/hr .Q6H45M ALCON 14.83 mls/hr Administration Protocol 0.9 MCG/KG/HR Multi-Ingred Cream/Lotion/Oil/Oint 1 applic 07/14/24 09:00 07/19/24 08:18 Mineral Oil/White Petrolatum Ointment EACH EYE 1 applic Q12HR ALCON Administration Ondansetron HCl 4 mg 07/13/24 15:40 Ondansetron Inj 4 Mg/2 Ml Vial IV PUSH Q4H PRN Nausea Pantoprazole Sodium 40 mg 07/15/24 09:00 07/19/24 08:18 Pantoprazole Sodium Iv 40 Mg Vial IV PUSH 40 mg QAM ALCON Administration Potassium Chloride 40 meq 07/19/24 14:00 Potassium Chloride 20 Meq Packet (For Liquid) PO 07/19/24 14:01 ONCE ONE Sodium Chloride 10 ml 07/14/24 14:00 07/19/24 06:17 Central Line Flush IV PUSH 10 ml Q8HR ALCON Administration Sodium Chloride 20 ml 07/14/24 08:28 Central Line Flush IV PUSH PRN PRN after blood draws Radiology Results: ITS Impressions Chest CTA 07/13/24 23:34 IMPRESSION: No pulmonary embolus. No thoracic aortic dissection. Postoperative change within the right upper lobe and right hilum. Large bilateral pleural effusions (left greater than right) with adjacent compressive atelectasis. Thickened wall surrounding the fluid within the right lung base suggests empyema. Additional findings suggesting pulmonary vascular congestion. Abdomen X-Ray 07/14/24 08:42 Impression: NG tube in satisfactory position. Abdomen/Pelvis CT 07/14/24 11:31 Impression: Moderate layering left pleural effusion. Moderate right pleural effusion with thickening of the pleural lining and loculated appearance. Correlate for chronic effusion or empyema. Diffuse interstitial thickening at the lung bases. Findings represent diffuse interstitial edema versus less likely possibility of lymphangitic metastasis given relatively smooth morphology. Irregular consolidation right middle lobe and lingula which could reflect atelectasis, more confluent edema, or pneumonia. Underlying neoplasm not completely excluded. Findings suspicious for metastatic bone disease, as detailed above. 4.0 cm infrarenal abdominal aortic aneurysm. Thoracentesis Ultrasound 07/14/24 17:27 IMPRESSION: 1. Successful ultrasound-guided thoracentesis yielding 1000 mL of vic-colored fluid. Chest X-Ray 07/19/24 05:53 IMPRESSION: 1. Stable diffuse lung disease, consistent with pulmonary edema versus pneumonia. 2. Stable small pleural effusions, loculated on the right. Labs Labs: Laboratory Results - last 24 hr 07/19/24 07/19/24 07/19/24 05:22 06:13 06:18 WBC 11.7 H RBC 3.47 L Hgb 9.3 L Hct 30.1 L MCV 86.7 MCH 26.8 MCHC 30.9 L RDW 17.0 H Plt Count 249 MPV 8.6 Immature Gran % (Auto) 0.6 H Neut % (Auto) 75.9 H Lymph % (Auto) 14.5 L [place] % (Auto) 7.4 Eos % (Auto) 1.4 Baso % (Auto) 0.2 Lymph # (Auto) 1.70 [place] # (Auto) 0.9 H Eos # (Auto) 0.2 Baso # (Auto) 0.0 Abs Immat Gran (auto) 0.07 H Absolute Neuts (auto) 8.9 H Absolute Nucleated RBC 0.000 Nucleated RBC % 0.0 Puncture Site Right radial ABG pH 7.432 ABG pCO2 36.1 ABG pO2 61.7 L ABG PO2/FiO2 Ratio 2.06 ABG HCO3 23.5 ABG O2 Saturation 92.5 L ABG O2 Content 13.9 L ABG Base Excess -0.4 A-a Gradient 109.8 Oxyhemoglobin 91.1 Carboxyhemoglobin 0.3 Methemoglobin 0.1 Reduced Hemoglobin 8.5 H Total Hemoglobin 10.8 L O2 Delivery Device Ventilator O2 Liters/Min Not Reportable Minute Volume Not Reportable Vent Rate 16 Vent Mode Cmv FiO2 30 Tidal Volume 400 PEEP 5 Peak Inspir Pressure Not Reportable Pressure Support Not Reportable Sodium 141 Potassium 3.3 L Chloride 105 Carbon Dioxide 30 Anion Gap 6 BUN 41 H Creatinine 0.74 Estim Creat Clear Calc 73 Estimated GFR > 60 Glucose 133 H Calcium 9.0 Phosphorus 3.1 Magnesium 2.2 Total Bilirubin 0.3 AST 44 ALT 44 Alkaline Phosphatase 88 Total Protein 6.0 L Albumin 3.2 L Triglycerides 97
[2024-07-19] MEDS: NOREPINEPHRINE 8 MG/D5W 250 ML 8 MG/250 ML BAG 9.38 MG IV CONT (12:20)
[2024-07-19] MEDS: POTASSIUM CHLORIDE 20 MEQ PACKET (FOR LIQUID) 40 MEQ PO (14:21)
[2024-07-19] MEDS: PROPOFOL IV EMULSION 100 ML 15.82 MG IV CONT ×2 (16:28→22:11)
[2024-07-19] MEDS: IPRATROPIUM 0.5 MG/ALBUTEROL SULFATE 2.5 MG AMPUL.NEB 3 ML INHALATION (17:35)
[2024-07-19 21:43] LABS: Albumin Pleural Fluid 1.8 g/dL; Amylase, Pleural Fluid 12 U/L; Glucose Pleural Fluid 92 mg/dL; LDH Pleural Fluid 475 U/L; Total Protein Pleural Fluid 3.3 g/dL
[2024-07-19] MEDS: dexmedeTOMIDine 400 MCG/100 ML 400 MCG/100 ML BAG 16.48 MCG IV CONT (21:53)
[2024-07-19] MEDS: DOCUSATE SODIUM LIQ 100 MG/10 ML UDC FEED TUBE (21:55)
[2024-07-20] VITALS (8 sets, daily range): BP systolic 102–137; BP diastolic 67–75; PULSE 74–98; RESP 22–27; TEMP 37.6–37.7; O2SAT 94–97
[2024-07-20] MEDS: IPRATROPIUM 0.5 MG/ALBUTEROL SULFATE 2.5 MG AMPUL.NEB 3 ML INHALATION (01:57)
--- NOTE | 2024-07-20 02:24 | PC.NURSE ---
Patient and son at bedside requesting to make patient comfort care. Patient shaking head no to offering of comfort medication. POA wants to honor patient request. Patient and POA refusing medications at this time, but would like to proceed with discontinuation of all medical treatment
--- NOTE | 2024-07-20 02:54 | P.PNCROSS_ITS ---
Event Note Event Note Event Note: Call by bedside nurse who states patient is alert on the vent and writing he wa nts to be extubated. and son are at the bedside. I went over and assess the patient and asked if this is what he wishes and he shook his head yes. Comfort Care order set placed with orders to extubate patient to nasal cannula. Bilateral soft limb restraints were discontinued. He was extubated at 2:45 a.m. without any difficulty. Patient refusing comfort medications such as morphine and Ativan at this time. Orders placed to transfer out of ICU. Patient was made DNR DNI per patient and family request.
[2024-07-20] MEDS: MORPHINE SULFATE (*CRX) 2 MG/ML INJ IV PUSH (04:50)
[2024-07-20] MEDS: LORazepam INJ (*CRX) 2 MG/ML VIAL IV PUSH (04:50)
[2024-07-20] MEDS: CENTRAL LINE FLUSH 10 ML IV PUSH (04:56)
--- NOTE | 2024-07-20 06:33 | PC.NURSE ---
This RN, along with Jose Francisco ALLEN, pronounced pt at [id number]. Family at bedside. All questions answered. Pt transferred to [facility] [place] with silver-colored ring on left ring finger
--- NOTE | 2024-07-25 12:32 | P.DN_ITS ---
Discharge Summary Date and Time Date of : 07/20/24 Time of : 05:36 Provider Pronounced By: 2 RNs Name of First RN That Pronounced: Hernandez Murphy Name of Second RN That Pronounced: Shima Barton Probable Cause of Probable Cause of : The acute respiratory failure, metastatic lung cancer Summary Hospital Course: 68-year-old male with history of lung cancer status post lobectomy, AAA and hypertension was admitted on 07/13 with chief complaint of shortness of breath. Patient was initially admitted on the floor and deteriorated due to his respiratory status and was transferred to ICU on 07/14 and intubated at 8:35 a.m.. Patient also had a right IJ central venous catheter insertion for hypotension and shock. CT scan showed bilateral diffuse infiltrates. He also had pleural effusion patient was started on antibiotics for sepsis and pneumonia. He was started on tube feeding for Will he appeared to be malnourished with lot of weight loss recently. Patient was also evaluated by pulmonology. On 07/14 patient underwent thoracentesis of the right pleural effusion where 1 L fluid was removed and fluid was sent for studies including cytology. An echocardiogram was done which showed EF of 65-70% with grade 1 diastolic dysfunction. Mechanical ventilation was continued. Oncology was consulted and and they recommended. His CT abdomen pelvis also showed finding suspicious of metastatic disease. Patient underwent weaning trial multiple days and failed immediately due to high RSBI increased work of breathing and respiratory distress. His fluid cytology came back showing malignant cells. These findings were discussed with patient's at bedside and son by phone. At this point patient himself was requesting to be extubated by pointing towards the tube daily and was requesting staff to extubate him as he was clear that he did not want to stay on mechanical ventilation. He was riding on a piece of paper on holding his sedation. I had extensive discussion with patient's at bedside and patient's son by phone and we discussed goals of care and code status. They both were in agreement that patient's overall prognosis poor and were also aware of patient's wishes to not to continue with mechanical venti lation. Eventually patient's son arrived on the night of 07/19. He met with his stepmother and father and after discussion unknown cell they decided to proceed with palliative extubation and comfort care. Dominga Greenwood nurse practitioner on at that night spoke to both family members and confirmed their assessment of patient wishes to proceed with palliative extubation and comfort care. Patient was extubated and and eventually and was pronounced at 5:50 a.m. on 07/20/24 before I could see him that day. Additional Data Confirmation of as documented by pronouncing clinician: Pupillary Reflex, Palpable Pulses, Response to Stimuli, Heart Tones and Breath Sounds Name of Provider Notified: Dominga Greenwood APRN Time Provider Notified: 05:50 Provider Requests Autopsy: No Assistant Store Manager Sales Notified: Yes Date [facility] Notified of : 07/20/24 Time [facility] Notified of : 05:59
== END 2024-07-20 05:36 | disposition expired | DRG 870 ==
LOC: ANHED 16:55 → ANH3MEDSUR 19:18 → ANHIMU 21:33 → ANHICU 07-14 07:27
PROVIDERS: Internal Medicine; Internal Medicine Hematology & Oncology; Physician Assistant; Student in an Organized Health Care Education/Training Program; Admitting Provider Internal Medicine; Emergency Provider Emergency Medicine; PCP Family Medicine; Visit Provider Internal Medicine
DX: A41.9 Sepsis, unspecified organism (principal); J18.9 Pneumonia, unspecified organism; J96.01 Acute respiratory failure with hypoxia; E44.0 Moderate protein-calorie malnutrition; J91.0 Malignant pleural effusion; R65.20 Severe sepsis without septic shock; I10 Essential (primary) hypertension; Z20.822 Contact with and (suspected) exposure to COVID-19; Z99.81 Dependence on supplemental oxygen; Z85.118 Personal history of other malignant neoplasm of bronchus and lung; Z90.2 Acquired absence of lung [part of]; Z72.0 Tobacco use
CPT/HCPCS: 31500; 32555; 36415; 36600; 71045; 71046; 71275; 74176; 80053; 80202; 82042; 82150; 82375; 82607; 82728; 82746; 82805; 82945; 82948; 83050; 83540; 83550; 83605; 83615; 83735; 83880; 83986; 84100; 84157; 84311; 84478; 85018; 85025; 85610; 85730; 87015; 87040; 87070; 87075; 87102; 87116; 87205; 87206; 87636; 87641; 88108; 88305; 88342; 89051; 93005; 94002; 94003; 94640; 96365; 96366; 96367; 96368; 96375; 99285; A9270; C1751; C8929; G0378; J0456; J0692; J0696; J1650; J1720; J1940; J2060; J2250; J2270; J2470; J2704; J3010; J3370; J3475; J7030; J7120; J7512; P9047; Q9957; Q9967